=== PATIENT | female | born 1950 | race Caucasian/White ===

== ENCOUNTER 2016-07-07 08:58 | Day surgery (SDC) | payer MEDICARE ==
[2016-07-06 08:33] VITALS: BMI 28.7
[~2016-07-07 08:58] MED LIST: LACTATED RINGERS 1,000 ML IV SCH
[2016-07-07 09:37] VITALS: RESP 16; TEMP 97
[2016-07-07] MEDS ORDERED: LIDOCAINE 1% 20 ML VIAL (10MG/ML) FOR IV START INTRADERMA ONE (09:41)
[2016-07-07] MEDS ORDERED: LIDOCAINE 1% INJ 10MG/ML (20 ML MDV) ONE (09:58)
[2016-07-07] MEDS ORDERED: PROPOFOL 10 MG/ML 20 ML VIAL IV ONE (09:58)
--- NOTE | 2016-07-07 10:08 | P.PCN ---
Date of Procedure: 07/07/16 Procedure(s) Performed: BRIEF HISTORY: Patient is a 66-year-old, pleasant, white female, scheduled for an upper endoscopy as a part of evaluation of long-standing history of GERD and Carr's esophagus. She is presently on Prilosec 20 mg daily and doing much better. Denies any heartburn, dysphagia or odynophagia.. PROCEDURE PERFORMED: Esophagogastroduodenoscopy with biopsy. PREOPERATIVE DIAGNOSIS: GERD/Carr's esophagus. IV sedation per anesthesia. PROCEDURE: After informed consent was obtained, the patient was brought into the endoscopy unit. IV sedation was administered by Anesthesia under continuous monitoring. Initially the Olympus GIF-140 video endoscope was inserted into the mouth. Esophagus intubated without any difficulty. It was gradually advanced into the stomach and duodenum and carefully examined. The bulb and the second part of the duodenum appeared normal. The scope at this time was withdrawn to the stomach, adequately insufflated with air, and upon careful examination, mucosa of the antrum, body, cardia and the fundus appeared normal. The scope was then withdrawn into the esophagus. The GE junction was located at 36 cm from the incisors. There was a small hiatal hernia noted. There were 2 tongues of Carr's appearing mucosa extending 3-4 mm proximal to the GE junction and this was biopsied. The rest of the esophagus appeared normal. There were no erosions or ulcerations seen and the patient tolerated the procedure well. IMPRESSION: 1. Small hiatal hernia. 2. Short segment Carr's esophagus status post biopsy. RECOMMENDATIONS: The findings of this examination were discussed with the patient as well as her family. She was advised to follow with the biopsy results. She will continue with Prilosec 20 mg daily and follow antireflux measures. If the biopsy confirms the presence of Carr's esophagus she can have a repeat upper endoscopy in 2 years.
[2016-07-07 10:54] VITALS: BP 160/72; PULSE 59
== END 2016-07-07 10:59 | disposition home or self-care (01) ==
LOC: ORWHC2ENDO 08:58
PROVIDERS: ATTEND Internal Medicine Gastroenterology
DX: K22.70 Barrett's esophagus without dysplasia (principal); K21.0 Gastro-esophageal reflux disease with esophagitis; K44.9 Diaphragmatic hernia without obstruction or gangrene; I10 Essential (primary) hypertension; E78.5 Hyperlipidemia, unspecified; J45.909 Unspecified asthma, uncomplicated; J44.9 Chronic obstructive pulmonary disease, unspecified; Z87.891 Personal history of nicotine dependence; Z79.82 Long term (current) use of aspirin; Z79.899 Other long term (current) drug therapy; Z88.5 Allergy status to narcotic agent; Z88.0 Allergy status to penicillin; Z91.041 Radiographic dye allergy status; Z88.8 Allergy status to other drugs, medicaments and biological substances; I25.2 Old myocardial infarction
CPT/HCPCS: 88305; 43239; J2001; J2704

== ENCOUNTER → 2017-02-22 | Outpatient (CLI) | payer MEDICARE ==
[2017-02-22 11:08] LABS: Appearance,Urine Clear (Clear); Bilirubin,Urine Negative (Negative); CH 29.8; CHCM 32.3; Glucose,Urine (UA) Negative (Negative); HCT 42.4 % (34.0-46.0); HDW 2.78; HGB 13.3 gm/dL (11.4-16.0); Ketones,Urine Negative (Negative); Leukocyte Esterase,Urine Negative (Negative); MCH 29.1 pg (25.0-35.0); MCHC 31.4 g/dL (31.0-37.0); MCV 92.5 fL (80.0-100.0); Mean Platelet Volume 7.3; Nitrite,Urine Negative (Negative); PH, Urine 5.5 (5.0-8.0); Protein,Urine Trace (Negative); RBC 4.59 m/uL (3.80-5.40); RDW 13.7 % (11.5-15.5); Specific Gravity,Urine 1.007 (1.001-1.035); UA Billing (MACRO vs. MICRO) CHEM; Urobilinogen,Urine <2.0 mg/dL (<2.0); WBC 5.2 k/uL (3.8-10.6)
[2017-02-22 11:20] LABS: Calcium 9.5 mg/dL (8.4-10.2); Magnesium 2.2 mg/dL (1.6-2.3); Phosphorus 3.6 mg/dL (2.5-4.5); Potassium 5.1 mmol/L (3.5-5.1)
== END | disposition home or self-care (01) ==
LOC: LABWHC1 10:20
PROVIDERS: ATTEND Nurse Practitioner Family
DX: N18.3 Chronic kidney disease, stage 3 (moderate) (principal); D64.9 Anemia, unspecified; N39.0 Urinary tract infection, site not specified; R80.9 Proteinuria, unspecified; E21.3 Hyperparathyroidism, unspecified; E55.9 Vitamin D deficiency, unspecified; M10.9 Gout, unspecified
CPT/HCPCS: 36415; 80048; 81003; 82306; 82570; 83735; 83970; 84100; 84156; 84550; 85027

== ENCOUNTER → 2018-03-13 | Outpatient (CLI) | payer MEDICARE ==
--- NOTE | 2018-03-13 09:40 | XR ---
EXAMINATION TYPE: XR chest 2V DATE OF EXAM: 03/13/2018 COMPARISON: Prior chest x-ray 05/28/2015 HISTORY: Shortness of breath TECHNIQUE: Frontal and lateral views of the chest are obtained. FINDINGS: Patient is post median sternotomy and mitral valve replacement. Prominent lung volumes com patible with underlying COPD. Heart size is stable. No evident pneumothorax or pleural effusion. IMPRESSION: There may be basilar atelectasis, correlate for possible pneumonia. Follow-up recommende d.
== END | disposition home or self-care (01) ==
LOC: RADXRMAIN 09:12
PROVIDERS: ATTEND Family Medicine
DX: R06.02 Shortness of breath (principal)
CPT/HCPCS: 71046

== ENCOUNTER → 2018-06-21 | Outpatient (CLI) | payer MEDICARE ==
--- NOTE | 2018-06-22 10:15 | XR ---
EXAMINATION TYPE: XR chest 2V DATE OF EXAM: 06/21/2018 COMPARISON: Prior chest x-ray 03/13/2018 HISTORY: Pneumonia, cough TECHNIQUE: Frontal and lateral views of the chest are obtained. FINDINGS: The patient is post median sternotomy and rotated. Post mitral valve replacement change, ep icardial pacing leads again noted. There is no focal air space opacity, pleural effusion, or pneumot horax seen. The cardiac silhouette size is within normal limits. Prominent lung volumes suggest unde rlying COPD. The aorta is dense. The osseous structures are intact. IMPRESSION: No acute cardiopulmonary process. Patient's pneumonia has resolved.
== END | disposition home or self-care (01) ==
LOC: RADXRMAIN 15:17
PROVIDERS: ATTEND Family Medicine
DX: R91.8 Other nonspecific abnormal finding of lung field (principal)
CPT/HCPCS: 71046

== ENCOUNTER 2020-04-19 09:19 | Inpatient (IN) | payer MEDICARE ==
[2020-04-19] MEDS ORDERED: SODIUM CHLORIDE 0.9% 1,000 ML IV STA (10:02)
[2020-04-19] MEDS ORDERED: IPRATROPIUM-ALBUTEROL 3 ML NEB INHALATION STA (10:02)
[2020-04-19 10:32] LABS: Basophils % (A) 0 %; Eosinophils # (A) 0.2 k/uL (0-0.7); Eosinophils % (A) 2 %; HCT 42.4 % (34.0-46.0); HGB 13.6 gm/dL (11.4-16.0); Lymphocytes # (A) 1.1 k/uL (1.0-4.8); Lymphocytes % (A) 11 %; MCH 29.8 pg (25.0-35.0); MCHC 32.2 g/dL (31.0-37.0); MCV 92.6 fL (80.0-100.0); Mean Platelet Volume 7.5; Monocytes # (A) 0.5 k/uL (0-1.0); Monocytes % (A) 5 %; Neutrophils # (A) 7.8 k/uL (1.3-7.7); Neutrophils % (A) 81 %; Platelet Count 282 k/uL (150-450); RBC 4.58 m/uL (3.80-5.40); RDW 14.2 % (11.5-15.5); WBC 9.8 k/uL (3.8-10.6)
--- NOTE | 2020-04-19 10:43 | ED ---
SOB HPI - General Chief Complaint: Shortness of Breath Stated Complaint: Poss Pneumonia Time Seen by Provider: 04/19/20 09:35 Source: patient, RN notes reviewed Mode of arrival: wheelchair Limitations: no limitations - History of Present Illness Initial Comments: This is a 70-year-old female who presents with complaints of shortness of breath and productive cough and generalized weakness. She's had a fever for the past 4 days some night sweats also complains of some deep breathing pain in the left she believes she may have pneumonia she's had before. No palpitations or other complaints or modifying factors MD Complaint: shortness of breath, cough - Related Data Home Medications Medication Instructions Recorded Confirmed Aspirin 325 mg PO HS 07/06/16 04/19/20 Enalapril [Vasotec] 20 mg PO BID 07/06/16 04/19/20 Ergocalciferol (Vitamin D2) 50,000 unit PO Q30D 07/06/16 04/19/20 [Vitamin D2] Magnesium Oxide 400 mg PO HS 07/06/16 04/19/20 Metoprolol Tartrate [Lopressor] 50 mg PO BID 07/06/16 04/19/20 Pravastatin Sodium 80 mg PO HS 07/06/16 04/19/20 Albuterol Inhaler [Ventolin Hfa 2 puff INHALATION RT-Q6H PRN 04/19/20 04/19/20 Inhaler] Ezetimibe [Zetia] 10 mg PO DAILY 04/19/20 04/19/20 Fluticasone/Umeclidin/Vilanter 1 puff INHALATION RT-DAILY 04/19/20 04/19/20 [Trelegy Ellipta 200-62.5-25] Omeprazole Magnesium [PriLOSEC OTC] 20 mg PO DAILY PRN 04/19/20 04/19/20 calcitrioL [Calcitriol] 0.25 mcg PO CRENSHAW 04/19/20 04/19/20 hydroCHLOROthiazide 25 mg PO DAILY 04/19/20 04/19/20 Allergies Allergy/AdvReac Type Severity Reaction Status Date / Time chlorthalidone Allergy Vomiting Verified 04/19/20 10:19 Iodinated Contrast Media Allergy blisters Verified 04/19/20 10:19 [Iodinated Contrast Media - Oral and] meperidine [From Demerol] Allergy Vomiting Verified 04/19/20 10:19 Penicillins Allergy Swelling/hi Verified 04/19/20 10:19 ves Review of Systems ROS Statement: Those systems with pertinent positive or pertinent negative responses have been documented in the HPI. ROS Other: All systems not noted in ROS Statement are negative. Past Medical History Past Medical History: Asthma, Coronary Artery Disease (CAD), COPD, GERD/Reflux, Hyperlipidemia, Hypertension, Myocardial Infarction ([place]) Additional Past Medical History / Comment(s): hx anemia, barretts esophagus, kidneys not functioning properly - having testing Last Myocardial Infarction Date:: 2007 History of Any Multi-Drug Resistant Organisms: None Reported Past Surgical History: Cardiac Valve Replacement, Cholecystectomy, Heart Catheterization, Tubal Ligation Additional Past Surgical History / Comment(s): mitral valve replacement Past Anesthesia/Blood Transfusion Reactions: Motion Sickness Past Psychological History: No Psychological Hx Reported Smoking Status: Former smoker Past Alcohol Use History: None Reported Past Drug Use History: None Reported - Past Family History Mother Family Medical History: No Reported History General Exam - General Exam Comments Initial Comments: This is a well-developed well-nourished awake alert oriented 3 female Limitations: no limitations General appearance: alert, in no apparent distress Head exam: Present: atraumatic, normocephalic, normal inspection Eye exam: Present: normal appearance, PERRL, EOMI. Absent: scleral icterus, conjunctival injection, periorbital swelling ENT exam: Present: normal exam, mucous membranes moist Neck exam: Present: normal inspection, full ROM, other (No stridor JVD or bruits). Absent: tenderness, meningismus, lymphadenopathy Respiratory exam: Present: rhonchi (The floor lobe rhonchi), chest wall tenderness (Tennis palpation over left chest wall), decreased breath sounds. Absent: respiratory distress, wheezes, rales, stridor Cardiovascular Exam: Present: normal rhythm, tachycardia, normal heart sounds. Absent: systolic murmur, diastolic murmur, rubs, gallop, clicks GI/Abdominal exam: Present: soft, normal bowel sounds. Absent: distended, tenderness, guarding, rebound, rigid Extremities exam: Present: normal inspection, full ROM, normal capillary refill. Absent: tenderness, pedal edema, joint swelling, calf tenderness Back exam: Present: normal inspection Neurological exam: Present: alert, oriented X3, CN II-XII intact Psychiatric exam: Present: normal affect, normal mood Skin exam: Present: warm, dry, intact, normal color. Absent: rash Course Vital Signs 04/19/20 04/19/20 09:21 11:32 Temperature 97.8 F Pulse Rate 120 H Respiratory 22 16 Rate Blood Pressure 94/68 O2 Sat by Pulse 90 L Oximetry - Reevaluation(s) Reevaluation #1: 04/19/20 12:53 Patient states she did improve with respiratory efforts treatment. Medical Decision Making - Medical Decision Making I did a long discussion with the patient. Findings or is evidence of infiltrates on x-rays as well as evidence of CHF. In light of the patient's symptoms and persistent dyspnea she'll be admitted case was discussed with Dr. King. - Lab Data Result diagrams: 04/19/20 10:12 04/19/20 10:17 Lab Results 04/19/20 04/19/20 04/19/20 Range/Units 10:12 10:17 10:17 WBC 9.8 (3.8-10.6) k/uL RBC 4.58 (3.80-5.40) m/uL Hgb 13.6 (11.4-16.0) gm/dL Hct 42.4 (34.0-46.0) % MCV 92.6 (80.0-100.0) fL MCH 29.8 (25.0-35.0) pg MCHC 32.2 (31.0-37.0) g/dL RDW 14.2 (11.5-15.5) % Plt Count 282 (150-450) k/uL MPV 7.5 Neutrophils % 81 % Lymphocytes % 11 % Monocytes % 5 % Eosinophils % 2 % Basophils % 0 % Neutrophils # 7.8 H (1.3-7.7) k/uL Lymphocytes # 1.1 (1.0-4.8) k/uL Monocytes # 0.5 (0-1.0) k/uL Eosinophils # 0.2 (0-0.7) k/uL Basophils # 0.0 (0-0.2) k/uL PT 10.4 (9.0-12.0) sec INR 1.0 (<1.2) APTT 21.8 L (22.0-30.0) sec Sodium 132 L (137-145) mmol/L Potassium 5.1 (3.5-5.1) mmol/L Chloride 95 L (98-107) mmol/L Carbon Dioxide 22 (22-30) mmol/L Anion Gap 15 mmol/L BUN 47 H (7-17) mg/dL Creatinine 2.49 H (0.52-1.04) mg/dL Est GFR (CKD-EPI)AfAm 22 (>60 ml/min/1.73 sqM) Est GFR (CKD-EPI)NonAf 19 (>60 ml/min/1.73 sqM) Glucose 115 H (74-99) mg/dL Plasma Lactic Acid Radames (0.7-2.0) mmol/L Calcium 9.2 (8.4-10.2) mg/dL Magnesium 2.6 H (1.6-2.3) mg/dL Total Bilirubin 0.7 (0.2-1.3) mg/dL AST 54 H (14-36) U/L ALT 35 H (4-34) U/L Alkaline Phosphatase 74 (38-126) U/L Creatine Kinase 117 (30-135) U/L Troponin I (0.000-0.034) ng/mL NT-Pro-B Natriuret Pep pg/mL Total Protein 6.6 (6.3-8.2) g/dL Albumin 3.7 (3.5-5.0) g/dL 04/19/20 04/19/20 04/19/20 Range/Units 10:17 10:17 10:17 WBC (3.8-10.6) k/uL RBC (3.80-5.40) m/uL Hgb (11.4-16.0) gm/dL Hct (34.0-46.0) % MCV (80.0-100.0) fL MCH (25.0-35.0) pg MCHC (31.0-37.0) g/dL RDW (11.5-15.5) % Plt Count (150-450) k/uL MPV Neutrophils % % Lymphocytes % % Monocytes % % Eosinophils % % Basophils % % Neutrophils # (1.3-7.7) k/uL Lymphocytes # (1.0-4.8) k/uL Monocytes # (0-1.0) k/uL Eosinophils # (0-0.7) k/uL Basophils # (0-0.2) k/uL PT (9.0-12.0) sec INR (<1.2) APTT (22.0-30.0) sec Sodium (137-145) mmol/L Potassium (3.5-5.1) mmol/L Chloride (98-107) mmol/L Carbon Dioxide (22-30) mmol/L Anion Gap mmol/L BUN (7-17) mg/dL Creatinine (0.52-1.04) mg/dL Est GFR (CKD-EPI)AfAm (>60 ml/min/1.73 sqM) Est GFR (CKD-EPI)NonAf (>60 ml/min/1.73 sqM) Glucose (74-99) mg/dL Plasma Lactic Acid Radames 1.2 (0.7-2.0) mmol/L Calcium (8.4-10.2) mg/dL Magnesium (1.6-2.3) mg/dL Total Bilirubin (0.2-1.3) mg/dL AST (14-36) U/L ALT (4-34) U/L Alkaline Phosphatase (38-126) U/L Creatine Kinase (30-135) U/L Troponin I <0.012 (0.000-0.034) ng/mL NT-Pro-B Natriuret Pep 2940 pg/mL Total Protein (6.3-8.2) g/dL Albumin (3.5-5.0) g/dL - EKG Data -: EKG Interpreted by Tn EKG Comments: Sinus tachycardia rate of 118 192 QRS duration 80 QT since QTC 324/[address]-T wave configuration - Radiology Data Radiology results: report reviewed (Did review the imaging and report evidence of infiltrates in the right lower lobe and left lower lobe.), image reviewed Disposition Clinical Impression: Pneumonia, Acute exacerbation of chronic obstructive pulmonary disease, CHF (congestive heart failure), Acute kidney injury Disposition: ADMITTED IP TO THIS [facility] Condition: Fair Referrals: Saman Wilcox DO [Primary Care Provider] - 1-2 days
[2020-04-19 10:44] LABS: Albumin 3.7 g/dL (3.5-5.0); Calcium 9.2 mg/dL (8.4-10.2); Magnesium 2.6 mg/dL (1.6-2.3); Total Bilirubin 0.7 mg/dL (0.2-1.3); Total Protein 6.6 g/dL (6.3-8.2)
[2020-04-19] MEDS ORDERED: ALBUTEROL HFA INHALER INHALATION ONE (10:45)
--- NOTE | 2020-04-19 10:50 | XR ---
EXAMINATION TYPE: XR chest 2V DATE OF EXAM: 04/19/2020 COMPARISON: 06/21/2018 HISTORY: 70 year-old female shortness of breath, difficulty breathing TECHNIQUE: PA and lateral views FINDINGS: Median sternotomy wires and post-CABG clips. Annuloplasty ring is also noted. Retained epicardial pac er leads. Heart normal size. Mild interstitial prominence and mild hyperinflation. New focal right ba silar opacity. There is also some patchy peripheral left basilar opacity blunting the costophrenic an gle. No sizable effusion on the lateral view. IMPRESSION: 1. COPD. 2. Patchy bibasilar densities, medially on the right and peripherally on the left. Early pneumonia, a spiration, and interstitial pneumonitis are some considerations.
[2020-04-19 10:54] LABS: Prothrombin Time 10.4 sec (9.0-12.0)
[2020-04-19 11:01] LABS: Partial Thromboplastin Time 21.8 sec (22.0-30.0)
[2020-04-19 11:20] LABS: Potassium 5.1 mmol/L (3.5-5.1)
[2020-04-19] MEDS ORDERED: PNEUMONIA PROTOCOL UTILIZED 1 EACH MISC PO PRN (12:55)
[2020-04-19] MEDS ORDERED: AZITHROMYCIN 500 MG in SODIUM CHLORIDE 0.9% 250 ML IVPB STA (12:55)
[2020-04-19] MEDS ORDERED: PANTOPRAZOLE 40 MG TABLET PO PRN (12:57)
[2020-04-19] MEDS: SODIUM CHLORIDE 0.9% 1,000 ML IV SCH (13:06)
[2020-04-19] MEDS: IPRATROPIUM-ALBUTEROL 3 ML NEB INHALATION SCH ×2 (15:50→20:19)
[2020-04-19] MEDS ORDERED: FUROSEMIDE 10 MG/ML 4 ML VIAL IV SCH (16:00)
[2020-04-19] MEDS ORDERED: HEPARIN SODIUM,PORCINE 5,000 UNIT/ML 1 ML VIAL IV ONE (17:18)
[2020-04-19] MEDS ORDERED: HEPARIN SODIUM,PORCINE 5,000 UNIT/ML 1 ML VIAL IV PRN (17:18)
[2020-04-19] MEDS: METOPROLOL TARTRATE 50 MG TAB PO SCH (17:48)
[2020-04-19] MEDS: HEPARIN SOD,PORK IN 0.45% NACL 25,000 UNIT in 0.45% NACL 1 250ML.BAG IV SCH (18:39)
[2020-04-19] MEDS ORDERED: MAGNESIUM HYDROXIDE 2,400 MG/10 ML CUP PO PRN (19:36)
[2020-04-19] MEDS ORDERED: MELATONIN 3 MG TABLET PO PRN (19:36)
[2020-04-19] MEDS ORDERED: ONDANSETRON 4 MG/2 ML VIAL IVP PRN (19:36)
[2020-04-19] MEDS ORDERED: LORazepam 0.5 MG TAB PO PRN (19:36)
[2020-04-19] MEDS ORDERED: CALCIUM CARBONATE 500 MG CHEWABLE PO PRN (19:36)
[2020-04-19] MEDS ORDERED: NALOXONE 0.4 MG/ML 1 ML VIAL IV PRN (19:36)
--- NOTE | 2020-04-19 19:47 | P.HPIM ---
History of Present Illness H&P Date: 04/19/20 Chief Complaint: Short of breath cough History of presenting complaint: This is a pleasant 70-year-old patient of Dr. Glory Wilcox. Chronic stable medical conditions include coronary artery disease, CHF, GERD, hypertension, hyperlipidemia, chronic kidney disease, Carr's esophagus, hiatal hernia, coronary artery disease with history of bypass cardiac valve replacement/mitral valve replacement. Patient always rather active. For 4 days patient started getting increasingly short of breath. Wheezing. Off. She described her sputum as being yucky. Developed fevers and significant chills. Decreased appetite tired rundown. Review of systems: GEN.: Tired fever or chills EYES: None HEENT: None NECK: None RESPIRATORY: As above CARDIOVASCULAR: None GASTROINTESTINAL: None GENITOURINARY: None MUSCULOSKELETAL: Joint pains LYMPHATICS: None HEMATOLOGICAL: None PSYCHIATRY: None NEUROLOGICAL: None Past medical history to include: COPD,'s coronary artery disease with bypass, CHF, COPD, GERD, hyperlipidemia, hypertension, kidney disease, Carr's esophagus, hiatal hernia, mitral valve replacement Social history: This letter and her daughter. She is active. He smoked on and off since she was 17 for many years finally stopping in 2007. No alcohol. Physical examination: VITAL SIGNS: 97.8, 120, 22, 94/68, 90% on room air upon presentation GENERAL: BMI 27.2, sitting on bed, slightly short of breath, awake. EYES: Pupils equal. Conjunctiva normal. HEENT: External appearance of nose and ears normal, oral cavity grossly normal. NECK: JVD not raised; masses not palpable. HEART: First and second heart sounds are normal; no edema. LUNGS: Respiratory rate increased, decreased breath sounds or wheezing some right basal expiratory crackle. ABDOMEN: Soft, nontender, liver spleen not palpable, no masses palpable. PSYCH: Alert and oriented x3; mood and affect normal. MUSCULOSKELETAL: Evidence of OA NEUROLOGICAL: Cranial nerves grossly intact; no facial asymmetry, power and sensation grossly intact. LYMPHATICS: No lymph nodes palpable in the axilla and neck INVESTIGATIONS, reviewed in the clinical context: WBC 9.8 white count 13.6 hemoglobin 22 left shift sodium 132 potassium 5.1 bun 47 creatinine 2.49 Coronavirus [PCR]-not detected EKG tracing personally reviewed by me-possible sinus tachycardia. Chest x-ray film personally reviewed by me-hyperinflated, basilar infiltrates Assessment and plan: -This is a patient who presents with 4 days of increasing short of breath cough chunky sputum production. Patient has infiltrates on the chest x-ray at the bases. Bilateral basal pneumonia suspected gram-negative organism. Patient started IV ceftriaxone Zithromax will send a sputum for Gram stain and culture -Acute COPD exacerbation in an ex-smoker. Start the patient on bronchodilator, inhaled steroids and long-acting beta agonist -Coronary artery disease by history of coronary bypass, continue with aspirin beta sonya and TESSA inhibitor -Chronic kidney disease stage IV. Rule out acute component. We will do a renal ultrasound. Stop Dyazide. Renal ultrasound. Renal consultation -GERD continue PPI -Hyperlipidemia continue antilipid agents -Essential hypertension continue with antihypertensive -Carr's esophagus continue with PPI -History of mitral valve replacement Consultation to nephrology. Cardiology. Sputum will be sent for Gram stain and.. Care was discussed with the patient. Questions answered. Patient is being admitted to inpatient expect the patient to be in hospital for at least overnights Past Medical History Past Medical History: Asthma, Coronary Artery Disease (CAD), Heart Failure, COPD, GERD/Reflux, Hyperlipidemia, Hypertension, Myocardial Infarction ([place]), Pneumonia, Renal Disease Additional Past Medical History / Comment(s): Carr's esophagus, hiatal hernia, sinus problems, past renal insufficiency, acute blood loss anemia with misscarriage. Last Myocardial Infarction Date:: 2007 History of Any Multi-Drug Resistant Organisms: None Reported Past Surgical History: Cardiac Valve Replacement, Cholecystectomy, Coronary Bypass/CABG, Heart Catheterization, Tubal Ligation Additional Past Surgical History / Comment(s): 2008 CABG with jacinto to lad and mitral valve replacement, MAIRA, EGD and colonoscopy. Past Anesthesia/Blood Transfusion Reactions: Motion Sickness Additional Past Anesthesia/Blood Transfusion Reaction / Comment(s): Pt received blood with misscarriage once without reaction. Smoking Status: Former smoker - Past Family History Mother Family Medical History: COPD, Coronary Artery Disease (CAD), Myocardial Infarction ([place]) Additional Family Medical History / Comment(s): Pt does not know at what age her mother had a [place] Father Family Medical History: No Reported History Additional Family Medical History / Comment(s): Father was healthy Medications and Allergies Home Medications Medication Instructions Recorded Confirmed Type Aspirin 325 mg PO HS 07/06/16 04/19/20 History Enalapril [Vasotec] 20 mg PO BID 07/06/16 04/19/20 History Ergocalciferol (Vitamin D2) 50,000 unit PO Q30D 07/06/16 04/19/20 History [Vitamin D2] Magnesium Oxide 400 mg PO HS 07/06/16 04/19/20 History Metoprolol Tartrate [Lopressor] 50 mg PO BID 07/06/16 04/19/20 History Pravastatin Sodium 80 mg PO HS 07/06/16 04/19/20 History Albuterol Inhaler [Ventolin Hfa 2 puff INHALATION RT-Q6H PRN 04/19/20 04/19/20 History Inhaler] Ezetimibe [Zetia] 10 mg PO DAILY 04/19/20 04/19/20 History Fluticasone/Umeclidin/Vilanter 1 puff INHALATION RT-DAILY 04/19/20 04/19/20 History [Trelegy Ellipta 200-62.5-25] Omeprazole Magnesium [PriLOSEC OTC] 20 mg PO DAILY PRN 04/19/20 04/19/20 History calcitrioL [Calcitriol] 0.25 mcg PO CRENSHAW 04/19/20 04/19/20 History hydroCHLOROthiazide 25 mg PO DAILY 04/19/20 04/19/20 History Allergies Allergy/AdvReac Type Severity Reaction Status Date / Time chlorthalidone Allergy Vomiting Verified 04/19/20 10:19 Iodinated Contrast Media Allergy blisters Verified 04/19/20 10:19 [Iodinated Contrast Media - Oral and] meperidine [From Demerol] Allergy Vomiting Verified 04/19/20 10:19 Penicillins Allergy Swelling/hi Verified 04/19/20 10:19 ves Physical Exam Vitals: Vital Signs Temp Pulse Pulse Resp BP BP Pulse Ox 04/19/20 16:03 100 04/19/20 16:00 97.1 F L 89 16 110/69 92 L 04/19/20 15:53 100 04/19/20 13:38 106 H 16 110/90 96 04/19/20 11:32 16 04/19/20 09:21 97.8 F 120 H 22 94/68 90 L Intake and Output 04/19/20 04/19/20 04/19/20 06:59 14:59 22:59 Intake Total 125 Balance 125 Intake: Oral 125 Other: Weight 68.492 kg 69.7 kg Results CBC & Chem 7: 04/19/20 10:12 04/19/20 10:17 Labs: Abnormal Lab Results - Last 24 Hours (Table) 04/19/20 04/19/20 04/19/20 Range/Units 10:12 10:17 10:17 Neutrophils # 7.8 H (1.3-7.7) k/uL APTT 21.8 L (22.0-30.0) sec Sodium 132 L (137-145) mmol/L Chloride 95 L (98-107) mmol/L BUN 47 H (7-17) mg/dL Creatinine 2.49 H (0.52-1.04) mg/dL Glucose 115 H (74-99) mg/dL Magnesium 2.6 H (1.6-2.3) mg/dL AST 54 H (14-36) U/L ALT 35 H (4-34) U/L Thrombosis Risk Factor Assmnt - Choose All That Apply Any of the Below Risk Factors Present?: Yes Each Factor Represents 1 point: Abnormal pulmonary function (COPD), Heart failure (<1month), Obesity (BMI >25), Serious lung disease incl. pneumonia (< 1month) Other Risk Factors: Yes Each Risk Factor Represents 2 Points: Age 61-74 years Other congenital or acquired thrombophilia - If yes, enter type in comment: No Thrombosis Risk Factor Assessment Total Risk Factor Score: 6 Thrombosis Risk Factor Assessment Level: High Risk
[2020-04-19] MEDS: FORMOTEROL FUMARATE 20 MCG/2 ML NEBU INHALATION SCH (20:18)
[2020-04-19] MEDS: BUDESONIDE 1 MG/2 ML NEBU INHALATION SCH (20:18)
[2020-04-19] MEDS ORDERED: ASPIRIN 325 MG TAB PO SCH (21:00)
--- NOTE | 2020-04-19 22:02 | US ---
EXAMINATION TYPE: US kidneys/renal and bladder DATE OF EXAM: 04/19/2020 COMPARISON: NONE CLINICAL HISTORY: Kidney failure acute versus chronic. Kidney failure acute versus chronic per order. EXAM MEASUREMENTS: Right Kidney: 8.3 x 3.9 x 3.4 cm Left Kidney: 9.1 x 5.3 x 4.5 cm Right Kidney: Appears small in size. Cortex appears to be slightly thin. No focal lesion. Left Kidney: Difficult to clearly visualize. Cortex appears to be slightly thin. No focal lesion. Bladder: Not seen. IMPRESSION: No bilateral hydronephrosis. Mild cortical thinning, suggestive of mild atrophy.
[2020-04-19] MEDS: methylPREDNISolone SOD SUCCI 40 MG/ML 1 ML VIAL IV SCH (22:05)
[2020-04-19] MEDS: guaiFENesin 600 MG TABLET.ER PO SCH (22:06)
[2020-04-19] MEDS: MAGNESIUM OXIDE 400 MG TAB PO SCH (22:06)
[2020-04-19] MEDS: PRAVASTATIN SODIUM 80 MG TAB PO SCH (23:42)
[2020-04-19] MEDS: lisinopriL 20 MG TAB PO SCH (23:43)
[2020-04-20] MEDS: IPRATROPIUM-ALBUTEROL 3 ML NEB INHALATION SCH ×7 (00:14→20:01)
[2020-04-20] MEDS: methylPREDNISolone SOD SUCCI 40 MG/ML 1 ML VIAL IV SCH ×4 (02:31→23:48)
[2020-04-20 06:30] LABS: Glucose,Whole Blood 171 mg/dL (75-99)
[2020-04-20] MEDS: INSULIN ASPART (NovoLOG) 100 UNIT/ML VIAL SQ SCH ×3 (07:04→17:23)
[2020-04-20] MEDS: EZETIMIBE 10 MG TAB PO SCH (07:59)
[2020-04-20] MEDS: AZITHROMYCIN 500 MG TAB PO SCH (07:59)
[2020-04-20] MEDS: guaiFENesin 600 MG TABLET.ER PO SCH ×4 (08:00→23:48)
[2020-04-20] MEDS: ASPIRIN 81 MG PO SCH (08:00)
[2020-04-20] MEDS: lisinopriL 20 MG TAB PO SCH (08:00)
[2020-04-20] MEDS: METOPROLOL TARTRATE 50 MG TAB PO SCH ×2 (08:00→20:33)
[2020-04-20] MEDS ORDERED: SYMBICORT 80-4.5 MCG INHALER INHALATION SCH (08:00)
[2020-04-20] MEDS: BUDESONIDE 1 MG/2 ML NEBU INHALATION SCH ×2 (08:10→19:45)
[2020-04-20] MEDS: FORMOTEROL FUMARATE 20 MCG/2 ML NEBU INHALATION SCH ×2 (08:10→19:45)
--- NOTE | 2020-04-20 08:10 | XR ---
EXAMINATION TYPE: XR chest 1V portable DATE OF EXAM: 04/20/2020 COMPARISON: 04/19/2020 HISTORY: Shortness of breath TECHNIQUE: Single frontal view of the chest is obtained. FINDINGS: Bibasilar subsegmental consolidation. Coarsened interstitium and cardiomegaly. Postsurgica l change. Diffuse osteopenia. No pneumothorax. Underlying COPD noted. IMPRESSION: 1. Patchy bilateral infiltrates are stable. Correlate for interstitial chronic lung disease or inters titial pneumonitis.
[2020-04-20 08:14] LABS: Basophils % (A) 0 %; Eosinophils % (A) 0 %; HCT 38.4 % (34.0-46.0); HGB 12.3 gm/dL (11.4-16.0); Lymphocytes # (A) 0.4 k/uL (1.0-4.8); Lymphocytes % (A) 7 %; MCHC 32.1 g/dL (31.0-37.0); MCV 93.6 fL (80.0-100.0); Mean Platelet Volume 7.4; Monocytes # (A) 0.1 k/uL (0-1.0); Monocytes % (A) 1 %; Neutrophils # (A) 5.6 k/uL (1.3-7.7); Neutrophils % (A) 91 %; Platelet Count 240 k/uL (150-450); RBC 4.11 m/uL (3.80-5.40); RDW 13.9 % (11.5-15.5); WBC 6.2 k/uL (3.8-10.6)
[2020-04-20 08:55] LABS: Calcium 8.7 mg/dL (8.4-10.2); Potassium 4.7 mmol/L (3.5-5.1)
[2020-04-20] MEDS ORDERED: hydroCHLOROthiazide 25 MG TAB PO SCH (09:00)
--- NOTE | 2020-04-20 11:22 | ECHOF ---
Referral Reason:aflutter MEASUREMENTS -------- HEIGHT: 160.0 cm WEIGHT: 69.4 kg BP: RVIDd: 3.3 cm (< 3.3) IVSd: 1.2 cm (0.6 - 1.1) LVIDd: 3.4 cm (3.9 - 5.3) LVPWd: 1.6 cm (0.6 - 1.1) IVSs: 1.3 cm LVIDs: 3.1 cm LVPWs: 2.0 cm Ao Diam: 2.8 cm (2.0 - 3.7) AV Cusp: 1.5 cm (1.5 - 2.6) LA Diam: 4.2 cm (2.7 - 3.8) MV EXCURSION: 12.148 mm (> 18.000) MV EF SLOPE: 75 mm/s (70 - 150) EPSS: 0.7 cm RAP: 5.00 mmHg RVSP: 29.09 mmHg FINDINGS -------- The rhythm appears to be atrial flutter. This was a technically adequate study. The left ventricular size is normal. There is mild concentric left ventricular hypertrophy. Overa ll left ventricular systolic function is low-normal with, an EF between 50 - 55 %. The right ventricle is normal in size. The right atrial size is normal. There is mild aortic valve sclerosis. The peak and mean MV gradients are 13.69mmHg 4.45mmHg as measured by doppler. There is mild boston-pr osthetic regurgitation of the bioprosthetic mitral valve. Mild tricuspid regurgitation present. The right ventricular systolic pressure, as measured by Doppl er, is 29.09mmHg. There is no pulmonic regurgitation present. The aortic root size is normal. There is no pericardial effusion. CONCLUSIONS -------- 1. The left ventricular size is normal. 2. There is mild concentric left ventricular hypertrophy. 3. Overall left ventricular systolic function is low-normal with, an EF between 50 - 55 %. 4. The right ventricle is normal in size. 5. The right atrial size is normal. 6. There is mild aortic valve sclerosis. 7. The peak and mean MV gradients are 13.69mmHg 4.45mmHg as measured by doppler. 8. There is mild boston-prosthetic regurgitation of the bioprosthetic mitral valve. 9. Mild tricuspid regurgitation present. 10. The right ventricular systolic pressure, as measured by Doppler, is 29.09mmHg. 11. The aortic root size is normal. 12. There is no pericardial effusion. ANTIQUE FURNITURE REPAIRER: Marybel Vargas RDCS
[2020-04-20 12:09] LABS: Glucose,Whole Blood 155 mg/dL (75-99)
--- NOTE | 2020-04-20 12:54 | P.CRDCN ---
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 He does not follow in the office with a [employer] reseller since 2010 when she lost her insurance coverage. We have been asked to see in consultation for atrial flutter. She presented to the hospital with symptoms of cough, fever/chills and weakness. She states she has been diagnosed with pneumonia in the past and this feels the same. She stayed home initially and slept for 2 days straight. Her symptoms did not improve so she presented to the hospital for evaluation. On arrival EKG was obtained revealing 3-1 typical atrial flutter. He was initiated on IV heparin. She denies symptoms of palpitations or dizziness. She does describe having some pain in her chest specifically when she coughs. She continues to be in atrial flutter today heart rates ranging between 100-120. Chest x-ray on admission reveals underlying COPD with early pneumonia. Laboratory data reviewed, CBC unremarkable, sodium 1:30, potassium 4.7, creatinine 1.84, magnesium 2.6, TSH 4.12, and to proBNP 2940 and troponin negative 1. Current daily cardiac medications include aspirin 325 mg daily, enalapril 20 mg twice a day, Zetia 10 mg daily, Lopressor 50 mg twice a day, pravastatin 80 mg at bedtime and hydrochlorothiazide 25 mg daily. REVIEW OF SYSTEMS At the time of my exam: CONSTITUTIONAL: Denies fever or chills. CARDIOVASCULAR: Denies chest pain, shortness of breath, orthopnea, PND or palpitations. RESPIRATORY: Complains of cough. GASTROINTESTINAL: Denies abdominal pain, diarrhea, constipation, nausea or vomiting. MUSCULOSKELETAL: Denies myalgias. NEUROLOGIC: Denies numbness, tingling, headacbe or weakness. ENDOCRINE: Denies fatigue, weight change, polydipsia or polyurina. GENITOURINARY: Denies burning, hematuria or urgency with micturation. HEMATOLOGIC: Denies history of anemia or bleeding. PHYSICAL EXAMINATION Blood pressure 103/68 heart rate 110 afebrile and maintaining oxygen saturation on cannula. CONSTITUTIONAL: No apparent distress. HEENT: Head is normocephalic. Pupils are equal, round. Sclerae anicteric. Mucous membranes of the mouth are moist. No JVD. No carotid bruit. CHEST EXAMINATION: Expiratory wheezes throughout, scattered rhonchi. No rales. No chest wall tenderness is noted on palpation or with deep breathing. HEART EXAMINATION: Irregular rate and rhythm. S1, S2 heard. Systolic ejection murmur at the left sternal border, no gallops or rub. ABDOMEN: Soft, nontender. Positive bowel sounds. EXTREMITIES: 2+ peripheral pulses, no lower extremity edema and no calf tenderness. NEUROLOGIC EXAMINATION: Patient is awake, alert and oriented x3. ASSESSMENT New-onset atrial flutter with rapid ventricular rate Pneumonia Coronary artery disease status post bypass grafting Valvular heart disease status post mitral valve replacement Chronic kidney disease Hypertension Dyslipidemia COPD Former nicotine dependence PLAN Continue metoprolol 50 mg twice a day for rate control may increase to 3 times a day dosing of her blood pressure control her rate. Discontinue lisinopril secondary to renal function. Continue IV heparin infusion. We will check the cost of Eliquis. If her rates cannot be controlled on current oral regimen she may require MAIRA cardioversion. We will reevaluate tomorrow morning. Nothing by mouth after midnight tonight. Obtain 2-D echocardiogram and Doppler study to assess cardiac structure and func tion. Further recommendations to follow based upon clinical course. Thank you kindly for this consultation. Nurse Practitioner note has been reviewed, I agree with a documented findings and plan of care. Patient was seen and examined. Past Medical History Past Medical History: Asthma, Coronary Artery Disease (CAD), Heart Failure, COPD, GERD/Reflux, Hyperlipidemia, Hypertension, Myocardial Infarction (AR), Pneumonia, Renal Disease Additional Past Medical History / Comment(s): Carr's esophagus, hiatal hernia, sinus problems, past renal insufficiency, acute blood loss anemia with misscarriage. Last Myocardial Infarction Date:: 2007 History of Any Multi-Drug Resistant Organisms: None Reported Past Surgical History: Cardiac Valve Replacement, Cholecystectomy, Coronary Bypass/CABG, Heart Catheterization, Tubal Ligation Additional Past Surgical History / Comment(s): 2008 CABG with hart to lad and mitral valve replacement, MAIRA, EGD and colonoscopy. Past Anesthesia/Blood Transfusion Reactions: Motion Sickness Additional Past Anesthesia/Blood Transfusion Reaction / Comment(s): Pt received blood with misscarriage once without reaction. Smoking Status: Former smoker - Past Family History Mother Family Medical History: COPD, Coronary Artery Disease (CAD), Myocardial Infarction (AR) Additional Family Medical History / Comment(s): Pt does not know at what age her mother had a AR Father Family Medical History: No Reported History Additional Family Medical History / Comment(s): Father was healthy Medications and Allergies Home Medications Medication Instructions Recorded Confirmed Type Aspirin 325 mg PO HS 07/06/16 04/19/20 History Enalapril [Vasotec] 20 mg PO BID 07/06/16 04/19/20 History Ergocalciferol (Vitamin D2) 50,000 unit PO Q30D 07/06/16 04/19/20 History [Vitamin D2] Magnesium Oxide 400 mg PO HS 07/06/16 04/19/20 History Metoprolol Tartrate [Lopressor] 50 mg PO BID 07/06/16 04/19/20 History Pravastatin Sodium 80 mg PO HS 07/06/16 04/19/20 History Albuterol Inhaler [Ventolin Hfa 2 puff INHALATION RT-Q6H PRN 04/19/20 04/19/20 History Inhaler] Ezetimibe [Zetia] 10 mg PO DAILY 04/19/20 04/19/20 History Fluticasone/Umeclidin/Vilanter 1 puff INHALATION RT-DAILY 04/19/20 04/19/20 History [Trelegy Ellipta 200-62.5-25] Omeprazole Magnesium [PriLOSEC OTC] 20 mg PO DAILY PRN 04/19/20 04/19/20 History calcitrioL [Calcitriol] 0.25 mcg PO CRENSHAW 04/19/20 04/19/20 History hydroCHLOROthiazide 25 mg PO DAILY 04/19/20 04/19/20 History Allergies Allergy/AdvReac Type Severity Reaction Status Date / Time chlorthalidone Allergy Vomiting Verified 04/19/20 10:19 Iodinated Contrast Media Allergy blisters Verified 04/19/20 10:19 [Iodinated Contrast Media - Oral and] meperidine [From Demerol] Allergy Vomiting Verified 04/19/20 10:19 Penicillins Allergy Swelling/hi Verified 04/19/20 10:19 ves Physical Exam Vitals: Vital Signs Temp Pulse Pulse Resp BP BP Pulse Ox 04/20/20 08:32 104 H 04/20/20 08:25 108 H 04/20/20 08:12 105 H 04/20/20 07:52 97.7 F 105 H 18 103/68 97 04/20/20 04:19 106 H 04/20/20 04:10 101 H 16 04/20/20 03:49 97.4 F L 113 H 17 92/61 95 04/20/20 02:00 116 H 16 04/20/20 00:26 108 H 16 04/20/20 00:16 106 H 16 04/19/20 23:41 116 H 95/60 04/19/20 23:36 116 H 18 89/66 99 04/19/20 20:55 92/61 04/19/20 20:44 96 04/19/20 20:34 92 04/19/20 20:33 92 04/19/20 20:30 97.3 F L 116 H 17 89/68 98 04/19/20 20:19 88 04/19/20 16:03 100 04/19/20 16:00 97.1 F L 89 16 110/69 92 L 04/19/20 15:53 100 04/19/20 13:38 106 H 16 110/90 96 04/19/20 11:32 16 04/19/20 09:21 97.8 F 120 H 22 94/68 90 L Intake and Output 04/19/20 04/20/20 04/20/20 22:59 06:59 14:59 Intake Total 225 56.163 Balance 225 56.163 Intake: Intake, IV Titration 56.163 Amount Heparin Sod,Pork in 0.45% 56.163 NaCl 25,000 unit In 0.45 % NaCl 1 250ml.bag @ 12 UNITS/KG/HR 8.219 mls/hr IV .Q24H [facility] Rx#: [id number] Oral 225 Other: Voiding Method Toilet Toilet # Voids 3 1 Weight 69.7 kg 70 kg Results 04/20/20 07:28 04/20/20 07:28 Cardiac Enzymes 04/19/20 04/19/20 Range/Units 10:17 10:17 AST 54 H (14-36) U/L Troponin I <0.012 (0.000-0.034) ng/mL Coagulation 04/19/20 04/20/20 04/20/20 Range/Units 10:17 00:10 07:37 PT 10.4 (9.0-12.0) sec APTT 21.8 L 31.7 H 43.7 H (22.0-30.0) sec CBC 04/19/20 04/20/20 Range/Units 10:12 07:28 WBC 9.8 6.2 (3.8-10.6) k/uL RBC 4.58 4.11 (3.80-5.40) m/uL Hgb 13.6 12.3 (11.4-16.0) gm/dL Hct 42.4 38.4 (34.0-46.0) % Plt Count 282 240 (150-450) k/uL Comprehensive Metabolic Panel 04/19/20 Range/Units 10:17 Sodium 132 L (137-145) mmol/L Potassium 5.1 (3.5-5.1) mmol/L Chloride 95 L (98-107) mmol/L Carbon Dioxide 22 (22-30) mmol/L BUN 47 H (7-17) mg/dL Creatinine 2.49 H (0.52-1.04) mg/dL Glucose 115 H (74-99) mg/dL Calcium 9.2 (8.4-10.2) mg/dL AST 54 H (14-36) U/L ALT 35 H (4-34) U/L Alkaline Phosphatase 74 (38-126) U/L Total Protein 6.6 (6.3-8.2) g/dL Albumin 3.7 (3.5-5.0) g/dL Current Medications Generic Name Dose Route Start Last Admin Trade Name Freq PRN Reason Stop Dose Admin Acetaminophen 650 mg 04/19/20 19:36 Acetaminophen Tab 325 Mg Tab PO Q6HR PRN Mild Pain or Fever > 100.5 Albuterol/Ipratropium 3 ml 04/19/20 16:00 04/20/20 08:10 Ipratropium-Albuterol 3 Ml Neb INHALATION 3 ml RT-Q4H ALEJANDRO Administration Aspirin 81 mg 04/20/20 09:00 04/20/20 08:00 Aspirin 81 Mg PO 81 mg DAILY ALEJANDRO Administration Azithromycin 500 mg 04/20/20 09:00 04/20/20 07:59 Azithromycin 500 Mg Tab PO 04/24/20 09:01 500 mg DAILY ALEJANDRO Administration Budesonide 1 mg 04/19/20 20:00 04/20/20 08:10 Budesonide 1 Mg/2 Ml Nebu INHALATION 1 mg RT-BID ALEJANDRO Administration Calcitriol 0.25 mcg 04/25/20 09:00 Calcitriol 0.25 Mcg Cap PO CRENSHAW ALEJANDRO Calcium Carbonate/Glycine 1,000 mg 04/19/20 19:36 Calcium Carbonate 500 Mg Chewable PO Q4HR PRN Dyspepsia Ezetimibe 10 mg 04/20/20 09:00 04/20/20 07:59 Ezetimibe 10 Mg Tab PO 10 mg DAILY ALEJANDRO Administration Ergocalciferol 1,250 mcg 05/17/20 09:00 Ergocalciferol 1,250 Mcg (50,000 Iu) Capsule PO Q30D ALEJANDRO Formoterol Fumarate 20 mcg 04/19/20 20:00 04/20/20 08:10 Formoterol Fumarate 20 Mcg/2 Ml Nebu INHALATION 20 mcg RT-BID ALEJANDRO Administration Guaifenesin 600 mg 04/19/20 22:00 04/20/20 08:00 Guaifenesin 600 Mg Tablet.Er PO 600 mg QID ALEJANDRO Administration Heparin Sodium (Porcine) 0 unit 04/19/20 17:18 Heparin Sodium,Porcine 5,000 Unit/Ml 1 Ml Vial IV PER PROTOCOL PRN Low PTT Protocol Sodium Chloride 1,000 mls @ 20 mls/hr 04/19/20 13:00 04/19/20 13:06 Saline 0.9% IV Not Given .Q24H ALEJANDRO Heparin Sodium/Sodium Chloride 250 mls @ 8.219 mls/hr 04/19/20 17:30 04/20/20 01:29 25,000 unit/ Sodium Chloride IV 15 units/kg/hr .Q24H ALEJANDRO 10.274 mls/hr Titration Protocol 12 UNITS/KG/HR Ceftriaxone Sodium 2 gm/ 50 mls @ 100 mls/hr 04/19/20 22:00 04/19/20 23:43 Sodium Chloride IVPB Not Given Q24HR@2200 ALEJANDRO Insulin Aspart 0 unit 04/20/20 07:30 04/20/20 07:04 Insulin Aspart (Novolog) 100 Unit/Ml Vial SQ 4 unit AC-TID ALEJANDRO Administration Protocol Lorazepam 0.5 mg 04/19/20 19:36 Lorazepam 0.5 Mg Tab PO Q6HR PRN Anxiety Magnesium Hydroxide 2,400 mg 04/19/20 19:36 Magnesium Hydroxide 2,400 Mg/10 Ml Cup PO DAILY PRN Constipation Magnesium Oxide 400 mg 04/19/20 21:00 04/19/20 22:06 Magnesium Oxide 400 Mg Tab PO 400 mg HS ALEJANDRO Administration Melatonin 3 mg 04/19/20 19:36 Melatonin 3 Mg Tablet PO HS PRN Insomnia Methylprednisolone Sodium Succinate 40 mg 04/19/20 20:00 04/20/20 07:58 Methylprednisolone Sod Succi 40 Mg/Ml 1 Ml Vial IV 40 mg Q8HR ALEJANDRO Administration Metoprolol Tartrate 50 mg 04/19/20 21:00 04/20/20 08:00 Metoprolol Tartrate 50 Mg Tab PO 50 mg BID ALEJANDRO Administration Miscellaneous Information 1 each 04/19/20 12:55 Pneumonia Protocol Utilized 1 Each Misc PO ONCE PRN Per Protocol Naloxone HCl 0.2 mg 04/19/20 19:36 Naloxone 0.4 Mg/Ml 1 Ml Vial IV Q2M PRN Opioid Reversal Ondansetron HCl 4 mg 04/19/20 19:36 Ondansetron 4 Mg/2 Ml Vial IVP Q8HR PRN Nausea And Vomiting Pantoprazole Sodium 40 mg 04/19/20 12:57 Pantoprazole 40 Mg Tablet PO DAILY PRN gerd Pravastatin Sodium 80 mg 04/19/20 21:00 04/19/20 23:42 Pravastatin Sodium 80 Mg Tab PO 80 mg HS ALEJANDRO Administration Intake and Output 04/19/20 04/20/20 04/20/20 22:59 06:59 14:59 Intake Total 225 56.163 Balance 225 56.163 Intake: Intake, IV Titration 56.163 Amount Heparin Sod,Pork in 0.45% 56.163 NaCl 25,000 unit In 0.45 % NaCl 1 250ml.bag @ 12 UNITS/KG/HR 8.219 mls/hr IV .Q24H [facility] Rx#: [id number] Oral 225 Other: Voiding Method Toilet Toilet # Voids 3 1 Weight 69.7 kg 70 kg 04/20/20 07:28 04/19/20 10:17
[2020-04-20 14:11] LABS: Appearance,Urine Clear (Clear); Bilirubin,Urine Negative (Negative); Blood,Urine Negative (Negative); Color,Urine Light Yellow; Glucose,Urine (UA) Negative (Negative); Ketones,Urine Negative (Negative); Leukocyte Esterase,Urine Negative (Negative); Nitrite,Urine Negative (Negative); Protein,Urine Negative (Negative); Specific Gravity,Urine 1.013 (1.001-1.035); Urobilinogen,Urine <2.0 mg/dL (<2.0)
[2020-04-20 14:31] VITALS: BMI 27.3
[2020-04-20] MEDS: SODIUM CHLORIDE 0.9% 1,000 ML IV SCH (15:27)
[2020-04-20] MEDS: HEPARIN SOD,PORK IN 0.45% NACL 25,000 UNIT in 0.45% NACL 1 250ML.BAG IV SCH (15:29)
--- NOTE | 2020-04-20 16:07 | CONS ---
CONSULTATION REASON FOR CONSULT: Renal failure. HISTORY OF PRESENT ILLNESS: The patient is a 70-year-old female who was admitted to the hospital with complaints of cough, feeling unwell, shortness of breath over the last week to 10 days. Patient's coronavirus PCR test was negative. She does have underlying history of CKD but has not been seen in the office for more than a year. Serum creatinine was 2.49 mg/dL on admission. It is now down to 1.84. We have a previous creatinine of 1.19 in January of 2017. The patient's blood pressure has been low, with systolic in the 80s. Currently she is not on any IV fluids but did receive a bolus initially on admission. Chest x-ray shows bilateral lung infiltrates. The patient states she is feeling better. She denies any urinary symptoms and has been voiding okay. No history of use of NSAIDs prior to admission. Patient was maintained on TESSA inhibitors. PAST MEDICAL HISTORY: CKD, most likely stage III, hypertension, asthma, coronary artery disease, COPD, gastroesophageal reflux disease, history of [place], history of pneumonia, Carr's esophagus, hiatal hernia, anemia. PAST SURGICAL HISTORY: Valvular heart surgery, cholecystectomy, coronary artery bypass surgery, cardiac catheterization, tubal ligation, mitral valve replacement, EGD, colonoscopy, MAIRA. SOCIAL HISTORY: Patient is a former smoker. No history of drug abuse or alcohol abuse. MEDICATIONS: Medications prior to admission included aspirin, Vasotec, vitamin D, magnesium, Lopressor, pravastatin, Zetia, calcitriol, Prilosec, hydrochlorothiazide. ALLERGIES: ALLERGIES include CHLORTHALIDONE, which causes vomiting; IV CONTRAST, DEMEROL, PENICILLIN causes swelling. REVIEW OF SYSTEMS: As per HPI. Other systems negative. PHYSICAL EXAMINATION: Patient is comfortable, awake, not in any acute distress. Alert and oriented x3. Blood pressure is 87/61, heart rate 110 per minute. She is afebrile. Examination of lower extremities shows no evidence of edema. Abdomen is soft, obese, nontender. PROFESSOR OF RELIGION exam is grossly intact. Heart and lungs are not examined. The patient is in isolation for possible coronavirus. LABS: Sodium 130, potassium 4.7, chloride 97. CO2 is 20, BUN 55, creatinine 1.84, hemoglobin 12.3 g/dL. White cell count 6.2. Chest x-ray shows patchy bilateral infiltrates, possible chronic interstitial pneumonitis. ASSESSMENT: 1. Acute kidney injury associated with hypotension in the setting of use of TSESA inhibitors, currently improved. The patient did receive IV fluids initially. However, she is not maintained on IV fluids currently, given the chest x-ray findings. As long as her renal function is stable, we will hold off on the IV fluids. I will add midodrine for hypotension and continue to avoid use of antihypertensive medications for now. Check urinalysis. Ultrasound of the kidneys was already done and shows no evidence of hydronephrosis. Right kidney is smaller in size. 2. Chronic kidney disease, stage 3. Previous creatinine as low as 1.19 in 2017. 3. Secondary hyperparathyroidism. Patient is maintained on Rocaltrol. I do not have a PTH level. We will check that and patient is advised to follow up as outpatient for CKD. 4. Pneumonia with chest x-ray showing bilateral interstitial infiltrates. Coronavirus PCR is negative. Patient is being followed by ID. She is maintained on antibiotics. PLAN: Continue off of IV fluids. Add midodrine. Continue to hold off on antihypertensive medications. Continue with the Lopressor, as heart rate is elevated, and then repeat labs in a.m. Check urinalysis. Thank you for this consultation. Will continue to follow the patient with you during her hospitalization. MMODL / IJN: [id number] /
[2020-04-20 17:17] LABS: Glucose,Whole Blood 163 mg/dL (75-99)
[2020-04-20] MEDS: MIDODRINE 5 MG TAB PO SCH (17:23)
[2020-04-20 19:42] LABS: Glucose,Whole Blood 174 mg/dL (75-99)
--- NOTE | 2020-04-20 19:52 | P.PN ---
Progress Note - Text Progress Note Date: 04/20/20 Chief Complaint: Short of breath cough History of presenting complaint: This is a pleasant 70-year-old patient of Dr. Glory Wilcox. Chronic stable medical conditions include coronary artery disease, CHF, GERD, hypertension, hyperlipidemia, chronic kidney disease, Carr's esophagus, hiatal hernia, coronary artery disease with history of bypass cardiac valve replacement/mitral valve replacement. Patient always rather active. For 4 days patient started getting increasingly short of breath. Wheezing. Off. She described her sputum as being yucky. Developed fevers and significant chills. Decreased appetite tired rundown. Admitted with bilateral pneumonia and acute COPD exacerbation. Also found to have atrial flutter. Patient is put on bronchodilators, IV Solu-Medrol, IV ceftriaxone and Zithromax. Placed on IV heparin. Today-some improvement in breathing. Some wheezing. Oral intake better. Atrial flutter uncontrolled Review of systems: Was done for constitutional, cardiovascular, GI, pulmonary. relevant finding as above Active Medications Acetaminophen (Acetaminophen Tab 325 Mg Tab) 650 mg PO Q6HR PRN PRN Reason: Mild Pain or Fever > 100.5 Albuterol/Ipratropium (Ipratropium-Albuterol 3 Ml Neb) 3 ml INHALATION RT-Q4H [facility] Last Admin: 04/20/20 15:47 Dose: 3 ml Documented by: Aspirin (Aspirin 81 Mg) 81 mg PO DAILY [facility] Last Admin: 04/20/20 08:00 Dose: 81 mg Documented by: Azithromycin (Azithromycin 500 Mg Tab) 500 mg PO DAILY [facility] Stop: 04/24/20 09:01 Last Admin: 04/20/20 07:59 Dose: 500 mg Documented by: Budesonide (Budesonide 1 Mg/2 Ml Nebu) 1 mg INHALATION RT-BID [facility] Last Admin: 04/20/20 08:10 Dose: 1 mg Documented by: Calcitriol (Calcitriol 0.25 Mcg Cap) 0.25 mcg PO CRENSHAW [facility] Calcium Carbonate/Glycine (Calcium Carbonate 500 Mg Chewable) 1,000 mg PO Q4HR PRN PRN Reason: Dyspepsia Ezetimibe (Ezetimibe 10 Mg Tab) 10 mg PO DAILY [facility] Last Admin: 04/20/20 07:59 Dose: 10 mg Documented by: Ergocalciferol (Ergocalciferol 1,250 Mcg (50,000 Iu) Capsule) 1,250 mcg PO Q30D [facility] Formoterol Fumarate (Formoterol Fumarate 20 Mcg/2 Ml Nebu) 20 mcg INHALATION RT-BID [facility] Last Admin: 04/20/20 08:10 Dose: 20 mcg Documented by: Guaifenesin (Guaifenesin 600 Mg Tablet.Er) 600 mg PO QID [facility] Last Admin: 04/20/20 17:23 Dose: 600 mg Documented by: Heparin Sodium (Porcine) (Heparin Sodium,Porcine 5,000 Unit/Ml 1 Ml Vial) 0 unit IV PER PROTOCOL PRN; Protocol PRN Reason: Low PTT Sodium Chloride (Saline 0.9%) 1,000 mls @ 20 mls/hr IV .Q24H [facility] Last Admin: 04/20/20 15:27 Dose: 20 mls/hr Documented by: Heparin Sodium/Sodium Chloride (25,000 unit/ Sodium Chloride) 250 mls @ 8.219 mls/hr IV .Q24H [facility]; Protocol Last Admin: 04/20/20 15:29 Dose: 15 units/kg/hr, 10.274 mls/hr Documented by: Ceftriaxone Sodium 2 gm/ (Sodium Chloride) 50 mls @ 100 mls/hr IVPB Q24HR@2200 [facility] Last Admin: 04/19/20 23:43 Dose: Not Given Documented by: Insulin Aspart (Insulin Aspart (Novolog) 100 Unit/Ml Vial) 0 unit SQ AC-TID [facility]; Protocol Last Admin: 04/20/20 17:23 Dose: 3 unit Documented by: Lorazepam (Lorazepam 0.5 Mg Tab) 0.5 mg PO Q6HR PRN PRN Reason: Anxiety Magnesium Hydroxide (Magnesium Hydroxide 2,400 Mg/10 Ml Cup) 2,400 mg PO DAILY PRN PRN Reason: Constipation Magnesium Oxide (Magnesium Oxide 400 Mg Tab) 400 mg PO HS [facility] Last Admin: 04/19/20 22:06 Dose: 400 mg Documented by: Melatonin (Melatonin 3 Mg Tablet) 3 mg PO HS PRN PRN Reason: Insomnia Methylprednisolone Sodium Succinate (Methylprednisolone Sod Succi 40 Mg/Ml 1 Ml Vial) 40 mg IV Q8HR [facility] Last Admin: 04/20/20 15:27 Dose: 40 mg Documented by: Metoprolol Tartrate (Metoprolol Tartrate 50 Mg Tab) 50 mg PO BID [facility] Last Admin: 04/20/20 08:00 Dose: 50 mg Documented by: Midodrine (Midodrine 5 Mg Tab) 5 mg PO AC-BID [facility] Last Admin: 04/20/20 17:23 Dose: 5 mg Documented by: Miscellaneous Information (Pneumonia Protocol Utilized 1 Each [facility]) 1 each PO ONCE PRN PRN Reason: Per Protocol Naloxone HCl (Naloxone 0.4 Mg/Ml 1 Ml Vial) 0.2 mg IV Q2M PRN PRN Reason: Opioid Reversal Ondansetron HCl (Ondansetron 4 Mg/2 Ml Vial) 4 mg IVP Q8HR PRN PRN Reason: Nausea And Vomiting Pantoprazole Sodium (Pantoprazole 40 Mg Tablet) 40 mg PO DAILY PRN PRN Reason: gerd Pravastatin Sodium (Pravastatin Sodium 80 Mg Tab) 80 mg PO HS [facility] Last Admin: 04/19/20 23:42 Dose: 80 mg Documented by: Past medical history to include: COPD,'s coronary artery disease with bypass, CHF, COPD, GERD, hyperlipidemia, hypertension, kidney disease, Carr's esophagus, hiatal hernia, mitral valve replacement Social history: This letter and her daughter. She is active. He smoked on and off since she was 17 for many years finally stopping in 2007. No alcohol. Physical examination: VITAL SIGNS: 97.7, 110, 18, 87 x 61, 97% on 3 L GENERAL: Propped up in bed, a bit less short of breath EYES: Pupils equal. Conjunctiva normal. NECK: JVD not raised; masses not palpable. HEART: First and second heart sounds are normal; no edema. LUNGS: Respiratory rate increased, decreased breath sounds , prolonged wheezing some right basal expiratory crackle. ABDOMEN: Soft, nontender, liver spleen not palpable, no masses palpable. PSYCH: Alert and oriented x3; mood and affect anxious MUSCULOSKELETAL: Evidence of OA INVESTIGATIONS, reviewed in the clinical context: April 20: White count 6.2 hemoglobin 12.3 sodium 1:30 potassium 4.7 bun 55 creatinine 1.84 2-D echocardiogram-here 50-55% Ultrasound kidney: Mild cortical thinning WBC 9.8 white count 13.6 hemoglobin 22 left shift sodium 132 potassium 5.1 bun 47 creatinine 2.49 Coronavirus [PCR]-not detected EKG tracing personally reviewed by me-possible sinus tachycardia. Chest x-ray film personally reviewed by me-hyperinflated, basilar infiltrates Assessment and plan: - Bilateral basal pneumonia suspected gram-negative organism. IV ceftriaxone Zithromax -slow to respond -Acute COPD exacerbation in an ex-smoker. bronchodilator, inhaled steroids and long-acting beta agonist-slow to respond -Atrial flutter, with a variable ventricular rate, uncontrolled. Cutback on DuoNeb. On Lopressor 50 mg twice a day. -Coronary artery disease by history of coronary bypass, continue with aspirin beta sonya and TESSA inhibitor -Chronic kidney disease stage IV. Rule out acute component. Stop Dyazide. Renal consultation. Lisinopril discontinued -GERD continue PPI -Hyperlipidemia continue antilipid agents -Essential hypertension . Blood pressure running low. Midodrine added -Carr's esophagus continue with PPI -History of mitral valve replacement -Secondary hyperparathyroidism on Rocaltrol Because of the increased rate. We'll cutback on DuoNeb to 4 times daily.
[2020-04-20] MEDS ORDERED: IPRATROPIUM-ALBUTEROL 3 ML NEB INHALATION PRN (20:01)
[2020-04-20] MEDS: PRAVASTATIN SODIUM 80 MG TAB PO SCH (20:32)
[2020-04-20] MEDS: MAGNESIUM OXIDE 400 MG TAB PO SCH (20:33)
[2020-04-21 06:05] LABS: Glucose,Whole Blood 147 mg/dL (75-99)
[2020-04-21] MEDS: INSULIN ASPART (NovoLOG) 100 UNIT/ML VIAL SQ SCH ×4 (06:57→20:28)
[2020-04-21] MEDS: MIDODRINE 5 MG TAB PO SCH ×2 (06:57→17:10)
[2020-04-21] MEDS: BUDESONIDE 1 MG/2 ML NEBU INHALATION SCH ×2 (07:46→21:07)
[2020-04-21] MEDS: FORMOTEROL FUMARATE 20 MCG/2 ML NEBU INHALATION SCH ×2 (07:46→21:07)
[2020-04-21 07:47] LABS: Basophils % (A) 0 %; Eosinophils % (A) 0 %; HCT 35.8 % (34.0-46.0); HGB 11.6 gm/dL (11.4-16.0); Lymphocytes # (A) 0.7 k/uL (1.0-4.8); Lymphocytes % (A) 5 %; MCH 30.1 pg (25.0-35.0); MCHC 32.4 g/dL (31.0-37.0); MCV 92.7 fL (80.0-100.0); Mean Platelet Volume 7.2; Monocytes # (A) 0.5 k/uL (0-1.0); Monocytes % (A) 3 %; Neutrophils # (A) 13.6 k/uL (1.3-7.7); Neutrophils % (A) 92 %; Platelet Count 317 k/uL (150-450); RBC 3.87 m/uL (3.80-5.40); RDW 13.9 % (11.5-15.5); WBC 14.7 k/uL (3.8-10.6)
[2020-04-21] MEDS: IPRATROPIUM-ALBUTEROL 3 ML NEB INHALATION SCH ×4 (07:47→21:07)
[2020-04-21] MEDS: methylPREDNISolone SOD SUCCI 40 MG/ML 1 ML VIAL IV SCH ×3 (08:14→22:58)
[2020-04-21] MEDS: EZETIMIBE 10 MG TAB PO SCH (08:14)
[2020-04-21] MEDS: ASPIRIN 81 MG PO SCH (08:14)
[2020-04-21] MEDS: guaiFENesin 600 MG TABLET.ER PO SCH ×4 (08:14→20:13)
[2020-04-21] MEDS: AZITHROMYCIN 500 MG TAB PO SCH (08:14)
[2020-04-21] MEDS: METOPROLOL TARTRATE 50 MG TAB PO SCH ×2 (08:14→20:12)
[2020-04-21 08:47] LABS: Calcium 9.4 mg/dL (8.4-10.2); Potassium 5.3 mmol/L (3.5-5.1)
[2020-04-21] MEDS: APIXABAN 5 MG TAB PO SCH ×2 (08:47→20:12)
[2020-04-21] MEDS ORDERED: FUROSEMIDE 10 MG/ML 2 ML VIAL IV ONE (11:23)
--- NOTE | 2020-04-21 11:43 | P.PN ---
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 She does not follow regularly in the office with a riveter. She is seen and examined sitting up in bed in no acute distress. Overall she feels as though her breathing and her coughing is improving. She still does have a slight cough but much less frequent. She denies symptoms of chest pain, dizziness or palpitations P telemetry tracings reveal she continues to be in atrial flutter with heart rates between 110-120. 104/63. Laboratory data reviewed, WBC 14.7, hemoglobin 11.6, platelets 317, sodium 134, potassium 5.3, creatinine 1.68. Echocardiogram obtained reveals preserved LV systolic function with ejection fraction 50-55%, mild aortic valve sclerosis, mild periprosthetic regurgitation of the bioprosthetic mitral valve with a mean gradient of 4 mmHg and mild tricuspid regurgitation. PHYSICAL EXAMINATION CONSTITUTIONAL: No apparent distress. HEENT: Head is normocephalic. Pupils are equal, round. Sclerae anicteric. Mucous membranes of the mouth are moist. No JVD. No carotid bruit. CHEST EXAMINATION: Soft expiratory wheezes noted, improved from previous exam. No rhonchi or rales. No chest wall tenderness is noted on palpation or with deep breathing. HEART EXAMINATION: Irregular rate and rhythm. S1, S2 heard. Systolic ejection murmur at the left sternal border, no gallops or rub. EXTREMITIES: 2+ peripheral pulses, no lower extremity edema and no calf tenderness. ASSESSMENT New-onset atrial flutter with rapid ventricular rate Pneumonia Leukocytosis Coronary artery disease status post bypass grafting Valvular heart disease status post mitral valve replacement Chronic kidney disease Hypertension Dyslipidemia COPD Former nicotine dependence PLAN Initiate eliquis, this is affordable for the patient. Discontinue heparin infusion. Given her worsening white count and pneumonia along with the fact she is asymptomatic in regards to her arrhythmia, we will not perform a T EE/cardioversion at this time. Continue with rate control with lopressor. Ongoing monitoring and evaluation of symptoms. Nurse Practitioner note has been reviewed, I agree with a documented findings and plan of care. Patient was seen and examined. Objective - Vital Signs Vital signs: Vital Signs Temp 97.7 F 04/21/20 08:10 Pulse 117 H 04/21/20 11:20 Resp 18 04/21/20 08:10 BP 104/63 04/21/20 08:10 Pulse Ox 95 04/21/20 08:10 Intake & Output 04/20/20 04/21/20 04/21/20 18:59 06:59 18:59 Intake Total 623.836 180 Output Total 1200 600 Balance -576.164 -420 Weight 70 kg 71.5 kg Intake: Intake, IV Titration 143.836 180 Amount Heparin Sod,Pork in 0.45% 143.836 NaCl 25,000 unit In 0.45 % NaCl 1 250ml.bag @ 12 UNITS/KG/HR 8.219 mls/hr IV .Q24H ALEJANDRO Rx#: [id number] Sodium Chloride 0.9% 1, 180 000 ml @ 20 mls/hr IV . Q24H ALEJANDRO Rx#:[id number] Oral 480 Output: Urine 1200 600 Other: Voiding Method Toilet Toilet Toilet # Voids 1 - Labs CBC & Chem 7: 04/21/20 07:15 04/21/20 07:15 Labs: Abnormal Lab Results - Last 24 Hours (Table) 04/20/20 04/20/20 04/20/20 Range/Units 11:48 17:15 19:38 WBC (3.8-10.6) k/uL Neutrophils # (1.3-7.7) k/uL Lymphocytes # (1.0-4.8) k/uL APTT (22.0-30.0) sec Sodium (137-145) mmol/L Potassium (3.5-5.1) mmol/L Carbon Dioxide (22-30) mmol/L BUN (7-17) mg/dL Creatinine (0.52-1.04) mg/dL Glucose (74-99) mg/dL POC Glucose (mg/dL) 155 H 163 H 174 H (75-99) mg/dL 04/21/20 04/21/20 04/21/20 Range/Units 06:02 07:15 07:15 WBC 14.7 H (3.8-10.6) k/uL Neutrophils # 13.6 H (1.3-7.7) k/uL Lymphocytes # 0.7 L (1.0-4.8) k/uL APTT (22.0-30.0) sec Sodium 134 L (137-145) mmol/L Potassium 5.3 H (3.5-5.1) mmol/L Carbon Dioxide 21 L (22-30) mmol/L BUN 63 H (7-17) mg/dL Creatinine 1.68 H (0.52-1.04) mg/dL Glucose 147 H (74-99) mg/dL POC Glucose (mg/dL) 147 H (75-99) mg/dL 04/21/20 Range/Units 07:15 WBC (3.8-10.6) k/uL Neutrophils # (1.3-7.7) k/uL Lymphocytes # (1.0-4.8) k/uL APTT 45.5 H (22.0-30.0) sec Sodium (137-145) mmol/L Potassium (3.5-5.1) mmol/L Carbon Dioxide (22-30) mmol/L BUN (7-17) mg/dL Creatinine (0.52-1.04) mg/dL Glucose (74-99) mg/dL POC Glucose (mg/dL) (75-99) mg/dL Microbiology - Last 24 Hours (Table) 04/19/20 12:00 Blood Culture - Preliminary Blood No Growth after 24 hours 04/19/20 10:20 Blood Culture - Preliminary Blood No Growth after 24 hours 04/19/20 20:24 Gram Stain - Preliminary Sputum Sputum Culture - Preliminary
[2020-04-21 11:59] LABS: Glucose,Whole Blood 130 mg/dL (75-99)
--- NOTE | 2020-04-21 12:54 | PN ---
PROGRESS NOTE Patient is seen for followup for acute kidney injury on top of chronic kidney disease. Her renal function has improved since admission. Patient's COVID PCR was negative. However, she is being treated for pneumonia currently. The patient is not maintained on any IV fluids. Overall she states she is feeling better. Chest x-ray shows bilateral patchy infiltrates. PHYSICAL EXAMINATION: On examination today, blood pressure was 104/63, heart rate 114 per minute. She is afebrile. Examination shows no significant edema lower extremities. Abdomen is soft, nontender. WOOD FILLER exam is grossly intact. LABS: Labs show sodium 134, potassium 5.3, chloride 101, BUN 63, creatinine 1.68. ASSESSMENT: 1. Acute kidney injury secondary to underlying infection, pneumonia, currently improved. Continue off of IV fluids. 2. Mild hyperkalemia associated with underlying renal insufficiency. Will maintain patient on low-potassium diet. I will also give her one dose of IV Lasix. 3. Chronic kidney disease stage 3, previous creatinine as low as 1.1 in 2017. 4. Pneumonia with the chest x-ray showing bilateral interstitial infiltrates. The COVID-19 PCR is negative. Patient is maintained on antibiotics and currently improving. PLAN: There is Lasix IV x1, maintain low-potassium diet, repeat labs in a.m. The patient is encouraged to follow up as outpatient for CKD. MMODL / IJN: [id number] /
[2020-04-21] MEDS: ACETAMINOPHEN TAB 325 MG TAB PO PRN (13:05)
--- NOTE | 2020-04-21 15:38 | CDI ---
Documentation Clarification Form Date: 04/21/2020 03:28:54 PM From: Kamila Luevano CCS, CCDS Admit Date: 04/19/2020 12:55:00 PM Patient Name: Brittni Haynes Visit Number: [id number] Discharge Date: ATTENTION: The Clinical Documentation Specialists (CDI) and [facility] Coding Staff appreciate your assistance in clarifying documentation. Please respond to the clarification below the line at the bottom and electronically sign. The CDI & [facility] Coding staff will review the response and follow-up if needed. Please note: Queries are made part of the Legal Health Record. If you have any questions, please contact the author of this message via ITS. Dr. Adrien King: Conflicting documentation has been found in the medical record: Per the Attending Physician documentation in the 04/20 & 04/21 Progress Notes, the patient has CKD Stage III. Per the Nephrology Consult on 04/20 and subsequent Progress Note on 04/21, the patient has CKD Stage IV. History/Risk Factors: Hypertensive Heart Disease with Heart Failure, COPD, GERD, Hyperlipidemia, [place], Anemia, Mild Intermittent Bronchial Asthma, GERD, Carr's Esophagus, Aortic valve disease, Mitral valve disease with valve replacement, Former smoker. Clinical Indicators: Presented to the ED on 04/19 with SOB, Productive Cough, Fevers, Night Sweats and Generalized Weakness. 04/19 History & Physical Assessment: Bilateral basal pneumonia suspected gram- negative, Acute Exacerbation COPD, CAD with history of CABG, CKD IV, rule out acute. 04/19 LAB: BUN 47, Creatinine 2.49 GFR 19 - 30 Previous GFR 02/22/2017: 45 - 55 Treatment: IV fluid 1,000 mls @ 100 mls/hr q10H, INH Ventolin, IV Azithromycin, IV fluid 1,000 mls @ 20 mls/hr q24H, INH Duoneb, IV Lasix, IV Heparin, Antihypertensives discontinued per Nephrology due to Hypotension, IV Solumedrol, INH Pulmicort, INH Perforomist, IV Rocephin, O2 2-3L nc. In your opinion, what is the most clinically appropriate diagnosis for this patient? Chronic Kidney Disease Stage III Chronic Kidney Disease Stage IV Other Stage of Chronic Kidney Disease, please specify: Unable to determine (Last Revision: May 2017) Chronic kidney disease stage III MTDD
--- NOTE | 2020-04-21 15:47 | CDI ---
Documentation Clarification Form Date: 04/21/2020 03:40:19 PM From: Kamila Luevano CCS, CCDS Admit Date: 04/19/2020 12:55:00 PM Patient Name: Brittni Haynes Visit Number: [id number] Discharge Date: ATTENTION: The Clinical Documentation Specialists (CDI) and [facility] Coding Staff appreciate your assistance in clarifying documentation. Please respond to the clarification below the line at the bottom and electronically sign. The CDI & [facility] Coding staff will review the response and follow-up if needed. Please note: Queries are made part of the Legal Health Record. If you have any questions, please contact the author of this message via ITS. Dr. Gill Abdi: CHF is documented in the patient's Medical History in the 04/19 ED Note, the 04/19 History & Physical and in the 04/20 Cardiology Consult without further specificity. History/Risk Factors: Hypertensive Heart Disease with Heart Failure, COPD, GERD, Hyperlipidemia, [place], Anemia, Mild Intermittent Bronchial Asthma, GERD, Carr's Esophagus, Aortic valve disease, Mitral valve disease with valve replacement, Former smoker. Clinical Indicators: Presented to the ED on 04/19 with SOB, Productive Cough, Fevers, Night Sweats and Generalized Weakness. 04/19 History & Physical Assessment: Bilateral basal pneumonia suspected gram- negative, Acute Exacerbation COPD, CAD with history of CABG, CKD IV, rule out acute. 04/19 VS: T 97.8, P 120 - 106, R 22 - 16, BP 95/68 - 110/90, PO 90 RA - 96 RA BMI: 27.9 04/19 LAB: Na 132, Cl 95, CO2 22, BUN 47, Creatinine 2.49, GFR 19, Glucose 115, Mag 2.6, AST 54, ALT 35, BNP 2940. 04/19 CXR: COPD, Patchy bibasilar densities, medially on the right & peripherally on the left. Early pneumonia, aspiration and interstitial pneumonitis are considered. 04/20 ECHO: Mild LVH, Left ventricular systolic low normal w/EF 50-55%, Mild aortic valve sclerosis, Mild boston-prosthetic regurgitation of the bioprosthetic mitral valve, Mild tricuspid regurgitation. Treatment: IV fluid 1,000 mls @ 100 mls/hr q10H, INH Ventolin, IV Azithromycin, IV fluid 1,000 mls @ 20 mls/hr q24H, INH Duoneb, IV Lasix, IV Heparin, Antihypertensives discontinued per Nephrology due to Hypotension, IV Solumedrol, INH Pulmicort, INH Perforomist, IV Rocephin, O2 2-3L nc. In your professional opinion, can you please clarify the acuity and type of CHF if known? Systolic Heart Failure: o Acute o Chronic o Acute on Chronic Diastolic Heart Failure: o Acute XX o Chronic o Acute on Chronic Systolic & Diastolic Heart Failure: o Acute o Chronic o Acute on Chronic Heart Failure Unable to Determine Other, please specify (Last Revision: May 2017) MTDD
[2020-04-21] MEDS: SODIUM CHLORIDE 0.9% 1,000 ML IV SCH (16:38)
[2020-04-21 17:07] LABS: Glucose,Whole Blood 136 mg/dL (75-99)
[2020-04-21 19:54] LABS: Glucose,Whole Blood 175 mg/dL (75-99)
[2020-04-21] MEDS: PRAVASTATIN SODIUM 80 MG TAB PO SCH (20:13)
[2020-04-21] MEDS: MAGNESIUM OXIDE 400 MG TAB PO SCH (20:13)
--- NOTE | 2020-04-21 21:00 | P.PN ---
Progress Note - Text Progress Note Date: 04/21/20 Chief Complaint: Short of breath cough History of presenting complaint: This is a pleasant 70-year-old patient of Dr. Glory Wilcox. Chronic stable medical conditions include coronary artery disease, CHF, GERD, hypertension, hyperlipidemia, chronic kidney disease, Carr's esophagus, hiatal hernia, coronary artery disease with history of bypass cardiac valve replacement/mitral valve replacement. Patient always rather active. For 4 days patient started getting increasingly short of breath. Wheezing. Off. She described her sputum as being yucky. Developed fevers and significant chills. Decreased appetite tired rundown. Admitted with bilateral pneumonia and acute COPD exacerbation. Also found to have atrial flutter. Patient is put on bronchodilators, IV Solu-Medrol, IV ceftriaxone and Zithromax. Placed on IV heparin. Today-breathing better. Some congestion. Oral intake.. Atrial flutter with controlled. Started on Lovenox. IV heparin discontinued. Review of systems: Was done for constitutional, cardiovascular, GI, pulmonary. relevant finding as above Active Medications Acetaminophen (Acetaminophen Tab 325 Mg Tab) 650 mg PO Q6HR PRN PRN Reason: Mild Pain or Fever > 100.5 Last Admin: 04/21/20 13:05 Dose: 650 mg Documented by: Albuterol/Ipratropium (Ipratropium-Albuterol 3 Ml Neb) 3 ml INHALATION RT-QID [facility] Last Admin: 04/21/20 15:11 Dose: 3 ml Documented by: Albuterol/Ipratropium (Ipratropium-Albuterol 3 Ml Neb) 3 ml INHALATION RT-Q2H PRN PRN Reason: Shortness Of Breath Or Wheezing Apixaban (Apixaban 5 Mg Tab) 5 mg PO BID [facility] Last Admin: 04/21/20 20:12 Dose: 5 mg Documented by: Azithromycin (Azithromycin 500 Mg Tab) 500 mg PO DAILY [facility] Stop: 04/24/20 09:01 Last Admin: 04/21/20 08:14 Dose: 500 mg Documented by: Budesonide (Budesonide 1 Mg/2 Ml Nebu) 1 mg INHALATION RT-BID [facility] Last Admin: 04/21/20 07:46 Dose: 1 mg Documented by: Calcitriol (Calcitriol 0.25 Mcg Cap) 0.25 mcg PO CRENSHAW [facility] Calcium Carbonate/Glycine (Calcium Carbonate 500 Mg Chewable) 1,000 mg PO Q4HR PRN PRN Reason: Dyspepsia Last Admin: 04/20/20 23:48 Dose: 1,000 mg Documented by: Ezetimibe (Ezetimibe 10 Mg Tab) 10 mg PO DAILY [facility] Last Admin: 04/21/20 08:14 Dose: 10 mg Documented by: Ergocalciferol (Ergocalciferol 1,250 Mcg (50,000 Iu) Capsule) 1,250 mcg PO Q30D [facility] Formoterol Fumarate (Formoterol Fumarate 20 Mcg/2 Ml Nebu) 20 mcg INHALATION RT-BID [facility] Last Admin: 04/21/20 07:46 Dose: 20 mcg Documented by: Guaifenesin (Guaifenesin 600 Mg Tablet.Er) 600 mg PO QID [facility] Last Admin: 04/21/20 20:13 Dose: 600 mg Documented by: Sodium Chloride (Saline 0.9%) 1,000 mls @ 20 mls/hr IV .Q24H [facility] Last Admin: 04/21/20 16:38 Dose: Not Given Documented by: Ceftriaxone Sodium 2 gm/ (Sodium Chloride) 50 mls @ 100 mls/hr IVPB Q24HR@2200 [facility] Last Admin: 04/21/20 13:02 Dose: 100 mls/hr Documented by: Insulin Aspart (Insulin Aspart (Novolog) 100 Unit/Ml Vial) 0 unit SQ ACHS [facility]; Protocol Last Admin: 04/21/20 20:28 Dose: 4 unit Documented by: Lorazepam (Lorazepam 0.5 Mg Tab) 0.5 mg PO Q6HR PRN PRN Reason: Anxiety Magnesium Hydroxide (Magnesium Hydroxide 2,400 Mg/10 Ml Cup) 2,400 mg PO DAILY PRN PRN Reason: Constipation Magnesium Oxide (Magnesium Oxide 400 Mg Tab) 400 mg PO HS [facility] Last Admin: 04/21/20 20:13 Dose: 400 mg Documented by: Melatonin (Melatonin 3 Mg Tablet) 3 mg PO HS PRN PRN Reason: Insomnia Methylprednisolone Sodium Succinate (Methylprednisolone Sod Succi 40 Mg/Ml 1 Ml Vial) 40 mg IV Q8HR [facility] Last Admin: 04/21/20 17:10 Dose: 40 mg Documented by: Metoprolol Tartrate (Metoprolol Tartrate 50 Mg Tab) 50 mg PO BID [facility] Last Admin: 04/21/20 20:12 Dose: 50 mg Documented by: Midodrine (Midodrine 5 Mg Tab) 5 mg PO AC-BID [facility] Last Admin: 04/21/20 17:10 Dose: 5 mg Documented by: Miscellaneous Information (Pneumonia Protocol Utilized 1 Each [facility]) 1 each PO ONCE PRN PRN Reason: Per Protocol Naloxone HCl (Naloxone 0.4 Mg/Ml 1 Ml Vial) 0.2 mg IV Q2M PRN PRN Reason: Opioid Reversal Ondansetron HCl (Ondansetron 4 Mg/2 Ml Vial) 4 mg IVP Q8HR PRN PRN Reason: Nausea And Vomiting Pantoprazole Sodium (Pantoprazole 40 Mg Tablet) 40 mg PO DAILY PRN PRN Reason: gerd Pravastatin Sodium (Pravastatin Sodium 80 Mg Tab) 80 mg PO [facility] Last Admin: 04/21/20 20:13 Dose: 80 mg Documented by: Past medical history to include: COPD,'s coronary artery disease with bypass, CHF, COPD, GERD, hyperlipidemia, hypertension, kidney disease, Carr's esophagus, hiatal hernia, mitral valve replacement Social history: This letter and her daughter. She is active. He smoked on and off since she was 17 for many years finally stopping in 2007. No alcohol. Physical examination: VITAL SIGNS: 97.7, 110, 18, 104/63, 95% room air GENERAL: Propped up in bed, breathing better EYES: Pupils equal. Conjunctiva normal. NECK: JVD not raised; masses not palpable. HEART: Heart sounds are irregular; no edema. LUNGS: Respiratory rate increased, decreased breath sounds , decreased wheezing. ABDOMEN: Soft, nontender, liver spleen not palpable, no masses palpable. PSYCH: Alert and oriented x3; mood and affect anxious MUSCULOSKELETAL: Evidence of OA INVESTIGATIONS, reviewed in the clinical context: April 21: White count 14.7 hemoglobin 11.6 potassium 5.3 bun 63 creatinine 1.68 April 20: White count 6.2 hemoglobin 12.3 sodium 1:30 potassium 4.7 bun 55 creatinine 1.84 2-D echocardiogram-here 50-55% Ultrasound kidney: Mild cortical thinning WBC 9.8 white count 13.6 hemoglobin 22 left shift sodium 132 potassium 5.1 bun 47 creatinine 2.49 Coronavirus [PCR]-not detected EKG tracing personally reviewed by me-possible sinus tachycardia. Chest x-ray film personally reviewed by me-hyperinflated, basilar infiltrates Assessment and plan: - Bilateral basal pneumonia suspected gram-negative organism. IV ceftriaxone Z ithromax -improving -Acute COPD exacerbation in an ex-smoker. bronchodilator, inhaled steroids and long-acting beta improving -Persistent Atrial flutter, with a variable ventricular rate, uncontrolled. Cutback on DuoNeb. On Lopressor 50 mg twice a day. -Coronary artery disease by history of coronary bypass, continue with aspirin beta sonya and TESSA inhibitor -Chronic kidney disease stage 3. -Acute kidney injury possibly a combination of ATN and prerenal. Dyazide and lisinopril discontinued. Creatinine down to 1.68 -GERD continue PPI -Hyperlipidemia continue antilipid agents -Essential hypertension . Blood pressure running low. Midodrine added. 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 About cross reactivity with penicillin. Questions answered. Total time spent about 40 minutes with over 20 minutes of discussion. Expect to be home in next 1-2 days.
[2020-04-22] MEDS: SODIUM CHLORIDE 0.9% 1,000 ML IV SCH ×2 (04:25→18:13)
[2020-04-22] MEDS: INSULIN ASPART (NovoLOG) 100 UNIT/ML VIAL SQ SCH ×4 (06:29→20:45)
[2020-04-22] MEDS: MIDODRINE 5 MG TAB PO SCH ×2 (06:29→16:57)
[2020-04-22 06:32] LABS: Glucose,Whole Blood 146 mg/dL (75-99)
[2020-04-22 07:43] LABS: Basophils % (A) 0 %; Eosinophils % (A) 0 %; HCT 36.6 % (34.0-46.0); HGB 11.7 gm/dL (11.4-16.0); Lymphocytes # (A) 0.6 k/uL (1.0-4.8); Lymphocytes % (A) 4 %; MCH 29.3 pg (25.0-35.0); MCHC 31.8 g/dL (31.0-37.0); MCV 92.1 fL (80.0-100.0); Mean Platelet Volume 7.1; Monocytes # (A) 0.2 k/uL (0-1.0); Monocytes % (A) 2 %; Neutrophils # (A) 12.4 k/uL (1.3-7.7); Neutrophils % (A) 94 %; Platelet Count 341 k/uL (150-450); RBC 3.98 m/uL (3.80-5.40); WBC 13.2 k/uL (3.8-10.6)
[2020-04-22 07:52] LABS: Calcium 9.5 mg/dL (8.4-10.2)
[2020-04-22] MEDS: FORMOTEROL FUMARATE 20 MCG/2 ML NEBU INHALATION SCH ×2 (08:00→21:13)
[2020-04-22] MEDS: BUDESONIDE 1 MG/2 ML NEBU INHALATION SCH ×2 (08:00→21:13)
[2020-04-22] MEDS: IPRATROPIUM-ALBUTEROL 3 ML NEB INHALATION SCH ×4 (08:00→21:13)
[2020-04-22] MEDS: APIXABAN 5 MG TAB PO SCH ×2 (08:42→20:35)
[2020-04-22] MEDS: METOPROLOL TARTRATE 50 MG TAB PO SCH ×3 (08:42→20:35)
[2020-04-22] MEDS: guaiFENesin 600 MG TABLET.ER PO SCH ×4 (08:42→20:35)
[2020-04-22] MEDS: AZITHROMYCIN 500 MG TAB PO SCH (08:42)
[2020-04-22] MEDS: EZETIMIBE 10 MG TAB PO SCH (08:43)
[2020-04-22] MEDS: methylPREDNISolone SOD SUCCI 40 MG/ML 1 ML VIAL IV SCH ×3 (08:47→23:07)
--- NOTE | 2020-04-22 11:15 | P.PN ---
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 She does not follow regularly in the office with a degreasing solution mixer. She is seen and examined sitting up in bed in no acute distress. Overall she feels as though her breathing and her coughing is improving. She still does have a slight cough but much less frequent. She denies symptoms of chest pain, dizziness or palpitations P telemetry tracings reveal she continues to be in atrial flutter with heart rates between 110-120. 104/63. Laboratory data reviewed, WBC 14.7, hemoglobin 11.6, platelets 317, sodium 134, potassium 5.3, creatinine 1.68. Echocardiogram obtained reveals preserved LV systolic function with ejection fraction 50-55%, mild aortic valve sclerosis, mild periprosthetic regurgitation of the bioprosthetic mitral valve with a mean gradient of 4 mmHg and mild tricuspid regurgitation. 04/22/2020 Patient is seen and examined up walking around the room. She states overall her breathing is improving significantly since admission. She continues to cough and feels like she was finally bringing up some sputum. She denies symptoms of chest pain, dizziness or palpitations. Telemetry tracings reveal persistent atrial flutter with rates between 100-130. Blood pressure 131/69. Laboratory data reviewed, WBC 13.2, hemoglobin 11.7, platelets 341, sodium 135, potassium 5.0, creatinine 1.63. PHYSICAL EXAMINATION CONSTITUTIONAL: No apparent distress. HEENT: Head is normocephalic. Pupils are equal, round. Sclerae anicteric. Mucous membranes of the mouth are moist. No JVD. No carotid bruit. CHEST EXAMINATION: Faint expiratory wheezes noted, improved from previous exam. No rhonchi or rales. No chest wall tenderness is noted on palpation or with deep breathing. HEART EXAMINATION: Irregular rate and rhythm. S1, S2 heard. Systolic ejection murmur at the left sternal border, no gallops or rub. EXTREMITIES: 2+ peripheral pulses, no lower extremity edema and no calf tenderness. ASSESSMENT New-onset atrial flutter with rapid ventricular rate Pneumonia Leukocytosis Coronary artery disease status post bypass grafting Valvular heart disease status post mitral valve replacement Chronic kidney disease Hypertension Dyslipidemia COPD Former nicotine dependence PLAN Increase Lopressor to 50 mg 3 times a day for rate control. Continue Eliquis for thromboembolic protection. Nurse Practitioner note has been reviewed, I agree with a documented findings and plan of care. Patient was seen and examined. Objective - Vital Signs Vital signs: Vital Signs Temp 98.2 F 04/22/20 08:00 Pulse 103 H 04/22/20 08:26 Resp 20 04/22/20 08:00 BP 131/69 04/22/20 08:00 Pulse Ox 96 04/22/20 08:00 Intake & Output 04/21/20 04/22/20 04/22/20 18:59 06:59 18:59 Intake Total 240 240 Output Total 400 1200 Balance -160 -1200 240 Weight 70.5 kg 70.5 kg Intake: Oral 240 240 Output: Urine 400 1200 Other: Voiding Method Toilet Toilet # Voids 1 - Labs CBC & Chem 7: 04/22/20 06:55 04/22/20 06:55 Labs: Abnormal Lab Results - Last 24 Hours (Table) 04/21/20 04/21/20 04/21/20 Range/Units 11:58 17:05 19:49 WBC (3.8-10.6) k/uL Neutrophils # (1.3-7.7) k/uL Lymphocytes # (1.0-4.8) k/uL Sodium (137-145) mmol/L BUN (7-17) mg/dL Creatinine (0.52-1.04) mg/dL Glucose (74-99) mg/dL POC Glucose (mg/dL) 130 H 136 H 175 H (75-99) mg/dL 04/22/20 04/22/20 04/22/20 Range/Units 06:28 06:55 06:55 WBC 13.2 H (3.8-10.6) k/uL Neutrophils # 12.4 H (1.3-7.7) k/uL Lymphocytes # 0.6 L (1.0-4.8) k/uL Sodium 135 L (137-145) mmol/L BUN 68 H (7-17) mg/dL Creatinine 1.63 H (0.52-1.04) mg/dL Glucose 139 H (74-99) mg/dL POC Glucose (mg/dL) 146 H (75-99) mg/dL Microbiology - Last 24 Hours (Table) 04/19/20 12:00 Blood Culture - Preliminary Blood No Growth after 48 hours 04/19/20 10:20 Blood Culture - Preliminary Blood No Growth after 48 hours
[2020-04-22 11:41] LABS: Glucose,Whole Blood 106 mg/dL (75-99)
[2020-04-22] MEDS ORDERED: FUROSEMIDE 10 MG/ML 4 ML VIAL IV STA (15:01)
--- NOTE | 2020-04-22 15:33 | PN ---
PROGRESS NOTE Patient is seen for followup for acute kidney injury on top of chronic kidney disease. The patient is being treated for pneumonia. Her renal function has improved with serum creatinine now staying at about 1.6 mg/dL down from 2.49 on initial admission. Patient states she is feeling better. She is currently not maintained on any oxygen. PHYSICAL EXAMINATION: Blood pressure was 138/89, heart rate 120 per minute. She is afebrile. Pt is awake, alert, oriented x3, No edema noted in the legs. SHARE HOLDER exam grossly intact. LABS: chloride 99, BUN 68, serum creatinine 1.63, hemoglobin 11.7 g/dL. ASSESSMENT: 1. Acute kidney injury secondary to underlying infection/pneumonia, currently improved. The patient appears mildly volume overloaded. I will give her one dose of IV Lasix today. 2. Pneumonia with chest x-ray showing bilateral patchy infiltrates. PCR for COVID-19 is negative. The patient is maintained on antibiotics. 3. Mild hyperkalemia associated with underlying renal insufficiency, currently improved. PLAN: Repeat IV Lasix and follow up as outpatient for CKD. MMODL / IJN: [id number] / SIDRA
[2020-04-22 17:17] LABS: Glucose,Whole Blood 119 mg/dL (75-99)
--- NOTE | 2020-04-22 18:59 | P.PN ---
Progress Note - Text Progress Note Date: 04/22/20 Chief Complaint: Short of breath cough History of presenting complaint: This is a pleasant 70-year-old patient of Dr. Glory Wilcox. Chronic stable medical conditions include , CHF, GERD, hypertension, hyperlipidemia, chronic kidney disease, Carr's esophagus, hiatal hernia, coronary artery disease with history of bypass cardiac valve replacement/mitral valve replacement. For 4 days patient started getting increasingly short of breath. Wheezing. Off. She de scribed her sputum as being yucky. Developed fevers and significant chills. Decreased appetite tired rundown. Admitted with bilateral pneumonia and acute COPD exacerbation. Also found to have atrial flutter. Patient is put on bronchodilators, IV Solu-Medrol, IV ceftriaxone and Zithromax. Placed on IV heparin. Today-remains in atrial flutter fibrillation. Heart rate uncontrolled. Dose of beta sonya increased today. Still a bit congested and some wheezing and cough. Oral intake better. Up in a chair. Review of systems: Was done for constitutional, cardiovascular, GI, pulmonary. relevant finding as above Active Medications Acetaminophen (Acetaminophen Tab 325 Mg Tab) 650 mg PO Q6HR PRN PRN Reason: Mild Pain or Fever > 100.5 Last Admin: 04/21/20 13:05 Dose: 650 mg Documented by: Albuterol/Ipratropium (Ipratropium-Albuterol 3 Ml Neb) 3 ml INHALATION RT-QID [facility] Last Admin: 04/22/20 15:45 Dose: 3 ml Documented by: Albuterol/Ipratropium (Ipratropium-Albuterol 3 Ml Neb) 3 ml INHALATION RT-Q2H PRN PRN Reason: Shortness Of Breath Or Wheezing Apixaban (Apixaban 5 Mg Tab) 5 mg PO BID [facility] Last Admin: 04/22/20 08:42 Dose: 5 mg Documented by: Azithromycin (Azithromycin 500 Mg Tab) 500 mg PO DAILY [facility] Stop: 04/24/20 09:01 Last Admin: 04/22/20 08:42 Dose: 500 mg Documented by: Budesonide (Budesonide 1 Mg/2 Ml Nebu) 1 mg INHALATION RT-BID [facility] Last Admin: 04/22/20 08:00 Dose: 1 mg Documented by: Calcitriol (Calcitriol 0.25 Mcg Cap) 0.25 mcg PO [place] [facility] Calcium Carbonate/Glycine (Calcium Carbonate 500 Mg Chewable) 1,000 mg PO Q4HR PRN PRN Reason: Dyspepsia Last Admin: 04/20/20 23:48 Dose: 1,000 mg Documented by: Ezetimibe (Ezetimibe 10 Mg Tab) 10 mg PO DAILY [facility] Last Admin: 04/22/20 08:43 Dose: 10 mg Documented by: Ergocalciferol (Ergocalciferol 1,250 Mcg (50,000 Iu) Capsule) 1,250 mcg PO Q30D [facility] Formoterol Fumarate (Formoterol Fumarate 20 Mcg/2 Ml Nebu) 20 mcg INHALATION RT-BID [facility] Last Admin: 04/22/20 08:00 Dose: 20 mcg Documented by: Guaifenesin (Guaifenesin 600 Mg Tablet.Er) 600 mg PO QID [facility] Last Admin: 04/22/20 16:59 Dose: 600 mg Documented by: Ceftriaxone Sodium 2 gm/ (Sodium Chloride) 50 mls @ 100 mls/hr IVPB Q24HR@2200 [facility] Last Admin: 04/21/20 13:02 Dose: 100 mls/hr Documented by: Sodium Chloride (Saline 0.9%) 1,000 mls @ 50 mls/hr IV .Q20H [facility] Last Admin: 04/22/20 18:13 Dose: Not Given Documented by: Insulin Aspart (Insulin Aspart (Novolog) 100 Unit/Ml Vial) 0 unit SQ ACHS [facility]; Protocol Last Admin: 04/22/20 17:22 Dose: Not Given Documented by: Lorazepam (Lorazepam 0.5 Mg Tab) 0.5 mg PO Q6HR PRN PRN Reason: Anxiety Magnesium Hydroxide (Magnesium Hydroxide 2,400 Mg/10 Ml Cup) 2,400 mg PO DAILY PRN PRN Reason: Constipation Magnesium Oxide (Magnesium Oxide 400 Mg Tab) 400 mg PO HS [facility] Last Admin: 04/21/20 20:13 Dose: 400 mg Documented by: Melatonin (Melatonin 3 Mg Tablet) 3 mg PO HS PRN PRN Reason: Insomnia Methylprednisolone Sodium Succinate (Methylprednisolone Sod Succi 40 Mg/Ml 1 Ml Vial) 40 mg IV Q8HR [facility] Last Admin: 04/22/20 16:56 Dose: 40 mg Documented by: Metoprolol Tartrate (Metoprolol Tartrate 50 Mg Tab) 50 mg PO TID [facility] Last Admin: 04/22/20 16:57 Dose: 50 mg Documented by: Midodrine (Midodrine 5 Mg Tab) 5 mg PO AC-BID [facility] Last Admin: 04/22/20 16:57 Dose: 5 mg Documented by: Miscellaneous Information (Pneumonia Protocol Utilized [facility]) 1 each PO ONCE PRN PRN Reason: Per Protocol Naloxone HCl (Naloxone 0.4 Mg/Ml 1 Ml Vial) 0.2 mg IV Q2M PRN PRN Reason: Opioid Reversal Ondansetron HCl (Ondansetron 4 Mg/2 Ml Vial) 4 mg IVP Q8HR PRN PRN Reason: Nausea And Vomiting Pantoprazole Sodium (Pantoprazole 40 Mg Tablet) 40 mg PO DAILY PRN PRN Reason: gerd Pravastatin Sodium (Pravastatin Sodium 80 Mg Tab) 80 mg PO HS [facility] Last Admin: 04/21/20 20:13 Dose: 80 mg Documented by: Past medical history to include: COPD,'s coronary artery disease with bypass, CHF, COPD, GERD, hyperlipidemia, hypertension, kidney disease, Carr's esophagus, hiatal hernia, mitral valve replacement Social history: This letter and her daughter. She is active. He smoked on and off since she was 17 for many years finally stopping in 2007. No alcohol. Physical examination: VITAL SIGNS: 97.4, 120, 18, 138 x 89, 99% room air GENERAL: Sitting up in a chair, slightly short of breath EYES: Pupils equal. Conjunctiva normal. NECK: JVD not raised; masses not palpable. HEART: Heart sounds are irregular; no edema. LUNGS: Respiratory rate increased, decreased breath sounds , wheezing. ABDOMEN: Soft, nontender, liver spleen not palpable, no masses palpable. PSYCH: Alert and oriented x3; mood and affect anxious MUSCULOSKELETAL: Evidence of OA INVESTIGATIONS, reviewed in the clinical context: April 22: White count 13.2 hemoglobin 7.7 potassium 5 bun 68 creatinine 1.63 April 21: White count 14.7 hemoglobin 11.6 potassium 5.3 bun 63 creatinine 1.68 April 20: White count 6.2 hemoglobin 12.3 sodium 1:30 potassium 4.7 bun 55 creatinine 1.84 2-D echocardiogram-here 50-55% Ultrasound kidney: Mild cortical thinning WBC 9.8 white count 13.6 hemoglobin 22 left shift sodium 132 potassium 5.1 bun 4 7 creatinine 2.49 Coronavirus [PCR]-not detected EKG tracing personally reviewed by me-possible sinus tachycardia. Chest x-ray film personally reviewed by me-hyperinflated, basilar infiltrates Assessment and plan: - Bilateral basal pneumonia suspected gram-negative organism. IV ceftriaxone Zithromax -improving -Acute COPD exacerbation in an ex-smoker. bronchodilator, inhaled steroids and long-acting [id number] to respond -Persistent Atrial flutter, with a variable ventricular rate, uncontrolled. Lopressor increased to 50 mg 3 times a day today. -Coronary artery disease by history of coronary bypass, continue with aspirin beta sonya and TESSA inhibitor -Chronic kidney disease stage 3. Likely from nephrosclerosis. Follow electrolytes -Acute kidney injury possibly a combination of ATN and prerenal. Dyazide and lisinopril discontinued. Creatinine down to 1.63 -GERD continue PPI -Hyperlipidemia continue Zetia -Essential hypertension . -Hypotension. Midodrine added. -Historyy of mitral valve replacement -Secondary hyperparathyroidism on Rocaltrol Discussed with patient. Continue with antibiotics. Mucinex added. Lopressor increased
[2020-04-22] MEDS: MAGNESIUM OXIDE 400 MG TAB PO SCH (20:35)
[2020-04-22] MEDS: PRAVASTATIN SODIUM 80 MG TAB PO SCH (20:35)
[2020-04-22 20:40] LABS: Glucose,Whole Blood 148 mg/dL (75-99)
[2020-04-23 06:29] LABS: Glucose,Whole Blood 138 mg/dL (75-99)
[2020-04-23] MEDS: MIDODRINE 5 MG TAB PO SCH ×2 (06:29→16:29)
[2020-04-23] MEDS: INSULIN ASPART (NovoLOG) 100 UNIT/ML VIAL SQ SCH ×4 (06:29→20:46)
[2020-04-23] MEDS: FORMOTEROL FUMARATE 20 MCG/2 ML NEBU INHALATION SCH ×2 (07:18→18:41)
[2020-04-23] MEDS: IPRATROPIUM-ALBUTEROL 3 ML NEB INHALATION SCH ×4 (07:19→18:41)
[2020-04-23] MEDS: BUDESONIDE 1 MG/2 ML NEBU INHALATION SCH ×2 (07:19→18:41)
[2020-04-23] MEDS: APIXABAN 5 MG TAB PO SCH ×2 (08:40→20:45)
[2020-04-23] MEDS: guaiFENesin 600 MG TABLET.ER PO SCH ×4 (08:40→20:47)
[2020-04-23] MEDS: methylPREDNISolone SOD SUCCI 40 MG/ML 1 ML VIAL IV SCH ×2 (08:40→16:29)
[2020-04-23] MEDS: METOPROLOL TARTRATE 50 MG TAB PO SCH ×3 (08:40→20:47)
[2020-04-23] MEDS: AZITHROMYCIN 500 MG TAB PO SCH (08:40)
[2020-04-23] MEDS: EZETIMIBE 10 MG TAB PO SCH (08:41)
[2020-04-23 11:38] LABS: Glucose,Whole Blood 113 mg/dL (75-99)
--- NOTE | 2020-04-23 12:01 | P.PN ---
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 She is seen and examined sitting up in bed in no acute distress. Overall she feels as though her breathing and her coughing is improving. She still does have a slight cough but much less frequent. She denies symptoms of chest pain, dizziness or palpitations P telemetry tracings reveal she continues to be in atrial flutter with heart rates between 110-120. 104/63. Laboratory data reviewed, WBC 14.7, hemoglobin 11.6, platelets 317, sodium 134, potassium 5.3, creatinine 1.68. Echocardiogram obtained reveals preserved LV systolic function with ejection fraction 50-55%, mild aortic valve sclerosis, mild periprosthetic regurgitation of the bioprosthetic mitral valve with a mean gradient of 4 mmHg and mild tricuspid regurgitation. 04/23/2020 Patient is seen and examined in no acute distress. Her breathing has improved since admission as well as her cough. Telemetry tracings reveal persistent atrial flutter with rapid ventricular rate. Despite increased his beta blockers yesterday her heart rate continues to be in the 120-130 range. Blood pressure 119/78. PHYSICAL EXAMINATION CONSTITUTIONAL: No apparent distress. HEENT: Head is normocephalic. Pupils are equal, round. Sclerae anicteric. Mucous membranes of the mouth are moist. No JVD. No carotid bruit. CHEST EXAMINATION: Expiratory wheeze at the bases. No rhonchi or rales. No chest wall tenderness is noted on palpation or with deep breathing. HEART EXAMINATION: Irregular rate and rhythm. S1, S2 heard. Systolic ejection murmur at the left sternal border, no gallops or rub. EXTREMITIES: 2+ peripheral pulses, no lower extremity edema and no calf tenderness. ASSESSMENT New-onset atrial flutter with rapid ventricular rate Pneumonia Leukocytosis Coronary artery disease status post bypass grafting Valvular heart disease status post mitral valve replacement Chronic kidney disease Hypertension Dyslipidemia COPD Former nicotine dependence PLAN Continue lopressor as previously ordered. Continue Eliquis for thromboembolic protection, aspirin discontinued as she has chronic stable CAD. NPO after midnight tonight for possible MAIRA/cardioversion tomorrow morning if she continues to be in atrial flutter with rapid ventricular rate. Nurse Practitioner note has been reviewed, I agree with a documented findings and plan of care. Patient was seen and examined. Objective - Vital Signs Vital signs: Vital Signs Temp 97.5 F L 04/23/20 08:00 Pulse 118 H 04/23/20 11:12 Resp 20 04/23/20 08:00 BP 119/78 04/23/20 08:00 Pulse Ox 97 04/23/20 08:00 Intake & Output 04/22/20 04/23/20 04/23/20 18:59 06:59 18:59 Intake Total 740 660 Output Total 600 900 500 Balance 140 -900 160 Weight 69.5 kg Intake: Oral 740 660 Output: Urine 600 900 500 Other: Voiding Method Toilet # Voids 2 # Bowel Movements 1 - Labs CBC & Chem 7: 04/22/20 06:55 04/22/20 06:55 Labs: Abnormal Lab Results - Last 24 Hours (Table) 04/22/20 04/22/20 04/23/20 Range/Units 17:16 20:38 06:27 POC Glucose (mg/dL) 119 H 148 H 138 H (75-99) mg/dL 04/23/20 Range/Units 11:37 POC Glucose (mg/dL) 113 H (75-99) mg/dL Microbiology - Last 24 Hours (Table) 04/19/20 12:00 Blood Culture - Preliminary Blood No Growth after 72 hours 04/19/20 10:20 Blood Culture - Preliminary Blood No Growth after 72 hours 04/19/20 20:24 Gram Stain - Final Sputum Sputum Culture - Final
[2020-04-23] MEDS: FUROSEMIDE 10 MG/ML 4 ML VIAL IV SCH (16:29)
[2020-04-23] MEDS: ACETAMINOPHEN TAB 325 MG TAB PO PRN (16:39)
[2020-04-23 16:48] LABS: Glucose,Whole Blood 137 mg/dL (75-99)
--- NOTE | 2020-04-23 17:02 | P.PN ---
Subjective This is a pleasant 70-year-old patient of Dr. Glory Wilcox. Chronic stable medical conditions include , CHF, GERD, hypertension, hyperlipidemia, chronic kidney disease, Carr's esophagus, hiatal hernia, coronary artery disease with history of bypass cardiac valve replacement/mitral valve replacement. For 4 days patient started getting increasingly short of breath. Wheezing. Off. She described her sputum as being yucky. Developed fevers and significant chills. Decreased appetite tired rundown. Admitted with bilateral pneumonia and acute COPD exacerbation. Also found to have atrial flutter. Patient is put on bronchodilators, IV Solu-Medrol, IV ceftriaxone and Zithromax. Placed on IV heparin. Today-remains in atrial flutter fibrillation. Heart rate uncontrolled. Dose of beta sonya increased today. Still a bit congested and some wheezing and cough. Oral intake better. Up in a chair. 04/23/2020 Patient is does clinically doing well at this time patient probably will be discharged tomorrow. Patient still remains in atrial fibrillation patient will undergo Juan T cardioversion tomorrow after that most probably patient will be discharged on weaning dose of steroids and antibiotics. Constitutional: Denied any fatigue denied any fever. Cardio vascular: denied any chest pain, palpitations Gastrointestinal denied any nausea vomiting Pulmonary: Denied any shortness of breath cough Neurologic denied any new focal deficits All inpatient medications were reviewed and appropriate changes in these medications as dictated in the interval history and assessment and plan. Objective - Vital Signs Vital signs: Vital Signs Temp 98 F 04/23/20 16:00 Pulse 127 H 04/23/20 16:00 Resp 18 04/23/20 16:00 BP 135/91 04/23/20 16:00 Pulse Ox 95 04/23/20 16:00 Intake & Output 04/22/20 04/23/20 04/23/20 18:59 06:59 18:59 Intake Total 740 1320 Output Total 788 568 9086 Balance 140 -900 -430 Weight 69.5 kg Intake: Oral 740 1320 Output: Urine 591 459 2687 Other: Voiding Method Toilet # Voids 2 # Bowel Movements 1 - Exam PHYSICAL EXAMINATION: GENERAL: The patient is alert and oriented x3, not in any acute distress. Well developed, well nourished. HEENT: Pupils are round and equally reacting to light. EOMI. No scleral icterus. No conjunctival pallor. Normocephalic, atraumatic. No pharyngeal erythema. No thyromegaly. CARDIOVASCULAR: S1 and S2 present. No murmurs, rubs, or gallops. Irregularly irregular rhythm rapid ventricular rate PULMONARY: Chest is clear to auscultation, no wheezing or crackles. ABDOMEN: Soft, nontender, nondistended, normoactive bowel sounds. No palpable organomegaly. MUSCULOSKELETAL: No joint swelling or deformity. EXTREMITIES: No cyanosis, clubbing, or pedal edema. NEUROLOGICAL: Gross neurological examination did not reveal any focal deficits. SKIN: No rashes. - Labs CBC & Chem 7: 04/22/20 06:55 04/22/20 06:55 Labs: Abnormal Lab Results - Last 24 Hours (Table) 04/22/20 04/22/20 04/23/20 Range/Units 17:16 20:38 06:27 POC Glucose (mg/dL) 119 H 148 H 138 H (75-99) mg/dL 04/23/20 04/23/20 Range/Units 11:37 16:47 POC Glucose (mg/dL) 113 H 137 H (75-99) mg/dL Microbiology - Last 24 Hours (Table) 04/19/20 12:00 Blood Culture - Preliminary Blood No Growth after 96 hours 04/19/20 10:20 Blood Culture - Preliminary Blood No Growth after 96 hours Assessment and Plan Plan: Assessment and plan: - Bilateral basal pneumonia suspected gram-negative organism. IV ceftriaxone Zithromax -improving -Acute COPD exacerbation in an ex-smoker. bronchodilator, inhaled steroids and long-acting [id number] to respond -Persistent Atrial flutter, with a variable ventricular rate, uncontrolled. Lopressor increased to 50 mg 3 times a day today. Cardio version tomorrow -Coronary artery disease by history of coronary bypass, continue with aspirin beta sonya and TESSA inhibitor -Chronic kidney disease stage 3. Likely from nephrosclerosis. Follow electrolytes -Acute kidney injury possibly a combination of ATN and prerenal. Dyazide and lisinopril discontinued. Creatinine down to 1.63 -GERD continue PPI -Hyperlipidemia continue Zetia -Essential hypertension . -Hypotension. Midodrine added. -Historyy of mitral valve replacement -Secondary hyperparathyroidism on Rocaltrol
--- NOTE | 2020-04-23 18:17 | PN ---
pls delete this note.. MMRAFITA / IJN: [id number] / SIDRA
--- NOTE | 2020-04-23 18:23 | PN ---
PROGRESS NOTE Patient is seen for followup for acute kidney injury on top of chronic kidney disease. She was admitted to the hospital with shortness of breath, with chest x-ray showing diffuse bilateral interstitial infiltrates. Patient's COVID PCR was negative. She is currently being treated for pneumonia. Overall, patient states she is feeling better. Serum creatinine has improved to 1.6 now from 2.49 on initial admission. Patient did receive IV Lasix for the last couple of days. Overall she states she is feeling better. PHYSICAL EXAMINATION: Blood pressure was 135/94, heart rate 120 per minute. She is afebrile. EXAMINATION OF THE HEART: S1 and S2. EXAMINATION OF LUNGS: Decreased breath sounds at bases. ABDOMEN: Soft, non-tender. Examination of lower extremities shows no significant edema. [employer]EVEL CLINICIAN exam is grossly intact. LABS: Sodium 135 from yesterday. Serum creatinine 1.6, hemoglobin 11.7 g/dL. ASSESSMENT: 1. Acute kidney injury, most likely acute tubular necrosis, nonoliguric, associated with underlying infection and pneumonia, currently improved. 2. Pneumonia with chest x-ray showing bilateral patchy infiltrates. COVID-19 PCR is negative. Patient is improving with antibiotics. 3. Volume overload. Add scheduled dose of IV Lasix for now. 4. Mild hyperkalemia associated with underlying renal insufficiency, now improved. 5. Chronic kidney disease secondary to nephrosclerosis. UA is completely benign. No evidence of obstruction on ultrasound. Serum creatinine as low as 1.1 in 2017. PLAN: Add scheduled dose of Lasix. Patient will need close followup as outpatient for CKD. MMODL / IJN: [id number] /
[2020-04-23] MEDS: SODIUM CHLORIDE 0.9% 1,000 ML IV SCH (18:29)
[2020-04-23 20:20] LABS: Glucose,Whole Blood 175 mg/dL (75-99)
[2020-04-23] MEDS: MAGNESIUM OXIDE 400 MG TAB PO SCH (20:46)
[2020-04-23] MEDS: PRAVASTATIN SODIUM 80 MG TAB PO SCH (21:43)
[2020-04-24] MEDS: FUROSEMIDE 10 MG/ML 4 ML VIAL IV SCH (05:44)
[2020-04-24] MEDS: INSULIN ASPART (NovoLOG) 100 UNIT/ML VIAL SQ SCH ×2 (06:05→11:53)
[2020-04-24 06:07] LABS: Glucose,Whole Blood 126 mg/dL (75-99)
[2020-04-24] MEDS: MIDODRINE 5 MG TAB PO SCH ×2 (06:08→17:23)
[2020-04-24 07:38] LABS: HCT 39.7 % (34.0-46.0); HGB 12.8 gm/dL (11.4-16.0); MCH 29.4 pg (25.0-35.0); MCHC 32.3 g/dL (31.0-37.0); MCV 90.9 fL (80.0-100.0); Mean Platelet Volume 7.1; Platelet Count 404 k/uL (150-450); RBC 4.37 m/uL (3.80-5.40); RDW 14.1 % (11.5-15.5); WBC 11.5 k/uL (3.8-10.6)
[2020-04-24] MEDS: FORMOTEROL FUMARATE 20 MCG/2 ML NEBU INHALATION SCH ×2 (08:05→19:10)
[2020-04-24] MEDS: BUDESONIDE 1 MG/2 ML NEBU INHALATION SCH ×2 (08:06→19:09)
[2020-04-24] MEDS: IPRATROPIUM-ALBUTEROL 3 ML NEB INHALATION SCH ×5 (08:07→19:09)
[2020-04-24 08:24] LABS: Calcium 9.2 mg/dL (8.4-10.2); Potassium 5.1 mmol/L (3.5-5.1)
[2020-04-24 08:41] LABS: Magnesium 2.7 mg/dL (1.6-2.3)
[2020-04-24] MEDS: APIXABAN 5 MG TAB PO SCH ×2 (09:23→20:19)
--- NOTE | 2020-04-24 09:54 | P.PN ---
Subjective Patient is seen in follow-up for acute kidney injury on chronic kidney disease. Patient has chronic kidney disease stage IIIB with baseline creatinine near 1.5. No significant cough. No vomiting or diarrhea. Oral intake is fair. Maintained on IV Lasix. Good urine output. Vital signs are stable. General: The patient appeared well nourished and normally developed. HEENT: Head exam is unremarkable. Neck is without jugular venous distension. LUNGS: Breath sounds decreased. HEART: Rate and Rhythm are regular. ABDOMEN: Soft, nontender. EXTREMITITES: Trace edema. Objective - Vital Signs Vital signs: Vital Signs Temp 97.6 F 04/24/20 09:09 Pulse 130 H 04/24/20 09:09 Resp 16 04/24/20 09:09 BP 127/100 04/24/20 09:09 Pulse Ox 95 04/24/20 09:09 Intake & Output 04/23/20 04/24/20 04/24/20 18:59 06:59 18:59 Intake Total 1560 Output Total 1750 1650 Balance -190 -1650 Weight 69 kg Intake: Oral 1560 Output: Urine 1750 1650 Other: Voiding Method Toilet - Labs CBC & Chem 7: 04/24/20 06:28 04/24/20 06:28 Labs: Abnormal Lab Results - Last 24 Hours (Table) 04/23/20 04/23/20 04/23/20 Range/Units 11:37 16:47 20:09 WBC (3.8-10.6) k/uL Sodium (137-145) mmol/L Chloride (98-107) mmol/L BUN (7-17) mg/dL Creatinine (0.52-1.04) mg/dL Glucose (74-99) mg/dL POC Glucose (mg/dL) 113 H 137 H 175 H (75-99) mg/dL Magnesium (1.6-2.3) mg/dL 04/24/20 04/24/20 04/24/20 Range/Units 06:02 06:28 06:28 WBC 11.5 H (3.8-10.6) k/uL Sodium 133 L (137-145) mmol/L Chloride 94 L (98-107) mmol/L BUN 71 H (7-17) mg/dL Creatinine 1.64 H (0.52-1.04) mg/dL Glucose 119 H (74-99) mg/dL POC Glucose (mg/dL) 126 H (75-99) mg/dL Magnesium 2.7 H (1.6-2.3) mg/dL Microbiology - Last 24 Hours (Table) 04/19/20 12:00 Blood Culture - Preliminary Blood No Growth after 96 hours 04/19/20 10:20 Blood Culture - Preliminary Blood No Growth after 96 hours Assessment and Plan Plan: Assessment: 1. Acute kidney injury secondary to ATN secondary to infection and cardiorenal syndrome. Renal function improved. Creatinine stable at 1.64 today. 2. Volume overload. Improving with diuresis. 3. Pneumonia maintained on antibiotics. 4. Chronic kidney disease stage IIIB secondary to nephrosclerosis. Baseline creatinine near 1.5. 5. A flutter with RVR. Cardiology following. Scheduled for MAIRA and cardioversion tomorrow. 6. Chronic kidney disease mineral bone disease maintained on calcitriol. Plan: Decrease Lasix to 40 mg IV once daily. Hold midodrine for systolic blood pressure greater than 110. Continue to monitor renal function and urine output.
[2020-04-24] MEDS ORDERED: LIDOCAINE 1% INJ 10MG/ML (20 ML MDV) ONE (10:48)
[2020-04-24] MEDS ORDERED: PROPOFOL 10 MG/ML 20 ML VIAL IV ONE (10:48)
[2020-04-24] MEDS ORDERED: LACTATED RINGERS 1,000 ML IV ONE (10:59)
[2020-04-24 11:54] LABS: Glucose,Whole Blood 101 mg/dL (75-99)
[2020-04-24] MEDS ORDERED: SODIUM CHLORIDE 0.9% 1,000 ML IV SCH (12:00)
--- NOTE | 2020-04-24 12:22 | P.PN ---
Subjective Progress Note Date: 04/24/20 This is a pleasant 70-year-old patient of Dr. Glory Wilcox. Chronic stable medical conditions include , CHF, GERD, hypertension, hyperlipidemia, chronic kidney disease, Carr's esophagus, hiatal hernia, coronary artery disease with history of bypass cardiac valve replacement/mitral valve replacement. For 4 days patient started getting increasingly short of breath. Wheezing. Off. She described her sputum as being yucky. Developed fevers and significant chills. Decreased appetite tired rundown. Admitted with bilateral pneumonia and acute COPD exacerbation. Also found to have atrial flutter. Patient is put on bronchodilators, IV Solu-Medrol, IV ceftriaxone and Zithromax. Placed on IV heparin. Today-remains in atrial flutter fibrillation. Heart rate uncontrolled. Dose of beta sonya increased today. Still a bit congested and some wheezing and cough. Oral intake better. Up in a chair. 04/23/2020 Patient is does clinically doing well at this time patient probably will be disc harged tomorrow. Patient still remains in atrial fibrillation patient will undergo MAIRA cardioversion tomorrow after that most probably patient will be discharged on weaning dose of steroids and antibiotics. 04/24/2020 Patient is seen this morning continues to have elevated heart rates in the 130s. Patient is being taken down at this time for MAIRA with cardioversion and will await report. Patient is currently maintained on bronchodilators along with steroids and antibiotics and will continue. Cardiology following. Constitutional: Denied any fatigue denied any fever. Cardio vascular: denied any chest pain, palpitations Gastrointestinal denied any nausea vomiting Pulmonary: Occasional shortness of breath with exertion and cough Neurologic no reports of weakness or numbness All inpatient medications were reviewed and appropriate changes in these medications as dictated in the interval history and assessment and plan. Objective - Vital Signs Vital signs: Vital Signs Temp 97.6 F 04/24/20 09:09 Pulse 130 H 04/24/20 09:09 Resp 16 04/24/20 09:09 BP 127/100 04/24/20 09:09 Pulse Ox 95 04/24/20 09:09 Intake & Output 04/23/20 04/24/20 04/24/20 18:59 06:59 18:59 Intake Total 1560 Output Total 1750 1650 Balance -190 -1650 Weight 69 kg Intake: Oral 1560 Output: Urine 1750 1650 Other: Voiding Method Toilet - Exam GENERAL: The patient is alert and oriented x3, not in any acute distress. Well developed, well nourished. HEENT: Pupils are round and equally reacting to light. EOMI. No scleral icterus. No conjunctival pallor. Normocephalic, atraumatic. No pharyngeal erythema. No thyromegaly. CARDIOVASCULAR: S1 and S2 present. No murmurs, rubs, or gallops. Irregularly irregular rhythm rapid ventricular rate PULMONARY: Coarse breath sounds noted, no wheezing or crackles. ABDOMEN: Soft, nontender, nondistended, normoactive bowel sounds. No palpable organomegaly. MUSCULOSKELETAL: No joint swelling or deformity. EXTREMITIES: No cyanosis, clubbing, or pedal edema. NEUROLOGICAL: Gross neurological examination did not reveal any focal deficits. SKIN: No rashes. - Labs CBC & Chem 7: 04/24/20 06:28 04/24/20 06:28 Labs: Abnormal Lab Results - Last 24 Hours (Table) 04/23/20 04/23/20 04/23/20 Range/Units 11:37 16:47 20:09 WBC (3.8-10.6) k/uL Sodium (137-145) mmol/L Chloride (98-107) mmol/L BUN (7-17) mg/dL Creatinine (0.52-1.04) mg/dL Glucose (74-99) mg/dL POC Glucose (mg/dL) 113 H 137 H 175 H (75-99) mg/dL Magnesium (1.6-2.3) mg/dL 04/24/20 04/24/20 04/24/20 Range/Units 06:02 06:28 06:28 WBC 11.5 H (3.8-10.6) k/uL Sodium 133 L (137-145) mmol/L Chloride 94 L (98-107) mmol/L BUN 71 H (7-17) mg/dL Creatinine 1.64 H (0.52-1.04) mg/dL Glucose 119 H (74-99) mg/dL POC Glucose (mg/dL) 126 H (75-99) mg/dL Magnesium 2.7 H (1.6-2.3) mg/dL Microbiology - Last 24 Hours (Table) 04/19/20 12:00 Blood Culture - Preliminary Blood No Growth after 96 hours 04/19/20 10:20 Blood Culture - Preliminary Blood No Growth after 96 hours Assessment and Plan Assessment: -Bibasilar pneumonia suspected gram-negative organism. IV ceftriaxone and Zithromax -improving -Acute COPD exacerbation in an ex-smoker. bronchodilator, inhaled steroids and long-acting [id number] to respond -Persistent Atrial flutter, with a variable ventricular rate, uncontrolled. Lopressor increased to 50 mg 3 times a day today. Patient is going down for cardioversion with MAIRA today -Coronary artery disease by history of coronary bypass, continue with aspirin beta sonya and TESSA inhibitor -Chronic kidney disease stage 3. Likely from nephrosclerosis. Follow electrolytes -Acute kidney injury possibly a combination of ATN and prerenal. Dyazide and lisinopril discontinued. Creatinine 1.64 will repeat labs in the morning. -GERD continue PPI -Hyperlipidemia continue Zetia -Essential hypertension -Hypotension. Midodrine added. -History of mitral valve replacement -Secondary hyperparathyroidism on Rocaltrol Plan: Continue with current medications. Nephrology and cardiology following. Patient scheduled to undergo MAIRA with cardioversion today. Heart rates continue to be in the 130s. Await cardiology report. Patient is maintained on antibiotics along with bronchodilators and will continue at this time. Maintained monitor blood sugars before meals at bedtime. Will repeat a.m. labs as creatinine continues to be elevated at 1.64. Possible discharge in 24 hours.
--- NOTE | 2020-04-24 12:43 | PN ---
PROGRESS NOTE Mrs. Haynes is a 70-year-old female with a history of mitral valve repair and coronary artery bypass grafting who presented with pneumonia and was found to have atrial flutter. She continued to be in atrial flutter with episode of rapid ventricular response, but her breathing is better overall. She denies any chest pain. She denies any dizziness. She denies any palpitation. She denies any nausea. She continues to be on Eliquis 5 mg twice a day, Zetia 10 mg daily, insulin, metoprolol tartrate 50 mg 3 times a day, pravastatin 80 mg daily. PHYSICAL EXAMINATION: VITAL SIGNS: Blood pressure 127/100 with a heart rate in the 120s to 130. LUNGS: With few wheezes. No rales. HEART: Tachycardic S1, S2. No S3 with a systolic murmur. ABDOMEN: Soft and nontender. EXTREMITIES: No edema. LAB DATA: BUN and creatinine 71 and 1.64. Potassium 5.1. IMPRESSION: 1. Pneumonia. 2. Atrial flutter with persistent rapid ventricular response. 3. Status post mitral valve repair. 4. Status post coronary artery bypass grafting. 5. Renal failure. RECOMMENDATION: I would recommend to proceed with a MAIRA guided cardioversion today. The rationale behind the procedures, risks and the complications were discussed with the patient who is in full understanding and agreement. Depending on the results, further recommendations will be made. MMODL / IJN: [id number] /
[2020-04-24] MEDS: AZITHROMYCIN 500 MG TAB PO SCH (12:48)
[2020-04-24] MEDS: METOPROLOL TARTRATE 50 MG TAB PO SCH ×3 (12:48→20:19)
[2020-04-24] MEDS: EZETIMIBE 10 MG TAB PO SCH (12:48)
[2020-04-24] MEDS: predniSONE 20 MG TAB PO SCH (12:48)
[2020-04-24] MEDS: guaiFENesin 600 MG TABLET.ER PO SCH ×4 (12:48→20:19)
--- NOTE | 2020-04-24 12:52 | ECHOT ---
TRANSESOPHAGEAL ECHOCARDIOGRAM PROCEDURE: Transesophageal echocardiogram. INDICATIONS: Evaluation of left atrial appendage. PROCEDURE: After explaining the procedure to the patient, its risks and the complications, blood pressure, heart rate, O2 saturation was monitored. The throat was sprayed with Cetacaine. She received sedation per Anesthesia Department. The probe was introduced into the esophagus without difficulty. Images were obtained. Following that, the probe was removed. FINDINGS: Left atrial size is dilated. Left atrial appendage is normal. Spontaneous contrast was noted. Left ventricular size is normal. There is evidence of global hypokinesis. Estimated ejection fraction 35 to 40%. The aortic valve revealed mild fibrocalcific change of the aortic cusp with preserved opening. Mitral annuloplasty was noted. Tricuspid valve is normal. No pericardial effusion was noted. Contrast bubble study revealed no evidence of shunting across the interatrial septum. The descending thoracic aorta revealed mild atherosclerotic changes. Doppler pulse wave and color Doppler obtained and revealed a mild to moderate mitral, as well as moderate tricuspid regurgitation. There was no shunting by color Doppler study. CONCLUSION: 1. Dilated left atrium with spontaneous contrast and normal appearance of left atrial appendage. 2. Normal size with moderately impaired systolic function. 3. Mitral valve annuloplasty with evidence of moderate mitral regurgitation. 4. Mild to moderate tricuspid regurgitation. 5. No shunting across the interatrial septum. 6. Mild atherosclerotic changes of the descending thoracic aorta. MMODL / IJN: [id number] /
--- NOTE | 2020-04-24 13:40 | PCN ---
PROCEDURE NOTE PROCEDURE: Cardioversion. INDICATION: Atrial flutter. PROCEDURE IN DETAIL: After explaining the procedure to the patient, its risks and complication, her blood pressure, heart rate, O2 saturation was monitored. Her throat was sprayed with Cetacaine. After obtaining transesophageal echocardiogram and obtaining a sedated state, a synchronized biphasic cardioversion using 200 joules was performed with synagogue of normal sinus rhythm. There was no immediate complication. MMODL / IJN: [id number] /
[2020-04-24] MEDS: PRAVASTATIN SODIUM 80 MG TAB PO SCH (20:19)
[2020-04-24] MEDS: MAGNESIUM OXIDE 400 MG TAB PO SCH (20:19)
[2020-04-25 07:27] LABS: Basophils % (A) 0 %; Eosinophils % (A) 0 %; HCT 38.4 % (34.0-46.0); HGB 12.7 gm/dL (11.4-16.0); Lymphocytes # (A) 1.1 k/uL (1.0-4.8); Lymphocytes % (A) 12 %; MCHC 32.9 g/dL (31.0-37.0); Monocytes # (A) 0.5 k/uL (0-1.0); Monocytes % (A) 5 %; Neutrophils # (A) 7.6 k/uL (1.3-7.7); Neutrophils % (A) 82 %; Platelet Count 343 k/uL (150-450); RBC 4.22 m/uL (3.80-5.40); RDW 13.8 % (11.5-15.5); WBC 9.3 k/uL (3.8-10.6)
[2020-04-25 07:43] LABS: Calcium 9.1 mg/dL (8.4-10.2); Magnesium 2.8 mg/dL (1.6-2.3); Potassium 4.6 mmol/L (3.5-5.1)
[2020-04-25] MEDS: IPRATROPIUM-ALBUTEROL 3 ML NEB INHALATION SCH ×2 (08:13→11:41)
[2020-04-25] MEDS: FORMOTEROL FUMARATE 20 MCG/2 ML NEBU INHALATION SCH (08:13)
[2020-04-25] MEDS: BUDESONIDE 1 MG/2 ML NEBU INHALATION SCH (08:13)
[2020-04-25 08:42] VITALS: RESP 16; TEMP 98.1
[2020-04-25] MEDS: MIDODRINE 5 MG TAB PO SCH (08:44)
[2020-04-25] MEDS: guaiFENesin 600 MG TABLET.ER PO SCH ×2 (08:48→12:11)
[2020-04-25] MEDS: EZETIMIBE 10 MG TAB PO SCH (08:48)
[2020-04-25] MEDS: predniSONE 20 MG TAB PO SCH (08:48)
[2020-04-25] MEDS: APIXABAN 5 MG TAB PO SCH (08:48)
[2020-04-25] MEDS: METOPROLOL TARTRATE 50 MG TAB PO SCH (08:48)
[2020-04-25] MEDS ORDERED: FUROSEMIDE 10 MG/ML 4 ML VIAL IV SCH (09:00)
--- NOTE | 2020-04-25 10:25 | P.PN ---
Subjective Patient is seen in follow-up for acute kidney injury on chronic kidney disease. Patient has chronic kidney disease stage IIIB with baseline creatinine near 1.5. No significant cough. No vomiting or diarrhea. Oral intake is fair. Maintained on IV Lasix. Good urine output. Vital signs are stable. General: The patient appeared well nourished and normally developed. HEENT: Head exam is unremarkable. Neck is without jugular venous distension. LUNGS: Breath sounds decreased. HEART: Rate and Rhythm are regular. ABDOMEN: Soft, nontender. EXTREMITITES: Trace edema. Objective - Vital Signs Vital signs: Vital Signs Temp 98.1 F 04/25/20 08:41 Pulse 60 04/25/20 08:41 Resp 16 04/25/20 08:41 BP 137/82 04/25/20 08:41 Pulse Ox 95 04/25/20 08:41 Intake & Output 04/24/20 04/25/20 04/25/20 18:59 06:59 18:59 Intake Total 475 420 Output Total 700 Balance 475 -280 Weight 69 kg Intake: IV 75 Oral 400 420 Output: Urine 700 Other: Voiding Method Toilet Toilet Toilet # Voids 2 1 1 # Bowel Movements 0 0 - Labs CBC & Chem 7: 04/25/20 06:50 04/25/20 06:50 Labs: Abnormal Lab Results - Last 24 Hours (Table) 04/24/20 04/25/20 Range/Units 11:52 06:50 Sodium 133 L (137-145) mmol/L Chloride 95 L (98-107) mmol/L BUN 60 H (7-17) mg/dL Creatinine 1.43 H (0.52-1.04) mg/dL POC Glucose (mg/dL) 101 H (75-99) mg/dL Magnesium 2.8 H (1.6-2.3) mg/dL Microbiology - Last 24 Hours (Table) 04/19/20 12:00 Blood Culture - Preliminary Blood No Growth after 120 hours 04/19/20 10:20 Blood Culture - Preliminary Blood No Growth after 120 hours Assessment and Plan Plan: Assessment: 1. Acute kidney injury secondary to ATN secondary to infection and cardiorenal syndrome. Renal function improved. Creatinine 1.43 today. 2. Volume overload. Improving with diuresis. 3. Pneumonia maintained on antibiotics. 4. Chronic kidney disease stage IIIB secondary to nephrosclerosis. Baseline creatinine near 1.5. 5. A flutter with RVR. Cardiology following. MAIRA done yesterday revealed normal appearance of the left atrial appendage. EF of 35-40%. Mild to moderate tricuspid regurgitation, moderate mitral regurgitation. She also underwent cardioversion yesterday. 6. Chronic kidney disease mineral bone disease maintained on calcitriol. Plan: Change Lasix to 40 mg orally once daily. Continue to monitor renal function and urine output. I advised the patient to follow a low-salt diet and fluid restriction of 40-45 ounces per day. She was also advised to monitor her weight closely at home and to call if gains more than 2-3 pounds in a period of 3 days. Follow-up outpatient in 7-10 days. Repeat BMP and magnesium level to 3 days postdischarge.
--- NOTE | 2020-04-25 11:25 | PN ---
PROGRESS NOTE Mrs. Haynes is a 70-year-old female with history of mitral valve repair, history of coronary artery bypass grafting who presented with pneumonia and was found to be in atrial flutter with rapid ventricular response. Yesterday, she underwent MAIRA guided cardioversion with jewish of normal sinus rhythm. She was found to have evidence of moderate cardiomyopathy. She is feeling much better today. Her breathing is better. She has some cough but no wheezing. She denies any dizziness. No syncope. She continues to be on Eliquis 5 mg twice a day, metoprolol tartrate 50 mg twice a day. PHYSICAL EXAMINATION: Blood pressure 137/80 with a heart rate in the 60s. LUNGS: A few crackles, no wheezes. HEART: Regular rate and rhythm S1, S2. No S3 with systolic murmur, no diastolic murmur. ABDOMEN: Soft, nontender. EXTREMITIES: No edema. LAB DATA: Lab data revealed a BUN and creatinine of 60 and 1.43, which is improved compared to admission. Potassium 4.6. IMPRESSION: 1. Status post MAIRA guided cardioversion with jewish of normal sinus rhythm. 2. Pneumonia. 3. Status post mitral valve repair and coronary artery bypass grafting. 4. Cardiomyopathy. 5. Chronic kidney disease improving. RECOMMENDATION: From the cardiac standpoint, will continue present therapy. She should be able to be discharged home today and she will be followed as an outpatient further evaluate her cardiac status and re-evaluate her LV systolic function. VIET / LEXIS: [id number] /
[2020-04-25 12:11] VITALS: BP 148/75; PULSE 58
--- NOTE | 2020-04-25 13:08 | P.DS ---
Providers Date of admission: 04/19/20 12:55 Expected date of discharge: 04/25/20 Attending physician: Adrien King Consults: 04/19/20 16:58 Consult Physician Routine Consulting Provider: Gill Abdi Consult Reason/Comments: new aflutter RVR Do you want consulting provider notified?: Yes 04/19/20 19:31 Consult Physician Routine Consulting Provider: Monae Cooper Consult Reason/Comments: Kidney failure Do you want consulting provider notified?: Yes Primary care physician: Saman Wilcox Hospital Course: Final diagnosis -Bibasilar pneumonia suspected gram-negative organism -Acute COPD exacerbation in an ex-smoker -Persistent Atrial flutter, with a variable ventricular rate, uncontrolled -Status post MAIRA with cardioversion to normal sinus -Coronary artery disease by history of coronary bypass -Chronic kidney disease stage 3. Likely from nephrosclerosis -Acute kidney injury possibly a combination of ATN and prerenal -GERD -Hyperlipidemia -Essential hypertension -Hypotension -History of mitral valve replacement -Secondary hyperparathyroidism on Rocaltrol Discharge disposition Patient is being discharged in a stable condition with guarded prognosis to home. Patient will follow-up with Dr. Glory Wilcox in the outpatient setting upon discharge. Patient is to follow-up with cardiology Dr. Abdi as scheduled along with nephrology. Total time taken is greater than 35 minutes. Hospital course This is a pleasant 70-year-old patient of Dr. Glory Wilcox. Chronic stable medical conditions include , CHF, GERD, hypertension, hyperlipidemia, chronic kidney disease, Carr's esophagus, hiatal hernia, coronary artery disease with history of bypass cardiac valve replacement/mitral valve replacement. For 4 days patient started getting increasingly short of breath. Wheezing. Off. She described her sputum as being yucky. Developed fevers and significant chills. Decreased appetite tired rundown. Admitted with bilateral pneumonia and acute COPD exacerbation. Also found to have atrial flutter. Patient is put on bronchodilators, IV Solu-Medrol, IV ceftriaxone and Zithromax. Placed on IV heparin. Today-remains in atrial flutter fibrillation. Heart rate uncontrolled. Dose of beta sonya increased today. Still a bit congested and some wheezing and cough. Oral intake better. Up in a chair. 04/23/2020 Patient is does clinically doing well at this time patient probably will be discharged tomorrow. Patient still remains in atrial fibrillation patient will undergo MAIRA cardioversion tomorrow after that most probably patient will be discharged on weaning dose of steroids and antibiotics. 04/24/2020 Patient is seen this morning continues to have elevated heart rates in the 130s. Patient is being taken down at this time for MAIRA with cardioversion and will await report. Patient is currently maintained on bronchodilators along with steroids and antibiotics and will continue. Cardiology following. 04/25/2020 Patient was seen and evaluated in follow-up and denies any chest pain or palpitations at this time. Cardiology has evaluated the patient and underwent successful MAIRA with cardioversion and tolerated well. Patient was also seen and evaluated by nephrology and continued on Lasix and will continue 40 mg daily with repeat labs in a few days to monitor kidney functions and outpatient follow-up. Patient will continue Ceftin 500 mg twice daily for the next 3 days to complete the course. Patient stated she does have inhalers at home and will continue to do so. Patient will also continue a short prednisone taper upon discharge. Patient states she is feeling much better and is ready to go home. She will follow-up cardiology outpatient. Currently no reports of chest pain, shortness of breath, or palpitations. Patient is afebrile. No reports of nausea or vomiting and patient is tolerating diet. Patient will be discharged home today. On exam vital signs are stable. Temp is 98.1F, pulse is 60, respirations are 16, blood pressure is 137/82, oxygen saturation is 95% on room air. Cardio S1, S2 are muffled. Respiratory system shows diminished breath sounds at the bases with no wheezing or rhonchi noted. Abdomen is soft and nontender. Nervous system shows no focal deficits. Please refer to medication reconciliation sheet for a list of medications. Patient Condition at Discharge: Fair Plan - Discharge Summary Discharge Rx Participant: No New Discharge Prescriptions: New Cefuroxime Axetil [Ceftin] 500 mg PO BID 3 Days #6 tab Apixaban [Eliquis] 5 mg PO BID #180 tab Furosemide [Lasix] 40 mg PO DAILY 30 Days #30 tablet Metoprolol Tartrate [Lopressor] 50 mg PO BID #180 tab guaiFENesin [Mucinex] 600 mg PO QID #30 tablet.er predniSONE 10 mg PO DIRECTED #30 tab Acetaminophen Tab [Tylenol] 650 mg PO Q6H 30 Days #30 tab Continue Magnesium Oxide 400 mg PO HS Ergocalciferol (Vitamin D2) [Vitamin D2] 50,000 unit PO Q30D Pravastatin Sodium 80 mg PO HS Albuterol Inhaler [Ventolin Hfa Inhaler] 2 puff INHALATION RT-Q6H PRN PRN Reason: Shortness Of Breath calcitrioL [Calcitriol] 0.25 mcg PO CRENSHAW Omeprazole Magnesium [PriLOSEC OTC] 20 mg PO DAILY PRN PRN Reason: gerd Ezetimibe [Zetia] 10 mg PO DAILY Fluticasone/Umeclidin/Vilanter [Trelegy Ellipta 200-62.5-25] 1 puff INHALATION RT-DAILY Discontinued Metoprolol Tartrate [Lopressor] 50 mg PO BID Aspirin 325 mg PO HS Enalapril [Vasotec] 20 mg PO BID hydroCHLOROthiazide 25 mg PO DAILY Discharge Medication List Ergocalciferol (Vitamin D2) [Vitamin D2] 50,000 unit PO Q30D 07/06/16 [History] Magnesium Oxide 400 mg PO HS 07/06/16 [History] Pravastatin Sodium 80 mg PO HS 07/06/16 [History] Albuterol Inhaler [Ventolin Hfa Inhaler] 2 puff INHALATION RT-Q6H PRN 04/19/20 [History] Ezetimibe [Zetia] 10 mg PO DAILY 04/19/20 [History] Fluticasone/Umeclidin/Vilanter [Trelegy Ellipta 200-62.5-25] 1 puff INHALATION RT-DAILY 04/19/20 [History] Omeprazole Magnesium [PriLOSEC OTC] 20 mg PO DAILY PRN 04/19/20 [History] calcitrioL [Calcitriol] 0.25 mcg PO CRENSHAW 04/19/20 [History] Acetaminophen Tab [Tylenol] 650 mg PO Q6H 30 Days #30 tab 04/25/20 [Rx] Apixaban [Eliquis] 5 mg PO BID #180 tab 04/25/20 [Rx] Cefuroxime Axetil [Ceftin] 500 mg PO BID 3 Days #6 tab 04/25/20 [Rx] Furosemide [Lasix] 40 mg PO DAILY 30 Days #30 tablet 04/25/20 [Rx] Metoprolol Tartrate [Lopressor] 50 mg PO BID #180 tab 04/25/20 [Rx] guaiFENesin [Mucinex] 600 mg PO QID #30 tablet.er 04/25/20 [Rx] predniSONE 10 mg PO DIRECTED #30 tab 04/25/20 [Rx] Follow up Appointment(s)/Referral(s): Gill Abdi MD [STAFF PHYSICIAN] - 2 Weeks Saman Wilcox DO [Primary Care Provider] - 1-2 days Yordy Boo DO [STAFF PHYSICIAN] - 1 Week Ambulatory/Diagnostic Orders: Basic Metabolic Panel [LAB.AMB] Time Frame: 3 Days, Location: None Selected Magnesium [LAB.AMB] Time Frame: 3 Days, Location: None Selected Patient Instructions/Handouts: Viral Pneumonia (DC), Acute Kidney Injury (DC), Cardioversion (DC) Activity/Diet/Wound Care/Special Instructions: Weigh yourself daily, follow a LOW salt diet & limit fluids to 40-45 ounces d aily. Activity Limited until follow-up follow up primary care provider upon discharge repeat labs in 2-3 days follow up cardiology outpatient Follow-up nephrology outpatient Discharge/Stand Alone Forms: Work/Release Restrictions Form Discharge Disposition: HOME SELF-CARE
[2020-04-25] MEDS ORDERED: METOPROLOL TARTRATE 50 MG TAB PO SCH (21:00)
[2020-04-26] MEDS ORDERED: FUROSEMIDE 40 MG TAB PO SCH (09:00)
--- NOTE | 2020-04-28 14:23 | CDI ---
Documentation Clarification Form Date: 04/28/20 From: Zaynab Carolina Phone: Admit Date: 04/19/2020 12:55:00 PM Patient Name: Brittni Haynes Visit Number: [id number] Discharge Date: 04/25/2020 01:28:00 PM ATTENTION: The Clinical Documentation Specialists (CDI) and [facility] Coding Staff appreciate your assistance in clarifying documentation. Please respond to the clarification below the line at the bottom and electronically sign. The CDI & [facility] Coding staff will review the response and follow-up if needed. Please note: Queries are made part of the Legal Health Record. If you have any questions, please contact the author of this message via ITS. Dr. Brett Lynn, Atrial Fibrillation is documented in the 04/22 PN, 04/23 PN, 04/24 PN and discharge summary. History/Risk Factors: Hypertensive Heart Disease with Heart Failure, COPD, GERD, Hyperlipidemia, MD, Anemia, Mild Intermittent Bronchial Asthma, GERD, Carr's Esophagus, Aortic valve disease, Mitral valve disease with valve replacement, former smoker. Clinical Indicators: Admitted with pneumonia and acute COPD exacerbation. Also found to have atrial flutter. EKG/telemetry: Atrial flutter with variable AV block with premature aberrantly conducted complexes Treatment: long-acting beta agonist-slow to respond, MAIRA and cardioversion In your professional opinion, can you please clarify the type of Atrial Fibrillation, if known? Chronic Permanent Paroxysmal Persistent, longstanding Persistent, other Persistent, permanent Other, please specify Unable to determine Unable to determine MTDD
[2020-05-17] MEDS ORDERED: ERGOCALCIFEROL 1,250 MCG (50,000 IU) CAPSULE PO SCH (09:00)
== END 2020-04-25 13:28 | disposition home or self-care (01) | DRG 177 ==
LOC: EC 09:19 → 3SCARD 12:55
PROVIDERS: ADMIT Hospitalist; ATTEND Hospitalist
PROC: B24BZZ4 Ultrasonography of Heart with Aorta, Transesophageal (ICD-10-PCS; principal; 2020-04-24 10:30)
PROC: 5A2204Z Restoration of Cardiac Rhythm, Single (ICD-10-PCS; principal; 2020-04-24 10:30)
DX: J15.6 Pneumonia due to other Gram-negative bacteria (principal); I50.31 Acute diastolic (congestive) heart failure; N17.0 Acute kidney failure with tubular necrosis; J44.0 Chronic obstructive pulmonary disease with (acute) lower respiratory infection; J44.1 Chronic obstructive pulmonary disease with (acute) exacerbation; I13.0 Hypertensive heart and chronic kidney disease with heart failure and stage 1 through stage 4 chronic kidney disease, or unspecified chronic kidney disease; T82.03XA Leakage of heart valve prosthesis, initial encounter; I48.3 Typical atrial flutter; N25.81 Secondary hyperparathyroidism of renal origin; I42.9 Cardiomyopathy, unspecified; I08.2 Rheumatic disorders of both aortic and tricuspid valves; E83.9 Disorder of mineral metabolism, unspecified; I95.9 Hypotension, unspecified; N18.30 Chronic kidney disease, stage 3 unspecified; I48.91 Unspecified atrial fibrillation; Z20.822 Contact with and (suspected) exposure to COVID-19; E87.5 Hyperkalemia; K21.9 Gastro-esophageal reflux disease without esophagitis; I25.10 Atherosclerotic heart disease of native coronary artery without angina pectoris; K44.9 Diaphragmatic hernia without obstruction or gangrene; E78.5 Hyperlipidemia, unspecified; K22.70 Barrett's esophagus without dysplasia; I25.2 Old myocardial infarction; Z79.82 Long term (current) use of aspirin; Z79.51 Long term (current) use of inhaled steroids; Z79.899 Other long term (current) drug therapy; Z88.5 Allergy status to narcotic agent; Z87.891 Personal history of nicotine dependence; Z95.3 Presence of xenogenic heart valve; Z90.49 Acquired absence of other specified parts of digestive tract; Z98.51 Tubal ligation status; Z95.1 Presence of aortocoronary bypass graft; Z87.01 Personal history of pneumonia (recurrent); Z98.890 Other specified postprocedural states; Z88.0 Allergy status to penicillin; Z88.8 Allergy status to other drugs, medicaments and biological substances; Z91.041 Radiographic dye allergy status; Z82.49 Family history of ischemic heart disease and other diseases of the circulatory system; Z82.5 Family history of asthma and other chronic lower respiratory diseases
CPT/HCPCS: 36415; 71045; 71046; 76770; 80048; 80053; 81003; 82550; 83605; 83735; 83880; 84443; 84484; 85025; 85027; 85610; 85730; 87040; 87070; 87205; 87635; 92960; 93005; 93306; 93312; 93320; 93325; 94640; 94760; 96365; 99285

== ENCOUNTER → 2020-06-04 | Outpatient (CLI) | payer MEDICARE ==
--- NOTE | 2020-06-04 13:06 | XR ---
EXAMINATION TYPE: XR chest 2V DATE OF EXAM: 06/04/2020 COMPARISON: 04/20/2019 TECHNIQUE: PA and lateral views submitted. HISTORY: Cough FINDINGS: The lungs are clear and there is no pneumothorax, pleural effusion, or focal pneumonia. Diffuse int erstitial pattern with mild cardiomegaly. Biapical pleural thickening. Atherosclerotic change aorta. Degenerative changes spine. Hyperinflation suggests COPD. Suggestion of epicardial lead. IMPRESSION: 1. Correlate for interstitial chronic lung disease. Interstitial pneumonitis in the differential diag nosis correlate clinically. 2. No evidence of consolidative pneumonia
== END | disposition home or self-care (01) ==
LOC: RADXRMAIN 12:40
PROVIDERS: ATTEND Family Medicine
DX: R05 Cough (principal)
CPT/HCPCS: 71046

== ENCOUNTER → 2020-07-09 | Outpatient (CLI) | payer MEDICARE ==
[2020-07-09 19:28] LABS: Chol/HDL Ratio 3.71; LDL Cholesterol,Calculated 42.6 mg/dL (0.0-131.0); VLDL Calculation 49.4 mg/dL (5.00-40.00)
== END | disposition home or self-care (01) ==
LOC: LABWHC1 12:08
PROVIDERS: ATTEND Nurse Practitioner Adult Health
DX: E78.2 Mixed hyperlipidemia (principal)
CPT/HCPCS: 36415; 80061; 84450; 84460

== ENCOUNTER → 2020-07-14 | Outpatient (CLI) | payer MEDICARE | END | disposition home or self-care (01) | LOC: LABWHC1 10:55 | PROVIDERS: ATTEND Family Medicine | DX: Z20.822 Contact with and (suspected) exposure to COVID-19 (principal); R06.02 Shortness of breath | CPT/HCPCS: U0003; C9803 ==

== ENCOUNTER → 2020-07-30 | Outpatient (CLI) | payer MEDICARE ==
--- NOTE | 2020-07-30 13:35 | XR ---
EXAMINATION TYPE: XR chest 2V DATE OF EXAM: 07/30/2020 COMPARISON: Chest x-ray 06/04/2020 HISTORY: R05 TECHNIQUE: Frontal and lateral views of the chest are obtained. FINDINGS: There is no focal air space opacity, pleural effusion, or pneumothorax seen. The cardiac silhouette size is stable, patient is post median sternotomy and cardiac valve replacement, the aorta is dense. Prominent lung volumes may be indicative of underlying COPD. The osseous structures are in tact. Epicardial leads remain in place. IMPRESSION: No acute cardiopulmonary process.
== END | disposition home or self-care (01) ==
LOC: RADXRMAIN 11:46
PROVIDERS: ATTEND Family Medicine
DX: R05 Cough (principal)
CPT/HCPCS: 71046

== ENCOUNTER → 2020-10-07 | Outpatient (CLI) | payer MEDICARE ==
--- NOTE | 2020-10-07 13:36 | CT ---
EXAMINATION TYPE: CT chest wo con DATE OF EXAM: 10/07/2020 COMPARISON: Shortness of breath HISTORY: shortness of breath on occasion. CT DLP: 215 mGycm. Automated Exposure Control for Dose Reduction was Utilized. TECHNIQUE: CT scan high-resolution of the thorax is performed without IV contrast. FINDINGS: LUNGS: The lungs are grossly clear, there is no concerning parenchymal mass or nodule identified. T here is no pleural effusion or pneumothorax seen. The tracheobronchial tree is patent. There is inte rlobular septal thickening. Peribronchial wall thickening with changes of bronchiectasis involving th e lung bases centrally. Correlate for underlying COPD and mild cardiomegaly. MEDIASTINUM: Lack of IV contrast is noted to limit evaluation for mediastinal and especially hilar ad enopathy. There are no definitive greater than 1 cm hilar or mediastinal lymph nodes. Atherosclerotic change of the aorta with postsurgical changes seen involving the mediastinum. There is a moderate-si zed hiatal hernia. Dense coronary artery calcification noted. OTHER: No additional significant abnormality is seen. IMPRESSION: 1. COPD correlate for mild chronic interstitial lung disease such as pulmonary fibrosis involving the lower lobes. 2. Mild basilar bronchiectasis
== END | disposition home or self-care (01) ==
LOC: RADCTMAIN 12:41
PROVIDERS: ATTEND Internal Medicine Critical Care Medicine
DX: J44.9 Chronic obstructive pulmonary disease, unspecified (principal)
CPT/HCPCS: 71250

== ENCOUNTER → 2020-11-19 | Outpatient (CLI) | payer MEDICARE ==
[2020-11-19 19:24] LABS: Chol/HDL Ratio 3.28; LDL Cholesterol,Calculated 63.2 mg/dL (0.0-131.0); VLDL Calculation 34.8 mg/dL (5.00-40.00)
== END | disposition home or self-care (01) ==
LOC: LABWHC1 10:14
PROVIDERS: ATTEND Internal Medicine Interventional Cardiology
DX: E78.2 Mixed hyperlipidemia (principal)
CPT/HCPCS: 36415; 80061

== ENCOUNTER → 2020-11-19 | Outpatient (CLI) | payer MEDICARE ==
[2020-11-19 11:35] LABS: HCT 35.2 % (34.0-46.0); HGB 11.2 gm/dL (11.4-16.0); Hypochromasia Slight; MCH 29.6 pg (25.0-35.0); MCHC 31.9 g/dL (31.0-37.0); Mean Platelet Volume 7.7; Platelet Count 266 k/uL (150-450); RBC 3.79 m/uL (3.80-5.40); RDW 14.5 % (11.5-15.5); WBC 8.5 k/uL (3.8-10.6)
[2020-11-19 11:45] LABS: Albumin 4.1 g/dL (3.5-5.0); Calcium 9.6 mg/dL (8.4-10.2); Potassium 4.9 mmol/L (3.5-5.1); Total Bilirubin 0.6 mg/dL (0.2-1.3); Total Protein 6.5 g/dL (6.3-8.2)
== END | disposition home or self-care (01) ==
LOC: LABPAT 10:16
PROVIDERS: ATTEND Internal Medicine Clinical Cardiac Electrophysiology
DX: Z01.812 Encounter for preprocedural laboratory examination (principal); I47.1 Supraventricular tachycardia
CPT/HCPCS: 80053; 85027

== ENCOUNTER 2020-11-30 14:43 | Day surgery (SDC) | payer MEDICARE ==
[2020-11-26 12:13] VITALS: BMI 26.5
[~2020-11-30 14:43] MED LIST changes: +DEXAMETHASONE SOD PHOSPHATE 4 MG/ML 1 ML VIAL IV ONE; -LACTATED RINGERS 1,000 ML IV SCH; +ONDANSETRON 4 MG/2 ML VIAL IVP ONE; +SODIUM CHLORIDE 0.9% 1,000 ML IV SCH
[2020-11-30] MEDS ORDERED: NEOSTIGMINE 1 MG/ML 10 ML VIAL ONE (17:22)
[2020-11-30] MEDS ORDERED: SUCCINYLCHOLINE CHLORIDE 100 MG/5 ML SYR IV ONE (17:22)
[2020-11-30] MEDS ORDERED: PHENYLEPHRINE-0.9% NACL SYG 1,000 MCG/10 ML SYRINGE ONE (17:22)
[2020-11-30] MEDS ORDERED: fentaNYL (PF) 50 MCG/ML 2 ML AMP ONE (17:22)
[2020-11-30] MEDS ORDERED: PROPOFOL 10 MG/ML 20 ML VIAL IV ONE (17:22)
[2020-11-30] MEDS ORDERED: GLYCOPYRROLATE 0.2 MG/ML 2 ML VIAL ONE (17:22)
[2020-11-30] MEDS ORDERED: LIDOCAINE 1% INJ 10MG/ML (20 ML MDV) ONE ×2 (17:22→17:38)
[2020-11-30] MEDS ORDERED: ROCURONIUM 10 MG/ML (5 ML VIAL) IV ONE (17:22)
[2020-11-30] MEDS ORDERED: ATROPINE SULFATE 0.1 MG/ML 10ML SYRINGE ONE (17:22)
[2020-11-30] MEDS ORDERED: FUROSEMIDE 10 MG/ML 2 ML VIAL ONE (17:22)
[2020-11-30] MEDS ORDERED: ALBUTEROL HFA INHALER INHALATION ONE (17:22)
[2020-11-30] MEDS ORDERED: ISOPROTERENOL 250 MCG/1.25 ML SYR IV ONE (17:22)
--- NOTE | 2020-11-30 17:28 | P.HPCAR ---
History of Present Illness This is Dr. Sullivan dictating an H/P on this patient The patient was interviewed and examined IMPRESSION / ASSESSMENT: Atrial tachycardia/atrial flutter, symptomatic Coronary artery disease status post coronary artery bypass grafting History of severe mitral regurgitation status post mitral annuloplasty Improvement in LV systolic function ejection fraction of the lower limits of normal Severe peripheral vascular disease PLAN: Diagnoses EP study and ablation Continue anticoagulation HPI Patient complaining of shortness of breath with exertion She has an atrial tachycardia possible right atrial tachycardia versus clockwise atrial flutter ROS: No fever chills or rigors, no cough, phlegm or expectoration, no nausea, vomiting or diarrhea, no hematuria, dysuria, no musculoskeletal complaints, no strokes or seizures, no skin lesions. EXAMINATION: Temperature 97.9F, pulse rate 108 beats a minute dressed, respirations 16 No JVD Reduced breath sounds bilaterally with scattered rhonchi no crackles Blood pressure 151 ms 2 mmHg pulse ox 97% on room air Abdomen soft nontender Heart sounds are normal but irregular no murmurs REVIEW OF LABS, ECG & MEDICAL DATA Negative coronavirus PCR Physical Exam Vitals: Vital Signs Temp Pulse Resp BP Pulse Ox 11/30/20 15:23 979 F H 108 H 16 151/72 97 Intake and Output 11/30/20 11/30/20 11/30/20 06:59 14:59 22:59 Other: Weight 65.7 kg Past Medical History Past Medical History: Asthma, Coronary Artery Disease (CAD), Heart Failure, COPD, GERD/Reflux, Hyperlipidemia, Hypertension, Myocardial Infarction (NH), Pneumonia, Renal Disease Additional Past Medical History / Comment(s): Carr's esophagus, hiatal hernia, sinus problems, past renal insufficiency, acute blood loss anemia with miscarriage. Last Myocardial Infarction Date:: 2007 History of Any Multi-Drug Resistant Organisms: None Reported Past Surgical History: Cardiac Valve Replacement, Cholecystectomy, Coronary Bypass/CABG, Heart Catheterization, Tubal Ligation Additional Past Surgical History / Comment(s): 2008 CABG with jacinto to lad and mitral valve replacement, MAIRA, EGD and colonoscopy. Past Anesthesia/Blood Transfusion Reactions: No Reported Reaction Additional Past Anesthesia/Blood Transfusion Reaction / Comment(s): Pt received blood with miscarriage once without reaction. Past Psychological History: No Psychological Hx Reported Smoking Status: Former smoker Past Alcohol Use History: None Reported Additional Past Alcohol Use History / Comment(s): Pt started smoking in 1987, 1 ppd smoker, quit in 2007. Past Drug Use History: None Reported - Past Family History Mother Family Medical History: COPD, Coronary Artery Disease (CAD), Myocardial Infarction (NH) Additional Family Medical History / Comment(s): Pt does not know at what age her mother had a NH. Father Family Medical History: No Reported History Additional Family Medical History / Comment(s): Father was healthy. Physical Examination Vital Signs Temp Pulse Resp BP Pulse Ox 11/30/20 15:23 979 F H 108 H 16 151/72 97 Intake and Output 11/30/20 11/30/20 11/30/20 06:59 14:59 22:59 Other: Weight 65.7 kg Results Current Medications Generic Name Dose Route Start Last Admin Trade Name Freq PRN Reason Stop Dose Admin Lactated Ringer's 1,000 mls @ 20 mls/hr 11/29/20 18:30 Lactated Ringers IV 12/29/20 18:31 .Q24H ALEJANDRO Sodium Chloride 1,000 mls @ 20 mls/hr 11/30/20 05:51 11/30/20 15:27 Saline 0.9% IV 12/30/20 05:52 0 mls .Q24H ALEJANDRO Administration Clindamycin Phosphate 900 mg/ 56 mls @ 50 mls/hr 11/30/20 17:17 Dextrose/Water IVPB 11/30/20 18:24 ONCE STA Intake and Output 11/30/20 11/30/20 11/30/20 06:59 14:59 22:59 Other: Weight 65.7 kg Patient Weight 12/01/20 06:59 Weight 65.7 kg
[2020-11-30] MEDS: CLINDAMYCIN 900 MG in DEXTROSE 5% IN WATER 50 ML IVPB STA ×4 (17:45→17:46)
[2020-11-30] MEDS ORDERED: LIDOCAINE 1% INJ 10MG/ML (20 ML MDV) SQ ONE (17:56)
[2020-11-30] MEDS ORDERED: HEPARIN SODIUM (1,000 UNIT/ML) 1,000 UNIT in SODIUM CHLORIDE 0.9% 1,000 ML IRRIGATION ONE (18:31)
[2020-11-30] MEDS ORDERED: SODIUM CHLORIDE 0.9% 1,000 ML IV ONE (19:33)
[2020-11-30] MEDS ORDERED: ACETAMINOPHEN TAB 325 MG TAB PO PRN (19:51)
[2020-11-30] MEDS ORDERED: ALBUTEROL NEBULIZED 2.5 MG/3 ML INHALATION PRN (19:52)
--- NOTE | 2020-11-30 19:56 | P.PRLE ---
RE: Brittni Haynes Dear Glory Elkins underwent atrial flutter ablation successfully However during mapping of the right atrium, the voltage mapping revealed a scar along the right atrial free wall and it is possible that she may have a reentrant circuit through this area in the future If she does so then referred to see ablation will be recommended She also has a tendency for sick sinus syndrome and I have held metoprolol for now Depending upon her heart rate in the future beta blockers may be resumed later She will continue ELIQUIS lifelong Thank you for entrusting me with the care of the patient Warm regards Sincerely Kash Sullivan
[2020-11-30] MEDS ORDERED: IV FLUID CONTINUATION 500 ML IV ONE (20:03)
[2020-11-30] MEDS ORDERED: ACETAMINOPHEN IV (For NPO) 1,000 MG/100 ML VIAL IVPB ONE (20:31)
[2020-11-30] MEDS: ACETAMINOPHEN IV (For NPO) 1,000 MG in EMPTY BAG 1 BAG IVPB ONE ×2 (20:31→20:48)
[2020-11-30] MEDS ORDERED: PRAVASTATIN SODIUM 80 MG TAB PO SCH (21:00)
[2020-11-30] MEDS: LACTATED RINGERS 1,000 ML IV SCH (22:04)
[2020-11-30] MEDS: hydrALAZINE HCL 25 MG TAB PO SCH (22:07)
[2020-11-30] MEDS: APIXABAN 5 MG TAB PO SCH (22:08)
[2020-12-01 01:27] VITALS: TEMP 98.4
[2020-12-01 07:27] VITALS: BP 121/71; PULSE 69; RESP 18
[2020-12-01 07:45] LABS: Glucose,Whole Blood 98 mg/dL (75-99)
[2020-12-01] MEDS: APIXABAN 5 MG TAB PO SCH (07:59)
[2020-12-01] MEDS: hydrALAZINE HCL 25 MG TAB PO SCH (08:00)
[2020-12-01] MEDS ORDERED: SYMBICORT 80-4.5 MCG INHALER INHALATION SCH (08:00)
[2020-12-01] MEDS: IPRATROPIUM 0.5 MG/2.5 ML NEBU INHALATION SCH ×2 (08:31→11:18)
[2020-12-01] MEDS ORDERED: SPIRONOLACTONE 25 MG TAB PO SCH (09:00)
--- NOTE | 2020-12-01 11:32 | P.DS ---
Providers Attending physician: Kash Sullivan Primary care physician: [facility] Course: Patient is resting comfortably in bed. She's been ambulating in the room and going to the bathroom No chest discomfort no dizziness no lightheadedness She is not coughing On examination blood pressure 130/63 mmHg pulse rate in the 50s and 60s afebrile 98.4F No JVD no hepatojugular reflux Normal heart sounds no murmurs or gallops or rub She denies any chest discomfort Lungs are clear no rhonchi no crackles Abdomen soft Groins of healed well Impression Atrial flutter, clockwise Status post ablation Coronary artery disease Plan Discharge home today Continue anticoagulation Adequate hydration Ambulation Follow Dr. Abdi in 1 week Plan - Discharge Summary Discharge Rx Participant: No New Discharge Prescriptions: Discontinued Metoprolol Tartrate [Lopressor] 50 mg PO BID #180 tab No Action Ergocalciferol (Vitamin D2) [Vitamin D2] 50,000 unit PO Q30D Pravastatin Sodium 80 mg PO HS Albuterol Inhaler [Ventolin Hfa Inhaler] 2 puff INHALATION RT-Q6H PRN PRN Reason: Shortness Of Breath calcitrioL [Calcitriol] 0.25 mcg PO CRENSHAW Omeprazole Magnesium [PriLOSEC OTC] 20 mg PO DAILY PRN PRN Reason: gerd Ezetimibe [Zetia] 10 mg PO DAILY Fluticasone/Umeclidin/Vilanter [Trelegy Ellipta 200-62.5-25] 1 puff INHALATION RT-DAILY Apixaban [Eliquis] 5 mg PO BID #180 tab hydrALAZINE HCL 25 mg PO TID Spironolactone 25 mg PO DAILY Ferrous Sulfate [Iron] 325 mg PO MOWEFR guaiFENesin [Mucinex] 600 mg PO QID PRN PRN Reason: Phlegm Acetaminophen Tab [Tylenol] 650 mg PO Q6H PRN PRN Reason: Pain Discharge Medication List Ergocalciferol (Vitamin D2) [Vitamin D2] 50,000 unit PO Q30D 07/06/16 [History] Pravastatin Sodium 80 mg PO HS 07/06/16 [History] Albuterol Inhaler [Ventolin Hfa Inhaler] 2 puff INHALATION RT-Q6H PRN 04/19/20 [History] Ezetimibe [Zetia] 10 mg PO DAILY 04/19/20 [History] Fluticasone/Umeclidin/Vilanter [Trelegy Ellipta 200-62.5-25] 1 puff INHALATION RT-DAILY 04/19/20 [History] Omeprazole Magnesium [PriLOSEC OTC] 20 mg PO DAILY PRN 04/19/20 [History] calcitrioL [Calcitriol] 0.25 mcg PO CRENSHAW 04/19/20 [History] Apixaban [Eliquis] 5 mg PO BID #180 tab 04/25/20 [Rx] Acetaminophen Tab [Tylenol] 650 mg PO Q6H PRN 11/26/20 [History] Ferrous Sulfate [Iron] 325 mg PO MOWEFR 11/26/20 [History] Spironolactone 25 mg PO DAILY 11/26/20 [History] guaiFENesin [Mucinex] 600 mg PO QID PRN 11/26/20 [History] hydrALAZINE HCL 25 mg PO TID 11/26/20 [History] Follow up Appointment(s)/Referral(s): Gill Abdi MD [STAFF PHYSICIAN] - 1 Week Patient Instructions/Handouts: How to Use an Incentive Spirometer (DC), Cardiac Ablation (DC) Activity/Diet/Wound Care/Special Instructions: Post EP study - Ablation instructions 1. Keep access sites dry for 2 days. 2. No heavy lifting or straining for 2 days. 3. Avoid bending the hips repeatedly for 2 days. 4. You may go up and down stairs slowly Call if the following is noted 1. Bleeding, increasing swelling or pain at the access sites. 2. Increasing chest discomfort, especially upon taking a deep breath. 3. Increasing shortness of breath, at rest or with exertion. 4. Undue cough / phlegm 5. Difficulty or pain while swallowing. 6. Pain or change in color in the extremities. 7. Fever, chills, rigors. 8. Increasing headache or neurologic symptoms. 9. Dizziness, fainting, palpitations Continue ELIQUIS Stop metoprolol continue all other medications Follow Dr. Abdi in a week Discharge Disposition: HOME SELF-CARE
--- NOTE | 2021-01-04 15:24 | P.EPPROC ---
- EP Procedure Note Electrophysiology Procedure Note: Diagnosis Atrial tachycardia/atrial flutter, symptomatically Coronary artery disease Mitral regurgitation status post mitral anoplasty Proposed procedure Diagnostic EP study and possible refill frequency ablation Details Patient was brought to the EP lab in a fasting state Written informed consent was obtained prior to the procedure Patient was in the tachycardia with an atrial cycle length 290 ms Procedure performed under general anesthesia Venous sheaths were placed in the right and left femoral veins Catheters placed in the high right atrium His bundle area Carrillo sinus Mapping and ablation catheter was placed Electrograms mapping was performed in the right atrium Cavo tricuspid dependency was proven 3-D electro-anatomic mapping, activation mapping was performed Scar was noted in the right atrial free wall The patient underwent electrical cardioversion to sinus rhythm once atrial flutter was proven, clockwise RF ablation was performed in the cavo tricuspid isthmus Complete anatomic line of block was. Bidirectional block was proven with differential pacing AR interval 202 ms, QRS 105 ms, sinus cycle length 10-3 ms and QT interval 450 ms Sinus recovery times at 540 ms were 1788 and 04/06/2005 milliseconds Corresponding corrected sinus recovery times were prolonged AV node Wenckebach block 380 ms Atrial extra stimulation was performed No other SVT induced CATHETERS removed Hemostasis was assured Impression Atrial tachycardia consistent with clockwise atrial flutter Successful radio frequency ablation for typical atrial flutter Electro anatomic mapping revealed scar in the right atrial free wall Plan Continue ELIQUIS lifelong
== END 2020-12-01 13:30 | disposition home or self-care (01) ==
LOC: CATHEP 14:43 → 6NMEDSUR 19:41 → CATHEP 12-01 13:30
PROVIDERS: ATTEND Internal Medicine Clinical Cardiac Electrophysiology
DX: I47.1 Supraventricular tachycardia (principal); I25.10 Atherosclerotic heart disease of native coronary artery without angina pectoris; I11.0 Hypertensive heart disease with heart failure; I50.9 Heart failure, unspecified; I73.9 Peripheral vascular disease, unspecified; I10 Essential (primary) hypertension; E78.5 Hyperlipidemia, unspecified; Z82.49 Family history of ischemic heart disease and other diseases of the circulatory system; Z20.822 Contact with and (suspected) exposure to COVID-19; Z72.0 Tobacco use; I25.2 Old myocardial infarction; K21.9 Gastro-esophageal reflux disease without esophagitis; K22.70 Barrett's esophagus without dysplasia; K44.9 Diaphragmatic hernia without obstruction or gangrene; Z98.51 Tubal ligation status; Z95.1 Presence of aortocoronary bypass graft; Z90.49 Acquired absence of other specified parts of digestive tract; Z87.891 Personal history of nicotine dependence; Z95.2 Presence of prosthetic heart valve; Z82.5 Family history of asthma and other chronic lower respiratory diseases; Z98.890 Other specified postprocedural states; Z79.01 Long term (current) use of anticoagulants; Z79.51 Long term (current) use of inhaled steroids; Z79.899 Other long term (current) drug therapy; Z88.5 Allergy status to narcotic agent; Z88.0 Allergy status to penicillin; Z91.048 Other nonmedicinal substance allergy status; Z91.040 Latex allergy status
CPT/HCPCS: 93623; 93662; 93613; 93653; 87635; C1894; C1769 ×2; C1760; C1766; C1730; C1759; C1732; J1940; J2710; J2001; J0461; J3010; J1644; J0131; J2370; J0330; J2704

== ENCOUNTER → 2020-12-06 | Outpatient (CLI) | payer MEDICARE ==
--- NOTE | 2020-12-06 12:07 | XR ---
EXAMINATION TYPE: XR shoulder complete RT DATE OF EXAM: 12/06/2020 COMPARISON: NONE HISTORY: Pain TECHNIQUE: Three views are submitted. FINDINGS: The osseous structures are intact. There is no acute fracture or dislocation. Mild to moderate arthr opathy of the AC joint. Postsurgical change overlying the mediastinum. IMPRESSION: 1. AC joint arthropathy.
== END | disposition home or self-care (01) ==
LOC: RADXRMAIN 11:40
PROVIDERS: ATTEND Family Medicine
DX: M12.811 Other specific arthropathies, not elsewhere classified, right shoulder (principal)

== ENCOUNTER 2021-02-23 16:13 | Emergency (ER) | payer MEDICARE ==
[2021-02-23 18:50] VITALS: TEMP 98.2
[2021-02-23] MEDS ORDERED: methylPREDNISolone SOD SUCCI 125 MG/2 ML VIAL IV STA (18:53)
[2021-02-23 19:11] LABS: Anisocytosis Slight; Basophils % (A) 1 %; Eosinophils # (A) 0.1 k/uL (0-0.7); Eosinophils % (A) 2 %; HCT 33.5 % (34.0-46.0); HGB 10.2 gm/dL (11.4-16.0); Hypochromasia Marked; Lymphocytes # (A) 0.8 k/uL (1.0-4.8); Lymphocytes % (A) 14 %; MCH 28.1 pg (25.0-35.0); MCHC 30.5 g/dL (31.0-37.0); MCV 92.1 fL (80.0-100.0); Mean Platelet Volume 7.6; Monocytes # (A) 0.3 k/uL (0-1.0); Monocytes % (A) 6 %; Neutrophils # (A) 4.3 k/uL (1.3-7.7); Neutrophils % (A) 75 %; Platelet Count 209 k/uL (150-450); RBC 3.64 m/uL (3.80-5.40); RDW 16.1 % (11.5-15.5); WBC 5.8 k/uL (3.8-10.6)
[2021-02-23 19:18] LABS: INR 1.1 (<1.2); Partial Thromboplastin Time 24.6 sec (22.0-30.0); Prothrombin Time 11.7 sec (9.0-12.0)
[2021-02-23 19:23] LABS: Albumin 4.1 g/dL (3.5-5.0); Potassium 4.8 mmol/L (3.5-5.1); Total Protein 6.5 g/dL (6.3-8.2)
[2021-02-23 19:25] LABS: Calcium 9.2 mg/dL (8.4-10.2); Magnesium 2.6 mg/dL (1.6-2.3); Total Bilirubin 0.5 mg/dL (0.2-1.3)
--- NOTE | 2021-02-23 19:58 | ED ---
General Adult HPI - General Chief complaint: Upper Respiratory Infection Stated complaint: Cough/SOB Time Seen by Provider: 02/23/21 18:25 Source: family Mode of arrival: ambulatory Limitations: no limitations - History of Present Illness Initial comments: 71 year-old female patient with past medical history significant for COPD presents to the emergency department for evaluation of cough, congestion, and shortness of breath. States she has had this cough for 3 weeks. States shortness breath started about a week ago. States she is having clear sputum production. Denies any fever or chills. States she is having nasal congestion and drainage. Denies using any medications or having any testing prior to today. Denies any chest pain. Denies swelling or pain to the lower extremities. Patient denies any recent rash, abdominal pain, nausea, vomiting, diarrhea, constipation, back pain, numbness, tingling, dizziness, weakness, hematuria, dysuria, urinary urgency, urinary frequency, headache, visual changes, or any other complaints. - Related Data Home Medications Medication Instructions Recorded Confirmed Ergocalciferol (Vitamin D2) 50,000 unit PO Q30D 07/06/16 02/23/21 [Vitamin D2] Pravastatin Sodium 40 mg PO HS 07/06/16 02/23/21 Ezetimibe [Zetia] 10 mg PO DAILY 04/19/20 02/23/21 Omeprazole Magnesium [PriLOSEC OTC] 20 mg PO DAILY PRN 04/19/20 02/23/21 calcitrioL [Calcitriol] 0.25 mcg PO CRENSHAW 04/19/20 02/23/21 Ferrous Sulfate [Iron] 325 mg PO MOWEFR 11/26/20 02/23/21 Spironolactone 25 mg PO DAILY 11/26/20 02/23/21 guaiFENesin [Mucinex] 600 mg PO QID PRN 11/26/20 02/23/21 hydrALAZINE HCL 25 mg PO TID 11/26/20 02/23/21 Albuterol Sulfate [Proair Hfa] 2 puff INHALATION RT-Q6H PRN 02/23/21 02/23/21 Budesonide/Formoterol Fumarate 2 puff INHALATION RT-BID 02/23/21 02/23/21 [Symbicort 160-4.5 Mcg Inhaler] Magnesium Oxide [Mag-Ox] 400 mg PO DAILY 02/23/21 02/23/21 Metoprolol Tartrate [Lopressor] 25 mg PO BID 02/23/21 02/23/21 Previous Rx's Medication Instructions Recorded Apixaban [Eliquis] 5 mg PO BID #180 tab 04/25/20 Azithromycin [Zithromax Z-pack (6 0 mg PO DIRECTED #6 tab 02/23/21 tabs)] predniSONE 50 mg PO DAILY #5 tablet 02/23/21 Allergies Allergy/AdvReac Type Severity Reaction Status Date / Time amlodipine Allergy Muscle Verified 02/23/21 20:36 Spasms chlorthalidone Allergy Vomiting Verified 02/23/21 20:36 Iodinated Contrast Media Allergy Rash/Hives Verified 02/23/21 20:36 [Iodinated Contrast Media - Oral and] meperidine [From Demerol] Allergy Vomiting Verified 02/23/21 20:36 Penicillins Allergy Swelling/hi Verified 02/23/21 20:36 ves Review of Systems ROS Statement: Those systems with pertinent positive or pertinent negative responses have been documented in the HPI. ROS Other: All systems not noted in ROS Statement are negative. Past Medical History Past Medical History: No Reported History Additional Past Medical History / Comment(s): Carr's esophagus, hiatal hernia, sinus problems, past renal insufficiency, acute blood loss anemia with misscarriage. Last Myocardial Infarction Date:: 2007 History of Any Multi-Drug Resistant Organisms: None Reported Past Surgical History: Cardiac Valve Replacement, Cholecystectomy, Coronary Bypass/CABG, Heart Catheterization, Tubal Ligation Additional Past Surgical History / Comment(s): 2007 CABG with jacinto to lad and mitral valve replacement, MAIRA, EGD and colonoscopy. Past Anesthesia/Blood Transfusion Reactions: Motion Sickness Additional Past Anesthesia/Blood Transfusion Reaction / Comment(s): Pt received blood with misscarriage once without reaction. Past Psychological History: No Psychological Hx Reported Smoking Status: Former smoker Past Alcohol Use History: None Reported Past Drug Use History: None Reported - Past Family History Mother Family Medical History: COPD, Coronary Artery Disease (CAD), Myocardial Infarction (DC) Additional Family Medical History / Comment(s): Pt does not know at what age her mother had a DC. Father Family Medical History: No Reported History Additional Family Medical History / Comment(s): Father was healthy. General Exam Limitations: no limitations General appearance: alert, in no apparent distress, other (Social well- developed, well-nourished adult female in no acute distress. ) ENT exam: Present: normal exam, normal oropharynx, mucous membranes moist Respiratory exam: Present: normal lung sounds bilaterally, other (No tachypnea. Patient able to speak full sentences.). Absent: respiratory distress, wheezes, rales, rhonchi, stridor, accessory muscle use Cardiovascular Exam: Present: normal rhythm, bradycardia, normal heart sounds. Absent: systolic murmur, diastolic murmur, rubs, gallop, clicks GI/Abdominal exam: Present: soft, normal bowel sounds. Absent: distended, tenderness, guarding, rebound, rigid Neurological exam: Present: alert, oriented X3, CN II-XII intact Psychiatric exam: Present: normal affect, normal mood Skin exam: Present: warm, dry, intact, normal color. Absent: rash Course Vital Signs 02/23/21 02/23/21 02/23/21 17:02 18:30 18:48 Temperature 97.4 F L 98.2 F Pulse Rate 58 L 58 L Respiratory 20 18 20 Rate Blood Pressure 189/71 200/90 O2 Sat by Pulse 97 95 Oximetry 02/23/21 02/23/21 19:00 21:00 Temperature 98.2 F Pulse Rate 64 63 Respiratory 16 Rate Blood Pressure 190/79 203/93 O2 Sat by Pulse Oximetry EKG Findings - EKG Comments: EKG Findings:: EKG obtained at 1828 shows sinus bradycardia with a first-degree AV block. Ventricular rate is 58, AR interval 216, QRS duration 88, QT 454, QTC 445. No evidence of ST elevation or depression. Medical Decision Making - Medical Decision Making 71-year-old female patient presents to the emergency department today for evaluation of cough, fever, shortness of breath. Physical examination did reveal clear lung sounds. Labs reviewed and were unremarkable. Normal white blood cell count. She had normal oxygen saturation. Given dose of steroids here. Chest x-ray did show findings of right lower lobe pneumonia. She was started on azithromycin, prednisone, discharged to continue home breathing treatments. She is instructed to follow-up with her primary care physician for recheck in 1-2 days. Return parameters were discussed in detail. She verb alizes understanding and agrees with this plan. My attending is Dr. Krueger. - Lab Data Result diagrams: 02/23/21 18:56 12/29/21 18:56 Lab Results 02/23/21 02/23/21 02/23/21 Range/Units 17:06 18:56 18:56 WBC 5.8 (3.8-10.6) k/uL RBC 3.64 L (3.80-5.40) m/uL Hgb 10.2 L (11.4-16.0) gm/dL Hct 33.5 L (34.0-46.0) % MCV 92.1 (80.0-100.0) fL MCH 28.1 (25.0-35.0) pg MCHC 30.5 L (31.0-37.0) g/dL RDW 16.1 H (11.5-15.5) % Plt Count 209 (150-450) k/uL MPV 7.6 Neutrophils % 75 % Lymphocytes % 14 % Monocytes % 6 % Eosinophils % 2 % Basophils % 1 % Neutrophils # 4.3 (1.3-7.7) k/uL Lymphocytes # 0.8 L (1.0-4.8) k/uL Monocytes # 0.3 (0-1.0) k/uL Eosinophils # 0.1 (0-0.7) k/uL Basophils # 0.0 (0-0.2) k/uL Hypochromasia Marked Anisocytosis Slight PT 11.7 (9.0-12.0) sec INR 1.1 (<1.2) APTT 24.6 (22.0-30.0) sec Sodium (137-145) mmol/L Potassium (3.5-5.1) mmol/L Chloride (98-107) mmol/L Carbon Dioxide (22-30) mmol/L Anion Gap mmol/L BUN (7-17) mg/dL Creatinine (0.52-1.04) mg/dL Est GFR (CKD-EPI)AfAm (>60 ml/min/1.73 sqM) Est GFR (CKD-EPI)NonAf (>60 ml/min/1.73 sqM) Glucose (74-99) mg/dL Plasma Lactic Acid Radames (0.7-2.0) mmol/L Calcium (8.4-10.2) mg/dL Magnesium (1.6-2.3) mg/dL Total Bilirubin (0.2-1.3) mg/dL AST (14-36) U/L ALT (4-34) U/L Alkaline Phosphatase (38-126) U/L Troponin I (0.000-0.034) ng/mL Total Protein (6.3-8.2) g/dL Albumin (3.5-5.0) g/dL Coronavirus (PCR) Not Detected (Not Detectd) 02/23/21 02/23/21 02/23/21 Range/Units 18:56 18:56 19:01 WBC (3.8-10.6) k/uL RBC (3.80-5.40) m/uL Hgb (11.4-16.0) gm/dL Hct (34.0-46.0) % MCV (80.0-100.0) fL MCH (25.0-35.0) pg MCHC (31.0-37.0) g/dL RDW (11.5-15.5) % Plt Count (150-450) k/uL MPV Neutrophils % % Lymphocytes % % Monocytes % % Eosinophils % % Basophils % % Neutrophils # (1.3-7.7) k/uL Lymphocytes # (1.0-4.8) k/uL Monocytes # (0-1.0) k/uL Eosinophils # (0-0.7) k/uL Basophils # (0-0.2) k/uL Hypochromasia Anisocytosis PT (9.0-12.0) sec INR (<1.2) APTT (22.0-30.0) sec Sodium 135 L (137-145) mmol/L Potassium 4.8 (3.5-5.1) mmol/L Chloride 104 (98-107) mmol/L Carbon Dioxide 19 L (22-30) mmol/L Anion Gap 12 mmol/L BUN 25 H (7-17) mg/dL Creatinine 1.30 H (0.52-1.04) mg/dL Est GFR (CKD-EPI)AfAm 48 (>60 ml/min/1.73 sqM) Est GFR (CKD-EPI)NonAf 41 (>60 ml/min/1.73 sqM) Glucose 101 H (74-99) mg/dL Plasma Lactic Acid Radames 1.1 (0.7-2.0) mmol/L Calcium 9.2 (8.4-10.2) mg/dL Magnesium 2.6 H (1.6-2.3) mg/dL Total Bilirubin 0.5 (0.2-1.3) mg/dL AST 24 (14-36) U/L ALT 15 (4-34) U/L Alkaline Phosphatase 57 (38-126) U/L Troponin I <0.012 (0.000-0.034) ng/mL Total Protein 6.5 (6.3-8.2) g/dL Albumin 4.1 (3.5-5.0) g/dL Coronavirus (PCR) (Not Detectd) - Radiology Data Radiology results: report reviewed, image reviewed Two-view x-ray of the chest is obtained. Report was reviewed in its entirety. Dr. Price reports right lower lobe opacities concerning for pneumonia. Disposition Clinical Impression: Right lower lobe pneumonia Disposition: HOME SELF-CARE Condition: Good Instructions (If sedation given, give patient instructions): Pneumonia (ED) Additional Instructions: Take medications as directed. Complete antibiotic prescription in full even if you are feeling better. Follow-up with your primary care physician for recheck in 1-2 days. Return for any new, worsening, or concerning symptoms. Prescriptions: predniSONE 50 mg PO DAILY #5 tablet Azithromycin [Zithromax Z-pack (6 tabs)] 0 mg PO DIRECTED #6 tab Is patient prescribed a controlled substance at d/c from ED?: No Referrals: Saman Wilcox DO [Primary Care Provider] - 1-2 days Time of Disposition: 20:52
--- NOTE | 2021-02-23 20:22 | XR ---
EXAMINATION TYPE: XR chest 2V DATE OF EXAM: 02/23/2021 COMPARISON: July 30, 2020 HISTORY: 71 years Female. STUDY INDICATION GIVEN: difficulty breathing . TECHNIQUE: Frontal and lateral chest radiographs. IMPRESSION: Patchy/hazy right lower lobe opacities concerning for pneumonia and/or. Finding was not seen on prior . Hyperinflated lungs with lucencies in the upper lobe suggestive of COPD/emphysema No pneumothorax or large effusion. Nonenlarged cardiomediastinal silhouette with postsurgical changes. Atherosclerotic calcifications project in the aortic arch. No acute osseous abnormality. Generalized osteopenia noted.
[2021-02-23] MEDS ORDERED: AZITHROMYCIN 500 MG TAB PO STA (20:50)
[2021-02-23 21:20] VITALS: RESP 16
[2021-02-23 21:21] VITALS: BP 203/93; PULSE 63
== END 2021-02-23 21:31 | disposition home or self-care (01) ==
LOC: EC 16:13
DX: J18.9 Pneumonia, unspecified organism (principal); I25.2 Old myocardial infarction; J44.9 Chronic obstructive pulmonary disease, unspecified; Z20.822 Contact with and (suspected) exposure to COVID-19; Z87.891 Personal history of nicotine dependence; Z88.8 Allergy status to other drugs, medicaments and biological substances; Z91.041 Radiographic dye allergy status; Z88.0 Allergy status to penicillin; Z88.5 Allergy status to narcotic agent; Z79.899 Other long term (current) drug therapy; Z79.51 Long term (current) use of inhaled steroids
CPT/HCPCS: 36415; 93005; 80053; 83605; 83735; 84484; 85025; 85610; 85730; 87635; 71046; 99285; 96374; J2930

== ENCOUNTER 2021-03-06 11:50 | Inpatient (IN) | payer MEDICARE ==
--- NOTE | 2021-03-06 13:18 | ED ---
General Adult HPI - General Chief complaint: Shortness of Breath Stated complaint: SHIRLEY Time Seen by Provider: 03/06/21 12:55 Source: patient, RN notes reviewed Mode of arrival: ambulatory Limitations: no limitations - History of Present Illness Initial comments: Patient is a pleasant 71-year-old female presenting to the emergency department with difficulty breathing. Onset of symptoms was around 10 days ago. Patient came to the emergency department and was diagnosed pneumonia. Patient has continued symptoms, somewhat similar. Patient does have cough with occasional clear sputum. Patient has some clear sinus drainage. Dyspnea does worsen with exertion. No leg pain or leg swelling. No loss of taste or smell. No nausea or diarrhea or vomiting. Patient did test negative for COVID-19 infection at that time 10 days ago. - Related Data Home Medications Medication Instructions Recorded Confirmed Ergocalciferol (Vitamin D2) 50,000 unit PO Q30D 07/06/16 02/23/21 [Vitamin D2] Pravastatin Sodium 40 mg PO HS 07/06/16 02/23/21 Ezetimibe [Zetia] 10 mg PO DAILY 04/19/20 02/23/21 Omeprazole Magnesium [PriLOSEC OTC] 20 mg PO DAILY PRN 04/19/20 02/23/21 calcitrioL [Calcitriol] 0.25 mcg PO CRENSHAW 04/19/20 02/23/21 Ferrous Sulfate [Iron] 325 mg PO MOWEFR 11/26/20 02/23/21 Spironolactone 25 mg PO DAILY 11/26/20 02/23/21 guaiFENesin [Mucinex] 600 mg PO QID PRN 11/26/20 02/23/21 hydrALAZINE HCL 25 mg PO TID 11/26/20 02/23/21 Albuterol Sulfate [Proair Hfa] 2 puff INHALATION RT-Q6H PRN 02/23/21 02/23/21 Budesonide/Formoterol Fumarate 2 puff INHALATION RT-BID 02/23/21 02/23/21 [Symbicort 160-4.5 Mcg Inhaler] Magnesium Oxide [Mag-Ox] 400 mg PO DAILY 02/23/21 02/23/21 Metoprolol Tartrate [Lopressor] 25 mg PO BID 02/23/21 02/23/21 Previous Rx's Medication Instructions Recorded Apixaban [Eliquis] 5 mg PO BID #180 tab 02/28/21 Azithromycin [Zithromax Z-pack (6 0 mg PO DIRECTED #6 tab 02/23/21 tabs)] predniSONE 50 mg PO DAILY #5 tablet 02/23/21 Allergies Allergy/AdvReac Type Severity Reaction Status Date / Time amlodipine Allergy Muscle Verified 03/06/21 12:02 Spasms chlorthalidone Allergy Vomiting Verified 03/06/21 12:02 Iodinated Contrast Media Allergy Rash/Hives Verified 03/06/21 12:02 [Iodinated Contrast Media - Oral and] meperidine [From Demerol] Allergy Vomiting Verified 03/06/21 12:02 Penicillins Allergy Swelling/hi Verified 03/06/21 12:02 ves Review of Systems ROS Statement: Those systems with pertinent positive or pertinent negative responses have been documented in the HPI. ROS Other: All systems not noted in ROS Statement are negative. Constitutional: Denies: fever Eyes: Denies: eye pain ENT: Denies: ear pain Respiratory: Reports: cough, dyspnea Cardiovascular: Denies: chest pain Endocrine: Reports: fatigue Gastrointestinal: Denies: abdominal pain Genitourinary: Denies: dysuria Musculoskeletal: Denies: back pain Skin: Denies: rash Neurological: Denies: weakness Past Medical History Past Medical History: No Reported History, Pneumonia Additional Past Medical History / Comment(s): Carr's esophagus, hiatal hernia, sinus problems, past renal insufficiency, acute blood loss anemia with misscarriage. Last Myocardial Infarction Date:: 2007 History of Any Multi-Drug Resistant Organisms: None Reported Past Surgical History: Cardiac Valve Replacement, Cholecystectomy, Coronary Bypass/CABG, Heart Catheterization, Tubal Ligation Additional Past Surgical History / Comment(s): 2008 CABG with jacinto to lad and mitral valve replacement, MAIRA, EGD and colonoscopy. Past Anesthesia/Blood Transfusion Reactions: Motion Sickness Additional Past Anesthesia/Blood Transfusion Reaction / Comment(s): Pt received blood with misscarriage once without reaction. Past Psychological History: No Psychological Hx Reported Smoking Status: Former smoker Past Alcohol Use History: None Reported Past Drug Use History: None Reported - Past Family History Mother Family Medical History: COPD, Coronary Artery Disease (CAD), Myocardial Infar ction ([place]) Additional Family Medical History / Comment(s): Pt does not know at what age her mother had a [place]. Father Family Medical History: No Reported History Additional Family Medical History / Comment(s): Father was healthy. General Exam Limitations: no limitations General appearance: alert, in no apparent distress Head exam: Present: normocephalic Eye exam: Present: normal appearance Neck exam: Present: normal inspection Respiratory exam: Present: normal lung sounds bilaterally. Absent: respiratory distress, wheezes Cardiovascular Exam: Present: regular rate, normal rhythm GI/Abdominal exam: Present: soft. Absent: tenderness Extremities exam: Present: normal inspection. Absent: pedal edema, calf tenderness Neurological exam: Present: alert Psychiatric exam: Present: normal affect, normal mood Skin exam: Present: normal color Course Vital Signs 03/06/21 11:57 Temperature 97.9 F Pulse Rate 58 L Respiratory 20 Rate Blood Pressure 183/70 O2 Sat by Pulse 97 Oximetry EKG Findings - EKG Comments: EKG Findings:: Sinus bradycardia with rate of 59. First-degree AV block with NM of 208. QRS 84. QT 444. QTC 439. Right axis. Poor R-wave progression. No acute ST change. Medical Decision Making - Medical Decision Making Patient reevaluated. Patient family updated. Case discussed with Dr. silva, who will admit cover Dr. Wilcox. - Lab Data Result diagrams: 03/06/21 13:25 03/06/21 13:25 Lab Results 03/06/21 03/06/21 03/06/21 Range/Units 13:25 13:25 13:25 WBC 8.6 (3.8-10.6) k/uL RBC 3.70 L (3.80-5.40) m/uL Hgb 10.0 L (11.4-16.0) gm/dL Hct 33.2 L (34.0-46.0) % MCV 89.8 (80.0-100.0) fL MCH 27.1 (25.0-35.0) pg MCHC 30.2 L (31.0-37.0) g/dL RDW 15.4 (11.5-15.5) % Plt Count 205 (150-450) k/uL MPV 7.7 Neutrophils % 83 % Lymphocytes % 9 % Monocytes % 5 % Eosinophils % 2 % Basophils % 0 % Neutrophils # 7.1 (1.3-7.7) k/uL Lymphocytes # 0.8 L (1.0-4.8) k/uL Monocytes # 0.4 (0-1.0) k/uL Eosinophils # 0.2 (0-0.7) k/uL Basophils # 0.0 (0-0.2) k/uL Hypochromasia Marked PT 11.7 (9.0-12.0) sec INR 1.1 (<1.2) APTT 23.8 (22.0-30.0) sec D-Dimer 0.42 (<0.60) mg/L FEU Sodium (137-145) mmol/L Potassium (3.5-5.1) mmol/L Chloride (98-107) mmol/L Carbon Dioxide (22-30) mmol/L Anion Gap mmol/L BUN (7-17) mg/dL Creatinine (0.52-1.04) mg/dL Est GFR (CKD-EPI)AfAm (>60 ml/min/1.73 sqM) Est GFR (CKD-EPI)NonAf (>60 ml/min/1.73 sqM) Glucose (74-99) mg/dL Plasma Lactic Acid Radames (0.7-2.0) mmol/L Calcium (8.4-10.2) mg/dL Magnesium (1.6-2.3) mg/dL Total Bilirubin (0.2-1.3) mg/dL AST (14-36) U/L ALT (4-34) U/L Alkaline Phosphatase (38-126) U/L Troponin I (0.000-0.034) ng/mL NT-Pro-B Natriuret Pep pg/mL Total Protein (6.3-8.2) g/dL Albumin (3.5-5.0) g/dL Coronavirus (PCR) Not Detected (Not Detectd) Influenza Type A RNA (Not Detectd) Influenza Type B (PCR) (Not Detectd) 03/06/21 03/06/21 03/06/21 Range/Units 13:25 13:25 13:25 WBC (3.8-10.6) k/uL RBC (3.80-5.40) m/uL Hgb (11.4-16.0) gm/dL Hct (34.0-46.0) % MCV (80.0-100.0) fL MCH (25.0-35.0) pg MCHC (31.0-37.0) g/dL RDW (11.5-15.5) % Plt Count (150-450) k/uL MPV Neutrophils % % Lymphocytes % % Monocytes % % Eosinophils % % Basophils % % Neutrophils # (1.3-7.7) k/uL Lymphocytes # (1.0-4.8) k/uL Monocytes # (0-1.0) k/uL Eosinophils # (0-0.7) k/uL Basophils # (0-0.2) k/uL Hypochromasia PT (9.0-12.0) sec INR (<1.2) APTT (22.0-30.0) sec D-Dimer (<0.60) mg/L FEU Sodium 134 L (137-145) mmol/L Potassium 4.8 (3.5-5.1) mmol/L Chloride 104 (98-107) mmol/L Carbon Dioxide 20 L (22-30) mmol/L Anion Gap 10 mmol/L BUN 24 H (7-17) mg/dL Creatinine 1.32 H (0.52-1.04) mg/dL Est GFR (CKD-EPI)AfAm 47 (>60 ml/min/1.73 sqM) Est GFR (CKD-EPI)NonAf 40 (>60 ml/min/1.73 sqM) Glucose 99 (74-99) mg/dL Plasma Lactic Acid Radames 1.6 (0.7-2.0) mmol/L Calcium 9.1 (8.4-10.2) mg/dL Magnesium 2.5 H (1.6-2.3) mg/dL Total Bilirubin 0.7 (0.2-1.3) mg/dL AST 28 (14-36) U/L ALT 18 (4-34) U/L Alkaline Phosphatase 50 (38-126) U/L Troponin I 0.043 H* (0.000-0.034) ng/mL NT-Pro-B Natriuret Pep pg/mL Total Protein 6.3 (6.3-8.2) g/dL Albumin 3.9 (3.5-5.0) g/dL Coronavirus (PCR) (Not Detectd) Influenza Type A RNA (Not Detectd) Influenza Type B (PCR) (Not Detectd) 03/06/21 03/06/21 Range/Units 13:25 13:25 WBC (3.8-10.6) k/uL RBC (3.80-5.40) m/uL Hgb (11.4-16.0) gm/dL Hct (34.0-46.0) % MCV (80.0-100.0) fL MCH (25.0-35.0) pg MCHC (31.0-37.0) g/dL RDW (11.5-15.5) % Plt Count (150-450) k/uL MPV Neutrophils % % Lymphocytes % % Monocytes % % Eosinophils % % Basophils % % Neutrophils # (1.3-7.7) k/uL Lymphocytes # (1.0-4.8) k/uL Monocytes # (0-1.0) k/uL Eosinophils # (0-0.7) k/uL Basophils # (0-0.2) k/uL Hypochromasia PT (9.0-12.0) sec INR (<1.2) APTT (22.0-30.0) sec D-Dimer (<0.60) mg/L FEU Sodium (137-145) mmol/L Potassium (3.5-5.1) mmol/L Chloride (98-107) mmol/L Carbon Dioxide (22-30) mmol/L Anion Gap mmol/L BUN (7-17) mg/dL Creatinine (0.52-1.04) mg/dL Est GFR (CKD-EPI)AfAm (>60 ml/min/1.73 sqM) Est GFR (CKD-EPI)NonAf (>60 ml/min/1.73 sqM) Glucose (74-99) mg/dL Plasma Lactic Acid Radames (0.7-2.0) mmol/L Calcium (8.4-10.2) mg/dL Magnesium (1.6-2.3) mg/dL Total Bilirubin (0.2-1.3) mg/dL AST (14-36) U/L ALT (4-34) U/L Alkaline Phosphatase (38-126) U/L Troponin I (0.000-0.034) ng/mL NT-Pro-B Natriuret Pep 77689 pg/mL Total Protein (6.3-8.2) g/dL Albumin (3.5-5.0) g/dL Coronavirus (PCR) (Not Detectd) Influenza Type A RNA Not Detected (Not Detectd) Influenza Type B (PCR) Not Detected (Not Detectd) - Radiology Data Radiology results: image reviewed (Chest x-ray shows chronic changes, no acute process. Previous chest x-ray reviewed.) Disposition Clinical Impression: CHF (congestive heart failure) Disposition: ADMITTED IP TO THIS HOSP Is patient prescribed a controlled substance at d/c from ED?: No Referrals: Saman Wilcox DO [Primary Care Provider] - 1-2 days Decision Time: 14:22
[2021-03-06 13:33] LABS: Basophils % (A) 0 %; Eosinophils # (A) 0.2 k/uL (0-0.7); Eosinophils % (A) 2 %; HCT 33.2 % (34.0-46.0); Hypochromasia Marked; Lymphocytes # (A) 0.8 k/uL (1.0-4.8); Lymphocytes % (A) 9 %; MCH 27.1 pg (25.0-35.0); MCHC 30.2 g/dL (31.0-37.0); MCV 89.8 fL (80.0-100.0); Mean Platelet Volume 7.7; Monocytes # (A) 0.4 k/uL (0-1.0); Monocytes % (A) 5 %; Neutrophils # (A) 7.1 k/uL (1.3-7.7); Neutrophils % (A) 83 %; Platelet Count 205 k/uL (150-450); RDW 15.4 % (11.5-15.5); WBC 8.6 k/uL (3.8-10.6)
--- NOTE | 2021-03-06 13:34 | XR ---
EXAMINATION TYPE: XR chest 2V DATE OF EXAM: 03/06/2021 COMPARISON: Chest x-ray February 23, 2021 HISTORY: Difficulty in breathing. Recent pneumonia. TECHNIQUE: Frontal and lateral views of the chest are obtained. FINDINGS: There is no suspicious new focal air space opacity, pleural effusion, or pneumothorax seen . Underlying chronic emphysematous changes redemonstrated. Overlying sternal wires and mediastinal cl ips again seen along with metallic cardiac valvular ring. The cardiac silhouette size is stable and m ildly enlarged. The osseous structures remain demineralized. IMPRESSION: Chronic changes and mild cardiomegaly without acute pulmonary process.
[2021-03-06 13:44] LABS: Albumin 3.9 g/dL (3.5-5.0); Calcium 9.1 mg/dL (8.4-10.2); Magnesium 2.5 mg/dL (1.6-2.3); Potassium 4.8 mmol/L (3.5-5.1); Total Bilirubin 0.7 mg/dL (0.2-1.3); Total Protein 6.3 g/dL (6.3-8.2)
[2021-03-06 14:00] LABS: INR 1.1 (<1.2); Partial Thromboplastin Time 23.8 sec (22.0-30.0); Prothrombin Time 11.7 sec (9.0-12.0)
[2021-03-06] MEDS ORDERED: ASPIRIN 325 MG TAB PO STA (14:23)
[2021-03-06] MEDS: FUROSEMIDE 10 MG/ML 4 ML VIAL IV SCH ×2 (15:40→23:51)
[2021-03-06] MEDS ORDERED: PANTOPRAZOLE 40 MG TABLET PO PRN (17:26)
--- NOTE | 2021-03-06 17:37 | P.HPIM ---
History of Present Illness H&P Date: 03/06/21 Chief Complaint: Shortness of breath 71-year-old female presenting to the emergency department with difficulty breathing. Onset of symptoms was around 10 days ago. Patient came to the emergency department and was diagnosed pneumonia. Patient has continued symptoms, somewhat similar. Patient does have cough with occasional clear sputum. Patient has some clear sinus drainage. Dyspnea does worsen with exertion. No leg pain or leg swelling. No loss of taste or smell. No nausea or diarrhea or vomiting. Patient did test negative for COVID-19 infection at that time 10 days ago. Workup in ED reveals EKG Findings:: Sinus bradycardia with rate of 59. First-degree AV block with CA of 208. QRS 84. QT 444. QTC 439. Right axis. Poor R-wave progression. No acute ST change. Lab review shows a WBC of 8.6, hemoglobin of 10, hematocrit 33.20 and platelet count of 205; sodium of 134, potassium 4.8, BUN/creatinine of 24/1.32; troponin is elevated at 0.043 and BNP of 32,800 Chest x-ray shows chronic changes Patient is clinically fluid overloaded and is admitted to the hospital for further treatment of congestive heart failure Review of Systems REVIEW OF SYSTEMS: CONSTITUTIONAL: No fever, no malaise, no fatigue. HEENT: No recent visual problems or hearing problems. Denied any sore throat. CARDIOVASCULAR: No chest pain, orthopnea, PND, no palpitations, no syncope. PULMONARY: shortness of breath, no cough, no hemoptysis. GASTROINTESTINAL: No diarrhea, no nausea, no vomiting, no abdominal pain. NEUROLOGICAL: No headaches, no weakness, no numbness. HEMATOLOGICAL: Denies any bleeding or petechiae. GENITOURINARY: Denies any burning micturition, frequency, or urgency. MUSCULOSKELETAL/RHEUMATOLOGICAL: Denies any joint pain, swelling, or any muscle pain. ENDOCRINE: Denies any polyuria or polydipsia. The rest of the 14-point review of systems is negative. Past Medical History Past Medical History: No Reported History, Pneumonia Additional Past Medical History / Comment(s): Carr's esophagus, hiatal hernia, sinus problems, past renal insufficiency, acute blood loss anemia with misscarriage. Last Myocardial Infarction Date:: 2007 History of Any Multi-Drug Resistant Organisms: None Reported Past Surgical History: Cardiac Valve Replacement, Cholecystectomy, Coronary Bypass/CABG, Heart Catheterization, Tubal Ligation Additional Past Surgical History / Comment(s): 2008 CABG with jacinto to lad and mitral valve replacement, MAIRA, EGD and colonoscopy. Past Anesthesia/Blood Transfusion Reactions: Motion Sickness Additional Past Anesthesia/Blood Transfusion Reaction / Comment(s): Pt received blood with misscarriage once without reaction. Past Psychological History: No Psychological Hx Reported Smoking Status: Former smoker Past Alcohol Use History: None Reported Past Drug Use History: None Reported - Past Family History Mother Family Medical History: COPD, Coronary Artery Disease (CAD), Myocardial Infarction ([place]) Additional Family Medical History / Comment(s): Pt does not know at what age her mother had a [place]. Father Family Medical History: No Reported History Additional Family Medical History / Comment(s): Father was healthy. Medications and Allergies Home Medications Medication Instructions Recorded Confirmed Type Ergocalciferol (Vitamin D2) 50,000 unit PO Q30D 07/06/16 03/06/21 History [Vitamin D2] Pravastatin Sodium 40 mg PO HS 07/06/16 03/06/21 History Ezetimibe [Zetia] 10 mg PO DAILY 04/19/20 03/06/21 History Omeprazole Magnesium [PriLOSEC OTC] 20 mg PO DAILY PRN 04/19/20 03/06/21 History calcitrioL [Calcitriol] 0.25 mcg PO CRENSHAW 04/19/20 03/06/21 History Apixaban [Eliquis] 5 mg PO BID #180 tab 04/25/20 03/06/21 Rx Spironolactone 25 mg PO DAILY 11/26/20 03/06/21 History guaiFENesin [Mucinex] 600 mg PO BID PRN 11/26/20 03/06/21 History hydrALAZINE HCL 25 mg PO TID 11/26/20 03/06/21 History Albuterol Sulfate [Proair Hfa] 2 puff INHALATION RT-Q6H PRN 02/23/21 03/06/21 History Budesonide/Formoterol Fumarate 2 puff INHALATION RT-BID 02/23/21 03/06/21 History [Symbicort 160-4.5 Mcg Inhaler] Magnesium Oxide [Mag-Ox] 400 mg PO DAILY 02/23/21 03/06/21 History Metoprolol Tartrate [Lopressor] 25 mg PO BID 02/23/21 03/06/21 History Iron 27mg 1 tab PO MOWEFR 03/06/21 03/06/21 History Allergies Allergy/AdvReac Type Severity Reaction Status Date / Time amlodipine Allergy Muscle Verified 03/06/21 15:13 Spasms chlorthalidone Allergy Vomiting Verified 03/06/21 15:13 Iodinated Contrast Media Allergy Rash/Hives Verified 03/06/21 15:13 [Iodinated Contrast Media - Oral and] meperidine [From Demerol] Allergy Vomiting Verified 03/06/21 15:13 Penicillins Allergy Swelling/hi Verified 03/06/21 15:13 ves Physical Exam Vitals: Vital Signs Temp Pulse Resp BP Pulse Ox 03/06/21 11:57 97.9 F 58 L 20 183/70 97 Intake and Output 03/06/21 03/06/21 03/06/21 06:59 14:59 22:59 Other: Weight 66.224 kg PHYSICAL EXAMINATION: GENERAL: The patient is alert and oriented x3, not in any acute distress. Well developed, well nourished. HEENT: Pupils are round and equally reacting to light. EOMI. No scleral icterus. No conjunctival pallor. Normocephalic, atraumatic. No pharyngeal erythema. No thyromegaly. CARDIOVASCULAR: S1 and S2 present. No murmurs, rubs, or gallops. PULMONARY: Chest auscultation reveals bibasilar crackles. ABDOMEN: Soft, nontender, nondistended, normoactive bowel sounds. No palpable or ganomegaly. MUSCULOSKELETAL: No joint swelling or deformity. EXTREMITIES: No cyanosis, clubbing, or pedal edema. NEUROLOGICAL: Gross neurological examination did not reveal any focal deficits. SKIN: No rashes. Results CBC & Chem 7: 03/06/21 13:25 03/06/21 13:25 Labs: Abnormal Lab Results - Last 24 Hours (Table) 03/06/21 03/06/21 03/06/21 Range/Units 13:25 13:25 13:25 RBC 3.70 L (3.80-5.40) m/uL Hgb 10.0 L (11.4-16.0) gm/dL Hct 33.2 L (34.0-46.0) % MCHC 30.2 L (31.0-37.0) g/dL Lymphocytes # 0.8 L (1.0-4.8) k/uL Sodium 134 L (137-145) mmol/L Carbon Dioxide 20 L (22-30) mmol/L BUN 24 H (7-17) mg/dL Creatinine 1.32 H (0.52-1.04) mg/dL Magnesium 2.5 H (1.6-2.3) mg/dL Troponin I 0.043 H* (0.000-0.034) ng/mL Assessment and Plan Assessment: 1. Acute exacerbation CHF - Patient has been placed on Lasix 40 mg IV every 8 hours; continue with home dose of Aldactone at 25 mg daily; we will monitor daily weights, renal function and electrolytes; monitor strict ABELARDO's; no salt and fluid restricted diet - Consult cardiology 2. Elevated troponin; rule out ACS; monitor and trend troponin every 83 3. Acute renal injury; possible chronic kidney disease; anticipate worsening with diuresis; we will monitor strict ABELARDO's; monitor renal function closely; avoid nephrotoxins and hypotension 4. COPD; not in exacerbation; continue with home inhaler therapy in form of Symbicort and albuterol inhaler 5. Gastroesophageal reflux disease/history of Carr's esophagus; home PPI the rapy 6. Hyperlipidemia; continue with statin therapy with pravastatin and Zetia 7. Hypertension; hydralazine 25 mg 3 times a day; metoprolol 25 mg twice a day 8. History of mitral valve replacement; continue with anticoagulation therapy DVT prophylaxis; SCDs/systemic anticoagulation CODE STATUS; full code
[2021-03-06] MEDS: SYMBICORT 160-4.5 MCG INHALER INHALATION SCH (19:24)
[2021-03-06] MEDS: PRAVASTATIN SODIUM 40 MG TAB PO SCH (21:35)
[2021-03-06] MEDS: hydrALAZINE HCL 25 MG TAB PO SCH (21:35)
[2021-03-06] MEDS: METOPROLOL TARTRATE 25 MG TAB PO SCH (21:35)
[2021-03-06] MEDS: NITROGLYCERIN OINT 1 INCH/GM PACKET TOPICAL SCH ×2 (21:36)
[2021-03-07 06:12] LABS: Basophils % (A) 1 %; Eosinophils # (A) 0.2 k/uL (0-0.7); Eosinophils % (A) 3 %; HCT 31.3 % (34.0-46.0); HGB 9.6 gm/dL (11.4-16.0); Hypochromasia Marked; Lymphocytes % (A) 17 %; MCH 27.6 pg (25.0-35.0); MCHC 30.5 g/dL (31.0-37.0); MCV 90.5 fL (80.0-100.0); Mean Platelet Volume 7.9; Monocytes # (A) 0.4 k/uL (0-1.0); Monocytes % (A) 7 %; Neutrophils % (A) 70 %; Platelet Count 193 k/uL (150-450); RBC 3.46 m/uL (3.80-5.40); RDW 15.3 % (11.5-15.5); WBC 5.7 k/uL (3.8-10.6)
[2021-03-07] MEDS: SYMBICORT 160-4.5 MCG INHALER INHALATION SCH ×2 (07:12→20:40)
[2021-03-07] MEDS: MAGNESIUM OXIDE 400 MG TAB PO SCH (08:24)
[2021-03-07] MEDS: METOPROLOL TARTRATE 25 MG TAB PO SCH ×2 (08:24→19:58)
[2021-03-07] MEDS: NITROGLYCERIN OINT 1 INCH/GM PACKET TOPICAL SCH ×4 (08:25→23:24)
[2021-03-07] MEDS: SPIRONOLACTONE 25 MG TAB PO SCH (08:25)
[2021-03-07] MEDS: FUROSEMIDE 10 MG/ML 4 ML VIAL IV SCH ×2 (08:25→15:30)
[2021-03-07] MEDS: hydrALAZINE HCL 25 MG TAB PO SCH ×3 (08:25→19:58)
[2021-03-07] MEDS ORDERED: ASPIRIN 325 MG TAB PO SCH (09:00)
[2021-03-07] MEDS: APIXABAN 5 MG TAB PO SCH ×2 (09:02→19:58)
[2021-03-07] MEDS: EZETIMIBE 10 MG TAB PO SCH (11:36)
--- NOTE | 2021-03-07 11:52 | P.CRDCN ---
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 She follows with Dr. Abdi. We have been asked to see in consultation for congestive heart failure. She presented to the hospital with symptoms of worsening shortness of breath. Patient recently presented emergency department on 02/23/2021 with similar symptoms of cough, congestion, shortness of breath. Chest x-ray at that time revealed right lower lobe pneumonia. Patient was started on azithromycin, prednisone and was discharged home with breathing treat ments. She presents today with worsening shortness of breath and dyspnea on exertion. She states she can not walk as far as she used to without being short of breath. She denies any changes to her medications. She does not take Lasix or Bumex at home. She denies any chest pain, lightheadedness, dizziness, symptoms of orthopnea or PND. Patient hypertensive on admission DIAGNOSTICS -EKG sinus bradycardia, heart rate 59, no significant ST or T-wave abnormalities. -Most recent echocardiogram in the office 06/2020 revealed EF 52%, mild tricuspid regurgitation, mitral valve repair -Chest x-ray on admission reveals chronic emphysematous changes redemonstrated. Cardiac silhouette is stable and mildly enlarged. No acute cardiopulmonary process. -Laboratory data reviewed, troponin 0.04, negative 2, proBNP 92654, covid and influenza negative, sodium 135, potassium 4.0, BUN 28, serum minimal 0.5, WBC 5.7, hemoglobin 9.6, platelets 193, d-dimer negative -Current daily cardiac medications include pravastatin 40 mg nightly, hydralazine 25 mg 3 times a day, aspirin lactone 25 mg daily, Zetia 10 mg daily, Eliquis 5 mg twice a day, metoprolol titrate 25 mg twice a day -Most recent Lexiscan stress test in the office 08/15/2020 fixed inferior and inferolateral defect, no reversible ischemia. REVIEW OF SYSTEMS At the time of my exam: CONSTITUTIONAL: Denies fever or chills. CARDIOVASCULAR: Denies chest pain, Reports shortness of breath, Denies orthopnea, PND or palpitations. RESPIRATORY: Denies cough. GASTROINTESTINAL: Denies abdominal pain, diarrhea, constipation, nausea or vomiting. MUSCULOSKELETAL: Denies myalgias. NEUROLOGIC: Denies numbness, tingling, headacbe or weakness. ENDOCRINE: Denies fatigue, weight change, polydipsia or polyurina. GENITOURINARY: Denies burning, hematuria or urgency with micturation. HEMATOLOGIC: Denies history of anemia or bleeding. PHYSICAL EXAMINATION Vitals reviewed CONSTITUTIONAL: No apparent distress. HEENT: Head is normocephalic. Pupils are equal, round. Sclerae anicteric. Mucous membranes of the mouth are moist. No JVD. No carotid bruit. CHEST EXAMINATION: Scattered rhonchi noted bilaterally. No rales. No chest wall tenderness is noted on palpation or with deep breathing. HEART EXAMINATION: Regular rate and rhythm. S1, S2 heard. Systolic ejection murmur at the left sternal border, no gallops or rub. ABDOMEN: Soft, nontender. Positive bowel sounds. EXTREMITIES: 2+ peripheral pulses, no lower extremity edema and no calf tende rness. NEUROLOGIC EXAMINATION: Patient is awake, alert and oriented x3. ASSESSMENT Acute on chronic heart failure, awaiting repeat echocardiogram to evaluate EF Typical atrial flutter, on Eliquis, currently maintaining sinus mechanism Hypertension, uncontrolled Recent ablation on 01/04/2021 Elevated troponin, mildly elevated x 1, repeat troponins negative x 2, not indicative of acute coronary syndrome. Coronary artery disease status post bypass grafting in 2008 Non-ischemic cardiomyopathy with recovery in EF Valvular heart disease status post mitral valve replacement Chronic kidney disease Dyslipidemia COPD Former nicotine dependence Anemia PLAN Obtain 2D echocardiogram Decrease Lasix 40mg IV Daily Monitor I/Os, daily weights, renal function and electrolytes Monitor CBC Patient allergic to amlodipine, due to muscle spasms side effect. Will start Nifedipine 60mg daily for blood pressure control Continue other home cardiac medications Further recommendations based on clinical course Thank you kindly for this consultation. Nurse Practitioner note has been reviewed, I agree with a documented findings and plan of care. Patient was seen and examined. Past Medical History Past Medical History: No Reported History, Pneumonia Additional Past Medical History / Comment(s): Carr's esophagus, hiatal hernia, sinus problems, past renal insufficiency, acute blood loss anemia with misscarriage. Last Myocardial Infarction Date:: 2007 History of Any Multi-Drug Resistant Organisms: None Reported Past Surgical History: Cardiac Valve Replacement, Cholecystectomy, Coronary Bypass/CABG, Heart Catheterization, Tubal Ligation Additional Past Surgical History / Comment(s): 2007 CABG with hart to lad and mitral valve replacement, MAIRA, EGD and colonoscopy. Past Anesthesia/Blood Transfusion Reactions: Motion Sickness Additional Past Anesthesia/Blood Transfusion Reaction / Comment(s): Pt received blood with misscarriage once without reaction. Past Psychological History: No Psychological Hx Reported Smoking Status: Former smoker Past Alcohol Use History: None Reported Past Drug Use History: None Reported - Past Family History Mother Family Medical History: COPD, Coronary Artery Disease (CAD), Myocardial I nfarction (NH) Additional Family Medical History / Comment(s): Pt does not know at what age her mother had a NH. Father Family Medical History: No Reported History Additional Family Medical History / Comment(s): Father was healthy. Medications and Allergies Home Medications Medication Instructions Recorded Confirmed Type Ergocalciferol (Vitamin D2) 50,000 unit PO Q30D 07/06/16 03/06/21 History [Vitamin D2] Pravastatin Sodium 40 mg PO HS 07/06/16 03/06/21 History Ezetimibe [Zetia] 10 mg PO DAILY 04/19/20 03/06/21 History Omeprazole Magnesium [PriLOSEC OTC] 20 mg PO DAILY PRN 04/19/20 03/06/21 History calcitrioL [Calcitriol] 0.25 mcg PO CRENSHAW 04/19/20 03/06/21 History Apixaban [Eliquis] 5 mg PO BID #180 tab 04/25/20 03/06/21 Rx Spironolactone 25 mg PO DAILY 11/26/20 03/06/21 History guaiFENesin [Mucinex] 600 mg PO BID PRN 11/26/20 03/06/21 History hydrALAZINE HCL 25 mg PO TID 11/26/20 03/06/21 History Albuterol Sulfate [Proair Hfa] 2 puff INHALATION RT-Q6H PRN 02/23/21 03/06/21 History Budesonide/Formoterol Fumarate 2 puff INHALATION RT-BID 02/23/21 03/06/21 History [Symbicort 160-4.5 Mcg Inhaler] Magnesium Oxide [Mag-Ox] 400 mg PO DAILY 02/23/21 03/06/21 History Metoprolol Tartrate [Lopressor] 25 mg PO BID 02/23/21 03/06/21 History Iron 27mg 1 tab PO MOWEFR 03/06/21 03/06/21 History Allergies Allergy/AdvReac Type Severity Reaction Status Date / Time amlodipine Allergy Muscle Verified 03/06/21 15:13 Spasms chlorthalidone Allergy Vomiting Verified 03/06/21 15:13 Iodinated Contrast Media Allergy Rash/Hives Verified 03/06/21 15:13 [Iodinated Contrast Media - Oral and] meperidine [From Demerol] Allergy Vomiting Verified 03/06/21 15:13 Penicillins Allergy Swelling/hi Verified 03/06/21 15:13 ves Physical Exam Vitals: Vital Signs Temp Pulse Resp BP Pulse Ox 03/07/21 05:07 98.5 F 48 L 18 156/71 97 03/06/21 23:54 52 L 18 154/73 97 03/06/21 21:43 60 18 189/85 97 03/06/21 15:45 60 18 197/90 97 03/06/21 11:57 97.9 F 58 L 20 183/70 97 Results 03/07/21 05:42 03/07/21 05:42 Cardiac Enzymes 03/06/21 03/06/21 03/06/21 Range/Units 13:25 13:25 16:26 AST 28 (14-36) U/L Troponin I 0.043 H* 0.027 (0.000-0.034) ng/mL 03/06/21 Range/Units 19:07 AST (14-36) U/L Troponin I 0.030 (0.000-0.034) ng/mL Coagulation 03/06/21 Range/Units 13:25 PT 11.7 (9.0-12.0) sec APTT 23.8 (22.0-30.0) sec CBC 03/06/21 03/07/21 Range/Units 13:25 05:42 WBC 8.6 5.7 (3.8-10.6) k/uL RBC 3.70 L 3.46 L (3.80-5.40) m/uL Hgb 10.0 L 9.6 L (11.4-16.0) gm/dL Hct 33.2 L 31.3 L (34.0-46.0) % Plt Count 205 193 (150-450) k/uL Comprehensive Metabolic Panel 03/06/21 03/07/21 Range/Units 13:25 05:42 Sodium 134 L 135 L (137-145) mmol/L Potassium 4.8 4.0 (3.5-5.1) mmol/L Chloride 104 101 (98-107) mmol/L Carbon Dioxide 20 L 27 (22-30) mmol/L BUN 24 H 28 H (7-17) mg/dL Creatinine 1.32 H 1.55 H (0.52-1.04) mg/dL Glucose 99 93 (74-99) mg/dL Calcium 9.1 9.0 (8.4-10.2) mg/dL AST 28 (14-36) U/L ALT 18 (4-34) U/L Alkaline Phosphatase 50 (38-126) U/L Total Protein 6.3 (6.3-8.2) g/dL Albumin 3.9 (3.5-5.0) g/dL Current Medications Generic Name Dose Route Start Last Admin Trade Name Freq PRN Reason Stop Dose Admin Albuterol Sulfate 2.5 mg 03/06/21 17:26 Albuterol Nebulized 2.5 Mg/3 Ml INHALATION RT-Q6H PRN Shortness Of Breath Aspirin 325 mg 03/07/21 09:00 Aspirin 325 Mg Tab PO DAILY [facility] Budesonide/Formoterol Fumarate 2 puff 03/06/21 20:00 03/07/21 07:12 Symbicort 160-4.5 Mcg Inhaler INHALATION 2 puff RT-BID ALEJANDRO Administration Calcitriol 0.25 mcg 03/13/21 09:00 Calcitriol 0.25 Mcg Cap PO CRENSHAW ALEJANDRO Ezetimibe 10 mg 03/07/21 09:00 Ezetimibe 10 Mg Tab PO DAILY ALEJANDRO Ergocalciferol 1,250 mcg 03/19/21 09:00 Ergocalciferol 1,250 Mcg (50,000 Iu) Capsule PO Q30D ALEJANDRO Furosemide 40 mg 03/06/21 15:00 03/06/21 23:51 Furosemide 10 Mg/Ml 4 Ml Vial IV 40 mg Q8H ALEJANDRO Administration Hydralazine HCl 25 mg 03/06/21 22:00 03/06/21 21:35 Hydralazine Hcl 25 Mg Tab PO 25 mg TID [facility] Administration Magnesium Oxide 400 mg 03/07/21 09:00 Magnesium Oxide 400 Mg Tab PO DAILY [facility] Metoprolol Tartrate 25 mg 03/06/21 21:00 03/06/21 21:35 Metoprolol Tartrate 25 Mg Tab PO 25 mg BID ALEJANDRO Administration Nitroglycerin 1 inch 03/06/21 18:00 03/06/21 21:36 Nitroglycerin Oint 1 Inch/Gm Packet TOPICAL 1 inch QID [facility] Administration Pantoprazole Sodium 40 mg 03/06/21 17:26 Pantoprazole 40 Mg Tablet PO AC-BRKFST PRN gerd Pravastatin Sodium 40 mg 03/06/21 21:00 03/06/21 21:35 Pravastatin Sodium 40 Mg Tab PO 40 mg HS [facility] Administration Sodium Chloride 10 ml 03/06/21 21:00 03/06/21 21:36 Sodium Chloride 0.9% Flush 10 Ml Syringe IV 10 ml BID ALEJANDRO Administration Spironolactone 25 mg 03/07/21 09:00 Spironolactone 25 Mg Tab PO DAILY [facility] 03/07/21 05:42 03/07/21 05:42
--- NOTE | 2021-03-07 15:25 | PN ---
PROGRESS NOTE DATE OF SERVICE: 03/07/2021 This 71-year-old woman who was admitted with CHF, acute exacerbation, is also on IV Lasix at this time. A 2D echogram done earlier last year showed ejection fraction about 50% to 55%. The patient is being closely monitored at this time. Multiple consultants are following the patient closely. Patient is on Lasix and the patient's creatinine is also elevated at 1.55. Past medical history reviewed. REVIEW OF SYSTEMS: CARDIOVASCULAR SYSTEM: No angina. RESPIRATION: As mentioned earlier. GI: As mentioned earlier. : No dysuria. NERVOUS SYSTEM: No numbness, weakness. CURRENT MEDICATIONS: Reviewed. They include Ventolin, Eliquis, Symbicort, vitamin D2, Zetia, Lasix 40 IV daily, apresoline, magnesium oxide. Doses and other medications are reviewed. PHYSICAL EXAMINATION: Patient is alert, oriented x3. Pulse is 53, blood pressure 168/77, respiration 18, temperature 97.3, pulse ox 94% on room air. HEENT: Conjunctivae normal. NECK: No jugular venous distention. CARDIOVASCULAR: S1, S2 muffled. RESPIRATION: Breath sounds diminished at the bases. No rhonchi. No crackles. ABDOMEN: Soft, nontender. No mass palpable. LEGS: Minimal edema. NERVOUS SYSTEM: No focal deficit. LABS: Labs at this time show WBC 5.6, hemoglobin 9.. Sodium is 135. Creatinine noted. ASSESSMENT: 1. Congestive heart failure, acute exacerbation, acute on chronic diastolic dysfunction, ejection fraction 50% to 55%. 2. Elevated troponin 0.043, possibly secondary to congestive heart failure, trending down. 3. Acute renal injury with acute on chronic kidney disease and chronic kidney disease, stage 3 baseline, with prerenal factors and acute tubular necrosis. 4. Chronic obstructive pulmonary disease. 5. Gastroesophageal reflux disease. 6. Hyperlipidemia. 7. Hypertension. 8. History of mitral valve prolapse. 9. Hyponatremia. 10.Anemia, normocytic anemia of chronic disease. 11.History of Carr's esophagus. 12.History of hiatal hernia. 13.History of coronary artery disease, coronary artery bypass grafting. 14.Remote history of nicotine dependence. RECOMMENDATIONS AND DISCUSSION: In this 71-year-old woman who presented with multiple complex medical issues, we will monitor the patient closely, continue the current medications, continue symptomatic treatment. Repeat labs. Continue the diuretics. Continue the rest of the medications. Continue with Eliquis. Closely follow with Cardiology. Guarded prognosis. Further recommendations to follow. MMODL / IJN: [id number] / [email or web address]
[2021-03-07] MEDS: ALBUTEROL NEBULIZED 2.5 MG/3 ML INHALATION PRN ×2 (15:32→20:42)
[2021-03-07] MEDS ORDERED: IRON 27 MG PO SCH (17:26)
[2021-03-07 19:30] VITALS: BMI 25.8
[2021-03-07] MEDS: PRAVASTATIN SODIUM 40 MG TAB PO SCH (19:58)
[2021-03-07] MEDS ORDERED: MELATONIN 3 MG TABLET PO ONE (23:50)
[2021-03-08 08:41] LABS: Basophils % (A) 0 %; Eosinophils # (A) 0.1 k/uL (0-0.7); Eosinophils % (A) 2 %; HCT 33.6 % (34.0-46.0); HGB 10.2 gm/dL (11.4-16.0); Hypochromasia Marked; Lymphocytes # (A) 0.6 k/uL (1.0-4.8); Lymphocytes % (A) 9 %; MCH 27.4 pg (25.0-35.0); MCHC 30.5 g/dL (31.0-37.0); Mean Platelet Volume 7.5; Monocytes # (A) 0.4 k/uL (0-1.0); Monocytes % (A) 5 %; Neutrophils # (A) 5.7 k/uL (1.3-7.7); Neutrophils % (A) 82 %; Platelet Count 204 k/uL (150-450); RBC 3.73 m/uL (3.80-5.40); RDW 15.2 % (11.5-15.5)
[2021-03-08 08:54] LABS: Calcium 9.2 mg/dL (8.4-10.2); Magnesium 2.1 mg/dL (1.6-2.3); Potassium 4.1 mmol/L (3.5-5.1)
[2021-03-08] MEDS: FUROSEMIDE 10 MG/ML 4 ML VIAL IV SCH (09:29)
[2021-03-08] MEDS: EZETIMIBE 10 MG TAB PO SCH (09:29)
[2021-03-08] MEDS: MAGNESIUM OXIDE 400 MG TAB PO SCH (09:29)
[2021-03-08] MEDS: SPIRONOLACTONE 25 MG TAB PO SCH (09:29)
[2021-03-08] MEDS: APIXABAN 5 MG TAB PO SCH ×2 (09:29→20:15)
[2021-03-08] MEDS: METOPROLOL TARTRATE 25 MG TAB PO SCH ×2 (09:29→20:14)
[2021-03-08] MEDS: NITROGLYCERIN OINT 1 INCH/GM PACKET TOPICAL SCH ×4 (09:30→20:15)
[2021-03-08] MEDS: hydrALAZINE HCL 25 MG TAB PO SCH ×3 (09:34→20:15)
[2021-03-08] MEDS: SYMBICORT 160-4.5 MCG INHALER INHALATION SCH ×2 (09:57→20:28)
--- NOTE | 2021-03-08 10:00 | ECHOF ---
Referral Reason:shortness of breath MEASUREMENTS -------- HEIGHT: 160.0 cm WEIGHT: 66.2 kg BP: RVIDd: 2.9 cm (< 3.3) IVSd: 1.0 cm (0.6 - 1.1) LVIDd: 4.9 cm (3.9 - 5.3) LVPWd: 1.4 cm (0.6 - 1.1) IVSs: 1.2 cm LVIDs: 3.7 cm LVPWs: 1.5 cm LA Diam: 4.5 cm (2.7 - 3.8) Ao Diam: 2.7 cm (2.0 - 3.7) AV Cusp: 1.2 cm (1.5 - 2.6) LA Diam: 4.5 cm (2.7 - 3.8) MV EXCURSION: 15.271 mm (> 18.000) MV EF SLOPE: 31 mm/s (70 - 150) EPSS: 0.7 cm MV E Yoandy: 1.02 m/s MV DecT: 301 ms MV A Yoandy: 0.97 m/s MV E/A Ratio: 1.04 RAP: 5.00 mmHg RVSP: 28.65 mmHg FINDINGS -------- Sinus rhythm. This was a technically good study. The left ventricular size is normal. Left ventricular wall thickness is normal. Overall left vent ricular systolic function is mildly impaired with, an EF between 45 - 50 %. Basal inferior LV wall motion is hypokinetic. The right ventricle is normal in size. The left atrium is moderately dilated. The right atrial size is normal. There is mild aortic valve sclerosis. There is no evidence of aortic regurgitation. The mitral valve leaflets are mildly thickened. Moderate mitral regurgitation is present. The pe ak and mean MV gradients are 11.49mmHg 3.21mmHg as measured by doppler. Trace tricuspid regurgitation present. There is no evidence of pulmonary hypertension. The right ventricular systolic pressure, as measured by Doppler, is 28.65mmHg. Trace/mild (physiologic) pulmonic regurgitation. There is no pericardial effusion. CONCLUSIONS -------- 1. The left ventricular size is normal. 2. Left ventricular wall thickness is normal. 3. Overall left ventricular systolic function is mildly impaired with, an EF between 45 - 50 %. 4. Basal inferior LV wall motion is hypokinetic. 5. The right ventricle is normal in size. 6. The left atrium is moderately dilated. 7. The right atrial size is normal. 8. There is mild aortic valve sclerosis. 9. The mitral valve leaflets are mildly thickened. 10. Moderate mitral regurgitation is present. 11. The peak and mean MV gradients are 11.49mmHg 3.21mmHg as measured by doppler. 12. Trace tricuspid regurgitation present. 13. There is no evidence of pulmonary hypertension. 14. The right ventricular systolic pressure, as measured by Doppler, is 28.65mmHg. 15. Trace/mild (physiologic) pulmonic regurgitation. 16. There is no pericardial effusion. ANIMAL SKINNER: Marybel Vargas RDCS
--- NOTE | 2021-03-08 13:13 | P.PN ---
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 She follows with Dr. Abdi. We have been asked to see in consultation for congestive heart failure. She presented to the hospital with symptoms of wor sening shortness of breath. Patient recently presented emergency department on 02/23/2021 with similar symptoms of cough, congestion, shortness of breath. Chest x-ray at that time revealed right lower lobe pneumonia. Patient was started on azithromycin, prednisone and was discharged home with breathing treatments. She presents 03/07/21 with worsening shortness of breath and dyspnea on exerti on. She states she can not walk as far as she used to without being short of breath. She denies any changes to her medications. She does not take Lasix or Bumex at home. She denies any chest pain, lightheadedness, dizziness, symptoms of orthopnea or PND. Patient hypertensive on admission DIAGNOSTICS -EKG sinus bradycardia, heart rate 59, no significant ST or T-wave abnormalities. -Most recent echocardiogram in the office 06/2020 revealed EF 52%, mild tricuspid regurgitation, mitral valve repair -Chest x-ray on admission reveals chronic emphysematous changes redemonstrated. Cardiac silhouette is stable and mildly enlarged. No acute cardiopulmonary process. 03/08/2021 Patient seen at bedside, no acute distress. She states that her breathing has greatly improved. She denies any chest pain. She is ambulating in the room with no acute distress or difficulty. No lower extremity edema. She is maintained on Lasix 40 mg IV daily. Patient with 700mL urine output measured. Decreased in weight noted. She is also maintained on Eliquis 5 mg twice a day, metoprolol titrate 25 mg twice a day, nifedipine 60 mg daily, spironolactone 25 mg daily, pravastatin, Zetia. Echocardiogram revealed EF of 4550 percent, basal inferior LV wall is hypokinetic, moderate mitral regurgitation. PHYSICAL EXAMINATION Vitals reviewed CONSTITUTIONAL: No apparent distress. HEENT: Neck Supple. No JVD. CHEST EXAMINATION: Scattered rhonchi noted bilaterally. No rales. No chest wall tenderness is noted on palpation or with deep breathing. HEART EXAMINATION: Regular rate and rhythm. S1, S2 heard. Systolic ejection murmur at the left sternal border, no gallops or rub. ABDOMEN: Soft, nontender. Positive bowel sounds. EXTREMITIES: 2+ peripheral pulses, no lower extremity edema and no calf tenderness. NEUROLOGIC EXAMINATION: Patient is awake, alert and oriented x3. ASSESSMENT Acute on chronic heart failure, with mildly impaired EF 45-50%, diastolic Typical atrial flutter, on Eliquis, currently maintaining sinus mechanism Hypertension Recent ablation on 01/04/2021 Elevated troponin, mildly elevated x 1, repeat troponins negative x 2, not indicative of acute coronary syndrome. Coronary artery disease status post bypass grafting in 2007 Non-ischemic cardiomyopathy with recovery in EF Valvular heart disease status post mitral valve replacement Chronic kidney disease Dyslipidemia COPD Former nicotine dependence Anemia PLAN Transition to PO Lasix 20mg daily Patient allergic to amlodipine, due to muscle spasms side effect. Continue Nifedipine 60mg daily, patient is tolerating this medication Continue other home cardiac medications From a cardiology perspective, patient is stable.Recommend continuing PO Lasix and Nifedipine, patient to follow up with Dr. Abdi outpatient on 03/18/21. Thank you kindly for this consultation. Nurse Practitioner note has been reviewed, I agree with a documented findings and plan of care. Patient was seen and examined. Objective - Vital Signs Vital signs: Vital Signs Temp 98.2 F 03/08/21 04:00 Pulse 66 03/08/21 04:00 Resp 16 03/08/21 04:00 BP 143/68 03/08/21 04:00 Pulse Ox 94 L 03/08/21 04:00 Intake & Output 03/07/21 03/08/21 03/08/21 18:59 06:59 18:59 Intake Total 130 240 Output Total 500 200 Balance 130 -500 40 Weight 66.224 kg 64.1 kg Intake: IV 10 Invasive Line 1 10 Oral 120 240 Output: Urine 500 200 - Labs CBC & Chem 7: 03/08/21 08:11 03/08/21 08:11 Labs: Abnormal Lab Results - Last 24 Hours (Table) 03/08/21 03/08/21 Range/Units 08:11 08:11 RBC 3.73 L (3.80-5.40) m/uL Hgb 10.2 L (11.4-16.0) gm/dL Hct 33.6 L (34.0-46.0) % MCHC 30.5 L (31.0-37.0) g/dL Lymphocytes # 0.6 L (1.0-4.8) k/uL Sodium 134 L (137-145) mmol/L BUN 27 H (7-17) mg/dL Creatinine 1.48 H (0.52-1.04) mg/dL Glucose 140 H (74-99) mg/dL
--- NOTE | 2021-03-08 15:49 | P.PN ---
Subjective Progress Note Date: 03/08/21 This is a 71-year-old female who was recently admitted with congestive heart failure acute exacerbation and is being closely monitored. Cardiology following closely and patient is maintained on IV Lasix which is being transitioned to oral Lasix and patient also continue on nicardipine. Patient continues with a slight cough and minimal wheezing and reports her breathing has significantly improved. Patient is currently on room air and denies shortness of breath. Patient is requesting to go home today. Recommend to observe closely overnight with repeat labs with possible discharge in 24 hours. Encouraged increase activity as tolerated. Labs: WBC is 7.0, hemoglobin is 10.2, platelets are 204 Roque sodium is 134, potassium is 4.1, BUN is 27, creatinine is 1.48, calcium is 9.2, magnesium is 2.1 Review of systems: Constitutional: No reports of fatigue, fever, or chills Cardiovascular: No reports of chest pain or palpitations Respiratory: No reports of worsening shortness of breath, reports occasional cough GI: No reports of nausea, vomiting, or diarrhea : No reports of dysuria or retention Neurovascular: No reports of weakness or numbness All medications have been reviewed Active Medications Albuterol Sulfate (Albuterol Nebulized 2.5 Mg/3 Ml) 2.5 mg INHALATION RT-Q6H PRN PRN Reason: Shortness Of Breath Last Admin: 03/07/21 20:42 Dose: 2.5 mg Documented by: Apixaban (Apixaban 5 Mg Tab) 5 mg PO BID [facility]; Protocol Last Admin: 03/08/21 09:29 Dose: 5 mg Documented by: Budesonide/Formoterol Fumarate (Symbicort 160-4.5 Mcg Inhaler) 2 puff INHALATION RT-BID [facility] Last Admin: 03/08/21 09:57 Dose: Not Given Documented by: Calcitriol (Calcitriol 0.25 Mcg Cap) 0.25 mcg PO CRENSHAW [facility] Ezetimibe (Ezetimibe 10 Mg Tab) 10 mg PO DAILY [facility] Last Admin: 03/08/21 09:29 Dose: 10 mg Documented by: Ergocalciferol (Ergocalciferol 1,250 Mcg (50,000 Iu) Capsule) 1,250 mcg PO Q30D [facility] Furosemide (Furosemide 20 Mg Tab) 20 mg PO DAILY [facility] Hydralazine HCl (Hydralazine Hcl 25 Mg Tab) 25 mg PO TID [facility] Last Admin: 03/08/21 09:34 Dose: 25 mg Documented by: Magnesium Oxide (Magnesium Oxide 400 Mg Tab) 400 mg PO DAILY [facility] Last Admin: 03/08/21 09:29 Dose: 400 mg Documented by: Metoprolol Tartrate (Metoprolol Tartrate 25 Mg Tab) 25 mg PO BID [facility] Last Admin: 03/08/21 09:29 Dose: 25 mg Documented by: Nifedipine (Nifedipine Xl 60 Mg Tab.Er.24) 60 mg PO DAILY [facility] Last Admin: 03/08/21 09:29 Dose: 60 mg Documented by: Nitroglycerin (Nitroglycerin Oint 1 Inch/Gm Packet) 1 inch TOPICAL QID [facility] Last Admin: 03/08/21 13:03 Dose: Not Given Documented by: Pantoprazole Sodium (Pantoprazole 40 Mg Tablet) 40 mg PO AC-BRKFST PRN PRN Reason: gerd Pravastatin Sodium (Pravastatin Sodium 40 Mg Tab) 40 mg PO HS [facility] Last Admin: 03/07/21 19:58 Dose: 40 mg Documented by: Sodium Chloride (Sodium Chloride 0.9% Flush 10 Ml Syringe) 10 ml IV BID [facility] Last Admin: 03/08/21 09:34 Dose: 10 ml Documented by: Spironolactone (Spironolactone 25 Mg Tab) 25 mg PO DAILY [facility] Last Admin: 03/08/21 09:29 Dose: 25 mg Documented by: Physical Exam: Gen: This is a 71-year-old female who is awake, alert and oriented 3, well- developed, well-nourished. Temp is 98.2 F, pulse is 66, respirations are 16, blood pressure is 143/68, oxygen saturation is 94% on room air HEENT: Head is atraumatic, normocephalic. Pupils equal, round. Sclerae is anicteric. NECK: Supple. No JVD. No lymphadenopathy. No thyromegaly. LUNGS: Breath sounds diminished with some mild scattered rhonchi and minimal expiratory wheezing noted. No intercostal retractions. HEART: S1, S2 are muffled ABDOMEN: Soft. Bowel sounds are present. No masses. No tenderness. EXTREMITIES: No pedal edema. No calf tenderness. NEUROLOGICAL: Patient is awake, alert and oriented 3, no focal deficits . Assessment: Congestive heart failure, acute exacerbation, acute on chronic diastolic dysfunction with an ejection fraction of 50-55% Elevated troponin 0.043, possibly secondary to congestive heart failure, trending down Acute renal injury with acute on chronic kidney disease and chronic kidney disease stage III baseline with prerenal factors and acute tubular necrosis Chronic obstructive pulmonary disease Gastroesophageal reflux disease Hyperlipidemia Hypertension history of mitral valve prolapse hyponatremia Anemia, normocytic anemia of chronic disease history of Carr's esophagus history of hiatal hernia History of coronary disease, coronary artery bypass grafting Remote history of nicotine dependence Plan: Recommend to continue with current medications and follow along closely with Cardiology. Patient continues on IV Lasix being transitioned oral Lasix and also continues on nifedipine. Cardiology recommending close outpatient follow- up next week. We'll continue to monitor overnight and repeat labs with possible discharge in 24 hours. Due to multiple complex medical issues prognosis is guarded. Objective - Vital Signs Vital signs: Vital Signs Temp 98.2 F 03/08/21 04:00 Pulse 66 03/08/21 04:00 Resp 16 03/08/21 04:00 BP 143/68 03/08/21 04:00 Pulse Ox 94 L 03/08/21 04:00 Intake & Output 03/07/21 03/08/21 03/08/21 18:59 06:59 18:59 Intake Total 130 358 Output Total 500 550 Balance 130 -500 -192 Weight 66.224 kg 64.1 kg Intake: IV 10 Invasive Line 1 10 Oral 120 358 Output: Urine 500 550 - Labs CBC & Chem 7: 03/08/21 08:11 03/08/21 08:11 Labs: Abnormal Lab Results - Last 24 Hours (Table) 03/08/21 03/08/21 Range/Units 08:11 08:11 RBC 3.73 L (3.80-5.40) m/uL Hgb 10.2 L (11.4-16.0) gm/dL Hct 33.6 L (34.0-46.0) % MCHC 30.5 L (31.0-37.0) g/dL Lymphocytes # 0.6 L (1.0-4.8) k/uL Sodium 134 L (137-145) mmol/L BUN 27 H (7-17) mg/dL Creatinine 1.48 H (0.52-1.04) mg/dL Glucose 140 H (74-99) mg/dL
[2021-03-08] MEDS: ALBUTEROL NEBULIZED 2.5 MG/3 ML INHALATION PRN (16:41)
[2021-03-08] MEDS: PRAVASTATIN SODIUM 40 MG TAB PO SCH (20:15)
[2021-03-08] MEDS ORDERED: MELATONIN 3 MG TABLET PO ONE (20:42)
[2021-03-09 07:35] LABS: Calcium 9.5 mg/dL (8.4-10.2); Potassium 4.4 mmol/L (3.5-5.1)
[2021-03-09] MEDS: NITROGLYCERIN OINT 1 INCH/GM PACKET TOPICAL SCH (08:50)
[2021-03-09] MEDS: SPIRONOLACTONE 25 MG TAB PO SCH (08:50)
[2021-03-09] MEDS: MAGNESIUM OXIDE 400 MG TAB PO SCH (08:50)
[2021-03-09] MEDS: hydrALAZINE HCL 25 MG TAB PO SCH ×3 (08:50→21:29)
[2021-03-09] MEDS: APIXABAN 5 MG TAB PO SCH ×2 (08:50→21:28)
[2021-03-09] MEDS: METOPROLOL TARTRATE 25 MG TAB PO SCH ×2 (08:50→21:29)
[2021-03-09] MEDS: EZETIMIBE 10 MG TAB PO SCH (08:50)
[2021-03-09] MEDS: SYMBICORT 160-4.5 MCG INHALER INHALATION SCH ×2 (08:59→20:53)
[2021-03-09] MEDS ORDERED: FUROSEMIDE 20 MG TAB PO SCH (09:00)
[2021-03-09] MEDS ORDERED: NIFEdipine XL 30 MG TAB.ER.24 PO STA (09:14)
--- NOTE | 2021-03-09 12:07 | P.PN ---
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 She follows with Dr. Abdi. We have been asked to see in consultation for congestive heart failure. She presented to the hospital with symptoms of wor sening shortness of breath. Patient recently presented emergency department on 02/23/2021 with similar symptoms of cough, congestion, shortness of breath. Chest x-ray at that time revealed right lower lobe pneumonia. Patient was started on azithromycin, prednisone and was discharged home with breathing treatments. She presents 03/07/21 with worsening shortness of breath and dyspnea on exerti on. She states she can not walk as far as she used to without being short of breath. She denies any changes to her medications. She does not take Lasix or Bumex at home. She denies any chest pain, lightheadedness, dizziness, symptoms of orthopnea or PND. Patient hypertensive on admission DIAGNOSTICS -EKG sinus bradycardia, heart rate 59, no significant ST or T-wave abnormalities. -Most recent echocardiogram in the office 06/2020 revealed EF 52%, mild tricuspid regurgitation, mitral valve repair -Chest x-ray on admission reveals chronic emphysematous changes redemonstrated. Cardiac silhouette is stable and mildly enlarged. No acute cardiopulmonary process. 03/09/2021 Patient seen at bedside, no acute distress. She states that her breathing has greatly improved. She denies any shortness of breath. She denies any chest pain. She is ambulating in the room with no acute distress or difficulty. No lower extremity edema. She is on Lasix PO 20mg daily. Her serum creatinine increased 1.62 (1.48 yesterday). Patient with 1300mL urine output measured. Decreased in weight noted. She is also maintained on Eliquis 5 mg twice a day, metoprolol tartrate 25 mg twice a day, nifedipine 60 mg daily, spironolactone 25 mg daily, pravastatin, Zetia. Echocardiogram revealed EF of 4550 percent, basal inferior LV wall is hypokinetic, moderate mitral regurgitation. PHYSICAL EXAMINATION Vitals reviewed CONSTITUTIONAL: No apparent distress. HEENT: Neck Supple. No JVD. CHEST EXAMINATION: Scattered rhonchi noted bilaterally. No rales. No chest wall tenderness is noted on palpation or with deep breathing. HEART EXAMINATION: Regular rate and rhythm. S1, S2 heard. Systolic ejection murmur at the left sternal border, no gallops or rub. ABDOMEN: Soft, nontender. Positive bowel sounds. EXTREMITIES: 2+ peripheral pulses, no lower extremity edema and no calf tendern ess. NEUROLOGIC EXAMINATION: Patient is awake, alert and oriented x3. ASSESSMENT Acute on chronic heart failure, with mildly impaired EF 45-50%, diastolic Typical atrial flutter, on Eliquis, currently maintaining sinus mechanism Hypertension Recent ablation on 01/04/2021 Elevated troponin, mildly elevated x 1, repeat troponins negative x 2, not indicative of acute coronary syndrome. Coronary artery disease status post bypass grafting in 2007 Non-ischemic cardiomyopathy with recovery in EF Valvular heart disease status post mitral valve replacement Acute on Chronic kidney disease Dyslipidemia COPD Former nicotine dependence Anemia PLAN We will hold off on Lasix on this time. Patient allergic to amlodipine, due to muscle spasms side effect. Increase Nifedipine 90mg daily, patient is tolerating this medication Continue other home cardiac medications From a cardiology perspective, patient is stable. Recommend holding PO Lasix and continuing Nifedipine, patient to follow up with Dr. Abdi outpatient, she has an appointment on 03/18/21. Nurse Practitioner note has been reviewed, I agree with a documented findings and plan of care. Patient was seen and examined. Objective - Vital Signs Vital signs: Vital Signs Temp 97.8 F 03/09/21 04:00 Pulse 54 L 03/09/21 04:00 Resp 16 03/09/21 04:00 BP 154/68 03/09/21 04:00 Pulse Ox 96 03/09/21 04:00 Intake & Output 03/08/21 03/09/21 03/09/21 18:59 06:59 18:59 Intake Total 598 Output Total 750 550 Balance -152 -550 Weight 64.5 kg Intake: Oral 598 Output: Urine 750 550 - Labs CBC & Chem 7: 03/08/21 08:11 03/09/21 06:52 Labs: Abnormal Lab Results - Last 24 Hours (Table) 03/09/21 Range/Units 06:52 Sodium 134 L (137-145) mmol/L BUN 33 H (7-17) mg/dL Creatinine 1.62 H (0.52-1.04) mg/dL Glucose 104 H (74-99) mg/dL
[2021-03-09] MEDS: ALBUTEROL NEBULIZED 2.5 MG/3 ML INHALATION SCH ×2 (16:10→20:53)
[2021-03-09] MEDS: PRAVASTATIN SODIUM 40 MG TAB PO SCH (21:28)
[2021-03-09] MEDS ORDERED: HYDROcodone/APAP 5-325MG 1 EACH TAB PO PRN (21:51)
[2021-03-10] MEDS: LIDOCAINE 5% PATCH TOPICAL SCH ×2 (02:05→10:13)
--- NOTE | 2021-03-10 05:36 | P.PN ---
Subjective Progress Note Date: 03/09/21 This is a 71-year-old female who was recently admitted with congestive heart failure acute exacerbation and is being closely monitored. Cardiology following closely and patient is maintained on IV Lasix which is being transitioned to oral Lasix and patient also continue on nicardipine. Patient continues with a slight cough and minimal wheezing and reports her breathing has significantly improved. Patient is currently on room air and denies shortness of breath. Patient is requesting to go home today. Recommend to observe closely overnight with repeat labs with possible discharge in 24 hours. Encouraged increase activity as tolerated. 03/09/2021 She is seen in follow-up today with cardiology following closely. Procardia has been increased and will monitor closely. Lasix was discontinued today and kidney functions slightly worsened. Patient states she is having some increased shortness of breath with increased cough and wheezing noted. Patient reports that she lives with her daughter who went to the doctor last night and tested positive for Covid 19. Patient reports to her daughters symptoms starting Sunday evening of which she was with that day. Will order PCR as initial rapid covid testing for the patient was negative. Patient reports being vaccinated for Covid. Patient is afebrile. Labs: sodium is 134, potassium is 4.4, BUN is 33, creatinine 1.62, calcium 9.5 Review of systems: Constitutional: No reports of fatigue, fever, or chills Cardiovascular: No reports of chest pain or palpitations Respiratory: reports of intermittent shortness of breath, reports occasional cough with some wheezing GI: No reports of nausea, vomiting, or diarrhea : No reports of dysuria or retention Neurovascular: No reports of weakness or numbness All medications have been reviewed Active Medications Albuterol Sulfate (Albuterol Nebulized 2.5 Mg/3 Ml) 2.5 mg INHALATION RT-Q6H PRN PRN Reason: Shortness Of Breath Last Admin: 03/08/21 16:41 Dose: 2.5 mg Documented by: Albuterol Sulfate (Albuterol Nebulized 2.5 Mg/3 Ml) 2.5 mg INHALATION RT-QID S Apixaban (Apixaban 5 Mg Tab) 5 mg PO BID [facility]; Protocol Last Admin: 03/09/21 08:50 Dose: 5 mg Documented by: Budesonide/Formoterol Fumarate (Symbicort 160-4.5 Mcg Inhaler) 2 puff INHALATION RT-BID [facility] Last Admin: 03/09/21 08:59 Dose: 2 puff Documented by: Calcitriol (Calcitriol 0.25 Mcg Cap) 0.25 mcg PO CRENSHAW [facility] Ezetimibe (Ezetimibe 10 Mg Tab) 10 mg PO DAILY [facility] Last Admin: 03/09/21 08:50 Dose: 10 mg Documented by: Ergocalciferol (Ergocalciferol 1,250 Mcg (50,000 Iu) Capsule) 1,250 mcg PO Q30D [facility] Hydralazine HCl (Hydralazine Hcl 25 Mg Tab) 25 mg PO TID [facility] Last Admin: 03/09/21 08:50 Dose: 25 mg Documented by: Magnesium Oxide (Magnesium Oxide 400 Mg Tab) 400 mg PO DAILY [facility] Last Admin: 03/09/21 08:50 Dose: 400 mg Documented by: Metoprolol Tartrate (Metoprolol Tartrate 25 Mg Tab) 25 mg PO BID [facility] Last Admin: 03/09/21 08:50 Dose: 25 mg Documented by: Nifedipine (Nifedipine Xl 90 Mg Tab.Er.24) 90 mg PO DAILY [facility] Pantoprazole Sodium (Pantoprazole 40 Mg Tablet) 40 mg PO AC-BRKFST PRN PRN Reason: gerd Pravastatin Sodium (Pravastatin Sodium 40 Mg Tab) 40 mg PO HS [facility] Last Admin: 03/08/21 20:15 Dose: 40 mg Documented by: Sodium Chloride (Sodium Chloride 0.9% Flush 10 Ml Syringe) 10 ml IV BID [facility] Last Admin: 03/08/21 20:15 Dose: Not Given Documented by: Spironolactone (Spironolactone 25 Mg Tab) 25 mg PO DAILY [facility] Last Admin: 03/09/21 08:50 Dose: 25 mg Documented by: Physical Exam: Gen: This is a 71-year-old female who is awake, alert and oriented 3, well- developed, well-nourished. Temp is 97.8 F, pulse is 57, respirations are 18, blood pressure is 142/70, oxygen saturation is 96% on room air HEENT: Head is atraumatic, normocephalic. Pupils equal, round. Sclerae is anicteric. NECK: Supple. No JVD. No lymphadenopathy. No thyromegaly. LUNGS: Breath sounds diminished with some mild scattered rhonchi and minimal expiratory wheezing noted. No intercostal retractions. HEART: S1, S2 are muffled ABDOMEN: Soft. Bowel sounds are present. No masses. No tenderness. EXTREMITIES: No pedal edema. No calf tenderness. NEUROLOGICAL: Patient is awake, alert and oriented 3, no focal deficits . Assessment: Congestive heart failure, acute exacerbation, acute on chronic diastolic dysfunction with an ejection fraction of 50-55% Elevated troponin 0.043, possibly secondary to congestive heart failure, trending down Acute renal injury with acute on chronic kidney disease and chronic kidney disease stage III baseline with prerenal factors and acute tubular necrosis Covid 19 exposure recently Chronic obstructive pulmonary disease Gastroesophageal reflux disease Hyperlipidemia Hypertension history of mitral valve prolapse hyponatremia Anemia, normocytic anemia of chronic disease history of Carr's esophagus history of hiatal hernia History of coronary disease, coronary artery bypass grafting Remote history of nicotine dependence Plan: Recommend to continue with current medications and follow along closely with Cardiology. Patient Lasix discontinued and continues on nifedipine. Cardiology recommending close outpatient follow-up next week. Will add patients inhalers as she reports to some increased shortness of breath and wheezing. Patient reports to living with her daughter who just found out she was Covid positive with symptoms starting Sunday and patient was with her. Will order PCR. We'll continue to monitor overnight and repeat labs with possible discharge in 24 hours. Due to multiple complex medical issues prognosis is guarded. Objective - Vital Signs Vital signs: Vital Signs Temp 97.8 F 03/09/21 04:00 Pulse 54 L 03/09/21 04:00 Resp 16 03/09/21 04:00 BP 154/68 03/09/21 04:00 Pulse Ox 96 03/09/21 04:00 Intake & Output 03/08/21 03/09/21 03/09/21 18:59 06:59 18:59 Intake Total 598 Output Total 750 550 Balance -152 -550 Weight 64.5 kg Intake: Oral 598 Output: Urine 750 550 - Labs CBC & Chem 7: 03/08/21 08:11 03/09/21 06:52 Labs: Abnormal Lab Results - Last 24 Hours (Table) 03/09/21 Range/Units 06:52 Sodium 134 L (137-145) mmol/L BUN 33 H (7-17) mg/dL Creatinine 1.62 H (0.52-1.04) mg/dL Glucose 104 H (74-99) mg/dL
[2021-03-10 06:40] LABS: Calcium 9.3 mg/dL (8.4-10.2); Potassium 4.5 mmol/L (3.5-5.1)
[2021-03-10] MEDS: SYMBICORT 160-4.5 MCG INHALER INHALATION SCH (07:52)
[2021-03-10] MEDS: ALBUTEROL NEBULIZED 2.5 MG/3 ML INHALATION SCH ×3 (07:52→16:14)
[2021-03-10] MEDS ORDERED: NIFEdipine XL 90 MG TAB.ER.24 PO SCH (09:00)
[2021-03-10] MEDS: EZETIMIBE 10 MG TAB PO SCH (09:31)
[2021-03-10] MEDS: APIXABAN 5 MG TAB PO SCH (09:31)
[2021-03-10] MEDS: METOPROLOL TARTRATE 25 MG TAB PO SCH (09:31)
[2021-03-10] MEDS: MAGNESIUM OXIDE 400 MG TAB PO SCH (09:32)
[2021-03-10] MEDS: hydrALAZINE HCL 25 MG TAB PO SCH (09:32)
[2021-03-10] MEDS: SPIRONOLACTONE 25 MG TAB PO SCH (09:32)
[2021-03-10 10:22] VITALS: RESP 18
[2021-03-10] MEDS ORDERED: methylPREDNISolone SOD SUCCI 40 MG/ML 1 ML VIAL IV STA (11:32)
[2021-03-10 16:00] VITALS: BP 163/68; PULSE 56; TEMP 98.2
--- NOTE | 2021-03-11 14:54 | P.DS ---
Providers Date of admission: 03/06/21 14:23 Expected date of discharge: 03/10/21 Attending physician: Bran Roberts MD Consults: 03/06/21 14:23 Consult Physician Routine Consulting Provider: Jose Rosado Consult Reason/Comments: chf Do you want consulting provider notified?: Yes Primary care physician: Saman Brenden [place] [facility] Course: Final diagnosis Congestive heart failure, acute exacerbation, acute on chronic diastolic dysfunction with an ejection fraction of 50-55% Elevated troponin 0.043, possibly secondary to congestive heart failure, trending down Acute renal injury with acute on chronic kidney disease and chronic kidney disease stage III baseline with prerenal factors and acute tubular necrosis Covid 19 exposure recently, repeat Covid PCR was negative Chronic obstructive pulmonary disease Gastroesophageal reflux disease Hyperlipidemia Hypertension history of mitral valve prolapse hyponatremia Anemia, normocytic anemia of chronic disease history of Carr's esophagus history of hiatal hernia History of coronary disease, coronary artery bypass grafting Remote history of nicotine dependence Discharge disposition Patient is being discharged in a stable condition with guarded prognosis to home. Patient will follow-up with Dr. Wilcox as scheduled on Sunday. Patient will also follow-up with cardiology Dr. Abdi as scheduled. Recommend repeat labs in 2-3 days to monitor CBC and BMP. Prescription was provided. Patient's Covid testing was negative. Total time taken is greater than 35 minutes. Hospital course This is a 71-year-old female who was recently admitted with congestive heart failure acute exacerbation and being closely monitored. Cardiology following the patient closely and patient was maintained on IV Lasix and switched to Procardia XL and adjustments have been made and patient will continue on Procardia 90 mg daily along with her hydralazine and Lasix was discontinued. Patient was provided prescription for repeat labs in 2-3 days to monitor kidney functions as creatinine was mildly elevated. Patient had Covid PCR testing which was negative as her daughter who she resides with was recently found positive for Covid 2 days ago. Patient encouraged to monitor blood pressure closely and keep a diary of blood pressure readings for primary care follow-up on Mondays appointment. She will also continue on a short prednisone taper on discharge. Patient encouraged to continue with inhalers. Currently no reports of chest pain, shortness of breath, or palpitations. Patient is afebrile. No reports of nausea or vomiting and patient is tolerating diet. Patient will be discharged to home today. Guarded prognosis. On exam vital signs are stable. Cardio S1, S2 are muffled. Respiratory system shows diminished breath sounds at the bases with some mild expiratory wheezing noted. Abdomen is soft and nontender. Nervous system shows no focal deficits. Please refer to medication reconciliation sheet for a list of medications. Patient Condition at Discharge: Stable Plan - Discharge Summary Discharge Rx Participant: No New Discharge Prescriptions: New guaiFENesin [Mucinex] 600 mg PO BID 10 Days #20 tab NIFEdipine XL [Procardia XL] 90 mg PO DAILY 30 Days #30 tablet predniSONE 10 mg PO DIRECTED #30 tab Continue Ergocalciferol (Vitamin D2) [Vitamin D2] 50,000 unit PO Q30D Pravastatin Sodium 40 mg PO HS calcitrioL [Calcitriol] 0.25 mcg PO CRENSHAW Omeprazole Magnesium [PriLOSEC OTC] 20 mg PO DAILY PRN PRN Reason: gerd Ezetimibe [Zetia] 10 mg PO DAILY Apixaban [Eliquis] 5 mg PO BID #180 tab Spironolactone 25 mg PO DAILY Albuterol Sulfate [Proair Hfa] 2 puff INHALATION RT-Q6H PRN PRN Reason: Shortness Of Breath Magnesium Oxide [Mag-Ox] 400 mg PO DAILY Budesonide/Formoterol Fumarate [Symbicort 160-4.5 Mcg Inhaler] 2 puff INHALATION RT-BID Metoprolol Tartrate [Lopressor] 25 mg PO BID Iron 27mg 1 tab PO MOWEFR Changed hydrALAZINE HCL 50 mg PO TID 30 Days #180 tab Discontinued guaiFENesin [Mucinex] 600 mg PO BID PRN PRN Reason: Cold Symptoms Discharge Medication List Ergocalciferol (Vitamin D2) [Vitamin D2] 50,000 unit PO Q30D 07/06/16 [History] Pravastatin Sodium 40 mg PO HS 07/06/16 [History] Ezetimibe [Zetia] 10 mg PO DAILY 04/19/20 [History] Omeprazole Magnesium [PriLOSEC OTC] 20 mg PO DAILY PRN 04/19/20 [History] calcitrioL [Calcitriol] 0.25 mcg PO CRENSHAW 04/19/20 [History] Apixaban [Eliquis] 5 mg PO BID #180 tab 04/25/20 [Rx] Spironolactone 25 mg PO DAILY 11/26/20 [History] Albuterol Sulfate [Proair Hfa] 2 puff INHALATION RT-Q6H PRN 02/23/21 [History] Budesonide/Formoterol Fumarate [Symbicort 160-4.5 Mcg Inhaler] 2 puff INHALATION RT-BID 02/23/21 [History] Magnesium Oxide [Mag-Ox] 400 mg PO DAILY 02/23/21 [History] Metoprolol Tartrate [Lopressor] 25 mg PO BID 02/23/21 [History] Iron 27mg 1 tab PO MOWEFR 03/06/21 [History] NIFEdipine XL [Procardia XL] 90 mg PO DAILY 30 Days #30 tablet 03/09/21 [Rx] guaiFENesin [Mucinex] 600 mg PO BID 10 Days #20 tab 03/10/21 [Rx] hydrALAZINE HCL 50 mg PO TID 30 Days #180 tab 03/10/21 [Rx] predniSONE 10 mg PO DIRECTED #30 tab 03/10/21 [Rx] Follow up Appointment(s)/Referral(s): Gill Abdi MD [STAFF PHYSICIAN] - 03/18/21 2:15 pm (at [facility] ) Saman Wilcox DO [Primary Care Provider] - 03/14/21 11:15 am (Please call to schedule a follow-up appointment) Ambulatory/Diagnostic Orders: Complete Blood Count w/diff [LAB.AMB] Time Frame: 3 Days, Location: None Selected Patient Instructions/Handouts: Nifedipine (By mouth), Prednisone (By mouth), Guaifenesin (By mouth), Hydralazine (By mouth), Heart Failure (DC), Pneumonia (DC) Activity/Diet/Wound Care/Special Instructions: Activity Limited until follow-up Follow-up primary care provider on discharge Follow-up cardiology in 2 weeks Continue taking medications as prescribed Check blood pressure daily and keep a diary for primary and cardiology follow-up Note the changes in medications Repeat labs in 2-3 days Continue wearing masks and frequent handwashing and isolate if possible Continue prednisone taper Continue heart healthy diet Discharge Disposition: HOME SELF-CARE
[2021-03-19] MEDS ORDERED: ERGOCALCIFEROL 1,250 MCG (50,000 IU) CAPSULE PO SCH (09:00)
== END 2021-03-10 17:17 | disposition home or self-care (01) | DRG 291 ==
LOC: EC 11:50 → 3SCARD 14:23
PROVIDERS: ADMIT Internal Medicine; ATTEND Internal Medicine
DX: I13.0 Hypertensive heart and chronic kidney disease with heart failure and stage 1 through stage 4 chronic kidney disease, or unspecified chronic kidney disease (principal); I50.33 Acute on chronic diastolic (congestive) heart failure; N17.0 Acute kidney failure with tubular necrosis; E87.1 Hypo-osmolality and hyponatremia; I48.3 Typical atrial flutter; I42.8 Other cardiomyopathies; R53.1 Weakness; D63.8 Anemia in other chronic diseases classified elsewhere; E78.5 Hyperlipidemia, unspecified; I25.10 Atherosclerotic heart disease of native coronary artery without angina pectoris; I25.2 Old myocardial infarction; I34.0 Nonrheumatic mitral (valve) insufficiency; I34.1 Nonrheumatic mitral (valve) prolapse; Z20.822 Contact with and (suspected) exposure to COVID-19; I44.0 Atrioventricular block, first degree; K21.9 Gastro-esophageal reflux disease without esophagitis; N18.30 Chronic kidney disease, stage 3 unspecified; J44.9 Chronic obstructive pulmonary disease, unspecified; K22.70 Barrett's esophagus without dysplasia; Z79.01 Long term (current) use of anticoagulants; Z79.51 Long term (current) use of inhaled steroids; Z79.899 Other long term (current) drug therapy; Z82.49 Family history of ischemic heart disease and other diseases of the circulatory system; Z82.5 Family history of asthma and other chronic lower respiratory diseases; Z87.891 Personal history of nicotine dependence; Z95.1 Presence of aortocoronary bypass graft; Z95.2 Presence of prosthetic heart valve; R77.8 Other specified abnormalities of plasma proteins; Z88.0 Allergy status to penicillin; Z88.8 Allergy status to other drugs, medicaments and biological substances
CPT/HCPCS: 36415; 71046; 80048; 80053; 83605; 83735; 83880; 84132; 84484; 85025; 85379; 85610; 85730; 87502; 87635; 93005; 93306; 94640; 96374; 99285

== ENCOUNTER 2021-04-05 11:28 | Inpatient (IN) | payer MEDICARE ==
--- NOTE | 2021-04-05 12:13 | ED ---
General Adult HPI - General Chief complaint: Shortness of Breath Stated complaint: SOB/Swollen Legs & Feet Time Seen by Provider: 04/05/21 11:34 Source: patient, RN notes reviewed Mode of arrival: wheelchair Limitations: no limitations - History of Present Illness Initial comments: 71-year-old female with a complicated past medical history presents to the emergency room for bilateral lower extremity swelling. Patient does worsen within the past week. She admits to mild shortness of breath but states it is not significant. Patient has been following with cardiology for heart failure. She was hospitalized for this about a month ago and had a neck oh revealing 45- 50% ejection fraction. Cardiology has started her on Procardia and increased her hydralazine but discontinued her Lasix. Patient states she has not been taking the Procardia because it gives her muscle cramps but went back to taking 20 mg of Lasix daily. States she is almost out of this and does not have a refill as cardiology had discontinued this.Patient has no other complaints at this time including shortness of breath, chest pain, abdominal pain, nausea or vomiting, headache, or visual changes. - Related Data Home Medications Medication Instructions Recorded Confirmed Ergocalciferol (Vitamin D2) 50,000 unit PO Q30D 07/06/16 04/05/21 [Vitamin D2] Pravastatin Sodium 40 mg PO HS 07/06/16 04/05/21 Ezetimibe [Zetia] 10 mg PO DAILY 04/19/20 04/05/21 Omeprazole Magnesium [PriLOSEC OTC] 20 mg PO DAILY PRN 04/19/20 04/05/21 calcitrioL [Calcitriol] 0.25 mcg PO CRENSHAW 04/19/20 04/05/21 Spironolactone 25 mg PO DAILY 11/26/20 04/05/21 Albuterol Sulfate [Proair Hfa] 2 puff INHALATION RT-Q6H PRN 02/23/21 04/05/21 Budesonide/Formoterol Fumarate 2 puff INHALATION RT-BID 02/23/21 04/05/21 [Symbicort 160-4.5 Mcg Inhaler] Magnesium Oxide [Mag-Ox] 400 mg PO DAILY 02/23/21 04/05/21 Metoprolol Tartrate [Lopressor] 25 mg PO BID 02/23/21 04/05/21 Iron 27mg 1 tab PO MOWEFR 03/06/21 04/05/21 Furosemide [Lasix] 20 mg PO DAILY 04/05/21 04/05/21 hydrALAZINE HCL [Apresoline] 100 mg PO TID 04/05/21 04/05/21 Previous Rx's Medication Instructions Recorded Apixaban [Eliquis] 5 mg PO BID #180 tab 04/25/20 guaiFENesin [Mucinex] 600 mg PO BID 10 Days #20 tab 03/10/21 Allergies Allergy/AdvReac Type Severity Reaction Status Date / Time amlodipine Allergy Muscle Verified 04/05/21 12:08 Spasms chlorthalidone Allergy Vomiting Verified 04/05/21 12:08 Iodinated Contrast Media Allergy Rash/Hives Verified 04/05/21 12:08 [Iodinated Contrast Media - Oral and] meperidine [From Demerol] Allergy Vomiting Verified 04/05/21 12:08 Penicillins Allergy Swelling/hi Verified 04/05/21 12:08 ves Review of Systems ROS Statement: Those systems with pertinent positive or pertinent negative responses have been documented in the HPI. ROS Other: All systems not noted in ROS Statement are negative. Past Medical History Past Medical History: Atrial Fibrillation, Coronary Artery Disease (CAD), Chest Pain / Angina, Heart Failure, COPD, Eye Disorder, GERD/Reflux, Hyperlipidemia, Hypertension, Myocardial Infarction ([place]), Osteoarthritis (OA), Pneumonia, Renal Disease Additional Past Medical History / Comment(s): Carr's esophagus, hiatal hernia, sinus problems, past renal insufficiency, acute blood loss anemia with misscarriage. Last Myocardial Infarction Date:: 2007 History of Any Multi-Drug Resistant Organisms: None Reported Past Surgical History: Cardiac Valve Replacement, Cholecystectomy, Coronary Bypass/CABG, Heart Catheterization, Tubal Ligation Additional Past Surgical History / Comment(s): 2008 CABG with jacinto to lad and mitral valve replacement, MAIRA, EGD and colonoscopy. Past Anesthesia/Blood Transfusion Reactions: Motion Sickness Additional Past Anesthesia/Blood Transfusion Reaction / Comment(s): Pt received blood with misscarriage once without reaction. Past Psychological History: No Psychological Hx Reported Smoking Status: Former smoker Past Alcohol Use History: None Reported Past Drug Use History: None Reported - Past Family History Mother Family Medical History: COPD, Coronary Artery Disease (CAD), Myocardial Infarction ([place]) Additional Family Medical History / Comment(s): Pt does not know at what age her mother had a [place]. Father Family Medical History: No Reported History Additional Family Medical History / Comment(s): Father was healthy. General Exam Limitations: no limitations General appearance: alert, in no apparent distress Head exam: Present: atraumatic Eye exam: Present: normal appearance, PERRL, EOMI. Absent: scleral icterus, conjunctival injection ENT exam: Present: normal exam, mucous membranes moist Neck exam: Present: normal inspection, full ROM. Absent: tenderness Respiratory exam: Present: normal lung sounds bilaterally. Absent: respiratory distress, wheezes Cardiovascular Exam: Present: regular rate, normal rhythm, normal heart sounds GI/Abdominal exam: Present: soft, normal bowel sounds. Absent: distended, tenderness Extremities exam: Present: pedal edema (Mild 2+ pitting edema bilaterally) Course Vital Signs 04/05/21 04/05/21 04/05/21 11:30 12:28 13:38 Temperature 98.4 F Pulse Rate 58 L 60 58 L Respiratory 22 19 Rate Blood Pressure 143/58 147/70 O2 Sat by Pulse 96 99 Oximetry 04/05/21 13:48 Temperature Pulse Rate 60 Respiratory Rate Blood Pressure O2 Sat by Pulse Oximetry EKG Findings - EKG Comments: EKG Findings:: Sinus bradycardia, vent rate 57, pr int 211, qtc 442 Medical Decision Making - Medical Decision Making Staple patient does feel somewhat short of breath. CBC shows a hemoglobin of 8.7. This is slightly lower than previous open of 9.6 when she was in the hospital however likely secondary to dilution. CMP demonstrates chronic kidney disease. BNP is elevated 22,000. Chest x-ray shows mild to moderate facial edema. At this time patient will be admitted for further management, IV diuretics, and cardiology consultation - Lab Data Result diagrams: 04/05/21 12:10 04/05/21 12:10 Lab Results 04/05/21 04/05/21 04/05/21 Range/Units 12:10 12:10 12:10 WBC 5.8 (3.8-10.6) k/uL RBC 3.41 L (3.80-5.40) m/uL Hgb 8.7 L D (11.4-16.0) gm/dL Hct 29.1 L (34.0-46.0) % MCV 85.2 (80.0-100.0) fL MCH 25.5 (25.0-35.0) pg MCHC 30.0 L (31.0-37.0) g/dL RDW 16.0 H (11.5-15.5) % Plt Count 233 (150-450) k/uL MPV 9.3 Neutrophils % 79 % Lymphocytes % 10 % Monocytes % 6 % Eosinophils % 1 % Basophils % 1 % Neutrophils # 4.6 (1.3-7.7) k/uL Lymphocytes # 0.6 L (1.0-4.8) k/uL Monocytes # 0.3 (0-1.0) k/uL Eosinophils # 0.1 (0-0.7) k/uL Basophils # 0.0 (0-0.2) k/uL Hypochromasia Marked Poikilocytosis Slight PT 12.6 H (9.0-12.0) sec INR 1.2 H (<1.2) APTT 24.5 (22.0-30.0) sec Sodium 131 L (137-145) mmol/L Potassium 4.5 (3.5-5.1) mmol/L Chloride 101 (98-107) mmol/L Carbon Dioxide 21 L (22-30) mmol/L Anion Gap 9 mmol/L BUN 25 H (7-17) mg/dL Creatinine 1.54 H (0.52-1.04) mg/dL Est GFR (CKD-EPI)AfAm 39 (>60 ml/min/1.73 sqM) Est GFR (CKD-EPI)NonAf 33 (>60 ml/min/1.73 sqM) Glucose 99 (74-99) mg/dL Calcium 9.0 (8.4-10.2) mg/dL Magnesium 2.6 H (1.6-2.3) mg/dL Total Bilirubin 0.7 (0.2-1.3) mg/dL AST 23 (14-36) U/L ALT 14 (4-34) U/L Alkaline Phosphatase 55 (38-126) U/L Troponin I (0.000-0.034) ng/mL NT-Pro-B Natriuret Pep pg/mL Total Protein 6.5 (6.3-8.2) g/dL Albumin 3.9 (3.5-5.0) g/dL 04/05/21 04/05/21 Range/Units 12:10 12:10 WBC (3.8-10.6) k/uL RBC (3.80-5.40) m/uL Hgb (11.4-16.0) gm/dL Hct (34.0-46.0) % MCV (80.0-100.0) fL MCH (25.0-35.0) pg MCHC (31.0-37.0) g/dL RDW (11.5-15.5) % Plt Count (150-450) k/uL MPV Neutrophils % % Lymphocytes % % Monocytes % % Eosinophils % % Basophils % % Neutrophils # (1.3-7.7) k/uL Lymphocytes # (1.0-4.8) k/uL Monocytes # (0-1.0) k/uL Eosinophils # (0-0.7) k/uL Basophils # (0-0.2) k/uL Hypochromasia Poikilocytosis PT (9.0-12.0) sec INR (<1.2) APTT (22.0-30.0) sec Sodium (137-145) mmol/L Potassium (3.5-5.1) mmol/L Chloride (98-107) mmol/L Carbon Dioxide (22-30) mmol/L Anion Gap mmol/L BUN (7-17) mg/dL Creatinine (0.52-1.04) mg/dL Est GFR (CKD-EPI)AfAm (>60 ml/min/1.73 sqM) Est GFR (CKD-EPI)NonAf (>60 ml/min/1.73 sqM) Glucose (74-99) mg/dL Calcium (8.4-10.2) mg/dL Magnesium (1.6-2.3) mg/dL Total Bilirubin (0.2-1.3) mg/dL AST (14-36) U/L ALT (4-34) U/L Alkaline Phosphatase (38-126) U/L Troponin I 0.027 (0.000-0.034) ng/mL NT-Pro-B Natriuret Pep 45167 pg/mL Total Protein (6.3-8.2) g/dL Albumin (3.5-5.0) g/dL Disposition Clinical Impression: CHF (congestive heart failure), Interstitial edema, Chronic kidney disease, Chronic anemia Disposition: ADMITTED IP TO THIS HOSP Referrals: Saman Wilcox DO [Primary Care Provider] - 1-2 days Time of Disposition: 14:45
[2021-04-05 12:27] LABS: Basophils % (A) 1 %; Eosinophils # (A) 0.1 k/uL (0-0.7); Eosinophils % (A) 1 %; HCT 29.1 % (34.0-46.0); Hypochromasia Marked; Lymphocytes # (A) 0.6 k/uL (1.0-4.8); Lymphocytes % (A) 10 %; MCH 25.5 pg (25.0-35.0); MCV 85.2 fL (80.0-100.0); Mean Platelet Volume 9.3; Monocytes # (A) 0.3 k/uL (0-1.0); Monocytes % (A) 6 %; Neutrophils # (A) 4.6 k/uL (1.3-7.7); Neutrophils % (A) 79 %; Platelet Count 233 k/uL (150-450); Poikilocytosis Slight; RBC 3.41 m/uL (3.80-5.40); WBC 5.8 k/uL (3.8-10.6)
--- NOTE | 2021-04-05 12:30 | XR ---
EXAMINATION TYPE: XR chest 2V DATE OF EXAM: 04/05/2021 COMPARISON: Chest x-ray March 06, 2021. Chest CT October 07, 2020 HISTORY: Difficulty in breathing. Leg swelling. TECHNIQUE: Frontal and lateral views of the chest are obtained. FINDINGS: There is background chronic emphysematous and pulmonary fibrotic changes redemonstrated. Overlying sternal wires and mediastinal clips along with metallic mitral valve are all redemonstrated . Persistent cardiomegaly with atherosclerotic thoracic aorta. New mild to moderate interstitial brendan a with Inderjit B lines in the periphery. No new pleural effusion or pneumothorax. No suspicious new fo yang consolidation. The osseous structures are intact. IMPRESSION: Suspect CHF exacerbation as there is new bilateral mild to moderate peripheral interstit ial edema. Background Cardiomegaly and chronic changes noted.
[2021-04-05 12:37] LABS: HGB 8.7 gm/dL (11.4-16.0)
[2021-04-05 12:48] LABS: Albumin 3.9 g/dL (3.5-5.0); Magnesium 2.6 mg/dL (1.6-2.3); Potassium 4.5 mmol/L (3.5-5.1); Total Bilirubin 0.7 mg/dL (0.2-1.3); Total Protein 6.5 g/dL (6.3-8.2)
[2021-04-05 12:56] LABS: INR 1.2 (<1.2); Partial Thromboplastin Time 24.5 sec (22.0-30.0); Prothrombin Time 12.6 sec (9.0-12.0)
[2021-04-05] MEDS ORDERED: IPRATROPIUM-ALBUTEROL 3 ML NEB INHALATION STA (13:34)
[2021-04-05] MEDS ORDERED: FUROSEMIDE 10 MG/ML 4 ML VIAL IV STA (14:38)
[2021-04-05] MEDS ORDERED: NALOXONE 0.4 MG/ML 1 ML VIAL IV PRN (14:39)
--- NOTE | 2021-04-05 16:18 | P.HPIM ---
History of Present Illness Patient is 71-year-old female with known history of condition or failure came in with complaints of shortness of breath orthopnea paroxysmal nocturnal dyspnea increased weight gain in the bilateral lower extremity swelling. Patient had a chest x-ray which showed pulmonary edema patient has highly elevated BNP. Patient was recently diagnosed with her congestive heart failure during her last hospital physician at the time patient was on IV 40 IV twice a day of Lasix which was subsequently transitioned to 20 oral daily. Patient had an echo at that time which showed ejection fraction of 45-50%. Patient had history of mitral valve replacement and coronary artery bypass grafting in the past. Patient was complaining of cough with whitish sputum production. REVIEW OF SYSTEMS: CONSTITUTIONAL: No fever, no malaise, no fatigue. HEENT: No recent visual problems or hearing problems. Denied any sore throat. CARDIOVASCULAR: No chest pain, no palpitations, no syncope. PULMONARY: no hemoptysis. GASTROINTESTINAL: No diarrhea, no nausea, no vomiting, no abdominal pain. NEUROLOGICAL: No headaches, no weakness, no numbness. HEMATOLOGICAL: Denies any bleeding or petechiae. GENITOURINARY: Denies any burning micturition, frequency, or urgency. MUSCULOSKELETAL/RHEUMATOLOGICAL: Denies any joint pain, swelling, or any muscle pain. ENDOCRINE: Denies any polyuria or polydipsia. The rest of the 14-point review of systems is negative. PHYSICAL EXAMINATION: GENERAL: The patient is alert and oriented x3, not in any acute distress. Well developed, well nourished. HEENT: Pupils are round and equally reacting to light. EOMI. No scleral icterus. No conjunctival pallor. Normocephalic, atraumatic. No pharyngeal erythema. No thyromegaly. CARDIOVASCULAR: S1 and S2 present. No murmurs, rubs, or gallops. PULMONARY: Chest is clear to auscultation, no wheezing or crackles. ABDOMEN: Soft, nontender, nondistended, normoactive bowel sounds. No palpable organomegaly. MUSCULOSKELETAL: No joint swelling or deformity. EXTREMITIES: No cyanosis, clubbing, 3+ pitting pedal edema, JVD extending up to the earlobe NEUROLOGICAL: Gross neurological examination did not reveal any focal deficits. SKIN: No rashes. Assessment and plan Congestive heart failure: Chronic systolic dysfunction EF of around 45-50% patient may have diastolic dysfunction as well. Patient is in acute exacerbation patient will be started on 40 mg IV twice a day of Lasix, eyes and nose cardiology was consulted. -Hypervolemic hyponatremia secondary to heart failure expected improvement with Lasix -Chronic kidney disease stage III: Secondary to hypertensive nephrosclerosis. Baseline creatinine is around 1.5 present creatinine is around that -hyperlipidemia -Coronary artery disease with history of CABG in the past -History of mitral valve replacement -COPD without any acute exacerbation patient quit smoking many years ago next and hyponatremic fibrillation paroxysmal: Presently sinus rhythm continue with the beta sonya and Eliquis -Attention -Hyperlipidemia DVT prophylaxis: On Eliquis which will be continued Past Medical History Past Medical History: Atrial Fibrillation, Coronary Artery Disease (CAD), Chest Pain / Angina, Heart Failure, COPD, Eye Disorder, GERD/Reflux, Hyperlipidemia, Hypertension, Myocardial Infarction ([place]), Osteoarthritis ([place]), Pneumonia, Renal Disease Additional Past Medical History / Comment(s): Carr's esophagus, hiatal nickie [place], sinus problems, past renal insufficiency, acute blood loss anemia with misscarriage. Last Myocardial Infarction Date:: 2007 History of Any Multi-Drug Resistant Organisms: None Reported Past Surgical History: Cardiac Valve Replacement, Cholecystectomy, Coronary Bypass/CABG, Heart Catheterization, Tubal Ligation Additional Past Surgical History / Comment(s): 2008 CABG with jacinto to lad and mitral valve replacement, MAIRA, EGD and colonoscopy. Past Anesthesia/Blood Transfusion Reactions: Motion Sickness Additional Past Anesthesia/Blood Transfusion Reaction / Comment(s): Pt received blood with misscarriage once without reaction. Past Psychological History: No Psychological Hx Reported Smoking Status: Former smoker Past Alcohol Use History: None Reported Past Drug Use History: None Reported - Past Family History Mother Family Medical History: COPD, Coronary Artery Disease (CAD), Myocardial Infarction ([place]) Additional Family Medical History / Comment(s): Pt does not know at what age her mother had a [place]. Father Family Medical History: No Reported History Additional Family Medical History / Comment(s): Father was healthy. Medications and Allergies Home Medications Medication Instructions Recorded Confirmed Type Ergocalciferol (Vitamin D2) 50,000 unit PO Q30D 07/06/16 04/05/21 History [Vitamin D2] Pravastatin Sodium 40 mg PO HS 07/06/16 04/05/21 History Ezetimibe [Zetia] 10 mg PO DAILY 04/19/20 04/05/21 History Omeprazole Magnesium [PriLOSEC OTC] 20 mg PO DAILY PRN 04/19/20 04/05/21 History calcitrioL [Calcitriol] 0.25 mcg PO CRENSHAW 04/19/20 04/05/21 History Apixaban [Eliquis] 5 mg PO BID #180 tab 04/25/20 04/05/21 Rx Spironolactone 25 mg PO DAILY 11/26/20 04/05/21 History Albuterol Sulfate [Proair Hfa] 2 puff INHALATION RT-Q6H PRN 02/23/21 04/05/21 History Budesonide/Formoterol Fumarate 2 puff INHALATION RT-BID 02/23/21 04/05/21 History [Symbicort 160-4.5 Mcg Inhaler] Magnesium Oxide [Mag-Ox] 400 mg PO DAILY 02/23/21 04/05/21 History Metoprolol Tartrate [Lopressor] 25 mg PO BID 02/23/21 04/05/21 History Iron 27mg 1 tab PO MOWEFR 03/06/21 04/05/21 History guaiFENesin [Mucinex] 600 mg PO BID 10 Days #20 tab 03/10/21 04/05/21 Rx Furosemide [Lasix] 20 mg PO DAILY 04/05/21 04/05/21 History hydrALAZINE HCL [Apresoline] 100 mg PO TID 04/05/21 04/05/21 History Allergies Allergy/AdvReac Type Severity Reaction Status Date / Time amlodipine Allergy Muscle Verified 04/05/21 12:08 Spasms chlorthalidone Allergy Vomiting Verified 04/05/21 12:08 Iodinated Contrast Media Allergy Rash/Hives Verified 04/05/21 12:08 [Iodinated Contrast Media - Oral and] meperidine [From Demerol] Allergy Vomiting Verified 04/05/21 12:08 Penicillins Allergy Swelling/hi Verified 04/05/21 12:08 ves Physical Exam Vitals: Vital Signs Temp Pulse Resp BP Pulse Ox 04/05/21 15:13 60 19 162/67 97 04/05/21 13:48 60 04/05/21 13:38 58 L 04/05/21 12:28 60 19 147/70 99 04/05/21 11:30 98.4 F 58 L 22 143/58 96 Intake and Output 02/08/22 02/08/22 02/08/22 06:59 14:59 22:59 Other: Weight 65.317 kg Results CBC & Chem 7: 04/05/21 12:10 04/05/21 12:10 Labs: Abnormal Lab Results - Last 24 Hours (Table) 04/05/21 04/05/21 04/05/21 Range/Units 12:10 12:10 12:10 RBC 3.41 L (3.80-5.40) m/uL Hgb 8.7 L D (11.4-16.0) gm/dL Hct 29.1 L (34.0-46.0) % MCHC 30.0 L (31.0-37.0) g/dL RDW 16.0 H (11.5-15.5) % Lymphocytes # 0.6 L (1.0-4.8) k/uL PT 12.6 H (9.0-12.0) sec INR 1.2 H (<1.2) Sodium 131 L (137-145) mmol/L Carbon Dioxide 21 L (22-30) mmol/L BUN 25 H (7-17) mg/dL Creatinine 1.54 H (0.52-1.04) mg/dL Magnesium 2.6 H (1.6-2.3) mg/dL
[2021-04-05] MEDS: SYMBICORT 160-4.5 MCG INHALER INHALATION SCH (19:47)
[2021-04-05] MEDS: PRAVASTATIN SODIUM 40 MG TAB PO SCH (21:01)
[2021-04-05] MEDS: METOPROLOL TARTRATE 25 MG TAB PO SCH (21:01)
[2021-04-05] MEDS: FUROSEMIDE 10 MG/ML 4 ML VIAL IV SCH (21:01)
[2021-04-05] MEDS: hydrALAZINE HCL 50 MG TAB PO SCH (21:01)
[2021-04-05] MEDS: APIXABAN 5 MG TAB PO SCH (21:01)
[2021-04-06] MEDS: SYMBICORT 160-4.5 MCG INHALER INHALATION SCH ×2 (07:42→20:05)
[2021-04-06] MEDS: ALBUTEROL HFA INHALER INHALATION PRN ×2 (07:42→20:06)
[2021-04-06] MEDS ORDERED: FERROUS SULFATE 325 MG TAB PO SCH (09:00)
[2021-04-06] MEDS: SPIRONOLACTONE 25 MG TAB PO SCH (09:17)
[2021-04-06] MEDS: METOPROLOL TARTRATE 25 MG TAB PO SCH ×2 (09:17→21:21)
[2021-04-06] MEDS: APIXABAN 5 MG TAB PO SCH ×2 (09:17→21:21)
[2021-04-06] MEDS: EZETIMIBE 10 MG TAB PO SCH (09:18)
[2021-04-06] MEDS: hydrALAZINE HCL 50 MG TAB PO SCH ×3 (09:18→21:21)
[2021-04-06] MEDS: FUROSEMIDE 10 MG/ML 4 ML VIAL IV SCH ×2 (09:18→21:20)
[2021-04-06] MEDS: MAGNESIUM OXIDE 400 MG TAB PO SCH (09:18)
[2021-04-06 10:22] LABS: African American GFR (CKD) 31.4 (60.0-200.0); Anion Gap 14.3 mmol/L (10.00-18.00); BUN/Creat Ratio 16.89 Ratio (12.00-20.00); Blood Urea Nitrogen 30.9 mg/dL (9.0-27.0); Calcium 8.7 mg/dL (8.7-10.3); Carbon Dioxide 23.3 mmol/L (20.0-27.5); Magnesium 2.2 mg/dL (1.5-2.4); Non-African American GFR(CKD) 27.1 (60.0-200.0)
--- NOTE | 2021-04-06 11:35 | P.CRDCN ---
History of Present Illness Consult date: 04/06/21 History of present illness: HISTORY OF PRESENT ILLNESS: This is a 71-year-old female with a past medical history significant for atrial fibrillation with previous cardioversion, coronary artery disease with previous CABG 1 HART to LAD and mitral valve repair, congestive heart failure, hypertension, and hyperlipidemia. Patient follows in the office with Dr. Abdi. We have been asked to see the patient in consultation for congestive heart sophiekathy garcía. Patient examined at the bedside. Patient states that she was hospitalized in February for pneumonia and congestive heart failure. She states since that time she has been feeling weak and has never gotten fully back to her baseline. She presented to the hospital with a chief complaint of increased shortness of breath & increased lower extremity edema. The patient reports she has also gained about 4 pounds within the past week. Patient states she has been compliant with all of her medications and also her diet. The patient was found to be in acute congestive heart failure and was started on IV Lasix. Patient does report some improvement in her breathing this morning. She denies chest pain or pressure. Vital signs are stable. EKG reveals sinus bradycardia with first-degree AV block Chest xray suspect CHF exacerbation as there is new bilateral mild to moderate peripheral interstitial edema. Background cardiomegaly and chronic changes noted. Laboratory data: WBC 5.8. Hemoglobin 8.5. Platelet count 233. Sodium 131. Potassium 4.5. BUN 25. Creatinine 1.54. Troponin negative 1. ProBNP 22,100 Current home cardiac medications include hydralazine 100 mg 3 times a day, spironolactone 25 mg daily, pravastatin 40 mg at night, metoprolol tartrate 25 mg twice a day, Lasix 20 mg daily, Zetia 10 mg daily, and Eliquis 5 mg twice a day Most recent echocardiogram obtained in February 2021 revealed ejection fraction 45-50%, basal inferior LV wall hypokinesis, moderate mitral regurgitation, trace tricuspid regurgitation REVIEW OF SYSTEMS: At the time of my exam: CONSTITUTIONAL: Denies fever or chills. HEENT: Denies blurred vision, vision changes, or eye pain. Denies hemoptysis CARDIOVASCULAR: Denies chest pain. + orthopnea. + PND. Denies palpitations RESPIRATORY: + shortness of breath. GASTROINTESTINAL: Denies abdominal pain. Denies nausea or vomiting. HEMATOLOGIC: Denies bleeding disorders. GENITOURINARY: Denies any blood in urine. SKIN: Denies pruitis. Denies rash. PHYSICAL EXAM: VITAL SIGNS: Reviewed. GENERAL: Well-developed in no acute distress. HEENT: Head is normocephalic. Pupils are equal, round. Sclerae anicteric. Mucous membranes of the mouth are moist. Neck supple. + JVD LUNGS: Respirations even and unlabored. Lungs diminished with bilateral crackles. HEART: Regular rate and rhythm. S1 and S2 heard. Systolic murmur noted ABDOMEN: Soft. Nondistended. Nontender. EXTREMITIES: Normal range of motion. No clubbing or cyanosis. Peripheral pulses intact. 2+ bilateral lower extremity edema NEUROLOGIC: Awake and alert. Oriented x 3. ASSESSMENT: Shortness of breath Acute on chronic congestive heart failure with borderline or intermediate ejection fraction, 45-50% Paroxysmal atrial fibrillation with previous cardioversion Coronary artery disease with previous CABG 1 HART to LAD and mitral valve repair Hypertension Hyperlipidemia Chronic kidney disease PLAN: No need to repeat echocardiogram Resume home cardiac medications Continue anticoagulation with Eliquis Continue IV Lasix Monitor kidney function Daily weights Accurate I&O Further recommendations pending patient's course Nurse practitioner note has been reviewed by physician. Signing provider agrees with the documented findings, assessment, and plan of care. Past Medical History Past Medical History: Atrial Fibrillation, Coronary Artery Disease (CAD), Chest Pain / Angina, Heart Failure, COPD, Eye Disorder, GERD/Reflux, Hyperlipidemia, Hypertension, Myocardial Infarction ([place]), Osteoarthritis (OA), Pneumonia, Renal Disease Additional Past Medical History / Comment(s): Carr's esophagus, hiatal hernia, sinus problems, past renal insufficiency, acute blood loss anemia with misscarriage. Last Myocardial Infarction Date:: 2007 History of Any Multi-Drug Resistant Organisms: None Reported Past Surgical History: Cardiac Valve Replacement, Cholecystectomy, Coronary Bypass/CABG, Heart Catheterization, Tubal Ligation Additional Past Surgical History / Comment(s): 2008 CABG with hart to lad and mitral valve replacement, MAIRA, EGD and colonoscopy. Past Anesthesia/Blood Transfusion Reactions: Motion Sickness Additional Past Anesthesia/Blood Transfusion Reaction / Comment(s): Pt received blood with misscarriage once without reaction. Past Psychological History: No Psychological Hx Reported Smoking Status: Former smoker Past Alcohol Use History: None Reported Past Drug Use History: None Reported - Past Family History Mother Family Medical History: COPD, Coronary Artery Disease (CAD), Myocardial Infarction ([place]) Additional Family Medical History / Comment(s): Pt does not know at what age her mother had a [place]. Father Family Medical History: No Reported History Additional Family Medical History / Comment(s): Father was healthy. Medications and Allergies Home Medications Medication Instructions Recorded Confirmed Type Ergocalciferol (Vitamin D2) 50,000 unit PO Q30D 07/06/16 04/05/21 History [Vitamin D2] Pravastatin Sodium 40 mg PO HS 07/06/16 04/05/21 History Ezetimibe [Zetia] 10 mg PO DAILY 04/19/20 04/05/21 History Omeprazole Magnesium [PriLOSEC OTC] 20 mg PO DAILY PRN 04/19/20 04/05/21 History calcitrioL [Calcitriol] 0.25 mcg PO CRENSHAW 04/19/20 04/05/21 History Apixaban [Eliquis] 5 mg PO BID #180 tab 04/25/20 04/05/21 Rx Spironolactone 25 mg PO DAILY 11/26/20 04/05/21 History Albuterol Sulfate [Proair Hfa] 2 puff INHALATION RT-Q6H PRN 02/23/21 04/05/21 History Budesonide/Formoterol Fumarate 2 puff INHALATION RT-BID 02/23/21 04/05/21 History [Symbicort 160-4.5 Mcg Inhaler] Magnesium Oxide [Mag-Ox] 400 mg PO DAILY 02/23/21 04/05/21 History Metoprolol Tartrate [Lopressor] 25 mg PO BID 02/23/21 04/05/21 History Iron 27mg 1 tab PO MOWEFR 03/06/21 04/05/21 History guaiFENesin [Mucinex] 600 mg PO BID 10 Days #20 tab 03/10/21 04/05/21 Rx Furosemide [Lasix] 20 mg PO DAILY 04/05/21 04/05/21 History hydrALAZINE HCL [Apresoline] 100 mg PO TID 04/05/21 04/05/21 History Allergies Allergy/AdvReac Type Severity Reaction Status Date / Time amlodipine Allergy Muscle Verified 04/05/21 12:08 Spasms chlorthalidone Allergy Vomiting Verified 04/05/21 12:08 Iodinated Contrast Media Allergy Rash/Hives Verified 04/05/21 12:08 [Iodinated Contrast Media - Oral and] meperidine [From Demerol] Allergy Vomiting Verified 04/05/21 12:08 Penicillins Allergy Swelling/hi Verified 04/05/21 12:08 ves Physical Exam Vitals: Vital Signs Temp Pulse Pulse Resp BP BP Pulse Ox 04/06/21 07:25 97.8 F 52 L 16 147/66 96 04/06/21 00:36 97.7 F 61 20 117/52 93 L 04/05/21 19:24 98.0 F 65 18 150/75 92 L 04/05/21 15:13 60 19 162/67 97 04/05/21 13:48 60 04/05/21 13:38 58 L 04/05/21 12:28 60 19 147/70 99 04/05/21 11:30 98.4 F 58 L 22 143/58 96 Intake and Output 04/05/21 04/06/21 04/06/21 22:59 06:59 14:59 Intake Total 118 Output Total 825 550 Balance -825 -550 118 Intake: Oral 118 Output: Urine 825 550 Other: Voiding Method Toilet Toilet # Voids 1 1 Weight 65.317 kg Results 04/05/21 12:10 04/06/21 07:09 Cardiac Enzymes 04/05/21 04/05/21 Range/Units 12:10 12:10 AST 23 (14-36) U/L Troponin I 0.027 (0.000-0.034) ng/mL Coagulation 04/05/21 Range/Units 12:10 PT 12.6 H (9.0-12.0) sec APTT 24.5 (22.0-30.0) sec CBC 04/05/21 Range/Units 12:10 WBC 5.8 (3.8-10.6) k/uL RBC 3.41 L (3.80-5.40) m/uL Hgb 8.7 L D (11.4-16.0) gm/dL Hct 29.1 L (34.0-46.0) % Plt Count 233 (150-450) k/uL Comprehensive Metabolic Panel 04/05/21 04/06/21 Range/Units 12:10 07:09 Sodium 131 L 132 L (137-145) mmol/L Potassium 4.5 4.0 (3.5-5.1) mmol/L Chloride 101 95 L (98-107) mmol/L Carbon Dioxide 21 L 23.3 (22-30) mmol/L BUN 25 H 30.9 H (7-17) mg/dL Creatinine 1.54 H 1.8 H (0.52-1.04) mg/dL Glucose 99 90 (74-99) mg/dL Calcium 9.0 8.7 (8.4-10.2) mg/dL AST 23 (14-36) U/L ALT 14 (4-34) U/L Alkaline Phosphatase 55 (38-126) U/L Total Protein 6.5 (6.3-8.2) g/dL Albumin 3.9 (3.5-5.0) g/dL Current Medications Generic Name Dose Route Start Last Admin Trade Name Freq PRN Reason Stop Dose Admin Albuterol Sulfate 2 puff 04/05/21 16:01 04/06/21 07:42 Albuterol Hfa Inhaler INHALATION 2 puff RT-Q6H PRN Administration Shortness Of Breath Apixaban 5 mg 04/05/21 21:00 04/06/21 09:17 Apixaban 5 Mg Tab PO 5 mg BID ALEJANDRO Administration Protocol Budesonide/Formoterol Fumarate 2 puff 04/05/21 20:00 04/06/21 07:42 Symbicort 160-4.5 Mcg Inhaler INHALATION 2 puff RT-BID ALEJANDRO Administration Calcitriol 0.25 mcg 04/10/21 09:00 Calcitriol 0.25 Mcg Cap PO CRENSHAW ALEJANDRO Ezetimibe 10 mg 04/06/21 09:00 04/06/21 09:18 Ezetimibe 10 Mg Tab PO 10 mg DAILY ALEJANDRO Administration Ferrous Sulfate 325 mg 04/06/21 09:00 04/06/21 09:18 Ferrous Sulfate 325 Mg Tab PO 325 mg MOWEFR ALEJANDRO Administration Furosemide 40 mg 04/05/21 21:00 04/06/21 09:18 Furosemide 10 Mg/Ml 4 Ml Vial IV 40 mg Q12HR ALEJANDRO Administration Hydralazine HCl 100 mg 04/05/21 22:00 04/06/21 09:18 Hydralazine Hcl 50 Mg Tab PO 100 mg TID ALEJANDRO Administration Magnesium Oxide 400 mg 04/06/21 09:00 04/06/21 09:18 Magnesium Oxide 400 Mg Tab PO 400 mg DAILY ALEJANDRO Administration Metoprolol Tartrate 25 mg 04/05/21 21:00 04/06/21 09:17 Metoprolol Tartrate 25 Mg Tab PO 25 mg BID ALEJANDRO Administration Naloxone HCl 0.2 mg 04/05/21 14:39 Naloxone 0.4 Mg/Ml 1 Ml Vial IV Q2M PRN Opioid Reversal Pravastatin Sodium 40 mg 04/05/21 21:00 04/05/21 21:01 Pravastatin Sodium 40 Mg Tab PO 40 mg HS ALEJANDRO Administration Spironolactone 25 mg 04/06/21 09:00 04/06/21 09:17 Spironolactone 25 Mg Tab PO 25 mg DAILY ALEJANDRO Administration Intake and Output 04/05/21 04/06/21 04/06/21 22:59 06:59 14:59 Intake Total 118 Output Total 825 550 Balance -825 -550 118 Intake: Oral 118 Output: Urine 825 550 Other: Voiding Method Toilet Toilet # Voids 1 1 Weight 65.317 kg 04/05/21 12:10 04/06/21 07:09
--- NOTE | 2021-04-06 13:03 | P.PN ---
Subjective Progress Note Date: 04/06/21 Patient is 71-year-old female with known history of congestive failure came in with complaints of shortness of breath orthopnea paroxysmal nocturnal dyspnea increased weight gain in the bilateral lower extremity swelling. Patient had a chest x-ray which showed pulmonary edema patient has highly elevated BNP. Patient was recently diagnosed with her congestive heart failure during her last hospital physician at the time patient was on IV 40 IV twice a day of Lasix which was subsequently transitioned to 20 oral daily. Patient had an echo at that time which showed ejection fraction of 45-50%. Patient had history of mitral valve replacement and coronary artery bypass grafting in the past. Patient was complaining of cough with whitish sputum production. 04/06/2021 Patient is seen in follow-up this morning continues to have some shortness of breath with exertion although states feels better than yesterday. Patient is maintained on IV Lasix twice daily with cardiology following closely. Patient is currently on room air at 96% oxygen saturation. Patient denies any chest pain or worsening shortness of breath. Patient is afebrile. Labs: Sodium is 132, potassium is 4.0, BUN is 30.9, creatinine 1.8, calcium 8.7, magnesium 2.2, Covid was negative. Review of systems: Constitutional: No reports of fatigue, fever, or chills Cardiovascular: No reports of chest pain or palpitations Respiratory: No reports of worsening shortness of breath although continues to be somewhat dyspneic with exertion GI: No reports of nausea, vomiting, or diarrhea : No reports of dysuria or retention Neurovascular: No reports of weakness or numbness All medications have been reviewed Active Medications Albuterol Sulfate (Albuterol Hfa Inhaler) 2 puff INHALATION RT-Q6H PRN PRN Reason: Shortness Of Breath Last Admin: 04/06/21 07:42 Dose: 2 puff Documented by: Apixaban (Apixaban 5 Mg Tab) 5 mg PO BID [facility]; Protocol Last Admin: 04/06/21 09:17 Dose: 5 mg Documented by: Budesonide/Formoterol Fumarate (Symbicort 160-4.5 Mcg Inhaler) 2 puff INHALATION RT-BID ALEJANDRO Last Admin: 04/06/21 07:42 Dose: 2 puff Documented by: Calcitriol (Calcitriol 0.25 Mcg Cap) 0.25 mcg PO CRENSHAW [facility] Ezetimibe (Ezetimibe 10 Mg Tab) 10 mg PO DAILY [facility] Last Admin: 04/06/21 09:18 Dose: 10 mg Documented by: Ferrous Sulfate (Ferrous Sulfate 325 Mg Tab) 325 mg PO MOWEFR [facility] Last Admin: 04/06/21 09:18 Dose: 325 mg Documented by: Furosemide (Furosemide 10 Mg/Ml 4 Ml Vial) 40 mg IV Q12HR [facility] Last Admin: 04/06/21 09:18 Dose: 40 mg Documented by: Hydralazine HCl (Hydralazine Hcl 50 Mg Tab) 100 mg PO TID [facility] Last Admin: 04/06/21 09:18 Dose: 100 mg Documented by: Magnesium Oxide (Magnesium Oxide 400 Mg Tab) 400 mg PO DAILY [facility] Last Admin: 04/06/21 09:18 Dose: 400 mg Documented by: Metoprolol Tartrate (Metoprolol Tartrate 25 Mg Tab) 25 mg PO BID [facility] Last Admin: 04/06/21 09:17 Dose: 25 mg Documented by: Naloxone HCl (Naloxone 0.4 Mg/Ml 1 Ml Vial) 0.2 mg IV Q2M PRN PRN Reason: Opioid Reversal Pravastatin Sodium (Pravastatin Sodium 40 Mg Tab) 40 mg PO HS [facility] Last Admin: 04/05/21 21:01 Dose: 40 mg Documented by: Spironolactone (Spironolactone 25 Mg Tab) 25 mg PO DAILY [facility] Last Admin: 04/06/21 09:17 Dose: 25 mg Documented by: PHYSICAL EXAMINATION: GENERAL: The patient is alert and oriented x3, not in any acute distress. Well developed, well nourished. HEENT: Pupils are round and equally reacting to light. EOMI. No scleral icterus. No conjunctival pallor. Normocephalic, atraumatic. No pharyngeal erythema. No thyromegaly. CARDIOVASCULAR: S1 and S2 present. No murmurs, rubs, or gallops. JVD noted PULMONARY: Chest is clear to auscultation, no wheezing or crackles. ABDOMEN: Soft, nontender, nondistended, normoactive bowel sounds. No palpable organomegaly. MUSCULOSKELETAL: No joint swelling or deformity. EXTREMITIES: No cyanosis, clubbing, pedal edema with significant improvement NEUROLOGICAL: Gross neurological examination did not reveal any focal deficits. SKIN: No rashes. Assessment and plan: -Congestive heart failure: Chronic systolic dysfunction EF of around 45-50% patient may have diastolic dysfunction as well. Patient is in acute exacerbation patient will continued on 40 mg IV twice a day of Lasix, car diology following -Hypervolemic hyponatremia secondary to heart failure expected improvement with Lasix, slightly improved at 132 today -Chronic kidney disease stage III: Secondary to hypertensive nephrosclerosis. Baseline creatinine is around 1.5 present creatinine is around that -hyperlipidemia -Coronary artery disease with history of CABG in the past -History of mitral valve replacement -COPD without any acute exacerbation patient quit smoking many years ago -Atrial fibrillation paroxysmal: Presently sinus rhythm continue with the beta sonay and Eliquis -Hypertension -Hyperlipidemia -DVT prophylaxis: On Eliquis which will be continued Plan: Recommend to continue with IV Lasix and will repeat labs and monitor electrolytes and kidney functions closely. Encourage increase activity as tolerated. Cardiology following and recommending IV Lasix for an additional 24 hours and will repeat labs. Recommend continue with inhalers and current medications. Possible discharge in 24 hours. Objective - Vital Signs Vital signs: Vital Signs Temp 97.8 F 04/06/21 07:25 Pulse 52 L 04/06/21 07:25 Resp 16 04/06/21 07:25 BP 147/66 04/06/21 07:25 Pulse Ox 96 04/06/21 07:25 Intake & Output 04/05/21 04/06/21 04/06/21 18:59 06:59 18:59 Output Total 1375 Balance -1375 Weight 65.317 kg Output: Urine 1375 Other: Voiding Method Toilet # Voids 1 - Labs CBC & Chem 7: 04/05/21 12:10 04/06/21 07:09 Labs: Abnormal Lab Results - Last 24 Hours (Table) 04/05/21 04/05/21 04/05/21 Range/Units 12:10 12:10 12:10 RBC 3.41 L (3.80-5.40) m/uL Hgb 8.7 L D (11.4-16.0) gm/dL Hct 29.1 L (34.0-46.0) % MCHC 30.0 L (31.0-37.0) g/dL RDW 16.0 H (11.5-15.5) % Lymphocytes # 0.6 L (1.0-4.8) k/uL PT 12.6 H (9.0-12.0) sec INR 1.2 H (<1.2) Sodium 131 L (137-145) mmol/L Carbon Dioxide 21 L (22-30) mmol/L BUN 25 H (7-17) mg/dL Creatinine 1.54 H (0.52-1.04) mg/dL Magnesium 2.6 H (1.6-2.3) mg/dL
[2021-04-06 14:33] VITALS: BMI 25.4
[2021-04-06] MEDS: PRAVASTATIN SODIUM 40 MG TAB PO SCH (21:21)
[2021-04-07] MEDS: ALBUTEROL HFA INHALER INHALATION PRN (08:07)
[2021-04-07] MEDS: SYMBICORT 160-4.5 MCG INHALER INHALATION SCH (08:07)
[2021-04-07] MEDS: METOPROLOL TARTRATE 25 MG TAB PO SCH (08:28)
[2021-04-07] MEDS: MAGNESIUM OXIDE 400 MG TAB PO SCH (08:28)
[2021-04-07] MEDS: EZETIMIBE 10 MG TAB PO SCH (08:28)
[2021-04-07] MEDS: APIXABAN 5 MG TAB PO SCH (08:28)
[2021-04-07] MEDS: SPIRONOLACTONE 25 MG TAB PO SCH (08:28)
[2021-04-07] MEDS: FUROSEMIDE 10 MG/ML 4 ML VIAL IV SCH (08:28)
[2021-04-07] MEDS: hydrALAZINE HCL 50 MG TAB PO SCH (08:28)
[2021-04-07] MEDS ORDERED: lisinopriL 5 MG TAB PO SCH (09:00)
--- NOTE | 2021-04-07 10:39 | P.PN ---
Subjective Progress Note Date: 04/07/21 HISTORY OF PRESENT ILLNESS: This is a 71-year-old female with a past medical history significant for atrial fibrillation with previous cardioversion, coronary artery disease with previous CABG 1 HART to LAD and mitral valve repair, congestive heart failure, hypertension, and hyperlipidemia. Patient follows in the office with Dr. Abdi. We have been asked to see the patient in consultation for congestive heart failure. Patient examined at the bedside. Patient states that she was hospitalized in February for pneumonia and congestive heart failure. She states since that time she has been feeling weak and has never gotten fully back to her baseline. She presented to the hospital with a chief complaint of increased shortness of breath & increased lower extremity edema. The patient reports she has also gained about 4 pounds within the past week. Patient states she has b een compliant with all of her medications and also her diet. The patient was found to be in acute congestive heart failure and was started on IV Lasix. Patient does report some improvement in her breathing this morning. She denies chest pain or pressure. Vital signs are stable. EKG reveals sinus bradycardia with first-degree AV block Chest xray suspect CHF exacerbation as there is new bilateral mild to moderate peripheral interstitial edema. Background cardiomegaly and chronic changes not ed. Laboratory data: WBC 5.8. Hemoglobin 8.5. Platelet count 233. Sodium 131. Potassium 4.5. BUN 25. Creatinine 1.54. Troponin negative 1. ProBNP 22,100 Current home cardiac medications include hydralazine 100 mg 3 times a day, spironolactone 25 mg daily, pravastatin 40 mg at night, metoprolol tartrate 25 mg twice a day, Lasix 20 mg daily, Zetia 10 mg daily, and Eliquis 5 mg twice a day Most recent echocardiogram obtained in February 2021 revealed ejection fraction 45-50%, basal inferior LV wall hypokinesis, moderate mitral regurgitation, trace tricuspid regurgitation 04/07/2021 Patient examined this morning at the bedside. Patient denies chest pain or pressure. She denies shortness of breath rate. She remains on IV Lasix. Vital signs are stable. PHYSICAL EXAM: VITAL SIGNS: Reviewed. GENERAL: Well-developed in no acute distress. HEENT: Head is normocephalic. Pupils are equal, round. Sclerae anicteric. Mucous membranes of the mouth are moist. Neck supple. + JVD LUNGS: Respirations even and unlabored. Lungs diminished HEART: Regular rate and rhythm. S1 and S2 heard. Systolic murmur noted ABDOMEN: Soft. Nondistended. Nontender. EXTREMITIES: Normal range of motion. No clubbing or cyanosis. Peripheral pulses intact. Trace bilateral lower extremity edema NEUROLOGIC: Awake and alert. Oriented x 3. ASSESSMENT: Shortness of breath Acute on chronic congestive heart failure with borderline or intermediate ejection fraction, 45-50% Paroxysmal atrial fibrillation with previous cardioversion Coronary artery disease with previous CABG 1 HART to LAD and mitral valve repair Hypertension Hyperlipidemia Chronic kidney disease PLAN: Discontinue IV lasix Begin oral lasix at increased dose of 40mg daily Patient may be discharged home today from a cardiac standpoint Nurse practitioner note has been reviewed by physician. Signing provider agrees with the documented findings, assessment, and plan of care. Objective - Vital Signs Vital signs: Vital Signs Temp 98.5 F 04/07/21 07:00 Pulse 50 L 04/07/21 07:00 Resp 16 04/07/21 07:00 BP 135/72 04/07/21 07:00 Pulse Ox 94 L 04/07/21 07:00 Intake & Output 04/06/21 04/07/21 04/07/21 18:59 06:59 18:59 Intake Total 709 Output Total 1200 1600 Balance -491 -1600 Weight 65.317 kg 63.5 kg Intake: Oral 709 Output: Urine 1200 1600 Other: Voiding Method Toilet - Labs CBC & Chem 7: 04/05/21 12:10 04/06/21 07:09
[2021-04-07 11:39] LABS: African American GFR (CKD) 29.1 (60.0-200.0); Anion Gap 15.9 mmol/L (10.00-18.00); BUN/Creat Ratio 16.1 Ratio (12.00-20.00); Blood Urea Nitrogen 31.4 mg/dL (9.0-27.0); Calcium 9.1 mg/dL (8.7-10.3); Carbon Dioxide 23.8 mmol/L (20.0-27.5); Non-African American GFR(CKD) 25.1 (60.0-200.0); Potassium 3.7 mmol/L (3.5-5.5)
[2021-04-07] MEDS ORDERED: POTASSIUM CHLORIDE ER 20 MEQ TAB.ER PO STA (15:31)
[2021-04-07 16:02] VITALS: BP 108/57; PULSE 54; RESP 18; TEMP 97.4
[2021-04-08] MEDS ORDERED: FUROSEMIDE 40 MG TAB PO SCH (09:00)
--- NOTE | 2021-04-08 09:42 | P.DS ---
Providers Date of admission: 04/06/21 11:31 Expected date of discharge: 04/07/21 Attending physician: Brett Lynn Consults: 04/05/21 14:39 Consult Physician Routine Consulting Provider: [facility] Consult Reason/Comments: CHF exacerbation Do you want consulting provider notified?: Yes Primary care physician: Saman Wilcox [facility] Course: Final diagnosis -Congestive heart failure: Chronic systolic dysfunction EF of around 45-50% patient may have diastolic dysfunction as well. Patient is in acute exacerbation -Hypervolemic hyponatremia secondary to heart failure -Chronic kidney disease stage III: Secondary to hypertensive nephrosclerosis -hyperlipidemia -Coronary artery disease with history of CABG in the past -History of mitral valve replacement -COPD without any acute exacerbation patient quit smoking many years ago -Atrial fibrillation paroxysmal: Presently sinus rhythm continue with the beta sonya and Eliquis -Hypertension -Hyperlipidemia -DVT prophylaxis -Full code Discharge disposition Patient is being discharged in a stable condition with guarded prognosis to home. Patient will follow-up with Dr. Wilcox in the outpatient setting upon discharge. Patient is to also follow-up with cardiology Dr. Abdi as scheduled. Patient will continue on Lasix 40 daily and will also give a potassium supplement and recommend repeat labs in 2-3 days to monitor to be functions along with electrolytes. Total time taken is greater than 35 minutes. Hospital course This is a 71-year-old female who was recently admitted with shortness of breath and congestive heart failure acute exacerbation and was being closely monitored. Patient was being followed by cardiology and will follow-up in the outpatient setting in 1-2 weeks. Patient was taking Lasix 20 mg daily and has been increased to 40 mg daily and will also provide potassium supplementation recommend repeat labs in 2-3 days to monitor kidney functions and electrolytes. Prescription was provided. Patient states she is feeling much better and would like to go home. Currently no reports of chest pain, shortness of breath, or palpitations. Patient is afebrile. No reports of nausea or vomiting and patient is tolerating diet. Patient will be discharged home today. PHYSICAL EXAMINATION: GENERAL: The patient is alert and oriented x3, not in any acute distress. Well d eveloped, well nourished. HEENT: Pupils are round and equally reacting to light. EOMI. No scleral icterus. No conjunctival pallor. Normocephalic, atraumatic. No pharyngeal erythema. No thyromegaly. CARDIOVASCULAR: S1 and S2 present. No murmurs, rubs, or gallops. JVD noted PULMONARY: Chest is clear to auscultation, no wheezing or crackles. ABDOMEN: Soft, nontender, nondistended, normoactive bowel sounds. No palpable organomegaly. MUSCULOSKELETAL: No joint swelling or deformity. EXTREMITIES: No cyanosis, clubbing, pedal edema with significant improvement NEUROLOGICAL: Gross neurological examination did not reveal any focal deficits. SKIN: No rashes. Please refer to medication reconciliation sheet for a list of medications. Patient Condition at Discharge: Stable Plan - Discharge Summary New Discharge Prescriptions: New Potassium Chloride ER [K-Dur 20] 20 meq PO DAILY 30 Days #30 tab Furosemide [Lasix] 40 mg PO DAILY #90 tab Continue Ergocalciferol (Vitamin D2) [Vitamin D2] 50,000 unit PO Q30D Pravastatin Sodium 40 mg PO HS calcitrioL [Calcitriol] 0.25 mcg PO CRENSHAW Omeprazole Magnesium [PriLOSEC OTC] 20 mg PO DAILY PRN PRN Reason: gerd Ezetimibe [Zetia] 10 mg PO DAILY Apixaban [Eliquis] 5 mg PO BID #180 tab Spironolactone 25 mg PO DAILY Albuterol Sulfate [Proair Hfa] 2 puff INHALATION RT-Q6H PRN PRN Reason: Shortness Of Breath Magnesium Oxide [Mag-Ox] 400 mg PO DAILY guaiFENesin [Mucinex] 600 mg PO BID 10 Days #20 tab Budesonide/Formoterol Fumarate [Symbicort 160-4.5 Mcg Inhaler] 2 puff INHALATION RT-BID Metoprolol Tartrate [Lopressor] 25 mg PO BID Iron 27mg 1 tab PO MOWEFR hydrALAZINE HCL [Apresoline] 100 mg PO TID Discontinued Furosemide [Lasix] 20 mg PO DAILY Discharge Medication List Ergocalciferol (Vitamin D2) [Vitamin D2] 50,000 unit PO Q30D 07/06/16 [History] Pravastatin Sodium 40 mg PO HS 07/06/16 [History] Ezetimibe [Zetia] 10 mg PO DAILY 04/19/20 [History] Omeprazole Magnesium [PriLOSEC OTC] 20 mg PO DAILY PRN 04/19/20 [History] calcitrioL [Calcitriol] 0.25 mcg PO CRENSHAW 04/19/20 [History] Apixaban [Eliquis] 5 mg PO BID #180 tab 04/25/20 [Rx] Spironolactone 25 mg PO DAILY 11/26/20 [History] Albuterol Sulfate [Proair Hfa] 2 puff INHALATION RT-Q6H PRN 02/23/21 [History] Budesonide/Formoterol Fumarate [Symbicort 160-4.5 Mcg Inhaler] 2 puff INHALATION RT-BID 02/23/21 [History] Magnesium Oxide [Mag-Ox] 400 mg PO DAILY 02/23/21 [History] Metoprolol Tartrate [Lopressor] 25 mg PO BID 02/23/21 [History] Iron 27mg 1 tab PO MOWEFR 03/06/21 [History] guaiFENesin [Mucinex] 600 mg PO BID 10 Days #20 tab 03/10/21 [Rx] hydrALAZINE HCL [Apresoline] 100 mg PO TID 04/05/21 [History] Furosemide [Lasix] 40 mg PO DAILY #90 tab 04/07/21 [Rx] Potassium Chloride ER [K-Dur 20] 20 meq PO DAILY 30 Days #30 tab 04/07/21 [Rx] Follow up Appointment(s)/Referral(s): Gill Abdi MD [STAFF PHYSICIAN] - 1 Week (Office will call patient with appointment ) Saman Wilcox DO [Primary Care Provider] - 04/15/21 3:00 pm Ambulatory/Diagnostic Orders: Basic Metabolic Panel [LAB.AMB] Time Frame: 2 Days, Location: None Selected Patient Instructions/Handouts: Heart Failure (DC) Activity/Diet/Wound Care/Special Instructions: Activity Limited until follow-up Follow-up with primary care provider on discharge Continue heart healthy diet Continue medications as prescribed Follow-up with cardiology outpatient Discharge/Stand Alone Forms: Who Do I Call?, [employer] Discharge Disposition: HOME SELF-CARE
== END 2021-04-07 16:48 | disposition home or self-care (01) | DRG 291 ==
LOC: EC 11:28 → 6NMEDSUR 14:39 → OBSVTOIN 04-06 11:31
PROVIDERS: ADMIT Internal Medicine; ATTEND Internal Medicine
DX: I13.0 Hypertensive heart and chronic kidney disease with heart failure and stage 1 through stage 4 chronic kidney disease, or unspecified chronic kidney disease (principal); I50.43 Acute on chronic combined systolic (congestive) and diastolic (congestive) heart failure; E87.1 Hypo-osmolality and hyponatremia; Z20.822 Contact with and (suspected) exposure to COVID-19; D64.9 Anemia, unspecified; J44.9 Chronic obstructive pulmonary disease, unspecified; K21.9 Gastro-esophageal reflux disease without esophagitis; I48.0 Paroxysmal atrial fibrillation; I25.10 Atherosclerotic heart disease of native coronary artery without angina pectoris; N18.30 Chronic kidney disease, stage 3 unspecified; E78.5 Hyperlipidemia, unspecified; I25.2 Old myocardial infarction; I44.0 Atrioventricular block, first degree; R00.1 Bradycardia, unspecified; M19.90 Unspecified osteoarthritis, unspecified site; K22.70 Barrett's esophagus without dysplasia; I08.1 Rheumatic disorders of both mitral and tricuspid valves; Z79.01 Long term (current) use of anticoagulants; Z79.51 Long term (current) use of inhaled steroids; Z79.899 Other long term (current) drug therapy; Z82.49 Family history of ischemic heart disease and other diseases of the circulatory system; Z82.5 Family history of asthma and other chronic lower respiratory diseases; Z87.891 Personal history of nicotine dependence; Z95.1 Presence of aortocoronary bypass graft; Z95.2 Presence of prosthetic heart valve; Z88.1 Allergy status to other antibiotic agents; Z88.8 Allergy status to other drugs, medicaments and biological substances; Z91.041 Radiographic dye allergy status; Z90.49 Acquired absence of other specified parts of digestive tract; Z98.51 Tubal ligation status; Z88.0 Allergy status to penicillin
CPT/HCPCS: 36415; 71046; 80048; 80053; 83735; 83880; 84484; 85025; 85610; 85730; 87635; 93005; 94640

== ENCOUNTER → 2021-05-13 | Outpatient (CLI) | payer MEDICARE ==
[2021-05-13 15:23] LABS: African American GFR (CKD) 39.9 (60.0-200.0); Anion Gap 16.9 mmol/L (10.00-18.00); BUN/Creat Ratio 21.27 Ratio (12.00-20.00); Blood Urea Nitrogen 31.9 mg/dL (9.0-27.0); Calcium 8.8 mg/dL (8.7-10.3); Carbon Dioxide 22.1 mmol/L (20.0-27.5); Non-African American GFR(CKD) 34.4 (60.0-200.0); Potassium 3.3 mmol/L (3.5-5.5)
== END | disposition home or self-care (01) ==
LOC: LABWHC1 11:04
PROVIDERS: ATTEND Nurse Practitioner Adult Health
DX: I42.9 Cardiomyopathy, unspecified (principal); N18.9 Chronic kidney disease, unspecified
CPT/HCPCS: 36415; 80048; 83880

== ENCOUNTER 2021-06-02 13:09 | Inpatient (IN) | payer MEDICARE ==
--- NOTE | 2021-06-02 15:21 | ED ---
General Adult HPI - General Chief complaint: Extremity Problem,Nontraumatic Stated complaint: Swelling in lower extremities Time Seen by Provider: 06/02/21 15:05 Source: patient Mode of arrival: ambulatory Limitations: no limitations - History of Present Illness Initial comments: 71-year-old female with past medical history of A. fib on anticoagulation, congestive heart failure, COPD, CABG and mitral valve replacement who presents emergency room with lower extremity swelling. States for the past 3 days she has had worsening swelling in her legs as well as shortness of breath with a nonproductive cough. Admits orthopnea. Has been taking her Lasix 40 mg every day as directed without any missed doses. Patient is also on Eliquis. Denies history of DVT or PE. No fevers or chills. Denies any chest pain. No other alleviating, precipitating or modifying factors - Related Data Home Medications Medication Instructions Recorded Confirmed Ergocalciferol (Vitamin D2) 50,000 unit PO Q30D 07/06/16 06/02/21 [Vitamin D2] Pravastatin Sodium 40 mg PO HS 07/06/16 06/02/21 Ezetimibe [Zetia] 10 mg PO DAILY 04/19/20 06/02/21 Omeprazole Magnesium [PriLOSEC OTC] 20 mg PO DAILY PRN 04/19/20 06/02/21 calcitrioL [Calcitriol] 0.25 mcg PO CRENSHAW 04/19/20 06/02/21 Albuterol Sulfate [Proair Hfa] 2 puff INHALATION RT-Q6H PRN 02/23/21 06/02/21 Budesonide/Formoterol Fumarate 2 puff INHALATION RT-BID 02/23/21 06/02/21 [Symbicort 160-4.5 Mcg Inhaler] Magnesium Oxide [Mag-Ox] 400 mg PO DAILY 02/23/21 06/02/21 hydrALAZINE HCL [Apresoline] 100 mg PO TID 04/05/21 06/02/21 Carvedilol [Coreg] 6.25 mg PO BID 06/02/21 06/02/21 Previous Rx's Medication Instructions Recorded Apixaban [Eliquis] 5 mg PO BID #180 tab 04/25/20 guaiFENesin [Mucinex] 600 mg PO BID 10 Days #20 tab 03/10/21 Furosemide [Lasix] 40 mg PO DAILY #90 tab 04/07/21 Spironolactone 25 mg PO DAILY 60 Days #60 tab 06/03/21 Allergies Allergy/AdvReac Type Severity Reaction Status Date / Time amlodipine Allergy Muscle Verified 06/02/21 13:29 Spasms chlorthalidone Allergy Vomiting Verified 06/02/21 13:29 Iodinated Contrast Media Allergy Rash/Hives Verified 06/02/21 13:29 [Iodinated Contrast Media - Oral and] meperidine [From Demerol] Allergy Vomiting Verified 06/02/21 13:29 Penicillins Allergy Swelling/hi Verified 06/02/21 13:29 ves Review of Systems ROS Statement: Those systems with pertinent positive or pertinent negative responses have been documented in the HPI. ROS Other: All systems not noted in ROS Statement are negative. Past Medical History Past Medical History: Atrial Fibrillation, Coronary Artery Disease (CAD), Chest Pain / Angina, Heart Failure, COPD, Eye Disorder, GERD/Reflux, Hyperlipidemia, Hypertension, Myocardial Infarction (TN), Osteoarthritis (OA), Pneumonia, Renal Disease Additional Past Medical History / Comment(s): Carr's esophagus, hiatal hernia, sinus problems, past renal insufficiency, acute blood loss anemia with misscarriage. Last Myocardial Infarction Date:: 2007 History of Any Multi-Drug Resistant Organisms: None Reported Past Surgical History: Cardiac Valve Replacement, Cholecystectomy, Coronary Bypass/CABG, Heart Catheterization, Tubal Ligation Additional Past Surgical History / Comment(s): 2007 CABG with jacinto to lad and mitral valve replacement, MAIRA, EGD and colonoscopy. Past Anesthesia/Blood Transfusion Reactions: Motion Sickness Additional Past Anesthesia/Blood Transfusion Reaction / Comment(s): Pt received blood with misscarriage once without reaction. Past Psychological History: No Psychological Hx Reported Smoking Status: Former smoker Past Alcohol Use History: None Reported Past Drug Use History: None Reported - Past Family History Mother Family Medical History: COPD, Coronary Artery Disease (CAD), Myocardial Inf arction (TN) Additional Family Medical History / Comment(s): Pt does not know at what age her mother had a TN. Father Family Medical History: No Reported History Additional Family Medical History / Comment(s): Father was healthy. General Exam Limitations: no limitations General appearance: alert, in no apparent distress Head exam: Present: atraumatic, normocephalic, normal inspection Eye exam: Present: normal appearance, PERRL, EOMI. Absent: scleral icterus, conjunctival injection, periorbital swelling ENT exam: Present: normal exam, mucous membranes moist Neck exam: Present: normal inspection. Absent: tenderness, meningismus, lymphadenopathy Respiratory exam: Present: rales. Absent: respiratory distress, wheezes, rh onchi, stridor Cardiovascular Exam: Present: regular rate, normal rhythm, normal heart sounds. Absent: systolic murmur, diastolic murmur, rubs, gallop, clicks GI/Abdominal exam: Present: soft, normal bowel sounds. Absent: distended, tenderness, guarding, rebound, rigid Extremities exam: Present: full ROM, normal capillary refill, pedal edema. Absent: tenderness, joint swelling, calf tenderness Back exam: Present: normal inspection Neurological exam: Present: alert, oriented X3, CN II-XII intact Psychiatric exam: Present: normal affect, normal mood Skin exam: Present: warm, dry, intact, normal color. Absent: rash Course Vital Signs 06/02/21 06/02/21 06/02/21 13:29 15:31 16:58 Temperature 97.7 F Pulse Rate 59 L 58 L 63 Respiratory 16 18 18 Rate Blood Pressure 144/71 138/79 136/75 O2 Sat by Pulse 96 100 99 Oximetry 06/02/21 19:30 Temperature Pulse Rate 63 Respiratory 20 Rate Blood Pressure 153/66 O2 Sat by Pulse 98 Oximetry EKG Findings - EKG Comments: EKG Findings:: EKG demonstrates sinus bradycardia with a rate of 59. VT interval 223. QRS 15. QTC 443. Baseline artifact V4 through V5. No acute ST segment elevations or depressions Medical Decision Making - Medical Decision Making Upon arrival patient was placed into room 26. A thorough history and physical exam was performed. 12-lead EKG is obtained. Laboratory studies are conducted. Laboratory studies reveal hemoglobin of 7.6. Troponin 0.099. BNP of 19,600. Sodium 126. Chest x-ray demonstrates chronic interstitial pulmonary fibrosis. Right pleural effusion. Mild venous congestion. Patient is given 60 mg of Lasix. Recommended admission. Spoke with Hilary from [facility] who agreed to admit the patient. Patient admitted to the floor in stable condition - Lab Data Result diagrams: 06/06/21 08:11 06/06/21 08:11 Lab Results 06/02/21 06/02/21 06/02/21 Range/Units 15:24 15:24 15:24 WBC 5.4 (3.8-10.6) k/uL RBC 3.13 L (3.80-5.40) m/uL Hgb 7.6 L (11.4-16.0) gm/dL Hct 25.6 L (34.0-46.0) % MCV 81.8 (80.0-100.0) fL MCH 24.4 L (25.0-35.0) pg MCHC 29.9 L (31.0-37.0) g/dL RDW 17.8 H (11.5-15.5) % Plt Count 207 (150-450) k/uL MPV 8.9 Neutrophils % 77 % Lymphocytes % 12 % Monocytes % 7 % Eosinophils % 1 % Basophils % 0 % Neutrophils # 4.2 (1.3-7.7) k/uL Lymphocytes # 0.7 L (1.0-4.8) k/uL Monocytes # 0.4 (0-1.0) k/uL Eosinophils # 0.0 (0-0.7) k/uL Basophils # 0.0 (0-0.2) k/uL Manual Slide Review Performed Hypochromasia Marked Poikilocytosis Slight Poikilocytosis (manual Present Anisocytosis Slight Microcytosis Slight Stomatocytes Present PT 13.3 H (9.0-12.0) sec INR 1.3 H (<1.2) APTT 25.2 (22.0-30.0) sec Sodium 126 L (137-145) mmol/L Potassium 3.5 (3.5-5.1) mmol/L Chloride 86 L (98-107) mmol/L Carbon Dioxide 26 (22-30) mmol/L Anion Gap 14 mmol/L BUN 45 H (7-17) mg/dL Creatinine 1.75 H (0.52-1.04) mg/dL Est GFR (CKD-EPI)AfAm 33 (>60 ml/min/1.73 sqM) Est GFR (CKD-EPI)NonAf 29 (>60 ml/min/1.73 sqM) Glucose 114 H (74-99) mg/dL Plasma Lactic Acid Radames (0.7-2.0) mmol/L Calcium 8.6 (8.4-10.2) mg/dL Total Bilirubin 0.7 (0.2-1.3) mg/dL AST 34 (14-36) U/L ALT 12 (4-34) U/L Alkaline Phosphatase 56 (38-126) U/L Troponin I (0.000-0.034) ng/mL NT-Pro-B Natriuret Pep pg/mL Total Protein 6.6 (6.3-8.2) g/dL Albumin 4.1 (3.5-5.0) g/dL 06/02/21 06/02/21 06/02/21 Range/Units 15:24 15:24 15:27 WBC (3.8-10.6) k/uL RBC (3.80-5.40) m/uL Hgb (11.4-16.0) gm/dL Hct (34.0-46.0) % MCV (80.0-100.0) fL MCH (25.0-35.0) pg MCHC (31.0-37.0) g/dL RDW (11.5-15.5) % Plt Count (150-450) k/uL MPV Neutrophils % % Lymphocytes % % Monocytes % % Eosinophils % % Basophils % % Neutrophils # (1.3-7.7) k/uL Lymphocytes # (1.0-4.8) k/uL Monocytes # (0-1.0) k/uL Eosinophils # (0-0.7) k/uL Basophils # (0-0.2) k/uL Manual Slide Review Hypochromasia Poikilocytosis Poikilocytosis (manual Anisocytosis Microcytosis Stomatocytes PT (9.0-12.0) sec INR (<1.2) APTT (22.0-30.0) sec Sodium (137-145) mmol/L Potassium (3.5-5.1) mmol/L Chloride (98-107) mmol/L Carbon Dioxide (22-30) mmol/L Anion Gap mmol/L BUN (7-17) mg/dL Creatinine (0.52-1.04) mg/dL Est GFR (CKD-EPI)AfAm (>60 ml/min/1.73 sqM) Est GFR (CKD-EPI)NonAf (>60 ml/min/1.73 sqM) Glucose (74-99) mg/dL Plasma Lactic Acid Radames 1.5 (0.7-2.0) mmol/L Calcium (8.4-10.2) mg/dL Total Bilirubin (0.2-1.3) mg/dL AST (14-36) U/L ALT (4-34) U/L Alkaline Phosphatase (38-126) U/L Troponin I 0.099 H* (0.000-0.034) ng/mL NT-Pro-B Natriuret Pep 83909 pg/mL Total Protein (6.3-8.2) g/dL Albumin (3.5-5.0) g/dL Disposition Clinical Impression: CHF (congestive heart failure), NSTEMI (non-ST elevated myocardial infarction), Hyponatremia, Chronic kidney disease Disposition: ADMITTED IP TO THIS HOSP Condition: Stable Is patient prescribed a controlled substance at d/c from ED?: No Decision to Admit Reason: Admit from EC Decision Date: 06/02/21 Decision Time: 17:05
--- NOTE | 2021-06-02 16:01 | XR ---
EXAMINATION TYPE: XR chest 2V DATE OF EXAM: 06/02/2021 COMPARISON: 04/05/2021 TECHNIQUE: PA and lateral views submitted. HISTORY: Difficulty breathing FINDINGS: Postoperative changes seen with heart size stable and diffuse interstitial pattern with small right p leural effusion. Prosthetic heart valve noted. Degenerative changes spine correlate for COPD. IMPRESSION: 1. Correlate for chronic interstitial pulmonary fibrosis. Findings similar to the prior exam with pro bable tiny right pleural effusion. Correlate clinically to exclude mild venous congestion.
[2021-06-02 16:13] LABS: INR 1.3 (<1.2); Partial Thromboplastin Time 25.2 sec (22.0-30.0); Prothrombin Time 13.3 sec (9.0-12.0)
[2021-06-02 16:15] LABS: Anisocytosis Slight; Basophils % (A) 0 %; Eosinophils % (A) 1 %; HCT 25.6 % (34.0-46.0); HGB 7.6 gm/dL (11.4-16.0); Hypochromasia Marked; Lymphocytes # (A) 0.7 k/uL (1.0-4.8); Lymphocytes % (A) 12 %; MCH 24.4 pg (25.0-35.0); MCHC 29.9 g/dL (31.0-37.0); MCV 81.8 fL (80.0-100.0); Mean Platelet Volume 8.9; Microcytosis Slight; Monocytes # (A) 0.4 k/uL (0-1.0); Monocytes % (A) 7 %; Neutrophils # (A) 4.2 k/uL (1.3-7.7); Neutrophils % (A) 77 %; Platelet Count 207 k/uL (150-450); Poikilocytosis Slight; RBC 3.13 m/uL (3.80-5.40); RDW 17.8 % (11.5-15.5); WBC 5.4 k/uL (3.8-10.6)
[2021-06-02] MEDS ORDERED: FUROSEMIDE 10 MG/ML 10 ML VIAL IV STA (16:17)
[2021-06-02 16:23] LABS: Albumin 4.1 g/dL (3.5-5.0); Calcium 8.6 mg/dL (8.4-10.2); Potassium 3.5 mmol/L (3.5-5.1); Total Bilirubin 0.7 mg/dL (0.2-1.3); Total Protein 6.6 g/dL (6.3-8.2)
[2021-06-02 16:44] LABS: Poikilocytosis (M) Present; Stomatocytes Present
[2021-06-02] MEDS ORDERED: NALOXONE 0.4 MG/ML 1 ML VIAL IV PRN (17:06)
[2021-06-02] MEDS ORDERED: PANTOPRAZOLE 40 MG TABLET PO PRN (22:50)
[2021-06-02] MEDS ORDERED: ACETAMINOPHEN TAB 500 MG TAB PO STA (22:52)
[2021-06-02] MEDS: carvediloL 6.25 MG TAB PO SCH (23:26)
[2021-06-02] MEDS: PRAVASTATIN SODIUM 40 MG TAB PO SCH (23:26)
[2021-06-02] MEDS: hydrALAZINE HCL 50 MG TAB PO SCH (23:26)
[2021-06-02] MEDS: APIXABAN 5 MG TAB PO SCH (23:26)
[2021-06-03] MEDS: MAGNESIUM OXIDE 400 MG TAB PO SCH (08:01)
[2021-06-03] MEDS: hydrALAZINE HCL 50 MG TAB PO SCH ×3 (08:01→21:38)
[2021-06-03] MEDS: SPIRONOLACTONE 25 MG TAB PO SCH (08:01)
[2021-06-03] MEDS: carvediloL 6.25 MG TAB PO SCH ×2 (08:01→21:38)
[2021-06-03] MEDS: guaiFENesin 600 MG TABLET.ER PO SCH ×2 (08:01→21:38)
[2021-06-03] MEDS: APIXABAN 5 MG TAB PO SCH ×2 (08:01→21:38)
[2021-06-03] MEDS: EZETIMIBE 10 MG TAB PO SCH (08:01)
--- NOTE | 2021-06-03 08:20 | P.HPIM ---
History of Present Illness This is a pleasant 71 years old female with past medical history of Atrial Fibrillation on Eliquis , Coronary Artery Disease , chronic Heart Failure, COPD, GERD, Hyperlipidemia, Hypertension, Osteoarthritis chronic kidney disease, Carr's esophagus, hiatal hernia, sinus problems,s/p Coronary Bypass/CABG, Heart Catheterization, mitral valve replacement. Her PCP is Dr. Wilcox and fermentation operator is Dr. Abdi She was recently discharged from the hospital 2 months ago for acute systolic and diastolic CHF with ejection fraction 45-50%. Now presents because of bilateral leg swelling which is worsening. Also complained from some exertional dyspnea with little cough and phlegm early in the morning but no chest pain or abdominal pain. No diarrhea or vomiting. No urinary complaints She denies smoking, alcohol or illicit drugs. She is been afebrile but hypertensive, systolic blood pressure 169-181 with diastolic around 74-76. Also patient is mildly tachypneic CBC showing normocytic anemia with hemoglobin 7.6. INR is 1.3. Sodium 126 and creatinine 1.7 with baseline 1.4-1.5 Glucose 114, [place] [address], troponin elevated 0.093. EKG showing sinus bradycardia at 59 with first-degree AV block. No significant ST-T changes and QTC 443 Chest x-ray: Chronic interstitial pulmonary fibrosis, finding similar to prior exam. Correlate clinically to exclude CHF and venous congestion, mild. I looked at the chest x-ray by myself that looks like pulmonary congestion, although the heart does not look much enlarged however it is bigger than one year ago compared to the x-ray from 06/04/2020. In the emergency room patient was started on IV Lasix Review of Systems Review of systems CONSTITUTIONAL: No fever, no malaise, no fatigue. HEENT: No recent visual problems or hearing problems. Denied any sore throat. CARDIOVASCULAR: No orthopnea, PND, no palpitations, no syncope. PULMONARY: No chest wall tenderness, no hemoptysis. GASTROINTESTINAL: No diarrhea, no nausea, no vomiting, no abdominal pain. Normoactive bowel sounds. NEUROLOGICAL: No headaches, no weakness, no numbness. HEMATOLOGICAL: Denies any bleeding or petechiae. GENITOURINARY: Denies any burning micturition, frequency, or urgency. MUSCULOSKELETAL/RHEUMATOLOGICAL: Denies any joint pain, swelling, or any muscle pain. ENDOCRINE: Denies any polyuria or polydipsia. Past Medical History Past Medical History: Atrial Fibrillation, Coronary Artery Disease (CAD), Chest Pain / Angina, Heart Failure, COPD, Eye Disorder, GERD/Reflux, Hyperlipidemia, Hypertension, Myocardial Infarction (NV), Osteoarthritis (OA), Pneumonia, Renal Disease Additional Past Medical History / Comment(s): Carr's esophagus, hiatal hernia, sinus problems, past renal insufficiency, acute blood loss anemia with misscarriage. Last Myocardial Infarction Date:: 2007 History of Any Multi-Drug Resistant Organisms: None Reported Past Surgical History: Cardiac Valve Replacement, Cholecystectomy, Coronary Bypass/CABG, Heart Catheterization, Tubal Ligation Additional Past Surgical History / Comment(s): 2008 CABG with jacinto to lad and mitral valve replacement, MAIRA, EGD and colonoscopy. Past Anesthesia/Blood Transfusion Reactions: Motion Sickness Additional Past Anesthesia/Blood Transfusion Reaction / Comment(s): Pt received blood with misscarriage once without reaction. Past Psychological History: No Psychological Hx Reported Additional Psychological History / Comment(s): Pt resides with her adult long in an apartment. She uses no assistive devices. Pt does not drive. She uses the bus, cab or family drives her to appts. Smoking Status: Former smoker Past Alcohol Use History: None Reported Additional Past Alcohol Use History / Comment(s): Pt started smoking in 1987 and was a ppd smoker but quit in 2007. Past Drug Use History: None Reported - Past Family History Mother Family Medical History: COPD, Coronary Artery Disease (CAD), Myocardial Infarction (NV) Additional Family Medical History / Comment(s): Pt does not know at what age her mother had a NV. Father Family Medical History: No Reported History Additional Family Medical History / Comment(s): Father was healthy. Medications and Allergies Home Medications Medication Instructions Recorded Confirmed Type Ergocalciferol (Vitamin D2) 50,000 unit PO Q30D 07/06/16 06/02/21 History [Vitamin D2] Pravastatin Sodium 40 mg PO HS 07/06/16 06/02/21 History Ezetimibe [Zetia] 10 mg PO DAILY 04/19/20 06/02/21 History Omeprazole Magnesium [PriLOSEC OTC] 20 mg PO DAILY PRN 04/19/20 06/02/21 History calcitrioL [Calcitriol] 0.25 mcg PO CRENSHAW 04/19/20 06/02/21 History Apixaban [Eliquis] 5 mg PO BID #180 tab 04/25/20 06/02/21 Rx Spironolactone 25 mg PO DAILY 11/26/20 06/02/21 History Albuterol Sulfate [Proair Hfa] 2 puff INHALATION RT-Q6H PRN 02/23/21 06/02/21 History Budesonide/Formoterol Fumarate 2 puff INHALATION RT-BID 02/23/21 06/02/21 History [Symbicort 160-4.5 Mcg Inhaler] Magnesium Oxide [Mag-Ox] 400 mg PO DAILY 02/23/21 06/02/21 History guaiFENesin [Mucinex] 600 mg PO BID 10 Days #20 tab 03/10/21 06/02/21 Rx hydrALAZINE HCL [Apresoline] 100 mg PO TID 04/05/21 06/02/21 History Furosemide [Lasix] 40 mg PO DAILY #90 tab 04/07/21 06/02/21 Rx Carvedilol [Coreg] 6.25 mg PO BID 06/02/21 06/02/21 History Allergies Allergy/AdvReac Type Severity Reaction Status Date / Time amlodipine Allergy Muscle Verified 06/02/21 13:29 Spasms chlorthalidone Allergy Vomiting Verified 06/02/21 13:29 Iodinated Contrast Media Allergy Rash/Hives Verified 06/02/21 13:29 [Iodinated Contrast Media - Oral and] meperidine [From Demerol] Allergy Vomiting Verified 06/02/21 13:29 Penicillins Allergy Swelling/hi Verified 06/02/21 13:29 ves Physical Exam Vitals: Vital Signs Temp Pulse Pulse Resp BP BP Pulse Ox 06/03/21 08:00 97.8 F 66 16 132/63 97 06/03/21 04:54 97.6 F 60 15 122/65 94 L 06/03/21 02:36 21 06/02/21 22:42 169/76 06/02/21 22:35 97.5 F L 70 21 181/74 91 L 06/02/21 19:30 63 20 153/66 98 06/02/21 16:58 63 18 136/75 99 06/02/21 15:31 58 L 18 138/79 100 06/02/21 13:29 97.7 F 59 L 16 144/71 96 Intake and Output 06/02/21 06/03/21 06/03/21 22:59 06:59 14:59 Output Total 400 Balance -400 Output: Urine 400 Other: Weight 61.5 kg GENERAL: The patient is alert and oriented x3, not in any acute distress. Well developed, well nourished. HEENT: Pupils are round and equally reacting to light. EOMI. No scleral icterus. No conjunctival pallor. Normocephalic, atraumatic. No pharyngeal erythema. No thyromegaly. CARDIOVASCULAR: S1 and S2 present. No murmurs, rubs, or gallops. PULMONARY: Chest is clear to auscultation, no wheezing or crackles. ABDOMEN: Soft, nontender, nondistended, normoactive bowel sounds. No palpable organomegaly. MUSCULOSKELETAL: No joint swelling or deformity. -EXTREMITIES: No cyanosis, clubbing, . 1-2+ bilateral pitting like edema NEUROLOGICAL: Gross neurological examination did not reveal any focal deficits. SKIN: No rashes. no petechiae. Results CBC & Chem 7: 06/02/21 15:24 06/02/21 15:24 Labs: Abnormal Lab Results - Last 24 Hours (Table) 06/02/21 06/02/21 06/02/21 Range/Units 15:24 15:24 15:24 RBC 3.13 L (3.80-5.40) m/uL Hgb 7.6 L (11.4-16.0) gm/dL Hct 25.6 L (34.0-46.0) % MCH 24.4 L (25.0-35.0) pg MCHC 29.9 L (31.0-37.0) g/dL RDW 17.8 H (11.5-15.5) % Lymphocytes # 0.7 L (1.0-4.8) k/uL PT 13.3 H (9.0-12.0) sec INR 1.3 H (<1.2) Sodium 126 L (137-145) mmol/L Chloride 86 L (98-107) mmol/L BUN 45 H (7-17) mg/dL Creatinine 1.75 H (0.52-1.04) mg/dL Glucose 114 H (74-99) mg/dL Troponin I (0.000-0.034) ng/mL 06/02/21 06/02/21 06/02/21 Range/Units 15:24 20:20 23:13 RBC (3.80-5.40) m/uL Hgb (11.4-16.0) gm/dL Hct (34.0-46.0) % MCH (25.0-35.0) pg MCHC (31.0-37.0) g/dL RDW (11.5-15.5) % Lymphocytes # (1.0-4.8) k/uL PT (9.0-12.0) sec INR (<1.2) Sodium (137-145) mmol/L Chloride (98-107) mmol/L BUN (7-17) mg/dL Creatinine (0.52-1.04) mg/dL Glucose (74-99) mg/dL Troponin I 0.099 H* 0.097 H* 0.098 H* (0.000-0.034) ng/mL Thrombosis Risk Factor Assmnt - Choose All That Apply Any of the Below Risk Factors Present?: Yes Each Factor Represents 1 point: Abnormal pulmonary function (COPD), Swollen legs (current) Each Risk Factor Represents 2 Points: Age 61-74 years Other congenital or acquired thrombophilia - If yes, enter type in comment: No Thrombosis Risk Factor Assessment Total Risk Factor Score: 4 Thrombosis Risk Factor Assessment Level: Moderate Risk Assessment and Plan Assessment: Acute and chronic CHF, systolic with ejection fraction of 45-50% Mild acute kidney injury Hypervolemic hyponatremia Mildly elevated troponin, most likely secondary to kidney disease rather than cardiac disease Chronic kidney disease, stage III Hyperlipidemia History of GERD COPD, no acute exacerbation Hypertension History of osteoarthritis History of Carr's esophagus History of hiatal hernia History of coronary artery disease status post CABG History of mitral valve replacement Chronic atrial fibrillation on Eliquis Plan: This is a pleasant 71 years old female who presents with systolic CHF Continue with IV Lasix and monitor an point and outpatient Place the patient on a fluid restriction Monitor electrolytes Cardiology consult Labs and medication were reviewed.. Continue same treatment. Continue with symptomatic treatment. Resume home medication. Monitor lytes and vitals. DVT and GI prophylaxis. Further recommendations as per clinical course of the patient DVT prophylaxis: Eliquis GI Prophylaxis: Ppi PT/OT: Pending Prognosis is guarded
[2021-06-03] MEDS ORDERED: FUROSEMIDE 10 MG/ML 4 ML VIAL IV SCH (09:00)
[2021-06-03] MEDS ORDERED: hydrALAZINE HCL 50 MG TAB PO SCH (09:00)
[2021-06-03] MEDS ORDERED: FUROSEMIDE 40 MG TAB PO SCH (09:00)
[2021-06-03] MEDS: ALBUTEROL NEBULIZED 2.5 MG/3 ML INHALATION PRN ×2 (09:13→20:44)
[2021-06-03] MEDS: SYMBICORT 160-4.5 MCG INHALER INHALATION SCH ×2 (09:13→20:45)
[2021-06-03 09:35] LABS: Calcium 8.3 mg/dL (8.4-10.2); Potassium 3.2 mmol/L (3.5-5.1)
[2021-06-03 09:45] LABS: Anisocytosis Slight; Basophils % (A) 1 %; Eosinophils # (A) 0.1 k/uL (0-0.7); Eosinophils % (A) 1 %; HCT 24.6 % (34.0-46.0); HGB 7.2 gm/dL (11.4-16.0); Hypochromasia Marked; Lymphocytes # (A) 0.5 k/uL (1.0-4.8); Lymphocytes % (A) 12 %; MCH 24.4 pg (25.0-35.0); MCHC 29.4 g/dL (31.0-37.0); Mean Platelet Volume 10.4; Monocytes # (A) 0.3 k/uL (0-1.0); Monocytes % (A) 7 %; Neutrophils # (A) 3.3 k/uL (1.3-7.7); Neutrophils % (A) 77 %; Platelet Count 165 k/uL (150-450); RBC 2.97 m/uL (3.80-5.40); RDW 17.4 % (11.5-15.5); WBC 4.3 k/uL (3.8-10.6)
[2021-06-03] MEDS ORDERED: Potassium Replacement Protocol 1 EACH MISC MISCELLANE PRN (10:46)
--- NOTE | 2021-06-03 11:42 | P.CRDCN ---
History of Present Illness History of present illness: This is a 71-year-old female with a past medical history significant for atrial fibrillation with previous cardioversion 03/2020, atrial tachycardia/typical atrial flutter s/p ablation in 11/2020, coronary artery disease with previous CABG 1 HART to LAD 08/2007, mitral regurgitation s/pmitral valve repair 08/2007, congestive heart failure, hypertension, and hyperlipidemia. Patient follows in the office with Dr. Abdi. We have been asked to see the patient in consultation for congestive heart failure. Patient presents to the emergency department with complaints of worsening lower extremity edema over the past 4 days. Also last 2 days with orthopnea and PND, 4/6 night patient had to sleep in her chair due to shortness of breath. She states she ran out of her spironolactone 1-2 weeks ago. She denies any chest pain, palpitations, lightheadedness, dizziness. She was given a total of 60mg IV Lasix yesterday and 40mg IV this morning. Her edema has significantly improved. Denies shortness of breath. DIAGNOSTICS -EKG reveals sinus rhythm HR 59, first degree av block, non-specific ST changes in inferior leads, mild ST depression in lead V6. Prior EKG similar -Chest xray - small right pleural effusion, chronic interstitial pulmonary fibrosis -Laboratory data: Troponin 0.09, 3, INR 1.3, sodium 126, potassium 3.5, BUN 45, serum creatinine 1.75, WBC 5.4, bun 7.6, platelets 207 -Current home cardiac medications include hydralazine 100 mg 3 times a day, spironolactone 25 mg daily, pravastatin 40 mg at night, metoprolol tartrate 25 mg twice a day, Lasix 40 mg daily, Zetia 10 mg daily, and Eliquis 5 mg twice a day -Most recent echocardiogram obtained in February 2021 revealed ejection fraction 45-50%, basal inferior LV wall hypokinesis, moderate mitral regurgitation, trace tricuspid regurgitation -Event monitor in 01/2021 revealed sinus rhythm Lexiscan stress test 07/2020 revealed fixed inferior and inferolateral defect Cardiac catheterization 05/2007 revealed 80% mid LAD, total occlusion of the proximal left circumflex and proximal RCA, severe PVD involving the iliac system worse on the right than left REVIEW OF SYSTEMS: At the time of my exam: CONSTITUTIONAL: Denies fever or chills. HEENT: Denies blurred vision, vision changes, or eye pain. Denies hemoptysis CARDIOVASCULAR: Denies chest pain. + orthopnea. + PND. Denies palpitations +Bilateral lower extremity edema RESPIRATORY: + shortness of breath. GASTROINTESTINAL: Denies abdominal pain. Denies nausea or vomiting. HEMATOLOGIC: Denies bleeding disorders. GENITOURINARY: Denies any blood in urine. SKIN: Denies pruitis. Denies rash. PHYSICAL EXAM: VITAL SIGNS: Reviewed. GENERAL: Well-developed in no acute distress. HEENT: Head is normocephalic. Pupils are equal, round. Sclerae anicteric. Mucous membranes of the mouth are moist. Neck supple. No JVD. LUNGS: Respirations even and unlabored. Lungs clear to auscultation bilaterally HEART: Regular rate and rhythm. S1 and S2 heard. Systolic murmur noted ABDOMEN: Soft. Nondistended. Nontender. EXTREMITIES: Normal range of motion. No clubbing or cyanosis. Peripheral pulses intact. trace bilateral lower extremity edema NEUROLOGIC: Awake and alert. Oriented x 3. ASSESSMENT: Acute on chronic congestive heart failure with borderline or intermediate ejection fraction, 45-50% Paroxysmal atrial fibrillation with previous cardioversion Atrial tachycardia/Typical atrial flutter s/p ablation in 11/2020 Coronary artery disease with previous CABG 1 HART to LAD 08/2007 Mitral regurgitation s/p mitral valve repair 08/2007 Hypertension Hyperlipidemia Chronic kidney disease Anemia PLAN: No need to repeat echocardiogram PO Lasix 40mg BID Continue home cardiac meds Continue anticoagulation with Eliquis Monitor kidney function Daily weights, Accurate I&O If patient continues to improve, likely discharge in 24 hours. Follow up with Dr. Abdi Nurse practitioner note has been reviewed by physician. Signing provider agrees with the documented findings, assessment, and plan of care. Past Medical History Past Medical History: Atrial Fibrillation, Coronary Artery Disease (CAD), Chest Pain / Angina, Heart Failure, COPD, Eye Disorder, GERD/Reflux, Hyperlipidemia, Hypertension, Myocardial Infarction (PR), Osteoarthritis (OA), Pneumonia, Renal Disease Additional Past Medical History / Comment(s): Carr's esophagus, hiatal hernia, sinus problems, past renal insufficiency, acute blood loss anemia with misscarriage. Last Myocardial Infarction Date:: 2007 History of Any Multi-Drug Resistant Organisms: None Reported Past Surgical History: Cardiac Valve Replacement, Cholecystectomy, Coronary Bypass/CABG, Heart Catheterization, Tubal Ligation Additional Past Surgical History / Comment(s): 2008 CABG with hart to lad and mitral valve replacement, MAIRA, EGD and colonoscopy. Past Anesthesia/Blood Transfusion Reactions: Motion Sickness Additional Past Anesthesia/Blood Transfusion Reaction / Comment(s): Pt received blood with misscarriage once without reaction. Past Psychological History: No Psychological Hx Reported Additional Psychological History / Comment(s): Pt resides with her adult long in an apartment. She uses no assistive devices. Pt does not drive. She uses the bus, cab or family drives her to appts. Smoking Status: Former smoker Past Alcohol Use History: None Reported Additional Past Alcohol Use History / Comment(s): Pt started smoking in 1987 and was a ppd smoker but quit in 2007. Past Drug Use History: None Reported - Past Family History Mother Family Medical History: COPD, Coronary Artery Disease (CAD), Myocardial Infarction (PR) Additional Family Medical History / Comment(s): Pt does not know at what age her mother had a PR. Father Family Medical History: No Reported History Additional Family Medical History / Comment(s): Father was healthy. Medications and Allergies Home Medications Medication Instructions Recorded Confirmed Type Ergocalciferol (Vitamin D2) 50,000 unit PO Q30D 07/06/16 06/02/21 History [Vitamin D2] Pravastatin Sodium 40 mg PO HS 07/06/16 06/02/21 History Ezetimibe [Zetia] 10 mg PO DAILY 04/19/20 06/02/21 History Omeprazole Magnesium [PriLOSEC OTC] 20 mg PO DAILY PRN 04/19/20 06/02/21 History calcitrioL [Calcitriol] 0.25 mcg PO CRENSHAW 04/19/20 06/02/21 History Apixaban [Eliquis] 5 mg PO BID #180 tab 04/25/20 06/02/21 Rx Albuterol Sulfate [Proair Hfa] 2 puff INHALATION RT-Q6H PRN 02/23/21 06/02/21 History Budesonide/Formoterol Fumarate 2 puff INHALATION RT-BID 02/23/21 06/02/21 History [Symbicort 160-4.5 Mcg Inhaler] Magnesium Oxide [Mag-Ox] 400 mg PO DAILY 02/23/21 06/02/21 History guaiFENesin [Mucinex] 600 mg PO BID 10 Days #20 tab 03/10/21 06/02/21 Rx hydrALAZINE HCL [Apresoline] 100 mg PO TID 04/05/21 06/02/21 History Furosemide [Lasix] 40 mg PO DAILY #90 tab 04/07/21 06/02/21 Rx Carvedilol [Coreg] 6.25 mg PO BID 06/02/21 06/02/21 History Spironolactone 25 mg PO DAILY 60 Days #60 tab 06/03/21 Rx Allergies Allergy/AdvReac Type Severity Reaction Status Date / Time amlodipine Allergy Muscle Verified 06/02/21 13:29 Spasms chlorthalidone Allergy Vomiting Verified 06/02/21 13:29 Iodinated Contrast Media Allergy Rash/Hives Verified 06/02/21 13:29 [Iodinated Contrast Media - Oral and] meperidine [From Demerol] Allergy Vomiting Verified 06/02/21 13:29 Penicillins Allergy Swelling/hi Verified 06/02/21 13:29 ves Physical Exam Vitals: Vital Signs Temp Pulse Pulse Resp BP BP Pulse Ox 06/03/21 04:54 97.6 F 60 15 122/65 94 L 06/03/21 02:36 21 06/02/21 22:42 169/76 06/02/21 22:35 97.5 F L 70 21 181/74 91 L 06/02/21 19:30 63 20 153/66 98 06/02/21 16:58 63 18 136/75 99 06/02/21 15:31 58 L 18 138/79 100 06/02/21 13:29 97.7 F 59 L 16 144/71 96 Intake and Output 06/02/21 06/02/21 06/03/21 14:59 22:59 06:59 Other: Weight 60.328 kg 61.5 kg Results 06/03/21 08:47 06/03/21 08:47 Cardiac Enzymes 06/02/21 06/02/21 06/02/21 Range/Units 15:24 15:24 20:20 AST 34 (14-36) U/L Troponin I 0.099 H* 0.097 H* (0.000-0.034) ng/mL 06/02/21 Range/Units 23:13 AST (14-36) U/L Troponin I 0.098 H* (0.000-0.034) ng/mL Coagulation 06/02/21 Range/Units 15:24 PT 13.3 H (9.0-12.0) sec APTT 25.2 (22.0-30.0) sec CBC 06/02/21 Range/Units 15:24 WBC 5.4 (3.8-10.6) k/uL RBC 3.13 L (3.80-5.40) m/uL Hgb 7.6 L (11.4-16.0) gm/dL Hct 25.6 L (34.0-46.0) % Plt Count 207 (150-450) k/uL Comprehensive Metabolic Panel 06/02/21 Range/Units 15:24 Sodium 126 L (137-145) mmol/L Potassium 3.5 (3.5-5.1) mmol/L Chloride 86 L (98-107) mmol/L Carbon Dioxide 26 (22-30) mmol/L BUN 45 H (7-17) mg/dL Creatinine 1.75 H (0.52-1.04) mg/dL Glucose 114 H (74-99) mg/dL Calcium 8.6 (8.4-10.2) mg/dL AST 34 (14-36) U/L ALT 12 (4-34) U/L Alkaline Phosphatase 56 (38-126) U/L Total Protein 6.6 (6.3-8.2) g/dL Albumin 4.1 (3.5-5.0) g/dL Current Medications Generic Name Dose Route Start Last Admin Trade Name Freq PRN Reason Stop Dose Admin Acetaminophen 500 mg 06/02/21 22:59 Acetaminophen Tab 500 Mg Tab PO Q4HR PRN Fever and/ or Pain Albuterol Sulfate 2.5 mg 06/02/21 22:50 Albuterol Nebulized 2.5 Mg/3 Ml INHALATION RT-Q6H PRN Shortness Of Breath Apixaban 5 mg 06/02/21 22:52 06/02/21 23:26 Apixaban 5 Mg Tab PO 5 mg BID [facility] Administration Protocol Budesonide/Formoterol Fumarate 2 puff 06/03/21 08:00 Symbicort 160-4.5 Mcg Inhaler INHALATION RT-BID [facility] Calcitriol 0.25 mcg 06/05/21 09:00 Calcitriol 0.25 Mcg Cap PO CRENSHAW [facility] Carvedilol 6.25 mg 06/02/21 23:00 06/02/21 23:26 Carvedilol 6.25 Mg Tab PO 6.25 mg BID ALEJANDRO Administration Ezetimibe 10 mg 06/03/21 09:00 Ezetimibe 10 Mg Tab PO DAILY [facility] Ergocalciferol 1,250 mcg 06/17/21 09:00 Ergocalciferol 1,250 Mcg (50,000 Iu) Capsule PO Q30D [facility] Furosemide 40 mg 06/03/21 09:00 Furosemide 10 Mg/Ml 4 Ml Vial IV Q12HR [facility] Guaifenesin 600 mg 06/03/21 09:00 Guaifenesin 600 Mg Tablet.Er PO BID [facility] Hydralazine HCl 100 mg 06/02/21 23:17 06/02/21 23:26 Hydralazine Hcl 50 Mg Tab PO 100 mg TID [facility] Administration Magnesium Oxide 400 mg 06/03/21 09:00 Magnesium Oxide 400 Mg Tab PO DAILY [facility] Naloxone HCl 0.2 mg 06/02/21 17:06 Naloxone 0.4 Mg/Ml 1 Ml Vial IV Q2M PRN Opioid Reversal Pantoprazole Sodium 40 mg 06/02/21 22:50 Pantoprazole 40 Mg Tablet PO DAILY PRN gerd Pravastatin Sodium 40 mg 06/02/21 23:00 06/02/21 23:26 Pravastatin Sodium 40 Mg Tab PO 40 mg HS ALEJANDRO Administration Spironolactone 25 mg 06/03/21 09:00 Spironolactone 25 Mg Tab PO DAILY [facility] Intake and Output 06/02/21 06/02/21 06/03/21 14:59 22:59 06:59 Other: Weight 60.328 kg 61.5 kg Patient Weight 06/03/21 06:59 Weight 61.5 kg 06/02/21 15:24 06/02/21 15:24
[2021-06-03] MEDS: POTASSIUM CHLORIDE ER 20 MEQ TAB.ER PO SCH ×3 (12:24→15:59)
[2021-06-03] MEDS: FUROSEMIDE 40 MG TAB PO SCH (15:59)
[2021-06-03] MEDS: PRAVASTATIN SODIUM 40 MG TAB PO SCH (21:38)
[2021-06-03] MEDS: PANTOPRAZOLE 40 MG/10 ML VIAL IVP SCH (23:49)
[2021-06-04] MEDS: SYMBICORT 160-4.5 MCG INHALER INHALATION SCH ×2 (08:17→19:16)
[2021-06-04 09:28] LABS: Anisocytosis Slight; Basophils % (A) 0 %; Eosinophils # (A) 0.1 k/uL (0-0.7); Eosinophils % (A) 1 %; HCT 25.7 % (34.0-46.0); HGB 7.6 gm/dL (11.4-16.0); Hypochromasia Marked; Lymphocytes # (A) 0.8 k/uL (1.0-4.8); Lymphocytes % (A) 17 %; MCH 24.7 pg (25.0-35.0); MCHC 29.4 g/dL (31.0-37.0); MCV 83.9 fL (80.0-100.0); Mean Platelet Volume 9.6; Monocytes # (A) 0.2 k/uL (0-1.0); Monocytes % (A) 5 %; Neutrophils # (A) 3.5 k/uL (1.3-7.7); Neutrophils % (A) 75 %; Platelet Count 162 k/uL (150-450); RBC 3.07 m/uL (3.80-5.40); RDW 17.4 % (11.5-15.5); Reticulocyte % 3.3 % (0.5-2.0); WBC 4.6 k/uL (3.8-10.6)
[2021-06-04 09:30] LABS: Calcium 8.7 mg/dL (8.4-10.2); Magnesium 2.4 mg/dL (1.6-2.3); Potassium 3.8 mmol/L (3.5-5.1)
[2021-06-04] MEDS: SPIRONOLACTONE 25 MG TAB PO SCH (09:40)
[2021-06-04] MEDS: hydrALAZINE HCL 50 MG TAB PO SCH ×3 (09:40→20:39)
[2021-06-04] MEDS: carvediloL 6.25 MG TAB PO SCH ×2 (09:40→20:39)
[2021-06-04] MEDS: EZETIMIBE 10 MG TAB PO SCH (09:40)
[2021-06-04] MEDS: MAGNESIUM OXIDE 400 MG TAB PO SCH (09:40)
[2021-06-04] MEDS: FUROSEMIDE 40 MG TAB PO SCH ×2 (09:40→16:22)
[2021-06-04] MEDS: guaiFENesin 600 MG TABLET.ER PO SCH ×2 (09:40→20:39)
[2021-06-04] MEDS: PANTOPRAZOLE 40 MG/10 ML VIAL IVP SCH ×2 (09:40→22:41)
[2021-06-04] MEDS: ALBUTEROL NEBULIZED 2.5 MG/3 ML INHALATION PRN ×2 (09:58→19:16)
[2021-06-04 11:58] LABS: % Iron Saturation 2.85 (12.00-45.00); Ferritin 27.1 ng/mL (10.0-291.0)
[2021-06-04] MEDS: APIXABAN 2.5 MG TABLET PO SCH ×2 (12:20→20:39)
[2021-06-04] MEDS: APIXABAN 5 MG TAB PO SCH (13:47)
--- NOTE | 2021-06-04 14:56 | P.PN ---
Subjective Progress Note Date: 06/04/21 History of present illness: This is a 71-year-old female with a past medical history significant for atrial fibrillation with previous cardioversion 03/2020, atrial tachycardia/typical atrial flutter s/p ablation in 11/2020, coronary artery disease with previous CABG 1 HART to LAD 08/2007, mitral regurgitation s/pmitral valve repair 08/2007, congestive heart failure, hypertension, and hyperlipidemia. Patient follows in the office with Dr. Abdi. We have been asked to see the patient in consultation for congestive heart failure. Patient presents to the emergency department with complaints of worsening lower extremity edema over the past 4 days. Also last 2 days with orthopnea and PND, 4/6 night patient had to sleep in her chair due to shortness of breath. She states she ran out of her spironolactone 1-2 weeks ago. She denies any chest pain, palpitations, lightheadedness, dizziness. She was given a total of 60mg IV Lasix yesterday and 40mg IV this morning. Her edema has significantly improved. Denies shortness of breath. DIAGNOSTICS -EKG reveals sinus rhythm HR 59, first degree av block, non-specific ST changes in inferior leads, mild ST depression in lead V6. Prior EKG similar -Chest xray - small right pleural effusion, chronic interstitial pulmonary fibr osis -Laboratory data: Troponin 0.09, 3, INR 1.3, sodium 126, potassium 3.5, BUN 45, serum creatinine 1.75, WBC 5.4, bun 7.6, platelets 207 -Current home cardiac medications include hydralazine 100 mg 3 times a day, spironolactone 25 mg daily, pravastatin 40 mg at night, metoprolol tartrate 25 mg twice a day, Lasix 40 mg daily, Zetia 10 mg daily, and Eliquis 5 mg twice a day -Most recent echocardiogram obtained in February 2021 revealed ejection fraction 45-50%, basal inferior LV wall hypokinesis, moderate mitral regurgitation, trace tricuspid regurgitation -Event monitor in 01/2021 revealed sinus rhythm Lexiscan stress test 07/2020 revealed fixed inferior and inferolateral defect Cardiac catheterization 05/2007 revealed 80% mid LAD, total occlusion of the proximal left circumflex and proximal RCA, severe PVD involving the iliac system worse on the right than left 06/04/2021 The patient denies any new complaints. She denies chest pain, shortness of breath, lightheadedness or dizziness. security monitor has been a sinus rhythm. Heart rate running in the 60s, blood pressure 147/68, pulse ox 96% on room air. Sodium 131, BUN 35 and creatinine 1.68. Hemoglobin 7.6 PHYSICAL EXAM: VITAL SIGNS: Reviewed. GENERAL: Well-developed in no acute distress. HEENT: Head is normocephalic. Pupils are equal, round. Sclerae anicteric. Mucous membranes of the mouth are moist. Neck supple. No JVD. LUNGS: Respirations even and unlabored. Lungs clear to auscultation bilaterally HEART: Regular rate and rhythm. S1 and S2 heard. Systolic murmur noted ABDOMEN: Soft. Nondistended. Nontender. EXTREMITIES: Normal range of motion. No clubbing or cyanosis. Peripheral pulses intact. trace bilateral lower extremity edema NEUROLOGIC: Awake and alert. Oriented x 3. ASSESSMENT: Acute on chronic congestive heart failure with borderline or intermediate ejection fraction, 45-50% Paroxysmal atrial fibrillation with previous cardioversion Atrial tachycardia/Typical atrial flutter s/p ablation in 11/2020 Coronary artery disease with previous CABG 1 HART to LAD 08/2007 Mitral regurgitation s/p mitral valve repair 08/2007 Hypertension Hyperlipidemia Chronic kidney disease Anemia PLAN: No need to repeat echocardiogram PO Lasix 40mg BID Continue home cardiac meds Continue anticoagulation with Eliquis Patient is cleared from cardiology for discharge home Follow up with Dr. Abdi Nurse practitioner note has been reviewed by physician. Signing provider agrees with the documented findings, assessment, and plan of care. Objective - Vital Signs Vital signs: Vital Signs Temp 97.9 F 06/04/21 08:00 Pulse 67 06/04/21 09:58 Resp 18 06/04/21 08:00 BP 144/66 06/04/21 08:00 Pulse Ox 97 06/04/21 08:00 Intake & Output 06/03/21 06/04/21 06/04/21 18:59 06:59 18:59 Intake Total 360 240 Output Total 900 800 Balance -540 -800 240 Weight 61.1 kg Intake: Oral 360 240 Output: Urine 900 800 - Labs CBC & Chem 7: 06/04/21 08:30 06/04/21 08:30 Labs: Abnormal Lab Results - Last 24 Hours (Table) 06/04/21 06/04/21 Range/Units 08:30 08:30 RBC 3.07 L (3.80-5.40) m/uL Hgb 7.6 L (11.4-16.0) gm/dL Hct 25.7 L (34.0-46.0) % MCH 24.7 L (25.0-35.0) pg MCHC 29.4 L (31.0-37.0) g/dL RDW 17.4 H (11.5-15.5) % Lymphocytes # 0.8 L (1.0-4.8) k/uL Retic Count 3.3 H (0.5-2.0) % Sodium 131 L (137-145) mmol/L Chloride 90 L (98-107) mmol/L BUN 35 H (7-17) mg/dL Creatinine 1.68 H (0.52-1.04) mg/dL Glucose 103 H (74-99) mg/dL Magnesium 2.4 H (1.6-2.3) mg/dL
[2021-06-04] MEDS: CYANOCOBALAMIN 500 MCG TAB PO SCH (16:22)
[2021-06-04] MEDS: FERROUS SULFATE 325 MG TAB PO SCH ×2 (16:22→16:24)
[2021-06-04] MEDS: PRAVASTATIN SODIUM 40 MG TAB PO SCH (20:39)
--- NOTE | 2021-06-04 21:19 | P.PN ---
Subjective This is a pleasant 71 years old female with past medical history of Atrial Fibrillation on Eliquis , Coronary Artery Disease , chronic Heart Failure, COPD, GERD, Hyperlipidemia, Hypertension, Osteoarthritis chronic kidney disease, Carr's esophagus, hiatal hernia, sinus problems,s/p Coronary Bypass/CABG, Heart Catheterization, mitral valve replacement. Her PCP is Dr. Wilcox and electric knife operator is Dr. Abdi She was recently discharged from the hospital 2 months ago for acute systolic and diastolic CHF with ejection fraction 45-50%. Now presents because of bilateral leg swelling which is worsening. Also complained from some exertional dyspnea with little cough and phlegm early in the morning but no chest pain or abdominal pain. No diarrhea or vomiting. No urinary complaints She denies smoking, alcohol or illicit drugs. She is been afebrile but hypertensive, systolic blood pressure 169-181 with diastolic around 74-76. Also patient is mildly tachypneic CBC showing normocytic anemia with hemoglobin 7.6. INR is 1.3. Sodium 126 and creatinine 1.7 with baseline 1.4-1.5 Glucose 114, [place] [address], troponin elevated 0.093. EKG showing sinus bradycardia at 59 with first-degree AV block. No significant ST-T changes and QTC 443 Chest x-ray: Chronic interstitial pulmonary fibrosis, finding similar to prior exam. Correlate clinically to exclude CHF and venous congestion, mild. I looked at the chest x-ray by myself that looks like pulmonary congestion, although the heart does not look much enlarged however it is bigger than one year ago compared to the x-ray from 06/04/2020. In the emergency room patient was started on IV Lasix 06/04/2021 Patient regarding her heart failure she is doing well she has minimal or no leg edema, or basal crepitation , and electric knife operator cleared her for discharge today with recommendation to continue with oral Lasix and follow-up with Dr. Abdi as an outpatient. However I believe her symptoms are more related to her anemia and drop in hemoglobin causing her some exertional dyspnea. Her hemoglobin was as low as 7.2 yesterday, we started her on iron pills and his hemoglobin today is 7.6. Also staff check those of Eliquis with pharmacy given her sitting bolt she is 61 kg and her elevated creatinine then dose should be adjusted to 2.5 mg twice daily. Also anemia workup showing evidence of iron deficiency anemia. While B12 and folate are normal. I discussed the case with surgery team and Dr. Landry kindly will evaluate the patient prior to discharge. In the meantime we will increase her Protonix 40 kg to twice daily. Of note patient hemodynamically stable and denies any abdominal pain Sodium improving today 131 Objective - Vital Signs Vital signs: Vital Signs Temp 97.9 F 06/04/21 08:00 Pulse 67 06/04/21 09:58 Resp 18 06/04/21 08:00 BP 144/66 06/04/21 08:00 Pulse Ox 97 06/04/21 08:00 Intake & Output 06/03/21 06/04/21 06/04/21 18:59 06:59 18:59 Intake Total 360 240 Output Total 900 800 Balance -540 -800 240 Weight 61.1 kg Intake: Oral 360 240 Output: Urine 900 800 - Exam GENERAL: The patient is alert and oriented x3, not in any acute distress. Well developed, well nourished. HEENT: Pupils are round and equally reacting to light. EOMI. No scleral icterus. No conjunctival pallor. Normocephalic, atraumatic. No pharyngeal erythema. No thyromegaly. CARDIOVASCULAR: S1 and S2 present. No murmurs, rubs, or gallops. PULMONARY: Chest is clear to auscultation, no wheezing or crackles. ABDOMEN: Soft, nontender, nondistended, normoactive bowel sounds. No palpable organomegaly. MUSCULOSKELETAL: No joint swelling or deformity. EXTREMITIES: No cyanosis, clubbing, or pedal edema. NEUROLOGICAL: Gross neurological examination did not reveal any focal deficits. SKIN: No rashes. no petechiae. - Labs CBC & Chem 7: 06/04/21 08:30 06/04/21 08:30 Labs: Abnormal Lab Results - Last 24 Hours (Table) 06/04/21 06/04/21 Range/Units 08:30 08:30 RBC 3.07 L (3.80-5.40) m/uL Hgb 7.6 L (11.4-16.0) gm/dL Hct 25.7 L (34.0-46.0) % MCH 24.7 L (25.0-35.0) pg MCHC 29.4 L (31.0-37.0) g/dL RDW 17.4 H (11.5-15.5) % Lymphocytes # 0.8 L (1.0-4.8) k/uL Retic Count 3.3 H (0.5-2.0) % Sodium 131 L (137-145) mmol/L Chloride 90 L (98-107) mmol/L BUN 35 H (7-17) mg/dL Creatinine 1.68 H (0.52-1.04) mg/dL Glucose 103 H (74-99) mg/dL Magnesium 2.4 H (1.6-2.3) mg/dL Assessment and Plan Assessment: Iron deficiency anemia, suspected secondary to slow oozing of blood through GI team while she is taking double dose of Eliquis. Exertional dyspnea most likely related to anemia chronic CHF, systolic with ejection fraction of 45-50% Mild acute kidney injury. Improved Hypervolemic hyponatremia. Improving Mildly elevated troponin, most likely secondary to kidney disease rather than cardiac disease Chronic kidney disease, stage III Hyperlipidemia History of GERD COPD, no acute exacerbation Hypertension History of osteoarthritis History of Carr's esophagus History of hiatal hernia History of coronary artery disease status post CABG History of mitral valve replacement Chronic atrial fibrillation on Eliquis Plan: This is a pleasant 71 years old female who presents with systolic CHF Continue with oral Lasix . Harvest Worker Field Crop cleared the patient for discharge Increase Protonix twice daily, lower dose of Eliquis to 2.5 mg twice daily instead of home dose of 5 mg. Surgical consult for possible blood loss through the GI tract labs and medication were reviewed.. Continue same treatment. Continue with symptomatic treatment. Resume home medication. Monitor lytes and vitals. DVT and GI prophylaxis. Further recommendations as per clinical course of the patient DVT prophylaxis: Eliquis GI Prophylaxis: Ppi, Protonix twice daily Possible discharge in 24-48 hours if she remains stable and improving. And once patient is cleared by surgery team
[2021-06-05] MEDS: FERROUS SULFATE 325 MG TAB PO SCH ×2 (06:40→16:14)
[2021-06-05] MEDS: SPIRONOLACTONE 25 MG TAB PO SCH (07:57)
[2021-06-05] MEDS: carvediloL 6.25 MG TAB PO SCH ×2 (07:57→20:58)
[2021-06-05] MEDS: FUROSEMIDE 40 MG TAB PO SCH ×2 (07:57→16:13)
[2021-06-05] MEDS: APIXABAN 2.5 MG TABLET PO SCH ×2 (07:57→20:58)
[2021-06-05] MEDS: PANTOPRAZOLE 40 MG/10 ML VIAL IVP SCH ×2 (07:57→20:58)
[2021-06-05] MEDS: EZETIMIBE 10 MG TAB PO SCH (07:58)
[2021-06-05] MEDS: CYANOCOBALAMIN 500 MCG TAB PO SCH (07:58)
[2021-06-05] MEDS: MAGNESIUM OXIDE 400 MG TAB PO SCH (07:58)
[2021-06-05] MEDS: hydrALAZINE HCL 50 MG TAB PO SCH ×3 (07:58→20:58)
[2021-06-05] MEDS: guaiFENesin 600 MG TABLET.ER PO SCH ×2 (07:58→20:58)
[2021-06-05] MEDS: SYMBICORT 160-4.5 MCG INHALER INHALATION SCH ×2 (08:43→19:33)
[2021-06-05] MEDS: ALBUTEROL NEBULIZED 2.5 MG/3 ML INHALATION PRN (08:43)
--- NOTE | 2021-06-05 10:29 | P.GSCN ---
History of Present Illness Consult date: 06/05/21 History of present illness: 71-year-old female presented to the emergency department with complaints of lower 70 swelling and shortness of breath. She does have a significant cardiac history with atrial fibrillation, coronary artery disease, history systolic CHF, COPD and history of CABG and cardiac catheterization with mitral valve replacement. She is currently being treated for acute systolic CHF. She is being followed by cardiology as well. On workup, patient is found to have anemia with hemoglobin of 7.6. In February her hemoglobin was 10.0. The patient states that she does have a history of colonoscopy approximately for 5 years ago. She does state that there have never been polyps during any colonoscopy she has had in the past. She denies any gross blood in her stool. She denies any dark colored stool. She is on anticoagulation with Eliquis for atrial fibrillation. Review of Systems All systems: negative Past Medical History Past Medical History: Atrial Fibrillation, Coronary Artery Disease (CAD), Chest Pain / Angina, Heart Failure, COPD, Eye Disorder, GERD/Reflux, Hyperlipidemia, Hypertension, Myocardial Infarction (OK), Osteoarthritis (OA), Pneumonia, Renal Disease Additional Past Medical History / Comment(s): Carr's esophagus, hiatal hernia, sinus problems, past renal insufficiency, acute blood loss anemia with misscarriage. Last Myocardial Infarction Date:: 2007 History of Any Multi-Drug Resistant Organisms: None Reported Past Surgical History: Cardiac Valve Replacement, Cholecystectomy, Coronary Bypass/CABG, Heart Catheterization, Tubal Ligation Additional Past Surgical History / Comment(s): 2008 CABG with jacinto to lad and mitral valve replacement, MAIRA, EGD and colonoscopy. Past Anesthesia/Blood Transfusion Reactions: Motion Sickness Additional Past Anesthesia/Blood Transfusion Reaction / Comm: Pt received blood with misscarriage once without reaction. Past Psychological History: No Psychological Hx Reported Additional Psychological History / Comment(s): Pt resides with her adult long in an apartment. She uses no assistive devices. Pt does not drive. She uses the bus, cab or family drives her to appts. Smoking Status: Former smoker Past Alcohol Use History: None Reported Additional Past Alcohol Use History / Comment(s): Pt started smoking in 1987 and was a ppd smoker but quit in 2007. Past Drug Use History: None Reported - Past Family History Mother Family Medical History: COPD, Coronary Artery Disease (CAD), Myocardial Infarction (OK) Additional Family Medical History / Comment(s): Pt does not know at what age her mother had a OK. Father Family Medical History: No Reported History Additional Family Medical History / Comment(s): Father was healthy. Medications and Allergies Home Medications Medication Instructions Recorded Confirmed Type Ergocalciferol (Vitamin D2) 50,000 unit PO Q30D 07/06/16 06/02/21 History [Vitamin D2] Pravastatin Sodium 40 mg PO HS 07/06/16 06/02/21 History Ezetimibe [Zetia] 10 mg PO DAILY 04/19/20 06/02/21 History Omeprazole Magnesium [PriLOSEC OTC] 20 mg PO DAILY PRN 04/19/20 06/02/21 History calcitrioL [Calcitriol] 0.25 mcg PO CRENSHAW 04/19/20 06/02/21 History Apixaban [Eliquis] 5 mg PO BID #180 tab 04/25/20 06/02/21 Rx Albuterol Sulfate [Proair Hfa] 2 puff INHALATION RT-Q6H PRN 02/23/21 06/02/21 History Budesonide/Formoterol Fumarate 2 puff INHALATION RT-BID 02/23/21 06/02/21 History [Symbicort 160-4.5 Mcg Inhaler] Magnesium Oxide [Mag-Ox] 400 mg PO DAILY 02/23/21 06/02/21 History guaiFENesin [Mucinex] 600 mg PO BID 10 Days #20 tab 03/10/21 06/02/21 Rx hydrALAZINE HCL [Apresoline] 100 mg PO TID 04/05/21 06/02/21 History Furosemide [Lasix] 40 mg PO DAILY #90 tab 04/07/21 06/02/21 Rx Carvedilol [Coreg] 6.25 mg PO BID 06/02/21 06/02/21 History Spironolactone 25 mg PO DAILY 60 Days #60 tab 06/03/21 Rx Allergies Allergy/AdvReac Type Severity Reaction Status Date / Time amlodipine Allergy Muscle Verified 06/02/21 13:29 Spasms chlorthalidone Allergy Vomiting Verified 06/02/21 13:29 Iodinated Contrast Media Allergy Rash/Hives Verified 06/02/21 13:29 [Iodinated Contrast Media - Oral and] meperidine [From Demerol] Allergy Vomiting Verified 06/02/21 13:29 Penicillins Allergy Swelling/hi Verified 06/02/21 13:29 ves Surgical - Exam Osteopathic Statement: *. No significant issues noted on an osteopathic structural exam other than those noted in the History and Physical/Consult. Vital Signs Temp Pulse Resp BP Pulse Ox 97.7 F 59 L 16 144/71 96 06/02/21 13:29 06/02/21 13:29 06/02/21 13:29 06/02/21 13:29 06/02/21 13:29 - General well nourished, no distress - Eyes normal ocular movement - Neck trachea midline - Respiratory normal respiratory effort - Psychiatric oriented to time, oriented to person, oriented to place Results - Labs 06/04/21 08:30 06/04/21 08:30 Abnormal Lab Results - Last 24 Hours (Table) 06/04/21 Range/Units 08:30 Iron 14 L (50-170) ug/dL TIBC 477 H (228-460) ug/dL % Saturation 2.85 L (12.00-45.00) Assessment and Plan Plan: 71-year-old female with anemia and systolic CHF. She is currently being treated by cardiology and internal medicine. At this point, patient is not showing any gross signs of GI bleed. She denies any blood in her stool or dark colored stools. Last colonoscopy was 5 years ago. It is reasonable to treat current anemia and perform outpatient endoscopy for further workup. Patient is agreeable with this plan. She can follow-up as an outpatient for workup after CHF exacerbation is treated.
[2021-06-05] MEDS ORDERED: FUROSEMIDE 10 MG/ML 4 ML VIAL IV STA (10:58)
[2021-06-05] MEDS ORDERED: IPRATROPIUM-ALBUTEROL 3 ML NEB INHALATION STA (10:59)
[2021-06-05 11:41] LABS: Anisocytosis Slight; Basophils % (A) 0 %; Eosinophils # (A) 0.1 k/uL (0-0.7); Eosinophils % (A) 1 %; HCT 25.1 % (34.0-46.0); HGB 7.4 gm/dL (11.4-16.0); Hypochromasia Marked; Lymphocytes # (A) 0.7 k/uL (1.0-4.8); Lymphocytes % (A) 13 %; MCH 24.4 pg (25.0-35.0); MCHC 29.3 g/dL (31.0-37.0); MCV 83.2 fL (80.0-100.0); Mean Platelet Volume 9.9; Monocytes # (A) 0.3 k/uL (0-1.0); Monocytes % (A) 6 %; Neutrophils % (A) 78 %; Platelet Count 154 k/uL (150-450); RBC 3.02 m/uL (3.80-5.40); RDW 17.2 % (11.5-15.5); Reticulocyte % 3.2 % (0.5-2.0); WBC 5.2 k/uL (3.8-10.6)
[2021-06-05 11:47] LABS: Calcium 8.5 mg/dL (8.4-10.2); Potassium 3.8 mmol/L (3.5-5.1)
--- NOTE | 2021-06-05 12:42 | P.PN ---
Subjective Progress Note Date: 06/05/21 History of present illness: This is a 71-year-old female with a past medical history significant for atrial fibrillation with previous cardioversion 03/2020, atrial tachycardia/typical atrial flutter s/p ablation in 11/2020, coronary artery disease with previous CABG 1 HART to LAD 08/2007, mitral regurgitation s/pmitral valve repair 08/2007, congestive heart failure, hypertension, and hyperlipidemia. Patient follows in the office with Dr. Abdi. We have been asked to see the patient in consultation for congestive heart failure. Patient presents to the emergency department with complaints of worsening lower extremity edema over the past 4 days. Also last 2 days with orthopnea and PND, 4/6 night patient had to sleep in her chair due to shortness of breath. She states she ran out of her spironolactone 1-2 weeks ago. She denies any chest pain, palpitations, lightheadedness, dizziness. She was given a total of 60mg IV Lasix yesterday and 40mg IV this morning. Her edema has significantly improved. Denies shortness of breath. DIAGNOSTICS -EKG reveals sinus rhythm HR 59, first degree av block, non-specific ST changes in inferior leads, mild ST depression in lead V6. Prior EKG similar -Chest xray - small right pleural effusion, chronic interstitial pulmonary fibr osis -Laboratory data: Troponin 0.09, 3, INR 1.3, sodium 126, potassium 3.5, BUN 45, serum creatinine 1.75, WBC 5.4, bun 7.6, platelets 207 -Current home cardiac medications include hydralazine 100 mg 3 times a day, spironolactone 25 mg daily, pravastatin 40 mg at night, metoprolol tartrate 25 mg twice a day, Lasix 40 mg daily, Zetia 10 mg daily, and Eliquis 5 mg twice a day -Most recent echocardiogram obtained in February 2021 revealed ejection fraction 45-50%, basal inferior LV wall hypokinesis, moderate mitral regurgitation, trace tricuspid regurgitation -Event monitor in 01/2021 revealed sinus rhythm Lexiscan stress test 07/2020 revealed fixed inferior and inferolateral defect Cardiac catheterization 05/2007 revealed 80% mid LAD, total occlusion of the proximal left circumflex and proximal RCA, severe PVD involving the iliac system worse on the right than left 06/04/2021 The patient denies any new complaints. She denies chest pain, shortness of breath, lightheadedness or dizziness. cardiac monitor technician has been a sinus rhythm. Heart rate running in the 60s, blood pressure 147/68, pulse ox 96% on room air. Sodium 131, BUN 35 and creatinine 1.68. Hemoglobin 7.6 06/05/2021 Patient denies any new concerns. She states she is a little short of breath today. She has been seen by Dr. Landry regarding anemia with plan for outpatient endoscopy. Heart rate has been in the 60s and 70s, blood pressure 133/65. cardiac monitor technician sinus rhythm. Pulse ox is 97% on room air. Repeat hemoglobin is 7.4. Sodium 129, potassium 3.8, chloride 88, CO2 30, BUN 32 and creatinine 1.73. PHYSICAL EXAM: VITAL SIGNS: Reviewed. GENERAL: Well-developed in no acute distress. HEENT: Head is normocephalic. Pupils are equal, round. Sclerae anicteric. Neck supple. No JVD. LUNGS: Respirations even and unlabored. Lungs clear to auscultation bilaterally HEART: Regular rate and rhythm. S1 and S2 heard. Systolic murmur noted ABDOMEN: Soft. Nondistended. Nontender. EXTREMITIES: Normal range of motion. No clubbing or cyanosis. Peripheral pulses intact. trace bilateral lower extremity edema NEUROLOGIC: Awake and alert. Oriented x 3. ASSESSMENT: Acute on chronic congestive heart failure with borderline or intermediate ejection fraction, 45-50% Paroxysmal atrial fibrillation with previous cardioversion Atrial tachycardia/Typical atrial flutter s/p ablation in 11/2020 Coronary artery disease with previous CABG 1 HART to LAD 08/2007 Mitral regurgitation s/p mitral valve repair 08/2007 Hypertension Hyperlipidemia Chronic kidney disease Anemia PLAN: No need to repeat echocardiogram PO Lasix 40mg BID Continue home cardiac meds Continue anticoagulation with Eliquis Patient is cleared from cardiology for discharge home Follow up with Dr. Abdi Nurse practitioner note has been reviewed by physician. Signing provider agrees with the documented findings, assessment, and plan of care. Objective - Vital Signs Vital signs: Vital Signs Temp 97.8 F 06/05/21 08:00 Pulse 70 06/05/21 08:53 Resp 16 06/05/21 08:00 BP 143/68 06/05/21 08:00 Pulse Ox 97 06/05/21 08:00 Intake & Output 06/04/21 06/05/21 06/05/21 18:59 06:59 18:59 Intake Total 600 120 Output Total 700 Balance -100 120 Weight 60.1 kg Intake: Oral 600 120 Output: Urine 700 Other: Voiding Method Toilet Toilet Toilet - Labs CBC & Chem 7: 06/05/21 10:21 06/05/21 10:21 Labs: Abnormal Lab Results - Last 24 Hours (Table) 06/04/21 Range/Units 08:30 Iron 14 L (50-170) ug/dL TIBC 477 H (228-460) ug/dL % Saturation 2.85 L (12.00-45.00)
--- NOTE | 2021-06-05 13:19 | P.PN ---
Subjective This is a pleasant 71 years old female with past medical history of Atrial Fibrillation on Eliquis , Coronary Artery Disease , chronic Heart Failure, COPD, GERD, Hyperlipidemia, Hypertension, Osteoarthritis chronic kidney disease, Carr's esophagus, hiatal hernia, sinus problems,s/p Coronary Bypass/CABG, Heart Catheterization, mitral valve replacement. Her PCP is Dr. Wilcox and grocery buyer is Dr. Abdi She was recently discharged from the hospital 2 months ago for acute systolic and diastolic CHF with ejection fraction 45-50%. Now presents because of bilateral leg swelling which is worsening. Also complained from some exertional dyspnea with little cough and phlegm early in the morning but no chest pain or abdominal pain. No diarrhea or vomiting. No urinary complaints She denies smoking, alcohol or illicit drugs. She is been afebrile but hypertensive, systolic blood pressure 169-181 with diastolic around 74-76. Also patient is mildly tachypneic CBC showing normocytic anemia with hemoglobin 7.6. INR is 1.3. Sodium 126 and creatinine 1.7 with baseline 1.4-1.5 Glucose 114, [place] [address], troponin elevated 0.093. EKG showing sinus bradycardia at 59 with first-degree AV block. No significant ST-T changes and QTC 443 Chest x-ray: Chronic interstitial pulmonary fibrosis, finding similar to prior exam. Correlate clinically to exclude CHF and venous congestion, mild. I looked at the chest x-ray by myself that looks like pulmonary congestion, although the heart does not look much enlarged however it is bigger than one year ago compared to the x-ray from 06/04/2020. In the emergency room patient was started on IV Lasix 06/04/2021 Patient regarding her heart failure she is doing well she has minimal or no leg edema, or basal crepitation , and grocery buyer cleared her for discharge today with recommendation to continue with oral Lasix and follow-up with Dr. Abdi as an outpatient. However I believe her symptoms are more related to her anemia and drop in hemoglobin causing her some exertional dyspnea. Her hemoglobin was as low as 7.2 yesterday, we started her on iron pills and his hemoglobin today is 7.6. Also staff check those of Eliquis with pharmacy given her sitting bolt she is 61 kg and her elevated creatinine then dose should be adjusted to 2.5 mg twice daily. Also anemia workup showing evidence of iron deficiency anemia. While B12 and folate are normal. I discussed the case with surgery team and Dr. Landry kindly will evaluate the patient prior to discharge. In the meantime we will increase her Protonix 40 kg to twice daily. Of note patient hemodynamically stable and denies any abdominal pain Sodium improving today 131 06/06/2011 Patient more short of breath today with some basal crepitation and worsening leg edema therefore one extra dose of IV Lasix is provided today and we will check labs tomorrow. Her creatinine is 1.6 which is her baseline, sodium slightly worse on 129. Hemoglobin generally stable at 7.4, little GI losing is suspected and patient might benefit from endoscopy therefore surgery team were consulted and Dr. Landry evaluated the patient and recommended outpatient endoscopy, patient informed and she agrees. In the meantime she remains on Eliquis for her paroxysmal atrial fibrillation with previous cardioversion. Objective - Vital Signs Vital signs: Vital Signs Temp 97.8 F 06/05/21 08:00 Pulse 67 06/05/21 12:25 Resp 17 06/05/21 12:00 BP 133/65 06/05/21 12:00 Pulse Ox 97 06/05/21 12:00 Intake & Output 06/04/21 06/05/21 06/05/21 18:59 06:59 18:59 Intake Total 600 120 Output Total 700 550 Balance -100 120 -550 Weight 60.1 kg Intake: Oral 600 120 Output: Urine 700 550 Other: Voiding Method Toilet Toilet Toilet - Exam GENERAL: The patient is alert and oriented x3, not in any acute distress. Well developed, well nourished. HEENT: Pupils are round and equally reacting to light. EOMI. No scleral icterus. No conjunctival pallor. Normocephalic, atraumatic. No pharyngeal erythema. No thyromegaly. CARDIOVASCULAR: S1 and S2 present. No murmurs, rubs, or gallops. PULMONARY: Chest is clear to auscultation, no wheezing or crackles. ABDOMEN: Soft, nontender, nondistended, normoactive bowel sounds. No palpable organomegaly. MUSCULOSKELETAL: No joint swelling or deformity. EXTREMITIES: No cyanosis, clubbing, or pedal edema. NEUROLOGICAL: Gross neurological examination did not reveal any focal deficits. SKIN: No rashes. no petechiae. - Labs CBC & Chem 7: 06/05/21 10:21 04 10:21 Labs: Abnormal Lab Results - Last 24 Hours (Table) 06/05/21 06/05/21 Range/Units 10:21 10:21 RBC 3.02 L (3.80-5.40) m/uL Hgb 7.4 L (11.4-16.0) gm/dL Hct 25.1 L (34.0-46.0) % MCH 24.4 L (25.0-35.0) pg MCHC 29.3 L (31.0-37.0) g/dL RDW 17.2 H (11.5-15.5) % Lymphocytes # 0.7 L (1.0-4.8) k/uL Retic Count 3.2 H (0.5-2.0) % Sodium 129 L (137-145) mmol/L Chloride 88 L (98-107) mmol/L BUN 32 H (7-17) mg/dL Creatinine 1.73 H (0.52-1.04) mg/dL Glucose 106 H (74-99) mg/dL Assessment and Plan Assessment: Iron deficiency anemia, suspected secondary to slow oozing of blood through GI team while she is taking double dose of Eliquis. Exertional dyspnea most likely related to anemia chronic CHF, systolic with ejection fraction of 45-50% paroxysmal atrial fibrillation with previous cardioversion. Mild acute kidney injury. Improved Hypervolemic hyponatremia. Improving Mildly elevated troponin, most likely secondary to kidney disease rather than cardiac disease Chronic kidney disease, stage III Hyperlipidemia History of GERD COPD, no acute exacerbation Hypertension History of osteoarthritis History of Carr's esophagus History of hiatal hernia History of coronary artery disease status post CABG History of mitral valve replacement Chronic atrial fibrillation on Eliquis Plan: This is a pleasant 71 years old female who presents with systolic CHF Continue with oral Lasix . Wood Shop Teacher cleared the patient for discharge Increase Protonix twice daily, lower dose of Eliquis to 2.5 mg twice daily instead of home dose of 5 mg. Surgical consult for possible blood loss through the GI tract. The recommended outpatient endoscopy, patient informed and she agrees. Extra dose of IV Lasix and check labs tomorrow including hemoglobin and sodium and creatinine labs and medication were reviewed.. Continue same treatment. Continue with symptomatic treatment. Resume home medication. Monitor lytes and vitals. DVT and GI prophylaxis. Further recommendations as per clinical course of the patient DVT prophylaxis: Eliquis GI Prophylaxis: Ppi, Protonix twice daily Possible discharge in 24-48 hours if she remains stable and improving.
[2021-06-05] MEDS: IPRATROPIUM-ALBUTEROL 3 ML NEB INHALATION PRN (19:33)
[2021-06-05] MEDS: PRAVASTATIN SODIUM 40 MG TAB PO SCH (20:58)
[2021-06-06] MEDS: FERROUS SULFATE 325 MG TAB PO SCH ×2 (06:24→17:18)
[2021-06-06] MEDS: IPRATROPIUM-ALBUTEROL 3 ML NEB INHALATION PRN ×2 (08:51→19:53)
[2021-06-06] MEDS: SYMBICORT 160-4.5 MCG INHALER INHALATION SCH ×2 (08:51→19:53)
[2021-06-06 09:08] LABS: Anisocytosis Slight; Basophils % (A) 1 %; Eosinophils # (A) 0.1 k/uL (0-0.7); Eosinophils % (A) 2 %; HCT 26.1 % (34.0-46.0); HGB 7.7 gm/dL (11.4-16.0); Hypochromasia Marked; Lymphocytes # (A) 0.8 k/uL (1.0-4.8); Lymphocytes % (A) 19 %; MCH 24.6 pg (25.0-35.0); MCHC 29.5 g/dL (31.0-37.0); MCV 83.2 fL (80.0-100.0); Mean Platelet Volume 8.6; Monocytes # (A) 0.3 k/uL (0-1.0); Monocytes % (A) 7 %; Neutrophils # (A) 2.9 k/uL (1.3-7.7); Neutrophils % (A) 70 %; Platelet Count 171 k/uL (150-450); RBC 3.13 m/uL (3.80-5.40); RDW 17.3 % (11.5-15.5); WBC 4.1 k/uL (3.8-10.6)
[2021-06-06] MEDS: carvediloL 6.25 MG TAB PO SCH ×2 (09:09→20:40)
[2021-06-06] MEDS: SPIRONOLACTONE 25 MG TAB PO SCH (09:09)
[2021-06-06] MEDS: APIXABAN 2.5 MG TABLET PO SCH ×2 (09:09→20:40)
[2021-06-06] MEDS: CYANOCOBALAMIN 500 MCG TAB PO SCH (09:09)
[2021-06-06] MEDS: FUROSEMIDE 40 MG TAB PO SCH ×2 (09:09→17:18)
[2021-06-06] MEDS: EZETIMIBE 10 MG TAB PO SCH (09:09)
[2021-06-06] MEDS: hydrALAZINE HCL 50 MG TAB PO SCH ×3 (09:10→20:40)
[2021-06-06] MEDS: PANTOPRAZOLE 40 MG/10 ML VIAL IVP SCH ×2 (09:10→20:40)
[2021-06-06] MEDS: MAGNESIUM OXIDE 400 MG TAB PO SCH (09:10)
[2021-06-06] MEDS: guaiFENesin 600 MG TABLET.ER PO SCH ×2 (09:19→20:40)
[2021-06-06 09:22] LABS: Calcium 8.5 mg/dL (8.4-10.2); Magnesium 2.2 mg/dL (1.6-2.3); Potassium 3.3 mmol/L (3.5-5.1)
[2021-06-06] MEDS: POTASSIUM CHLORIDE ER 20 MEQ TAB.ER PO SCH ×2 (12:00→13:40)
[2021-06-06] MEDS: PRAVASTATIN SODIUM 40 MG TAB PO SCH (20:40)
--- NOTE | 2021-06-07 00:56 | P.PN ---
Subjective Progress Note Date: 06/06/21 This is a pleasant 71 years old female with past medical history of Atrial Fibrillation on Eliquis , Coronary Artery Disease , chronic Heart Failure, COPD, GERD, Hyperlipidemia, Hypertension, Osteoarthritis chronic kidney disease, Carr's esophagus, hiatal hernia, sinus problems,s/p Coronary Bypass/CABG, Heart Catheterization, mitral valve replacement. Her PCP is Dr. Wilcox and department helper is Dr. Abdi She was recently discharged from the hospital 2 months ago for acute systolic and diastolic CHF with ejection fraction 45-50%. Now presents because of bilateral leg swelling which is worsening. Also complained from some exertional dyspnea with little cough and phlegm early in the morning but no chest pain or abdominal pain. No diarrhea or vomiting. No urinary complaints She denies smoking, alcohol or illicit drugs. She is been afebrile but hypertensive, systolic blood pressure 169-181 with diastolic around 74-76. Also patient is mildly tachypneic CBC showing normocytic anemia with hemoglobin 7.6. INR is 1.3. Sodium 126 and creatinine 1.7 with baseline 1.4-1.5 Glucose 114, [place] [address], troponin elevated 0.093. EKG showing sinus bradycardia at 59 with first-degree AV block. No significant ST-T changes and QTC 443 Chest x-ray: Chronic interstitial pulmonary fibrosis, finding similar to prior exam. Correlate clinically to exclude CHF and venous congestion, mild. I looked at the chest x-ray by myself that looks like pulmonary congestion, although the heart does not look much enlarged however it is bigger than one year ago compared to the x-ray from 06/04/2020. In the emergency room patient was started on IV Lasix 06/04/2021 Patient regarding her heart failure she is doing well she has minimal or no leg edema, or basal crepitation , and department helper cleared her for discharge today with recommendation to continue with oral Lasix and follow-up with Dr. Abdi as an outpatient. However I believe her symptoms are more related to her anemia and drop in hemoglobin causing her some exertional dyspnea. Her hemoglobin was as low as 7.2 yesterday, we started her on iron pills and his hemoglobin today is 7.6. Also staff check those of Eliquis with pharmacy given her sitting bolt she is 61 kg and her elevated creatinine then dose should be adjusted to 2.5 mg twice daily. Also anemia workup showing evidence of iron deficiency anemia. While B12 and folate are normal. I discussed the case with surgery team and Dr. Landry kindly will evaluate the patient prior to discharge. In the meantime we will increase her Protonix 40 kg to twice daily. Of note patient hemodynamically stable and denies any abdominal pain Sodium improving today 131 06/06/2011 Patient more short of breath today with some basal crepitation and worsening leg edema therefore one extra dose of IV Lasix is provided today and we will check labs tomorrow. Her creatinine is 1.6 which is her baseline, sodium slightly worse on 129. Hemoglobin generally stable at 7.4, little GI losing is suspected and patient might benefit from endoscopy therefore surgery team were consulted and Dr. Landry evaluated the patient and recommended outpatient endoscopy, patient informed and she agrees. In the meantime she remains on Eliquis for her paroxysmal atrial fibrillation with previous cardioversion. 06/06/2021 Patient is seen and evaluated this morning with cardio following and patient has been switched back to oral Lasix and showing some hyponatremia most likely from excessive diuresis. Patient was also evaluated by general surgery Dr. Landry for possible endoscopic intervention and no plans at this time and encouraged to follow up outpatient for colonoscopy. Will refer to hematology outpatient as well. Patient denies any active bleeding. Patient is afebrile and reports to her shortness of breath being significantly improved. Will repeat BMP in am to m onitor sodium level Review of systems: Constitutional: No reports of fatigue, fever, or chills Cardiovascular: No reports of chest pain or palpitations Respiratory: No reports of shortness of breath or cough GI: No reports of nausea, vomiting, or diarrhea : No reports of dysuria or retention Neurovascular: No reports of weakness or numbness All medications have been reviewed Active Medications Acetaminophen (Acetaminophen Tab 500 Mg Tab) 500 mg PO Q4HR PRN PRN Reason: Fever and/ or Pain Albuterol Sulfate (Albuterol Nebulized 2.5 Mg/3 Ml) 2.5 mg INHALATION RT-Q6H PRN PRN Reason: Shortness Of Breath Last Admin: 06/05/21 08:43 Dose: 2.5 mg Documented by: Albuterol/Ipratropium (Ipratropium-Albuterol 3 Ml Neb) 3 ml INHALATION RT-QID PRN PRN Reason: Shortness Of Breath Or Wheezing Last Admin: 06/06/21 08:51 Dose: 3 ml Documented by: Apixaban (Apixaban 2.5 Mg Tablet) 2.5 mg PO BID [facility]; Protocol Last Admin: 06/06/21 09:09 Dose: 2.5 mg Documented by: Budesonide/Formoterol Fumarate (Symbicort 160-4.5 Mcg Inhaler) 2 puff INHALATION RT-BID [facility] Last Admin: 06/06/21 08:51 Dose: 2 puff Documented by: Calcitriol (Calcitriol 0.25 Mcg Cap) 0.25 mcg PO CREN[place]W [facility] Last Admin: 06/05/21 07:58 Dose: 0.25 mcg Documented by: Carvedilol (Carvedilol 6.25 Mg Tab) 6.25 mg PO BID [facility] Last Admin: 06/06/21 09:09 Dose: 6.25 mg Documented by: Cyanocobalamin (Cyanocobalamin 500 Mcg Tab) 500 mcg PO DAILY [facility] Stop: 06/25/21 14:16 Last Admin: 06/06/21 09:09 Dose: 500 mcg Documented by: Ezetimibe (Ezetimibe 10 Mg Tab) 10 mg PO DAILY [facility] Last Admin: 06/06/21 09:09 Dose: 10 mg Documented by: Ergocalciferol (Ergocalciferol 1,250 Mcg (50,000 Iu) Capsule) 1,250 mcg PO Q30D [facility] Ferrous Sulfate (Ferrous Sulfate 325 Mg Tab) 325 mg PO BID-W/MEALS [facility] Last Admin: 06/06/21 06:24 Dose: 325 mg Documented by: Furosemide (Furosemide 40 Mg Tab) 40 mg PO BID@0900,1600 [facility] Last Admin: 06/06/21 09:09 Dose: 40 mg Documented by: Guaifenesin (Guaifenesin 600 Mg Tablet.Er) 600 mg PO BID [facility] Last Admin: 06/06/21 09:19 Dose: 600 mg Documented by: Hydralazine HCl (Hydralazine Hcl 50 Mg Tab) 100 mg PO TID [facility] Last Admin: 06/06/21 09:10 Dose: 100 mg Documented by: Magnesium Oxide (Magnesium Oxide 400 Mg Tab) 400 mg PO DAILY [facility] Last Admin: 06/06/21 09:10 Dose: 400 mg Documented by: Miscellaneous Information (Potassium Replacement Protocol 1 Each Misc) 1 each MISCELLANE DAILY PRN; Protocol PRN Reason: Per Protocol Naloxone HCl (Naloxone 0.4 Mg/Ml 1 Ml Vial) 0.2 mg IV Q2M PRN PRN Reason: Opioid Reversal Pantoprazole Sodium (Pantoprazole 40 Mg/10 Ml Vial) 40 mg IVP BID [facility] Last Admin: 06/06/21 09:10 Dose: 40 mg Documented by: Pravastatin Sodium (Pravastatin Sodium 40 Mg Tab) 40 mg PO HS [facility] Last Admin: 06/05/21 20:58 Dose: 40 mg Documented by: Spironolactone (Spironolactone 25 Mg Tab) 25 mg PO DAILY [facility] Last Admin: 06/06/21 09:09 Dose: 25 mg Documented by: Physical exam: GENERAL: The patient is alert and oriented x3, not in any acute distress. Well developed, well nourished. HEENT: Pupils are round and equally reacting to light. EOMI. No scleral icterus. No conjunctival pallor. Normocephalic, atraumatic. No pharyngeal erythema. No thyromegaly. CARDIOVASCULAR: S1 and S2 present. No murmurs, rubs, or gallops. PULMONARY: Chest is clear to auscultation, no wheezing or crackles. ABDOMEN: Soft, nontender, nondistended, normoactive bowel sounds. No palpable organomegaly. MUSCULOSKELETAL: No joint swelling or deformity. EXTREMITIES: No cyanosis, clubbing, or pedal edema. NEUROLOGICAL: Gross neurological examination did not reveal any focal deficits. SKIN: No rashes. no petechiae. Assessment: Iron deficiency anemia, suspected secondary to slow oozing of blood through GI team while she is taking Eliquis. Exertional dyspnea most likely related to anemia chronic CHF, systolic with ejection fraction of 45-50% paroxysmal atrial fibrillation with previous cardioversion. Mild acute kidney injury. Improved Hypervolemic hyponatremia. now 127 again possible secondary to excessive di uretic use Mildly elevated troponin, most likely secondary to kidney disease rather than cardiac disease Chronic kidney disease, stage III Hyperlipidemia History of GERD COPD, no acute exacerbation Hypertension History of osteoarthritis History of Carr's esophagus History of hiatal hernia History of coronary artery disease status post CABG History of mitral valve replacement Chronic atrial fibrillation on Eliquis DVT prophylaxis GI prophylaxis Full code Plan: This is a pleasant 71 years old female who presents with systolic CHF Transitioned back to oral Lasix . Tree Care Foreman cleared the patient for discharge Continue Protonix twice daily, lower dose of Eliquis to 2.5 mg twice daily Surgery evaluated the patient for possible blood loss through the GI tract. The recommended outpatient endoscopy Repeat am labs to monitor sodium level Possible discharge in 24-48 hours if she remains stable and improving. The impression and plan of care has been dictated by Hilary Morales, Nurse Practitioner as directed. Dr. Leah MD I have performed a history and examination and MDM of this patient, discussed the same with the dictator, and agree with the dictator's assessment and plan as written ,documented as a scribe. Based on total visit time, I have performed more than 50% of the visit. Objective - Vital Signs Vital signs: Vital Signs Temp 97.4 F L 06/06/21 08:30 Pulse 75 06/06/21 09:00 Resp 16 06/06/21 08:30 BP 131/62 06/06/21 08:30 Pulse Ox 94 L 06/06/21 08:30 Intake & Output 06/05/21 06/06/21 06/06/21 18:59 06:59 18:59 Intake Total 360 Output Total 1350 600 Balance -990 -600 Weight 60.1 kg Intake: Oral 360 Output: Urine 1350 600 Other: Voiding Method Toilet Toilet - Labs CBC & Chem 7: 06/06/21 08:11 06/06/21 08:11 Labs: Abnormal Lab Results - Last 24 Hours (Table) 06/05/21 06/05/21 06/06/21 Range/Units 10:21 10:21 08:11 RBC 3.02 L 3.13 L (3.80-5.40) m/uL Hgb 7.4 L 7.7 L (11.4-16.0) gm/dL Hct 25.1 L 26.1 L (34.0-46.0) % MCH 24.4 L 24.6 L (25.0-35.0) pg MCHC 29.3 L 29.5 L (31.0-37.0) g/dL RDW 17.2 H 17.3 H (11.5-15.5) % Lymphocytes # 0.7 L 0.8 L (1.0-4.8) k/uL Retic Count 3.2 H (0.5-2.0) % Sodium 129 L (137-145) mmol/L Potassium (3.5-5.1) mmol/L Chloride 88 L (98-107) mmol/L BUN 32 H (7-17) mg/dL Creatinine 1.73 H (0.52-1.04) mg/dL Glucose 106 H (74-99) mg/dL 06/06/21 Range/Units 08:11 RBC (3.80-5.40) m/uL Hgb (11.4-16.0) gm/dL Hct (34.0-46.0) % MCH (25.0-35.0) pg MCHC (31.0-37.0) g/dL RDW (11.5-15.5) % Lymphocytes # (1.0-4.8) k/uL Retic Count (0.5-2.0) % Sodium 127 L (137-145) mmol/L Potassium 3.3 L (3.5-5.1) mmol/L Chloride 86 L (98-107) mmol/L BUN 30 H (7-17) mg/dL Creatinine 1.84 H (0.52-1.04) mg/dL Glucose 186 H (74-99) mg/dL
[2021-06-07] MEDS: FERROUS SULFATE 325 MG TAB PO SCH ×2 (06:50→17:41)
--- NOTE | 2021-06-07 08:31 | CDI ---
Documentation Clarification Form Date: 06/06/2021 05:51:53 PM From: Glory Mckinney RN CCDS Admit Date: 06/02/2021 05:06:00 PM Patient Name: Brittni Haynes Visit Number: [id number] Discharge Date: ATTENTION: The Clinical Documentation Specialists (CDI) and [facility] Coding Staff appreciate your assistance in clarifying documentation. Please respond to the clarification below the line at the bottom and electronically sign. The CDI & [facility] Coding staff will review the response and follow-up if needed. Please note: Queries are made part of the Legal Health Record. If you have any questions, please contact the author of this message via ITS. Dr. Sotomayor E Sheet Conflicting documentation has been found in the medical record. As attending physician, please provide clarification. Acute on chronic CHF, systolic with EF 45-50%, H&P, 06/03 06/05 Chronic CHF, systolic with EF 45-50%, Internal Medicine progress notes , 06/04 06/05. History/Risk Factors: 71-year-old female presents to the ED with exertional dyspnea and bilateral leg swelling which is worsening. Medical History: CAD, CHF and CKD. H&P, 06/03. Clinical Indicators: VSS:06/02 B/P 144/71; HR 59; Temp 97.7 F Oral; RR 16; SpO2 96% room air BNP: 06/02 Treatment: 06/02 to current Coreg 6.25mg PO BID; 06/02 Lasix 60mg IV x 1; 06/03 to 06/03 Lasix 40mg IV Q12HR; 06/03 current Lasix 40mg PO BID; 06/05 40mg IV x 1; 06/03 to current Aldactone 25mg PO Daily. Please clarify which diagnosis is most appropriate: [ ] Acute on Chronic Systolic CHF [ ] Chronic Systolic CHF [ ] Other (please specify) [ ] Unable to determine (Template Last Revised: April 2020) Acute on Chronic Systolic CHF MTDD
[2021-06-07] MEDS: FUROSEMIDE 40 MG TAB PO SCH ×2 (08:40→17:41)
[2021-06-07] MEDS: guaiFENesin 600 MG TABLET.ER PO SCH ×2 (08:40→20:42)
[2021-06-07] MEDS: hydrALAZINE HCL 50 MG TAB PO SCH ×3 (08:40→23:17)
[2021-06-07] MEDS: carvediloL 6.25 MG TAB PO SCH ×2 (08:40→20:42)
[2021-06-07] MEDS: APIXABAN 2.5 MG TABLET PO SCH ×2 (08:40→20:42)
[2021-06-07] MEDS: EZETIMIBE 10 MG TAB PO SCH (08:40)
[2021-06-07] MEDS: PANTOPRAZOLE 40 MG/10 ML VIAL IVP SCH ×2 (08:41→20:42)
[2021-06-07] MEDS: SPIRONOLACTONE 25 MG TAB PO SCH (08:41)
[2021-06-07] MEDS: CYANOCOBALAMIN 500 MCG TAB PO SCH (08:41)
[2021-06-07] MEDS: MAGNESIUM OXIDE 400 MG TAB PO SCH (08:41)
[2021-06-07] MEDS: SYMBICORT 160-4.5 MCG INHALER INHALATION SCH ×2 (08:55→20:22)
[2021-06-07] MEDS: IPRATROPIUM-ALBUTEROL 3 ML NEB INHALATION PRN ×3 (08:55→20:22)
[2021-06-07 08:59] LABS: Calcium 8.8 mg/dL (8.4-10.2); Potassium 4.2 mmol/L (3.5-5.1)
--- NOTE | 2021-06-07 19:17 | XR ---
EXAMINATION TYPE: XR chest 1V DATE OF EXAM: 06/07/2021 COMPARISON: 06/02/2021 HISTORY: Short of breath TECHNIQUE: Single view FINDINGS: There are sternal wires. There is some minimal blunting right costophrenic angle. There is no heart failure. There is some coarsening of interstitial markings. There are chest leads. IMPRESSION: There is a very small right pleural effusion without change. No obvious heart failure.
[2021-06-07] MEDS: PRAVASTATIN SODIUM 40 MG TAB PO SCH (20:44)
[2021-06-07] MEDS: ACETAMINOPHEN TAB 500 MG TAB PO PRN (20:44)
--- NOTE | 2021-06-07 23:14 | P.PN ---
Subjective Progress Note Date: 06/07/21 This is a pleasant 71 years old female with past medical history of Atrial Fibrillation on Eliquis , Coronary Artery Disease , chronic Heart Failure, COPD, GERD, Hyperlipidemia, Hypertension, Osteoarthritis chronic kidney disease, Carr's esophagus, hiatal hernia, sinus problems,s/p Coronary Bypass/CABG, Heart Catheterization, mitral valve replacement. Her PCP is Dr. Wilcox and dough machine operator is Dr. Abdi She was recently discharged from the hospital 2 months ago for acute systolic and diastolic CHF with ejection fraction 45-50%. Now presents because of bilateral leg swelling which is worsening. Also complained from some exertional dyspnea with little cough and phlegm early in the morning but no chest pain or abdominal pain. No diarrhea or vomiting. No urinary complaints She denies smoking, alcohol or illicit drugs. She is been afebrile but hypertensive, systolic blood pressure 169-181 with diastolic around 74-76. Also patient is mildly tachypneic CBC showing normocytic anemia with hemoglobin 7.6. INR is 1.3. Sodium 126 and creatinine 1.7 with baseline 1.4-1.5 Glucose 114, [place] [address], troponin elevated 0.093. EKG showing sinus bradycardia at 59 with first-degree AV block. No significant ST-T changes and QTC 443 Chest x-ray: Chronic interstitial pulmonary fibrosis, finding similar to prior exam. Correlate clinically to exclude CHF and venous congestion, mild. I looked at the chest x-ray by myself that looks like pulmonary congestion, although the heart does not look much enlarged however it is bigger than one year ago compared to the x-ray from 06/04/2020. In the emergency room patient was started on IV Lasix 06/04/2021 Patient regarding her heart failure she is doing well she has minimal or no leg edema, or basal crepitation , and dough machine operator cleared her for discharge today with recommendation to continue with oral Lasix and follow-up with Dr. Abdi as an outpatient. However I believe her symptoms are more related to her anemia and drop in hemoglobin causing her some exertional dyspnea. Her hemoglobin was as low as 7.2 yesterday, we started her on iron pills and his hemoglobin today is 7.6. Also staff check those of Eliquis with pharmacy given her sitting bolt she is 61 kg and her elevated creatinine then dose should be adjusted to 2.5 mg twice daily. Also anemia workup showing evidence of iron deficiency anemia. While B12 and folate are normal. I discussed the case with surgery team and Dr. Landry kindly will evaluate the patient prior to discharge. In the meantime we will increase her Protonix 40 kg to twice daily. Of note patient hemodynamically stable and denies any abdominal pain Sodium improving today 131 06/06/2011 Patient more short of breath today with some basal crepitation and worsening leg edema therefore one extra dose of IV Lasix is provided today and we will check labs tomorrow. Her creatinine is 1.6 which is her baseline, sodium slightly worse on 129. Hemoglobin generally stable at 7.4, little GI losing is suspected and patient might benefit from endoscopy therefore surgery team were consulted and Dr. Landry evaluated the patient and recommended outpatient endoscopy, patient informed and she agrees. In the meantime she remains on Eliquis for her paroxysmal atrial fibrillation with previous cardioversion. 06/06/2021 Patient is seen and evaluated this morning with cardio following and patient has been switched back to oral Lasix and showing some hyponatremia most likely from excessive diuresis. Patient was also evaluated by general surgery Dr. Landry for possible endoscopic intervention and no plans at this time and encouraged to follow up outpatient for colonoscopy. Will refer to hematology outpatient as well. Patient denies any active bleeding. Patient is afebrile and reports to her shortness of breath being significantly improved. Will repeat BMP in am to m onitor sodium level 06/07/2021 Patient is seen in follow-up this morning with cardiology following and has been transitioned oral Lasix and tolerating. Patient's kidney functions worsening and creatinine is 1.91 and sodium mildly improved at 128 and will consult nephrology and appreciate input and recommendations. Patient continued on breathing inhalational treatments as well. Patient is afebrile. Patient denies chest pain or worsening shortness of breath. Review of systems: Constitutional: No reports of fatigue, fever, or chills Cardiovascular: No reports of chest pain or palpitations Respiratory: No reports of worsening shortness of breath or cough GI: No reports of nausea, vomiting, or diarrhea : No reports of dysuria or retention Neurovascular: No reports of weakness or numbness All medications have been reviewed Active Medications Acetaminophen (Acetaminophen Tab 500 Mg Tab) 500 mg PO Q4HR PRN PRN Reason: Fever and/ or Pain Albuterol Sulfate (Albuterol Nebulized 2.5 Mg/3 Ml) 2.5 mg INHALATION RT-Q6H PRN PRN Reason: Shortness Of Breath Last Admin: 06/05/21 08:43 Dose: 2.5 mg Documented by: Albuterol/Ipratropium (Ipratropium-Albuterol 3 Ml Neb) 3 ml INHALATION RT-QID PRN PRN Reason: Shortness Of Breath Or Wheezing Last Admin: 06/07/21 12:07 Dose: 3 ml Documented by: Apixaban (Apixaban 2.5 Mg Tablet) 2.5 mg PO BID [facility]; Protocol Last Admin: 06/07/21 08:40 Dose: 2.5 mg Documented by: Budesonide/Formoterol Fumarate (Symbicort 160-4.5 Mcg Inhaler) 2 puff INHALATION RT-BID [facility] Last Admin: 06/07/21 08:55 Dose: 2 puff Documented by: Calcitriol (Calcitriol 0.25 Mcg Cap) 0.25 mcg PO CRENSHAW [facility] Last Admin: 06/05/21 07:58 Dose: 0.25 mcg Documented by: Carvedilol (Carvedilol 6.25 Mg Tab) 6.25 mg PO BID [facility] Last Admin: 06/07/21 08:40 Dose: 6.25 mg Documented by: Cyanocobalamin (Cyanocobalamin 500 Mcg Tab) 500 mcg PO DAILY [facility] Stop: 06/25/21 14:16 Last Admin: 06/07/21 08:41 Dose: 500 mcg Documented by: Ezetimibe (Ezetimibe 10 Mg Tab) 10 mg PO DAILY [facility] Last Admin: 06/07/21 08:40 Dose: 10 mg Documented by: Ergocalciferol (Ergocalciferol 1,250 Mcg (50,000 Iu) Capsule) 1,250 mcg PO Q30D [facility] Ferrous Sulfate (Ferrous Sulfate 325 Mg Tab) 325 mg PO BID-W/MEALS [facility] Last Admin: 06/07/21 06:50 Dose: 325 mg Documented by: Furosemide (Furosemide 40 Mg Tab) 40 mg PO BID@0900,1600 [facility] Last Admin: 06/07/21 08:40 Dose: 40 mg Documented by: Guaifenesin (Guaifenesin 600 Mg Tablet.Er) 600 mg PO BID [facility] Last Admin: 06/07/21 08:40 Dose: 600 mg Documented by: Hydralazine HCl (Hydralazine Hcl 50 Mg Tab) 100 mg PO TID [facility] Last Admin: 06/07/21 08:40 Dose: 100 mg Documented by: Magnesium Oxide (Magnesium Oxide 400 Mg Tab) 400 mg PO DAILY [facility] Last Admin: 06/07/21 08:41 Dose: 400 mg Documented by: Miscellaneous Information (Potassium Replacement Protocol 1 Each Misc) 1 each MISCELLANE DAILY PRN; Protocol PRN Reason: Per Protocol Naloxone HCl (Naloxone 0.4 Mg/Ml 1 Ml Vial) 0.2 mg IV Q2M PRN PRN Reason: Opioid Reversal Pantoprazole Sodium (Pantoprazole 40 Mg/10 Ml Vial) 40 mg IVP BID [facility] Last Admin: 06/07/21 08:41 Dose: 40 mg Documented by: Pravastatin Sodium (Pravastatin Sodium 40 Mg Tab) 40 mg PO HS [facility] Last Admin: 06/06/21 20:40 Dose: 40 mg Documented by: Spironolactone (Spironolactone 25 Mg Tab) 25 mg PO DAILY [facility] Last Admin: 06/07/21 08:41 Dose: 25 mg Documented by: Physical exam: GENERAL: The patient is alert and oriented x3, not in any acute distress. Well developed, well nourished. HEENT: Pupils are round and equally reacting to light. EOMI. No scleral icterus. No conjunctival pallor. Normocephalic, atraumatic. No pharyngeal erythema. No thyromegaly. CARDIOVASCULAR: S1 and S2 present. No murmurs, rubs, or gallops. PULMONARY: Chest is clear to auscultation, no wheezing or crackles. ABDOMEN: Soft, nontender, nondistended, normoactive bowel sounds. No palpable organomegaly. MUSCULOSKELETAL: No joint swelling or deformity. EXTREMITIES: No cyanosis, clubbing, or pedal edema. NEUROLOGICAL: Gross neurological examination did not reveal any focal deficits. SKIN: No rashes. no petechiae. Assessment: Iron deficiency anemia, suspected secondary to slow oozing of blood through GI while she is taking Eliquis. Exertional dyspnea most likely related to anemia Acute on chronic CHF, systolic dysfunction with ejection fraction of 45-50% paroxysmal atrial fibrillation with previous cardioversion. Mild acute kidney injury. Hypervolemic hyponatremia. now 128, again possible secondary to excessive diuretic use, will consult nephrology Mildly elevated troponin, most likely secondary to kidney disease rather than cardiac disease Chronic kidney disease, stage III Hyperlipidemia History of GERD COPD, no acute exacerbation Hypertension History of osteoarthritis History of Carr's esophagus History of hiatal hernia History of coronary artery disease status post CABG History of mitral valve replacement Chronic atrial fibrillation on Eliquis DVT prophylaxis GI prophylaxis Full code Plan: This is a pleasant 71 years old female who presents with systolic CHF Transitioned back to oral Lasix . Premix Operator Concentrate cleared the patient for discharge although patient is hyponatremic and kidney functions worsening and will consult nephrology and appreciate input and recommendations Continue Protonix twice daily, lower dose of Eliquis to 2.5 mg twice daily Surgery evaluated the patient for possible blood loss through the GI tract. Kade parker recommended outpatient endoscopy Repeat am labs to monitor sodium level and kidney functions Possible discharge in 24 hours if she remains stable and improving. The impression and plan of care has been dictated by Hilary Morales, Nurse Practitioner as directed. Dr. Leah MD I have performed a history and examination and MDM of this patient, discussed the same with the dictator, and agree with the dictator's assessment and plan as written ,documented as a scribe. Based on total visit time, I have performed more than 50% of the visit. Objective - Vital Signs Vital signs: Vital Signs Temp 98.3 F 06/07/21 08:00 Pulse 78 06/07/21 09:07 Resp 18 06/07/21 08:00 BP 131/64 06/07/21 08:00 Pulse Ox 96 06/07/21 08:00 Intake & Output 06/06/21 06/07/21 06/07/21 18:59 06:59 18:59 Intake Total 840 600 Output Total 600 900 Balance 240 -300 Weight 59.1 kg Intake: Oral 840 600 Output: Urine 600 900 Other: Voiding Method Toilet Toilet - Labs CBC & Chem 7: 06/06/21 08:11 06/07/21 07:55 Labs: Abnormal Lab Results - Last 24 Hours (Table) 06/07/21 Range/Units 07:55 Sodium 128 L (137-145) mmol/L Chloride 90 L (98-107) mmol/L BUN 33 H (7-17) mg/dL Creatinine 1.91 H (0.52-1.04) mg/dL Glucose 145 H (74-99) mg/dL
[2021-06-08 04:34] VITALS: RESP 16
[2021-06-08] MEDS: FERROUS SULFATE 325 MG TAB PO SCH (06:28)
[2021-06-08] MEDS: IPRATROPIUM-ALBUTEROL 3 ML NEB INHALATION PRN (08:53)
[2021-06-08] MEDS: SYMBICORT 160-4.5 MCG INHALER INHALATION SCH (08:54)
[2021-06-08 09:22] VITALS: BP 160/75; TEMP 97.8
[2021-06-08] MEDS: CYANOCOBALAMIN 500 MCG TAB PO SCH (09:27)
[2021-06-08] MEDS: carvediloL 6.25 MG TAB PO SCH (09:27)
[2021-06-08] MEDS: APIXABAN 2.5 MG TABLET PO SCH (09:27)
[2021-06-08] MEDS: MAGNESIUM OXIDE 400 MG TAB PO SCH (09:27)
[2021-06-08] MEDS: ACETAMINOPHEN TAB 500 MG TAB PO PRN (09:27)
[2021-06-08] MEDS: guaiFENesin 600 MG TABLET.ER PO SCH (09:27)
[2021-06-08] MEDS: FUROSEMIDE 40 MG TAB PO SCH (09:27)
[2021-06-08] MEDS: SPIRONOLACTONE 25 MG TAB PO SCH (09:28)
[2021-06-08] MEDS: PANTOPRAZOLE 40 MG/10 ML VIAL IVP SCH (09:28)
[2021-06-08] MEDS: EZETIMIBE 10 MG TAB PO SCH (09:28)
[2021-06-08] MEDS: hydrALAZINE HCL 50 MG TAB PO SCH (09:28)
[2021-06-08 09:37] LABS: Magnesium 2.4 mg/dL (1.6-2.3); Potassium 3.7 mmol/L (3.5-5.1)
--- NOTE | 2021-06-08 10:07 | P.NPCON ---
History of Present Illness - Reason for Consult acute renal failure, chronic renal failure - History of Present Illness Reason for consultation: Acute kidney injury on chronic kidney disease History of present illness: Patient is a 71-year-old female seen in consultation for acute kidney injury on chronic kidney disease. Patient has chronic kidney disease stage IIIB with baseline creatinine near 1.5 secondary to nephrosclerosis. Creatinine on admission was 1.75 and peaked at 1.91 yesterday. It is 1.8 today. Patient presented to the hospital on 06/02/2021 with lower extremity swelling. She was also complaining of mild shortness of breath and a nonproductive cough. Patient states she was taking Lasix 40 mg once daily at home. She has been maintained on oral Lasix 40 mg twice daily this admission. She has history of systolic CHF with ejection fraction of 40-45% with moderate mitral regurgitation. She denies use of nonsteroidals. Oral intake has been fair. Sodium level has also been r unning on the lower side. It was 128 yesterday and is 129 today. Chest x-ray done yesterday showed no evidence of heart failure. She is on room air. No edema in her lower exam is. No fever or chills. No hematuria. Denies history of diabetes. Vital signs are stable. General: Awake and alert. No acute distress. HEENT: Head exam is unremarkable. LUNGS: Breath sounds decreased. HEART: Rate and Rhythm are regular. ABDOMEN: Soft, no distention. EXTREMITITES: No edema. Past Medical History Past Medical History: Atrial Fibrillation, Coronary Artery Disease (CAD), Chest Pain / Angina, Heart Failure, COPD, Eye Disorder, GERD/Reflux, Hyperlipidemia, Hypertension, Myocardial Infarction (AK), Osteoarthritis (OA), Pneumonia, Renal Disease Additional Past Medical History / Comment(s): Carr's esophagus, hiatal hernia, sinus problems, past renal insufficiency, acute blood loss anemia with misscarriage. Last Myocardial Infarction Date:: 2007 History of Any Multi-Drug Resistant Organisms: None Reported Past Surgical History: Cardiac Valve Replacement, Cholecystectomy, Coronary Bypass/CABG, Heart Catheterization, Tubal Ligation Additional Past Surgical History / Comment(s): 2008 CABG with jacinto to lad and mitral valve replacement, MAIRA, EGD and colonoscopy. Past Anesthesia/Blood Transfusion Reactions: Motion Sickness Additional Past Anesthesia/Blood Transfusion Reaction / Comment(s): Pt received blood with misscarriage once without reaction. Past Psychological History: No Psychological Hx Reported Smoking Status: Former smoker Past Alcohol Use History: None Reported Past Drug Use History: None Reported - Past Family History Mother Family Medical History: COPD, Coronary Artery Disease (CAD), Myocardial Infarc tion (AK) Additional Family Medical History / Comment(s): Pt does not know at what age her mother had a AK. Father Family Medical History: No Reported History Additional Family Medical History / Comment(s): Father was healthy. Medications and Allergies Home Medications Medication Instructions Recorded Confirmed Type Ergocalciferol (Vitamin D2) 50,000 unit PO Q30D 07/06/16 06/02/21 History [Vitamin D2] Pravastatin Sodium 40 mg PO HS 07/06/16 06/02/21 History Ezetimibe [Zetia] 10 mg PO DAILY 04/19/20 06/02/21 History Omeprazole Magnesium [PriLOSEC OTC] 20 mg PO DAILY PRN 04/19/20 06/02/21 History calcitrioL [Calcitriol] 0.25 mcg PO CRENSHAW 04/19/20 06/02/21 History Apixaban [Eliquis] 5 mg PO BID #180 tab 04/25/20 06/02/21 Rx Albuterol Sulfate [Proair Hfa] 2 puff INHALATION RT-Q6H PRN 02/23/21 06/02/21 History Budesonide/Formoterol Fumarate 2 puff INHALATION RT-BID 02/23/21 06/02/21 History [Symbicort 160-4.5 Mcg Inhaler] Magnesium Oxide [Mag-Ox] 400 mg PO DAILY 02/23/21 06/02/21 History guaiFENesin [Mucinex] 600 mg PO BID 10 Days #20 tab 03/10/21 06/02/21 Rx hydrALAZINE HCL [Apresoline] 100 mg PO TID 04/05/21 06/02/21 History Furosemide [Lasix] 40 mg PO DAILY #90 tab 04/07/21 06/02/21 Rx Carvedilol [Coreg] 6.25 mg PO BID 06/02/21 06/02/21 History Spironolactone 25 mg PO DAILY 60 Days #60 tab 06/03/21 Rx Allergies Allergy/AdvReac Type Severity Reaction Status Date / Time amlodipine Allergy Muscle Verified 06/02/21 13:29 Spasms chlorthalidone Allergy Vomiting Verified 06/02/21 13:29 Iodinated Contrast Media Allergy Rash/Hives Verified 06/02/21 13:29 [Iodinated Contrast Media - Oral and] meperidine [From Demerol] Allergy Vomiting Verified 06/02/21 13:29 Penicillins Allergy Swelling/hi Verified 06/02/21 13:29 ves Physical Exam Vitals: Vital Signs Temp Pulse Pulse Resp BP Pulse Ox 06/08/21 09:20 97.8 F 71 16 160/75 95 06/08/21 09:05 71 06/08/21 08:55 70 06/08/21 04:33 98.0 F 74 16 142/92 92 L 06/07/21 23:16 98.2 F 73 18 154/70 93 L 06/07/21 20:36 72 06/07/21 20:20 72 06/07/21 19:51 98.0 F 77 18 174/74 92 L 06/07/21 16:00 69 18 137/75 95 06/07/21 14:00 69 18 06/07/21 12:15 75 06/07/21 12:07 75 06/07/21 12:00 98.2 F 69 18 147/67 98 Intake and Output 06/07/21 06/08/21 06/08/21 22:59 06:59 14:59 Intake Total 120 Output Total 900 Balance -900 120 Intake: Oral 120 Output: Urine 900 Other: Weight 59.6 kg Results - Lab Results Most recent lab results Calcium 9.0 mg/dL (8.4-10.2) 06/08/21 08:39 Magnesium 2.4 mg/dL (1.6-2.3) H 06/08/21 08:39 06/06/21 08:11 06/08/21 08:39 Assessment and Plan Plan: Assessment: 1. Acute kidney injury mostly prerenal secondary to diuresis. Creatinine peaked at 1.9 this admission and is 1.8 today. 2. Chronic kidney disease stage IIIB with baseline creatinine near 1.5 secondary to nephrosclerosis. 3. Chronic systolic CHF with ejection fraction of 45-50% with moderate mitral regurgitation. Now compensated. 4. Anemia of chronic kidney disease. Iron deficiency noted. No active bleeding. 5. Hyponatremia. Initially hypervolemic. Now euvolemic. 6. Hypertension with chronic kidney disease. Stable. 7. Chronic kidney disease mineral bone disease maintained on calcitriol. Plan: Decrease Lasix to 40 mg once daily. Maintain low salt diet and fluid restriction. Add IV iron. Continue to monitor renal function and urine output. Avoid nephrotoxins. Advised patient to monitor her weight closely at home and to increase Lasix to 40 mg twice daily if notices worsening of edema or more than 3 pounds weight gain. She is also advised to follow up outpatient 1 week post discharge. Thank you for the consultation. I will continue to follow the patient with you during her hospital stay.
[2021-06-08] MEDS ORDERED: SODIUM FERRIC GLUCONAT-SUCROSE 125 MG in SODIUM CHLORIDE 0.9% 100 ML IVPB SCH (10:30)
[2021-06-08] MEDS: ALBUTEROL NEBULIZED 2.5 MG/3 ML INHALATION PRN (12:07)
[2021-06-08 12:21] VITALS: PULSE 74
--- NOTE | 2021-06-08 14:43 | P.DS ---
Providers Date of admission: 06/02/21 17:06 Expected date of discharge: 06/08/21 Attending physician: Antonina Quintanilla Consults: 06/02/21 17:07 Consult Physician Urgent Consulting Provider: [facility] Consult Reason/Comments: aechf Do you want consulting provider notified?: Yes 06/04/21 09:56 Consult Physician Urgent Consulting Provider: Carlos Landry Consult Reason/Comments: anemia Do you want consulting provider notified?: Already Contacted 06/07/21 10:54 Consult Physician Routine Consulting Provider: Yordy Boo Consult Reason/Comments: low sodium, increasing creatinine Do you want consulting provider notified?: Yes Primary care physician: Saman Wilcox [facility] Course: Final diagnosis Iron deficiency anemia, suspected secondary to slow oozing of blood through GI while she is taking Eliquis. Exertional dyspnea most likely related to anemia Acute on chronic CHF, systolic dysfunction with ejection fraction of 45-50% paroxysmal atrial fibrillation with previous cardioversion. Mild acute kidney injury. Hypervolemic hyponatremia. now 128, again possible secondary to excessive diuretic use, will consult nephrology Mildly elevated troponin, most likely secondary to kidney disease rather than cardiac disease Chronic kidney disease, stage III Hyperlipidemia History of GERD COPD, no acute exacerbation Hypertension History of osteoarthritis History of Carr's esophagus History of hiatal hernia History of coronary artery disease status post CABG History of mitral valve replacement Chronic atrial fibrillation on Eliquis DVT prophylaxis GI prophylaxis Full code Discharge disposition Patient is being discharged in a stable condition with guarded prognosis to home. Patient will follow-up with Dr. Wilcox in the outpatient setting upon discharge. Patient is to also follow up with nephrology, cardiology, general surgery Dr. Landry in the outpatient setting within the next week. Total time taken is greater than 35 minutes. Hospital course This is a 71-year-old female who was recently admitted with bilateral leg swelling and worsening shortness of breath and was being closely monitored. Patient closely monitored by cardiology and also was evaluated by general surgery for chronic anemia and will follow-up with Dr. Landry in the outpatient setting for possible colonoscopy. Patient with hyponatremia and elevated creati nine most likely secondary to excessive diuretic use. Patient will follow-up with nephrology and cardiology in the outpatient setting. Patient reports to significant improvement in swelling and also shortness of breath and is requesting to go home. Sodium slightly improved at 129 and creatinine trending down. Patient provided prescription for outpatient labs to follow-up to monitor kidney functions and electrolytes closely. Currently no reports of chest pain, shortness of breath, or palpitations. Patient is afebrile. No reports of nausea or vomiting and patient is tolerating diet. Patient will be discharged home today. Physical exam: GENERAL: The patient is alert and oriented x3, not in any acute distress. Well developed, well nourished. HEENT: Pupils are round and equally reacting to light. EOMI. No scleral icterus. No conjunctival pallor. Normocephalic, atraumatic. No pharyngeal erythema. No thyromegaly. CARDIOVASCULAR: S1 and S2 present. No murmurs, rubs, or gallops. PULMONARY: Chest is clear to auscultation, no wheezing or crackles. ABDOMEN: Soft, nontender, nondistended, normoactive bowel sounds. No palpable organomegaly. MUSCULOSKELETAL: No joint swelling or deformity. EXTREMITIES: No cyanosis, clubbing, or pedal edema. NEUROLOGICAL: Gross neurological examination did not reveal any focal deficits. SKIN: No rashes. no petechiae. Please refer to medication reconciliation sheet for a list of medications. The impression and plan of care has been dictated by Hilary Morales, Nurse Practitioner as directed. Dr. Leah MD I have performed a history and examination and MDM of this patient, discussed the same with the dictator, and agree with the dictator's assessment and plan as written ,documented as a scribe. Based on total visit time, I have performed more than 50% of the visit. Patient Condition at Discharge: Stable Plan - Discharge Summary Discharge Rx Participant: No New Discharge Prescriptions: New Ipratropium-Albuterol Nebulize [Duoneb 0.5 mg-3 mg/3 ml Soln] 3 ml INHALATION RT-QID PRN 30 Days #90 ml PRN Reason: Shortness Of Breath Or Wheezing Acetaminophen Tab [Tylenol] 500 mg PO Q4HR PRN tab PRN Reason: Fever And/ Or Pain Apixaban [Eliquis] 2.5 mg PO BID 30 Days #60 tablet Ferrous Sulfate [Iron (65 MG Elemental)] 325 mg PO BID-W/MEALS 30 Days #60 tab Cyanocobalamin [Vitamin B-12] 500 mcg PO DAILY #30 tab Continue Ergocalciferol (Vitamin D2) [Vitamin D2] 50,000 unit PO Q30D Pravastatin Sodium 40 mg PO HS calcitrioL [Calcitriol] 0.25 mcg PO CRENSHAW Omeprazole Magnesium [PriLOSEC OTC] 20 mg PO DAILY PRN PRN Reason: gerd Ezetimibe [Zetia] 10 mg PO DAILY Albuterol Sulfate [Proair Hfa] 2 puff INHALATION RT-Q6H PRN PRN Reason: Shortness Of Breath Magnesium Oxide [Mag-Ox] 400 mg PO DAILY guaiFENesin [Mucinex] 600 mg PO BID 10 Days #20 tab Carvedilol [Coreg] 6.25 mg PO BID Budesonide/Formoterol Fumarate [Symbicort 160-4.5 Mcg Inhaler] 2 puff INHALATION RT-BID hydrALAZINE HCL [Apresoline] 100 mg PO TID Furosemide [Lasix] 40 mg PO DAILY #90 tab Spironolactone 25 mg PO DAILY 60 Days #60 tab Discontinued Apixaban [Eliquis] 5 mg PO BID #180 tab Discharge Medication List Ergocalciferol (Vitamin D2) [Vitamin D2] 50,000 unit PO Q30D 07/06/16 [History] Pravastatin Sodium 40 mg PO HS 07/06/16 [History] Ezetimibe [Zetia] 10 mg PO DAILY 04/19/20 [History] Omeprazole Magnesium [PriLOSEC OTC] 20 mg PO DAILY PRN 04/19/20 [History] calcitrioL [Calcitriol] 0.25 mcg PO CRENSHAW 04/19/20 [History] Albuterol Sulfate [Proair Hfa] 2 puff INHALATION RT-Q6H PRN 02/23/21 [History] Budesonide/Formoterol Fumarate [Symbicort 160-4.5 Mcg Inhaler] 2 puff INHALATION RT-BID 02/23/21 [History] Magnesium Oxide [Mag-Ox] 400 mg PO DAILY 02/23/21 [History] guaiFENesin [Mucinex] 600 mg PO BID 10 Days #20 tab 03/10/21 [Rx] hydrALAZINE HCL [Apresoline] 100 mg PO TID 04/05/21 [History] Furosemide [Lasix] 40 mg PO DAILY #90 tab 04/07/21 [Rx] Carvedilol [Coreg] 6.25 mg PO BID 06/02/21 [History] Spironolactone 25 mg PO DAILY 60 Days #60 tab 06/03/21 [Rx] Acetaminophen Tab [Tylenol] 500 mg PO Q4HR PRN tab 06/08/21 [Rx] Apixaban [Eliquis] 2.5 mg PO BID 30 Days #60 tablet 06/08/21 [Rx] Cyanocobalamin [Vitamin B-12] 500 mcg PO DAILY #30 tab 06/08/21 [Rx] Ferrous Sulfate [Iron (65 MG Elemental)] 325 mg PO BID-W/MEALS 30 Days #60 tab 06/08/21 [Rx] Ipratropium-Albuterol Nebulize [Duoneb 0.5 mg-3 mg/3 ml Soln] 3 ml INHALATION RT-QID PRN 30 Days #90 ml 06/08/21 [Rx] Follow up Appointment(s)/Referral(s): Gill Abdi MD [STAFF PHYSICIAN] - 06/20/21 1:45 pm (Sunday) Saman Wilcox DO [Primary Care Provider] - 06/16/21 1:30 pm () Yordy Boo DO [STAFF PHYSICIAN] - 1 Week (Office is closed. Please call to schedule appointment) Carlos Landry DO [Doctor of Osteopathic Medicine] - 1 Week (Office is closed. Please call to schedule appointment) Ambulatory/Diagnostic Orders: Basic Metabolic Panel [LAB.AMB] Time Frame: 3 Days, Location: None Selected Complete Blood Count w/diff [LAB.AMB] Location: None Selected Magnesium [LAB.AMB] Location: None Selected Activity/Diet/Wound Care/Special Instructions: heart healthy diet activity is restricted till you see your doctor Follow-up with cardiology, primary care provider, nephrology, and general surgery Recommend repeat labs in 2-3 days Continue taking medications as prescribed Discharge Disposition: HOME SELF-CARE
[2021-06-09] MEDS ORDERED: FUROSEMIDE 40 MG TAB PO SCH (09:00)
[2021-06-17] MEDS ORDERED: ERGOCALCIFEROL 1,250 MCG (50,000 IU) CAPSULE PO SCH (09:00)
== END 2021-06-08 13:27 | disposition home or self-care (01) | DRG 291 ==
LOC: EC 13:09 → 3SCARD 17:06
PROVIDERS: ADMIT Hospitalist; ATTEND Hospitalist
DX: I13.0 Hypertensive heart and chronic kidney disease with heart failure and stage 1 through stage 4 chronic kidney disease, or unspecified chronic kidney disease (principal); I50.23 Acute on chronic systolic (congestive) heart failure; E87.1 Hypo-osmolality and hyponatremia; I48.20 Chronic atrial fibrillation, unspecified; N17.9 Acute kidney failure, unspecified; D50.9 Iron deficiency anemia, unspecified; D63.1 Anemia in chronic kidney disease; E78.5 Hyperlipidemia, unspecified; I25.10 Atherosclerotic heart disease of native coronary artery without angina pectoris; I25.2 Old myocardial infarction; I34.0 Nonrheumatic mitral (valve) insufficiency; I44.0 Atrioventricular block, first degree; I48.0 Paroxysmal atrial fibrillation; J44.9 Chronic obstructive pulmonary disease, unspecified; J84.10 Pulmonary fibrosis, unspecified; K22.70 Barrett's esophagus without dysplasia; N18.32 Chronic kidney disease, stage 3b; T50.2X5A Adverse effect of carbonic-anhydrase inhibitors, benzothiadiazides and other diuretics, initial encounter; M89.8X9 Other specified disorders of bone, unspecified site; Z79.01 Long term (current) use of anticoagulants; Z79.51 Long term (current) use of inhaled steroids; Z79.899 Other long term (current) drug therapy; Z82.49 Family history of ischemic heart disease and other diseases of the circulatory system; Z95.2 Presence of prosthetic heart valve; Z95.1 Presence of aortocoronary bypass graft; Z87.891 Personal history of nicotine dependence; Z82.5 Family history of asthma and other chronic lower respiratory diseases; Z88.0 Allergy status to penicillin; Z88.8 Allergy status to other drugs, medicaments and biological substances
CPT/HCPCS: 36415; 71045; 71046; 80048; 80053; 82607; 82728; 82746; 83540; 83550; 83605; 83735; 83880; 84484; 85025; 85045; 85610; 85730; 93005; 94640; 94760; 96374; 99285

== ENCOUNTER → 2021-06-13 | Outpatient (CLI) | payer MEDICARE ==
[2021-06-13 14:55] LABS: Basophils # (A) 0.03 X 10*3/uL (0.00-0.10); Basophils % (A) 0.4 %; Eosinophils # (A) 0.05 X 10*3/uL (0.04-0.35); Eosinophils % (A) 0.7 %; HGB 7.7 g/dL (12.0-15.0); Immature Grans, Automated 0.4 %; Lymphocytes # (A) 0.45 X 10*3/uL (0.90-5.00); Lymphocytes % (A) 6.2 %; MCH 24.2 pg (27.0-32.0); MCHC 28.5 g/dL (32.0-37.0); MCV 84.9 fL (80.0-97.0); Mean Platelet Volume 10.3 fL (9.5-12.2); Monocytes % (A) 6.9 %; NRBC Per 100 WBC 0 /100 WBCS (0.0-0.0); Neutrophils # (A) 6.18 X 10*3/uL (1.80-7.70); Neutrophils % (A) 85.4 %; Platelet Count 133 X 10*3/uL (140-440); RBC 3.18 X 10*6/uL (4.10-5.20); RDW 19.7 % (11.5-14.5); WBC 7.24 X 10*3/uL (4.50-10.00)
[2021-06-13 15:07] LABS: African American GFR (CKD) 39.9 (60.0-200.0); Anion Gap 14.6 mmol/L (10.00-18.00); BUN/Creat Ratio 19.27 Ratio (12.00-20.00); Blood Urea Nitrogen 28.9 mg/dL (9.0-27.0); Calcium 9.1 mg/dL (8.7-10.3); Carbon Dioxide 23.4 mmol/L (20.0-27.5); Magnesium 2.5 mg/dL (1.5-2.4); Non-African American GFR(CKD) 34.4 (60.0-200.0); Potassium 3.9 mmol/L (3.5-5.5)
== END | disposition home or self-care (01) ==
LOC: LABWHC1 10:25
PROVIDERS: ATTEND Registered Nurse
DX: E87.1 Hypo-osmolality and hyponatremia (principal); D64.9 Anemia, unspecified; R79.89 Other specified abnormal findings of blood chemistry
CPT/HCPCS: 36415; 80048; 83735; 85025

== ENCOUNTER → 2022-09-22 | Outpatient (CLI) | payer MEDICARE ==
[2022-09-22 12:40] LABS: NT-Pro-B-Type Natriuretic Pept 4370 pg/mL
[2022-09-23 02:16] LABS: BUN/Creat Ratio 20.77 Ratio (12.00-20.00); Chloride 96 mmol/L (96-109); Chol/HDL Ratio 2.95 Ratio; Glucose 93 mg/dL (70-110); LDL Cholesterol,Calculated 85.1 mg/dL (0.0-131.0); Potassium 4.3 mmol/L (3.5-5.5); Sodium 136 mmol/L (135-145)
[2022-09-23 02:17] LABS: ALT 13 U/L (8-44); AST 21 U/L (13-35); Albumin 4.6 d/dL (3.8-4.9); Alkaline Phosphatase 73 U/L (41-126); Calcium 9.9 mg/dL (8.7-10.3); Carbon Dioxide 25.5 mmol/L (21.6-31.8); Total Bilirubin 0.5 mg/dL (0.3-1.2); Total Protein 6.6 d/dL (6.2-8.2)
== END | disposition home or self-care (01) ==
LOC: LABWHC1 10:14
PROVIDERS: ATTEND Internal Medicine Interventional Cardiology
DX: I42.9 Cardiomyopathy, unspecified (principal); I10 Essential (primary) hypertension; E78.2 Mixed hyperlipidemia
CPT/HCPCS: 36415; 80053; 80061; 83880

== ENCOUNTER → 2023-05-04 | Outpatient (CLI) | payer MEDICARE ==
[2023-05-04 18:20] LABS: NT-Pro-B-Type Natriuretic Pept 4116 pg/mL (0-125)
[2023-05-04 18:49] LABS: ALT 10 U/L (8-44); AST 16 U/L (13-35); Albumin 4.6 g/dL (3.8-4.9); Alkaline Phosphatase 70 U/L (41-126); BUN/Creat Ratio 21.15 Ratio (12.00-20.00); Blood Urea Nitrogen 27.5 mg/dL (9.0-27.0); Calcium 9.6 mg/dL (8.7-10.3); Carbon Dioxide 26.8 mmol/L (21.6-31.8); Chloride 97 mmol/L (96-109); Chol/HDL Ratio 2.77 Ratio; Globulin 2.3 g/dL (1.6-3.3); Glucose 95 mg/dL (70-110); LDL Cholesterol,Calculated 66.7 mg/dL (0.0-131.0); Potassium 4.4 mmol/L (3.5-5.5); Sodium 136 mmol/L (135-145); Total Bilirubin 0.6 mg/dL (0.3-1.2); Total Protein 6.9 g/dL (6.2-8.2)
== END | disposition home or self-care (01) ==
LOC: LABWHC1 10:57
PROVIDERS: ATTEND Internal Medicine Interventional Cardiology
DX: I50.32 Chronic diastolic (congestive) heart failure (principal); E78.2 Mixed hyperlipidemia
CPT/HCPCS: 36415; 80053; 80061; 83880

== ENCOUNTER → 2023-06-15 | Outpatient (CLI) | payer MEDICARE ==
[2023-06-15 16:34] LABS: ALT 8 U/L (8-44); AST 17 U/L (13-35); Albumin 4.4 g/dL (3.8-4.9); Alkaline Phosphatase 62 U/L (41-126); BUN/Creat Ratio 21.88 Ratio (12.00-20.00); Blood Urea Nitrogen 37.2 mg/dL (9.0-27.0); Calcium 9.7 mg/dL (8.7-10.3); Carbon Dioxide 24.2 mmol/L (21.6-31.8); Chloride 102 mmol/L (96-109); Chol/HDL Ratio 2.75 Ratio; Globulin 2.1 g/dL (1.6-3.3); Glucose 87 mg/dL (70-110); LDL Cholesterol,Calculated 76.5 mg/dL (0.0-131.0); Potassium 4.9 mmol/L (3.5-5.5); Sodium 139 mmol/L (135-145); Total Bilirubin 0.4 mg/dL (0.3-1.2); Total Protein 6.5 g/dL (6.2-8.2)
== END | disposition home or self-care (01) ==
LOC: LABWHC1 10:16
PROVIDERS: ATTEND Family Medicine
DX: E78.2 Mixed hyperlipidemia (principal)
CPT/HCPCS: 36415; 80053; 80061

== ENCOUNTER → 2023-10-26 | Outpatient (CLI) | payer MEDICARE ==
[2023-10-26 15:37] LABS: Blood Urea Nitrogen 26.6 mg/dL (9.0-27.0); Calcium 9.4 mg/dL (8.7-10.3); Carbon Dioxide 26.4 mmol/L (21.6-31.8); Chloride 99 mmol/L (96-109); Glucose 104 mg/dL (70-110); Sodium 139 mmol/L (135-145)
== END | disposition home or self-care (01) ==
LOC: LABWHC1 09:24
PROVIDERS: ATTEND Nurse Practitioner Adult Health
DX: N18.9 Chronic kidney disease, unspecified (principal)
CPT/HCPCS: 36415; 80048

== ENCOUNTER → 2023-12-25 | Outpatient (CLI) | payer MEDICARE ==
[2023-12-25 12:44] VITALS: BP 170/56; PULSE 50; RESP 16; TEMP 97.7
[2023-12-25] MEDS: DENOSUMAB 60 MG/ML 1 ML SYRINGE SQ NR (12:45)
== END ==
LOC: PROCWHC3 12:30
PROVIDERS: ATTEND Family Medicine
DX: M81.0 Age-related osteoporosis without current pathological fracture (principal)
CPT/HCPCS: 96372

== ENCOUNTER → 2024-06-03 | Outpatient (CLI) | payer MEDICARE ==
[2024-06-03 15:22] LABS: HCT 40.1 % (37.2-46.3); HGB 12.9 g/dL (12.0-15.0); MCH 31.2 pg (27.0-32.0); MCHC 32.2 g/dL (32.0-37.0); MCV 96.9 FL (80.0-97.0); Mean Platelet Volume 10.1 FL (9.5-12.2); NRBC Per 100 WBC 0 X 10*3/uL (0.00-0.01); Platelet Count 179 X 10*3/uL (140-440); RBC 4.14 X 10*6/uL (4.10-5.20); RDW 15.2 % (11.5-14.5); WBC 4.93 X 10*3/uL (4.50-10.00)
[2024-06-03 15:42] LABS: % Iron Saturation 24.32 (12.00-45.00); ALT 14 U/L (8-44); AST 20 U/L (13-35); Albumin 4.5 g/dL (3.8-4.9); Albumin/Globulin Ratio 2.14 Ratio (1.60-3.17); Alkaline Phosphatase 36 U/L (41-126); BUN/Creat Ratio 24.33 Ratio (12.00-20.00); Blood Urea Nitrogen 36.5 mg/dL (9.0-27.0); Calcium 9.4 mg/dL (8.7-10.3); Carbon Dioxide 26.2 mmol/L (21.6-31.8); Chloride 101 mmol/L (96-109); Ferritin 65.9 ng/mL (10.0-291.0); Globulin 2.1 g/dL (1.6-3.3); Glucose 83 mg/dL (70-110); Iron 98 UG/DL (50-170); Magnesium 2.4 mg/dL (1.5-2.4); Phosphorus 2.9 mg/dL (2.4-5.1); Potassium 5.2 mmol/L (3.5-5.5); Sodium 137 mmol/L (135-145); Total Bilirubin 0.5 mg/dL (0.3-1.2); Total Iron Binding Capacity 403 UG/DL (228-460); Total Protein 6.6 g/dL (6.2-8.2); Uric Acid 6.6 mg/dL (2.9-7.7)
[2024-06-03 16:13] LABS: Appearance,Urine Clear (Clear); Bilirubin,Urine Negative (Negative); Blood,Urine Negative (Negative); Color,Urine Yellow (Yellow); Ketones,Urine Trace (Negative); Nitrite,Urine Negative (Negative); Specific Gravity,Urine 1.024 (1.001-1.030); Urobilinogen,Urine 0.2 E.U./DL
[2024-06-03 16:29] LABS: Bacteria,Urine Trace (None Seen)
[2024-06-04 11:21] LABS: Free Lambda Lt Chain Qnt, Seru 1.92 mg/dL (0.57-2.63)
== END | disposition home or self-care (01) ==
LOC: LABWHC1 10:20
PROVIDERS: ATTEND Internal Medicine
DX: N18.32 Chronic kidney disease, stage 3b (principal); D63.1 Anemia in chronic kidney disease; N39.0 Urinary tract infection, site not specified; E55.9 Vitamin D deficiency, unspecified; N25.81 Secondary hyperparathyroidism of renal origin; M10.9 Gout, unspecified; R80.9 Proteinuria, unspecified
CPT/HCPCS: 36415; 80053; 81001; 82043; 82306; 82570; 82728; 83540; 83550; 83735; 83883; 83970; 84100; 84166; 84550; 85027; 86334

== ENCOUNTER → 2024-06-27 | Outpatient (CLI) | payer MEDICARE ==
[2024-06-27 14:21] VITALS: BP 170/70; PULSE 53; RESP 16; TEMP 97.5
[2024-06-27] MEDS: DENOSUMAB 60 MG/ML 1 ML SYRINGE SQ NR (14:23)
== END ==
LOC: PROCWHC3 14:12
PROVIDERS: ATTEND Family Medicine
DX: M81.0 Age-related osteoporosis without current pathological fracture (principal)
CPT/HCPCS: 96372; J0897

== ENCOUNTER → 2024-06-28 | Outpatient (CLI) | payer MEDICARE ==
[2024-06-29 09:09] LABS: NT-Pro-B-Type Natriuretic Pept 3372 pg/mL (0-450)
[2024-06-29 09:11] LABS: ALT 14 U/L (8-44); AST 19 U/L (13-35); Albumin 4.3 g/dL (3.8-4.9); Albumin/Globulin Ratio 2.05 Ratio (1.60-3.17); Alkaline Phosphatase 36 U/L (41-126); BUN/Creat Ratio 19.62 Ratio (12.00-20.00); Blood Urea Nitrogen 25.5 mg/dL (9.0-27.0); Carbon Dioxide 20.1 mmol/L (21.6-31.8); Chloride 105 mmol/L (96-109); Chol/HDL Ratio 2.73 Ratio; Globulin 2.1 g/dL (1.6-3.3); Glucose 94 mg/dL (70-110); LDL Cholesterol,Calculated 74.7 mg/dL (0.0-131.0); Potassium 4.8 mmol/L (3.5-5.5); Sodium 140 mmol/L (135-145); Total Bilirubin 0.5 mg/dL (0.3-1.2); Total Protein 6.4 g/dL (6.2-8.2)
== END | disposition home or self-care (01) ==
LOC: LABWHC1 10:19
PROVIDERS: ATTEND Nurse Practitioner Adult Health
DX: I42.9 Cardiomyopathy, unspecified (principal); I50.32 Chronic diastolic (congestive) heart failure; E78.2 Mixed hyperlipidemia
CPT/HCPCS: 36415; 80053; 80061; 83880

== ENCOUNTER → 2024-08-13 | Outpatient (CLI) | payer MEDICARE ==
--- NOTE | 2024-08-13 14:26 | US ---
EXAMINATION TYPE: US kidneys/renal and bladder DATE OF EXAM: 08/13/2024 COMPARISON: US 04/19/2020 CLINICAL INDICATION: Female, 74 years old with history of N18.32 CHRONIC KIDNEY DISEASE, STAGE 3B; CK D TECHNIQUE: Grayscale imaging of the bilateral kidneys and urinary bladder: FINDINGS: EXAM MEASUREMENTS: Right Kidney: 8.3 x 4.1 x 5.1 cm Left Kidney: 7.3 x 4.3 x 3.9 cm Right Kidney: No hydronephrosis or masses seen, small in size Left Kidney: No hydronephrosis or masses seen, small in size Bladder: wnl Bladder jets: right jet seen Exam limited by patient body habitus and bowel gas. There is no evidence for hydronephrosis at this point in time. No nephrolithiasis is seen. No isak s are identified. The urinary bladder is anechoic. IMPRESSION: 1. No acute renal ultrasound abnormality. [facility], , 08/13/2024 2:23 PM
== END | disposition home or self-care (01) ==
LOC: RADUSWWP 13:18
PROVIDERS: ATTEND Internal Medicine Nephrology
DX: N18.32 Chronic kidney disease, stage 3b (principal)
CPT/HCPCS: 76770